=== PATIENT | female | born 1950 | race Caucasian/White ===

== ENCOUNTER → 2020-06-25 12:55 | Outpatient (BNVA) | payer MEDICARE, SELFPAY | PROVIDERS: PCP Physician Assistant; Visit Provider Family Medicine Adult Medicine | DX: M96.1 Postlaminectomy syndrome, not elsewhere classified (principal); Z98.1 Arthrodesis status; F17.200 Nicotine dependence, unspecified, uncomplicated; Z79.899 Other long term (current) drug therapy; Z79.52 Long term (current) use of systemic steroids; Z79.891 Long term (current) use of opiate analgesic | CPT/HCPCS: 99214 ==

== ENCOUNTER 2020-07-18 10:31 | Outpatient (REF) | payer MEDICARE, SELFPAY ==
--- NOTE | 2020-07-18 10:35 | MM_ITS ---
EXAMINATION: MM SCREENING DIGITAL BREAST TOMOSYNTHESIS, BILATERAL CLINICAL INFORMATION: Screening. Asymptomatic. The lifetime risk of breast cancer based on the Tyrer-Cuzick Model is 7.3%. COMPARISON: Mammography: July 13, 2019 and stapes dating back to March 08, 2012 TECHNIQUE: Digital breast tomosynthesis is performed in both the craniocaudal and mediolateral oblique views along with computer-aided detection (CAD). Synthesized 2D images are generated from the tomosynthesis. Right exaggerated craniocaudal view also performed. FINDINGS: The breasts are extremely dense, which lowers the sensitivity of mammography (ACR BI-RADS breast composition Category d). There are no significant masses, abnormal calcifications, or other abnormalities. MM/MM tomosynthesis screening BI IMPRESSION: There are no significant changes from prior study. ASSESSMENT: BI-RADS 1: Negative RECOMMENDATION: Routine annual mammography screening. This patient's information was entered into a reminder system with a target due date for their next mammogram.
== END 2020-07-18 10:32 | disposition home or self-care (01) ==
LOC: HO.MAMMO 10:31
PROVIDERS: PCP Physician Assistant; Visit Provider Physician Assistant
DX: Z12.31 Encounter for screening mammogram for malignant neoplasm of breast (principal)
CPT/HCPCS: 77063; 77067

== ENCOUNTER → 2020-07-30 08:01 | Outpatient (BNVA) | payer MEDICARE, SELFPAY | PROVIDERS: PCP Physician Assistant; Visit Provider Family Medicine Adult Medicine | DX: M96.1 Postlaminectomy syndrome, not elsewhere classified (principal); Z79.891 Long term (current) use of opiate analgesic; Z98.1 Arthrodesis status | CPT/HCPCS: 99212 ==

== ENCOUNTER → 2020-09-10 11:02 | Outpatient (BNVA) | payer MEDICARE, SELFPAY | PROVIDERS: PCP Physician Assistant; Visit Provider Family Medicine Adult Medicine | DX: M96.1 Postlaminectomy syndrome, not elsewhere classified (principal); Z98.1 Arthrodesis status | CPT/HCPCS: 99212 ==

== ENCOUNTER 2020-10-16 | Outpatient (REF) | payer MEDICARE, SELFPAY | END 2020-10-16 00:01 | disposition home or self-care (01) | LOC: HO.VC | PROVIDERS: Visit Provider Internal Medicine | DX: Z23 Encounter for immunization (principal) | CPT/HCPCS: 0011A ==

== ENCOUNTER → 2020-10-31 08:36 | Outpatient (BNVA) | payer MEDICARE, SELFPAY | PROVIDERS: PCP Physician Assistant; Visit Provider Anesthesiology | DX: M96.1 Postlaminectomy syndrome, not elsewhere classified (principal); Z98.1 Arthrodesis status | CPT/HCPCS: 99212 ==

== ENCOUNTER 2020-11-12 | Outpatient (REF) | payer MEDICARE, SELFPAY | END 2020-11-12 00:01 | disposition home or self-care (01) | LOC: HO.VC | PROVIDERS: Visit Provider Internal Medicine | DX: Z23 Encounter for immunization (principal) | CPT/HCPCS: 0012A ==

== ENCOUNTER → 2020-11-20 13:42 | Outpatient (BNVA) | payer MEDICARE, SELFPAY | PROVIDERS: PCP Physician Assistant; Visit Provider Internal Medicine | DX: J44.9 Chronic obstructive pulmonary disease, unspecified (principal); G25.81 Restless legs syndrome; F17.200 Nicotine dependence, unspecified, uncomplicated; Z71.6 Tobacco abuse counseling; Z79.899 Other long term (current) drug therapy | CPT/HCPCS: 99212 ==

== ENCOUNTER → 2020-11-28 08:30 | Outpatient (BNVA) | payer MEDICARE, SELFPAY | PROVIDERS: PCP Physician Assistant; Visit Provider Family Medicine Adult Medicine | DX: M96.1 Postlaminectomy syndrome, not elsewhere classified (principal); Z98.1 Arthrodesis status; Z79.899 Other long term (current) drug therapy | CPT/HCPCS: 99212 ==

== ENCOUNTER 2020-12-03 10:59 | Outpatient (REF) | payer MEDICARE, SELFPAY ==
--- NOTE | 2020-12-03 16:17 | PFT_ITS ---
INDICATION: COPD. SPIROMETRY: The FEV1 to FVC of 73% with an FEV1 of 1.91 L, which is 72% predicted, FVC of 2.62 L, which is 75% predicted. No significant response to bronchodilators noted. Maximum voluntary ventilation 79% predicted. LUNG VOLUMES: Total lung capacity 90% predicted. DIFFUSION CAPACITY: DLCO 36% predicted. Flow volume loop: There was some concavity to the expiratory limb suggesting some of an obstructive physiology. INTERPRETATION: The patient appears to have a moderate obstructive ventilatory defect with some degree of reversibility suggestive of asthma/COPD overlap syndrome. No significant response to bronchodilators noted. Slight decrease in maximum voluntary ventilation secondary to deconditioning. Lung volumes are within normal limits. The patient does have a very severe diffusion impairment, which could be secondary to emphysematous changes and all other parenchymal lung conditions and pulmonary vascular conditions should be considered. Clinical correlation warranted. Aravind Shankar MD MR/MODL / [id number]
== END 2020-12-03 11:00 | disposition home or self-care (01) ==
LOC: HO.RESP 10:59
PROVIDERS: PCP Physician Assistant; Visit Provider Internal Medicine
DX: J44.9 Chronic obstructive pulmonary disease, unspecified (principal); F17.200 Nicotine dependence, unspecified, uncomplicated
CPT/HCPCS: 94060; 94727; 94729

== ENCOUNTER → 2021-01-09 08:27 | Outpatient (BNVA) | payer MEDICARE, SELFPAY | PROVIDERS: PCP Physician Assistant; Visit Provider Family Medicine Adult Medicine | DX: M96.1 Postlaminectomy syndrome, not elsewhere classified (principal); Z98.1 Arthrodesis status | CPT/HCPCS: 99212 ==

== ENCOUNTER 2021-01-23 11:22 | Outpatient (REF) | payer MEDICARE, SELFPAY ==
--- NOTE | ~2021-01-23 | CT_ITS ---
EXAMINATION: CT CHEST SCREENING CLINICAL INFORMATION: Smoking history COMPARISON: Previous chest CT October 2019 TECHNIQUE: Multidetector volumetric CT imaging of the chest is performed without contrast using low dose technique. Additional 2D coronal and sagittal reformatted images and axial 3D maximum intensity projection (MIP) images are generated on the CT workstation. This CT examination was performed using dose optimization techniques as appropriate, variously including the following: *Automated exposure control *Adjustment of mA and/or kV according to patient size (this includes techniques or standardized protocols for targeted exams where dose is matched to indication/reason for exam; i.e. extremities or head) *Use of iterative reconstruction technique DLP: 45 mGy-cm FINDINGS: LUNGS: There is evidence of emphysema. There are small 2 to 3 mm bilateral upper lobe nodules that are stable. No new nodule is seen. There is scarring or subsegmental atelectasis in the anterior medial right upper lobe at the lung bases that is stable. There is no endobronchial or endotracheal lesion. MEDIASTINUM: The heart does not appear enlarged. There is mild coronary artery calcification. The thoracic aorta is normal in caliber. There are no enlarged hilar or mediastinal lymph nodes. The visualized thyroid gland is unremarkable. PLEURA: There is no pleural effusion. No pleural mass or thickening. AXILLA: No lymphadenopathy. UPPER ABDOMEN: Unremarkable OSSEOUS STRUCTURES: There are degenerative changes of the spine and mild scoliosis. CT/CT lung screening IMPRESSION: Severe emphysema. Stable small bilateral upper lobe nodules ASSESSMENT: Lung-RADS category 2: Benign RECOMMENDATION: Annual low-dose chest CT follow-up recommended.
== END 2021-01-23 11:23 | disposition home or self-care (01) ==
LOC: HO.CT 11:22
PROVIDERS: PCP Physician Assistant; Visit Provider Surgery
DX: Z12.2 Encounter for screening for malignant neoplasm of respiratory organs (principal); F17.210 Nicotine dependence, cigarettes, uncomplicated
CPT/HCPCS: 71271

== ENCOUNTER → 2021-02-19 08:26 | Outpatient (BNVA) | payer MEDICARE, SELFPAY | PROVIDERS: PCP Physician Assistant; Visit Provider Nurse Practitioner Family | DX: M96.1 Postlaminectomy syndrome, not elsewhere classified (principal); Z98.1 Arthrodesis status | CPT/HCPCS: 99212 ==

== ENCOUNTER → 2021-03-20 09:26 | Outpatient (BNVA) | payer MEDICARE, SELFPAY | PROVIDERS: PCP Physician Assistant; Visit Provider Family Medicine Adult Medicine | DX: M96.1 Postlaminectomy syndrome, not elsewhere classified (principal); Z98.1 Arthrodesis status | CPT/HCPCS: 99212 ==

== ENCOUNTER → 2021-04-17 10:58 | Outpatient (BNVA) | payer MEDICARE, SELFPAY | PROVIDERS: PCP Physician Assistant; Visit Provider Family Medicine Adult Medicine | DX: M96.1 Postlaminectomy syndrome, not elsewhere classified (principal); Z98.1 Arthrodesis status | CPT/HCPCS: 99212 ==

== ENCOUNTER 2021-04-18 08:31 | Outpatient (REF) | payer MEDICARE, SELFPAY ==
[2021-04-18 10:20] LABS: Hematocrit 43.6 % (37-47); Hemoglobin 14.4 g/dl (12.0-16.0); Mean Corpuscular Hemoglobin 30.9 pg (27.0-33.0); Mean Corpuscular Volume 93.6 fL (80-98); Mean Platelet Volume 9.5 fL (9.4-12.3); Platelet Count 205 X10*3/uL (160-400); Red Blood Count 4.66 X10*6/uL (4.20-5.50); Red Cell Distribution Width 13.9 % (11.0-16.0); White Blood Count 6.3 X10*3/uL (4.8-10.8)
[2021-04-18 10:27] LABS: Estimated Average Glucose 111 mg/dL; Hemoglobin A1c % 5.5 %
[2021-04-18 11:08] LABS: Alanine Aminotransferase 12 U/L (0-31); Albumin Level 4.1 g/dL (3.5-5.0); Alkaline Phosphatase 64 U/L (39-117); Anion Gap 13 (12-20); Aspartate Amino Transferase 20 U/L (5-31); Bilirubin Total 0.7 mg/dL (0.0-1.0); Blood Urea Nitrogen 14 mg/dL (9-16); Calcium 9.3 mg/dL (8.4-10.2); Carbon Dioxide 28 mmol/L (22-29); Chloride 101 mmol/L (96-108); Cholesterol 195 mg/dL; Estimated Glomerular Filt Rate > 60; Glucose Fasting 84 mg/dL (60-99); HDL Cholesterol 83 mg/dL; LDL Cholesterol Calculated 102 mg/dl; Potassium 5.3 mmol/L (3.3-5.1); Sodium 137 mmol/L (135-145); Total Protein 6.9 g/dL (6.5-8.0); Triglycerides 54 mg/dL
[2021-04-18 11:09] LABS: TSH reflex Free T4 2.11 uIU/mL (0.32-4.0)
== END 2021-04-18 08:32 | disposition home or self-care (01) ==
LOC: HO.LAB 08:31
PROVIDERS: Absent Provider Physician Assistant; PCP Physician Assistant; Visit Provider Family Medicine Adult Medicine
DX: Z13.220 Encounter for screening for lipoid disorders (principal); Z13.29 Encounter for screening for other suspected endocrine disorder; I10 Essential (primary) hypertension; J44.9 Chronic obstructive pulmonary disease, unspecified; G89.4 Chronic pain syndrome
CPT/HCPCS: 36415; 80053; 80061; 83036; 84443; 85027

== ENCOUNTER 2021-04-30 15:02 | Outpatient (REF) | payer MEDICARE, SELFPAY ==
[2021-04-30 16:11] LABS: Anion Gap 11 (12-20); Carbon Dioxide 28 mmol/L (22-29); Chloride 98 mmol/L (96-108); Potassium 4.4 mmol/L (3.3-5.1); Sodium 133 mmol/L (135-145)
== END 2021-04-30 15:03 | disposition home or self-care (01) ==
LOC: HO.LAB 15:02
PROVIDERS: PCP Physician Assistant; Visit Provider Physician Assistant
DX: E87.5 Hyperkalemia (principal)
CPT/HCPCS: 36415; 80051

== ENCOUNTER → 2021-05-20 10:57 | Outpatient (BNVA) | payer MEDICARE, SELFPAY | PROVIDERS: PCP Physician Assistant; Visit Provider Nurse Practitioner Family | DX: M96.1 Postlaminectomy syndrome, not elsewhere classified (principal); Z98.1 Arthrodesis status | CPT/HCPCS: 99212 ==

== ENCOUNTER → 2021-06-17 12:57 | Outpatient (BNVA) | payer MEDICARE, SELFPAY | PROVIDERS: PCP Physician Assistant; Visit Provider Nurse Practitioner Family | DX: Z51.81 Encounter for therapeutic drug level monitoring (principal); M96.1 Postlaminectomy syndrome, not elsewhere classified; Z98.1 Arthrodesis status | CPT/HCPCS: 99212 ==

== ENCOUNTER 2021-06-20 13:15 | Outpatient (REF) | payer MEDICARE, SELFPAY ==
[2021-06-20 14:22] LABS: Hematocrit 40.6 % (37-47); Hemoglobin 13.6 g/dl (12.0-16.0); Mean Corpuscular HGB Conc 33.5 g/dl (31.0-35.0); Mean Corpuscular Hemoglobin 31.3 pg (27.0-33.0); Mean Corpuscular Volume 93.3 fL (80-98); Mean Platelet Volume 8.9 fL (9.4-12.3); Platelet Count 220 X10*3/uL (160-400); Red Blood Count 4.35 X10*6/uL (4.20-5.50); Red Cell Distribution Width 14.3 % (11.0-16.0); White Blood Count 6.4 X10*3/uL (4.8-10.8)
[2021-06-20 14:48] LABS: Amylase 45 U/L (28-100); Anion Gap 10 (12-20); Blood Urea Nitrogen 15 mg/dL (9-16); Calcium 9.4 mg/dL (8.4-10.2); Carbon Dioxide 31 mmol/L (22-29); Chloride 101 mmol/L (96-108); Estimated Glomerular Filt Rate > 60; Glucose Random 82 mg/dL (60-115); Lipase 21 U/L (8-78); Potassium 4.6 mmol/L (3.3-5.1); Sodium 137 mmol/L (135-145)
== END 2021-06-20 13:16 | disposition home or self-care (01) ==
LOC: HO.LAB 13:15
PROVIDERS: PCP Physician Assistant; Visit Provider Physician Assistant
DX: R19.4 Change in bowel habit (principal); I10 Essential (primary) hypertension
CPT/HCPCS: 36415; 80048; 82150; 83690; 85027

== ENCOUNTER → 2021-07-15 12:59 | Outpatient (BNVA) | payer MEDICARE, SELFPAY | PROVIDERS: PCP Physician Assistant; Visit Provider Family Medicine Adult Medicine | DX: M96.1 Postlaminectomy syndrome, not elsewhere classified (principal); Z98.1 Arthrodesis status; Z79.899 Other long term (current) drug therapy; Z79.891 Long term (current) use of opiate analgesic | CPT/HCPCS: 99213; Q3014 ==

== ENCOUNTER 2021-07-17 09:00 | Outpatient (REF) | payer MEDICARE, SELFPAY ==
--- NOTE | ~2021-07-17 | US_ITS ---
EXAMINATION: US ABDOMEN COMPLETE CLINICAL INFORMATION: Abdominal distention (gaseous). COMPARISON: Previous chest CT October 2019 TECHNIQUE: Real-time imaging of the abdominal viscera. FINDINGS: PANCREAS: There is a 1.6 x 0.6 x 1.4 cm lymph node adjacent to the pancreatic head. Pancreas is otherwise normal. ABDOMINAL AORTA: There is evidence of atherosclerotic disease. The upper abdominal aorta is upper normal in size measuring 3 cm. The mid and distal abdominal aorta are normal in caliber. INFERIOR VENA CAVA: The IVC is prominent measuring 3.2 cm in diameter. LIVER: The liver is normal in size. The liver contour is normal. Parenchymal echogenicity is normal. No focal hepatic lesion. There is no intrahepatic biliary duct dilatation seen. GALLBLADDER: The gallbladder is physiologically distended without evidence of stones, sludge, polyps, wall thickening or pericholecystic fluid. COMMON BILE DUCT: Normal in caliber measuring 0.2 cm in diameter. RIGHT KIDNEY: There is a 9 x 6 x 5 mm cyst exophytic to the midpole. No hydronephrosis or renal calculi. The kidney measures 10.8 cm in maximum dimension. LEFT KIDNEY: Normal. No hydronephrosis. No renal calculi or focal parenchymal lesions. The kidney measures 11.1 cm in maximum dimension. SPLEEN: Normal. The spleen measures 7.5 cm in maximum dimension. FREE FLUID: None. US/US abdomen complete IMPRESSION: Small peripancreatic lymph node measuring 1.6 x 0.6 x 1.4 cm. Small right renal cyst. Upper normal-size upper abdominal aorta. Prominent IVC.
== END 2021-07-17 09:01 | disposition home or self-care (01) ==
LOC: HO.US 09:00
PROVIDERS: PCP Physician Assistant; Visit Provider Physician Assistant
DX: R14.0 Abdominal distension (gaseous) (principal)
CPT/HCPCS: 76700

== ENCOUNTER 2021-07-25 11:41 | Outpatient (REF) | payer MEDICARE, SELFPAY ==
--- NOTE | ~2021-07-25 | MM_ITS ---
EXAMINATION: MM SCREENING DIGITAL BREAST TOMOSYNTHESIS, BILATERAL CLINICAL INFORMATION: Screening. Asymptomatic. The lifetime risk of breast cancer based on the Tyrer-Cuzick Model is 6%. COMPARISON: Mammography: 07/18/2020, 07/13/2019, 06/22/2018 TECHNIQUE: Digital breast tomosynthesis is performed in both the craniocaudal and mediolateral oblique views along with computer-aided detection (CAD). Synthesized 2D images are generated from the tomosynthesis. FINDINGS: The breasts are extremely dense, which lowers the sensitivity of mammography (ACR BI-RADS breast composition Category d). There are no significant masses, abnormal calcifications, or other abnormalities. Parenchymal pattern is similar to prior studies. No developing density. The axilla and skin contours are unremarkable. MM/MM tomosynthesis screening BI IMPRESSION: No mammographic evidence of malignancy. ASSESSMENT: BI-RADS 1: Negative RECOMMENDATION: Routine annual mammography screening. This patient's information was entered into a reminder system with a target due date for their next mammogram.
== END 2021-07-25 11:42 | disposition home or self-care (01) ==
LOC: HO.MAMMO 11:41
PROVIDERS: Visit Provider Physician Assistant
DX: Z12.31 Encounter for screening mammogram for malignant neoplasm of breast (principal)
CPT/HCPCS: 77063; 77067

== ENCOUNTER → 2021-07-29 11:24 | Outpatient (BNVA) | payer MEDICARE, SELFPAY | PROVIDERS: PCP Physician Assistant; Visit Provider Surgery Vascular Surgery | DX: I83.12 Varicose veins of left lower extremity with inflammation (principal) | CPT/HCPCS: 99202 ==

== ENCOUNTER 2021-08-18 10:30 | Outpatient (REF) | payer MEDICARE, SELFPAY ==
--- NOTE | ~2021-08-18 | US_ITS ---
EXAMINATION: US LOWER EXTREMITY VENOUS (REFLUX EXAM), BILATERAL CLINICAL INDICATION: This is a 71-year-old female with venous insufficiency and varicose veins. The patient is status post left vein stripping in 2008. COMPARISON: None. TECHNIQUE: Color flow triplex imaging and compression Doppler was performed to evaluate both the deep and the superficial systems bilaterally. To evaluate the superficial system, the examination was performed in the upright position. Color-flow Doppler ultrasound and compression ultrasound were utilized. In addition, maneuvers were utilized to demonstrate reflux. FINDINGS: 1. DEEP VENOUS ULTRASOUND OF THE RIGHT LOWER EXTREMITY: Common Femoral Vein: Compressible, normal respiratory variation and augmented flow. Femoral vein: Compressible, normal color flow and augmentation. Popliteal Vein: Compressible, normal augmentation. Deep Reflux: There is no evidence of reflux in the deep system in either the common femoral vein or the popliteal vein. There is no evidence of a Alcaraz's cyst. 2. SUPERFICIAL ULTRASOUND WITH DOPPLER OF RIGHT LOWER EXTREMITY: GREAT SAPHENOUS VEIN: Saphenofemoral Junction: 0.5 cm. The reflux time is 3204 ms. Mid Thigh: 0.4 cm. The reflux time is 2864 ms per Above Knee: 0.4 cm. The reflux time is 3360 ms. Below Knee: 0.4 cm. The reflux time is 3320 ms. Mid Calf: 0.2 cm. The reflux time is 3003 and 48 ms. Ankle: 0.3 cm. There is no reflux. GSV REFLUX: There is reflux throughout the great saphenous vein including the saphenofemoral junction. DUPLICATED GREAT SAPHENOUS VEIN: There is a 0.4 cm duplicated lateral great saphenous vein without reflux. SMALL SAPHENOUS VEIN: Proximal: 0.2 cm. There is no reflux. Distal: 0.3 cm. The reflux time is 784 ms. SSV REFLUX: There is only distal reflux. VEIN OF GIACOMINI: None Imaged. PERFORATORS: There is a 0.2 cm mid calf application dba without reflux. VARICOSITIES: There is a 0.3 cm varicose vein in the proximal thigh without reflux. 3. DEEP VENOUS ULTRASOUND OF THE LEFT LOWER EXTREMITY: Common Femoral Vein: Compressible but with reflux of 2660 ms of reflux.. Femoral Vein: Compressible but without reflux. Popliteal Vein: Compressible, but with reflux of 860 ms of reflux. Deep Reflux: There is no evidence of reflux in the deep system in either the common femoral vein or the popliteal vein. There is a 2.7 x 1.2 x 2.2 cm fluid collection medial to the knee. This may represent a popliteal cyst. 4. SUPERFICIAL ULTRASOUND WITH DOPPLER OF LEFT LOWER EXTREMITY: GREAT SAPHENOUS VEIN: Saphenofemoral Junction: 0.6 cm. There is no reflux Mid Thigh: Absent status post stripping. Above Knee: Absent status post stripping. Below Knee: Absent status post stripping. Mid Calf: 0.4 cm. The reflux time is 3284 ms. Ankle: 0.4 cm. The reflux time is 3324 ms GSV REFLUX: There is no reflux at the junction. There is distal reflux. DUPLICATED GREAT SAPHENOUS VEIN: None SMALL SAPHENOUS VEIN: Proximal: 0.2 cm Distal: 0.4 cm SSV REFLUX: No evidence of reflux. VEIN OF GIACOMINI: None Imaged. PERFORATORS: None Imaged VARICOSITIES: There are 0.4 cm proximal thigh, mid thigh, distal thigh, proximal calf varicose veins with greater than 3 seconds of reflux throughout. US/US venous duplex LE BI IMPRESSION: 1. There is a patent right great saphenous vein with greater than 3 seconds of reflux. 2. There is a patent right small saphenous vein without evidence of reflux at the junction. 3. There are 0.3 cm proximal right thigh varicose veins without reflux. 4. The patient is status post left great saphenous vein stripping. Distal reflux is seen. 5. There is a patent left small saphenous vein without reflux. 6. There are varicose veins in the left leg measuring 0.4 cm with greater than 3 seconds of reflux. 7. There is a 2.7 cm left knee fluid collection. A. There is reflux in the deep venous system as noted.
== END 2021-08-18 10:31 | disposition home or self-care (01) ==
LOC: HO.US 10:30
PROVIDERS: PCP Physician Assistant; Visit Provider Surgery Vascular Surgery
DX: I83.12 Varicose veins of left lower extremity with inflammation (principal)
CPT/HCPCS: 93970

== ENCOUNTER → 2021-08-19 13:28 | Outpatient (BNVA) | payer MEDICARE, SELFPAY | PROVIDERS: PCP Physician Assistant; Visit Provider Family Medicine Adult Medicine | DX: M96.1 Postlaminectomy syndrome, not elsewhere classified (principal); Z98.1 Arthrodesis status ==

== ENCOUNTER → 2021-08-21 10:12 | Outpatient (BNVA) | payer MEDICARE, SELFPAY | PROVIDERS: PCP Physician Assistant; Visit Provider Surgery Vascular Surgery | DX: I83.12 Varicose veins of left lower extremity with inflammation (principal) | CPT/HCPCS: 99212 ==

== ENCOUNTER → 2021-09-16 13:01 | Outpatient (BNVA) | payer MEDICARE, SELFPAY | PROVIDERS: PCP Physician Assistant; Visit Provider Family Medicine Adult Medicine | DX: M96.1 Postlaminectomy syndrome, not elsewhere classified (principal); Z98.1 Arthrodesis status ==

== ENCOUNTER → 2021-10-10 09:49 | Outpatient (BNVA) | payer MEDICARE, SELFPAY | PROVIDERS: PCP Physician Assistant; Visit Provider Nurse Practitioner Family | DX: Z51.81 Encounter for therapeutic drug level monitoring (principal); F11.20 Opioid dependence, uncomplicated; M96.1 Postlaminectomy syndrome, not elsewhere classified; Z98.1 Arthrodesis status | CPT/HCPCS: 99212 ==

== ENCOUNTER 2021-10-10 10:30 | Outpatient (REF) | payer MEDICARE, SELFPAY ==
[2021-10-14 11:26] LABS: Immunoglobulin A 132 mg/dL (70-320)
[2021-10-15 13:26] LABS: Endomysial IgA Antibody Negative (Negative)
[2021-10-15 17:17] LABS: Transglutaminase Ab IgG <1.0 U/mL; Transglutaminase IgA <1.0 U/mL
[2021-10-16 07:57] LABS: Gliadin Deamidated IgA Ab <1.0 U/mL; Gliadin Deamidated IgG Ab <1.0 U/mL
== END 2021-10-10 10:31 | disposition home or self-care (01) ==
LOC: HO.10HDL 10:30
PROVIDERS: Visit Provider Internal Medicine
DX: R10.84 Generalized abdominal pain (principal); R14.0 Abdominal distension (gaseous); M96.1 Postlaminectomy syndrome, not elsewhere classified; Z98.1 Arthrodesis status
CPT/HCPCS: 36415; 82784; 86231; 86258; 86364

== ENCOUNTER 2021-10-14 11:34 | Outpatient (REF) | payer MEDICARE, SELFPAY ==
--- NOTE | ~2021-10-14 | CT_ITS ---
EXAMINATION: CT ABDOMEN AND PELVIS WITH CONTRAST CLINICAL INFORMATION: Change in bowel habit. COMPARISON: None TECHNIQUE: Multidetector volumetric images were obtained from the superior aspect of the liver through the pubic symphysis following administration 85 mL of Omnipaque 350 intravenous contrast. Sagittal and coronal reformatted images were obtained on the technologist's workstation. Oral contrast: No This CT examination was performed using dose optimization techniques as appropriate, variously including the following: *Automated exposure control *Adjustment of mA and/or kV according to patient size (this includes techniques or standardized protocols for targeted exams where dose is matched to indication/reason for exam; i.e. extremities or head) *Use of iterative reconstruction technique DLP: 375 mGy-cm FINDINGS: LUNG BASES: The heart size is enlarged. There is platelike atelectasis in both lung bases. LIVER, GALLBLADDER, AND BILIARY TREE: The liver is normal in size, shape, and attenuation. No focal hepatic lesion or biliary ductal dilatation is present. The gallbladder is unremarkable with no evidence of radiopaque gallstones, gallbladder wall thickening, or obvious pericholecystic inflammatory changes. PANCREAS: Unremarkable. SPLEEN: Unremarkable. ADRENAL GLANDS: Unremarkable. KIDNEYS AND URETERS: The kidneys are normal in size, shape, and attenuation. No hydronephrosis, hydroureter, or calculi seen. No perinephric stranding. BLADDER: The bladder is undistended. GASTROINTESTINAL TRACT: There is a large amount of stool seen throughout the colon consistent with severe constipation. The distal small bowel loops are mildly prominent with gas but not dilated. The stomach is empty. Appendix is not seen. No free air or free fluid seen. ABDOMINAL WALL: No significant hernia is appreciated. LYMPH NODES: Normal. VASCULAR: There is atherosclerotic calcification of abdominal aorta without aneurysmal dilatation. PELVIC VISCERA: The uterus is anteverted and appears unremarkable. There is no free fluid or adnexal mass. No abnormal lymph nodes. OSSEOUS STRUCTURES: There is a levoscoliosis of dorsal lumbar spine with degenerative disc changes and spondylosis at every lumbar disc level. There is mild osteopenia. There is Grade 1 anterolisthesis L4-L5 with posterior hardware for L4-L5 effusion. CT/CT abdomen pelvis w con IMPRESSION: Severe constipation without signs of obstruction. No acute intra-abdominal process seen. Moderate levoscoliosis with degenerative disc changes at virtually every disc level. Grade 1 anterolisthesis L4 over L5 stabilized with posterior hardware. Fleischner guidelines were followed.
[2021-10-14 13:19] LABS: Blood Urea Nitrogen 14 mg/dL (9-16); Estimated Glomerular Filt Rate > 60
[2021-10-14] MEDS: iohexoL 350 MG/ML 100 ML INFUS..BTL IV (14:46)
[2021-10-14] MEDS: Barium Sulfate Oral (Vanilla) 450 ML ORAL.SUSP 900 ML PO (14:47)
== END 2021-10-14 11:35 | disposition home or self-care (01) ==
LOC: HO.CT 11:34
PROVIDERS: PCP Physician Assistant; Visit Provider Internal Medicine
DX: R10.84 Generalized abdominal pain (principal); R14.0 Abdominal distension (gaseous); R19.4 Change in bowel habit
CPT/HCPCS: 36415; 74177; 82565; 84520; Q9967

== ENCOUNTER → 2021-11-07 09:27 | Outpatient (BNVA) | payer MEDICARE, SELFPAY | PROVIDERS: PCP Physician Assistant; Visit Provider Nurse Practitioner Family | DX: M96.1 Postlaminectomy syndrome, not elsewhere classified (principal); Z79.891 Long term (current) use of opiate analgesic; Z98.1 Arthrodesis status | CPT/HCPCS: 99212 ==

== ENCOUNTER → 2021-11-19 10:59 | Outpatient (BNVA) | payer MEDICARE, SELFPAY | PROVIDERS: PCP Physician Assistant; Visit Provider Internal Medicine | DX: J41.0 Simple chronic bronchitis (principal); G25.81 Restless legs syndrome; F17.210 Nicotine dependence, cigarettes, uncomplicated | CPT/HCPCS: 99212 ==

== ENCOUNTER → 2021-12-05 10:59 | Outpatient (BNVA) | payer MEDICARE, SELFPAY | PROVIDERS: PCP Physician Assistant; Visit Provider Nurse Practitioner Family | DX: Z13.89 Encounter for screening for other disorder (principal) ==

== ENCOUNTER → 2022-01-02 10:26 | Outpatient (BNVA) | payer MEDICARE, SELFPAY | PROVIDERS: PCP Physician Assistant; Visit Provider Nurse Practitioner Family | DX: Z51.81 Encounter for therapeutic drug level monitoring (principal); F11.20 Opioid dependence, uncomplicated; M96.1 Postlaminectomy syndrome, not elsewhere classified; Z98.1 Arthrodesis status | CPT/HCPCS: 99212 ==

== ENCOUNTER → 2022-01-30 12:55 | Outpatient (BNVA) | payer MEDICARE, SELFPAY | PROVIDERS: PCP Physician Assistant; Visit Provider Nurse Practitioner Family | DX: Z13.89 Encounter for screening for other disorder (principal) ==

== ENCOUNTER 2022-02-10 13:27 | Outpatient (REF) | payer MEDICARE, SELFPAY ==
--- NOTE | ~2022-02-10 | XR_ITS ---
EXAMINATION: XR CHEST CLINICAL INFORMATION: J40 - Bronchitis, not specified as acute or chronic COMPARISON: Chest radiographs 03/30/2019, 02/11/2018. TECHNIQUE: 2 views of the chest were obtained. FINDINGS: There is hyperinflation, greater in the upper zones, similar to prior exam. Some accentuated reticular markings are present at the subpleural bilateral bases. There is subtle airspace opacity left posterior basal lower lobe suggesting infiltrate. The remainder the lungs are clear. The vascularity is normal. The cardiopericardial silhouette is enlarged, similar to prior study. The hilar and mediastinal contours and bony structures are stable. PSA to call report. XR/XR chest 2V IMPRESSION: -Infiltrate posterior basal left lower lobe. No effusion. -Hyperinflation and cardiopericardial enlargement similar to prior exams.
== END 2022-02-10 13:28 | disposition home or self-care (01) ==
LOC: HO.XRAY 13:27
PROVIDERS: PCP Physician Assistant; Visit Provider Internal Medicine
DX: J44.1 Chronic obstructive pulmonary disease with (acute) exacerbation (principal); J40 Bronchitis, not specified as acute or chronic; F17.200 Nicotine dependence, unspecified, uncomplicated; Z71.6 Tobacco abuse counseling
CPT/HCPCS: 71046; 99212

== ENCOUNTER → 2022-02-27 12:58 | Outpatient (BNVA) | payer MEDICARE, SELFPAY | PROVIDERS: PCP Physician Assistant; Visit Provider Nurse Practitioner Family | DX: Z51.81 Encounter for therapeutic drug level monitoring (principal); F11.20 Opioid dependence, uncomplicated | CPT/HCPCS: 99211 ==

== ENCOUNTER 2022-03-10 16:00 | Outpatient (REF) | payer MEDICARE, SELFPAY ==
--- NOTE | ~2022-03-10 | XR_ITS ---
EXAMINATION: XR CHEST CLINICAL INFORMATION: Follow-up pneumonia COMPARISON: Previous chest x-ray January 2022 TECHNIQUE: 2 views of the chest were obtained. FINDINGS: The cardiac and mediastinal contours are stable. The left lower lobe infiltrate appears improved. The lungs are otherwise clear. The lungs are well inflated. There is no pleural effusion or pneumothorax. There are degenerative changes of the spine. XR/XR chest 2V IMPRESSION: Clearing left lower lobe infiltrate.
== END 2022-03-10 16:01 | disposition home or self-care (01) ==
LOC: HO.XRAY 16:00
PROVIDERS: PCP Physician Assistant; Visit Provider Internal Medicine
DX: J44.1 Chronic obstructive pulmonary disease with (acute) exacerbation (principal); J18.9 Pneumonia, unspecified organism
CPT/HCPCS: 71046; 99212

== ENCOUNTER 2022-03-24 10:24 | Outpatient (REF) | payer MEDICARE, SELFPAY ==
--- NOTE | ~2022-03-24 | CT_ITS ---
EXAMINATION: CT CHEST SCREENING CLINICAL INFORMATION: Current smoker. COMPARISON: Previous chest CT most recent January of 2021. TECHNIQUE: Multidetector volumetric CT imaging of the chest is performed without contrast using low dose technique. Additional 2D coronal and sagittal reformatted images and axial 3D maximum intensity projection (MIP) images are generated on the CT workstation. This CT examination was performed using dose optimization techniques as appropriate, variously including the following: *Automated exposure control *Adjustment of mA and/or kV according to patient size (this includes techniques or standardized protocols for targeted exams where dose is matched to indication/reason for exam; i.e. extremities or head) *Use of iterative reconstruction technique DLP: 42 mGy-cm FINDINGS: LUNGS: There is evidence of emphysema. There is chronic volume loss, bronchiectasis and atelectasis in the right middle lobe that is unchanged. There is chronic subsegmental atelectasis or scarring at the lung bases. The lungs are otherwise clear. There is increased soft tissue seen in the matilda and bilateral proximal mainstem bronchi, for example (axial image 197), series 5. MEDIASTINUM: Coronary artery and aortic valve calcification. The mediastinum is otherwise normal. PLEURA: There is no pleural effusion. No pleural mass or thickening. AXILLA: No lymphadenopathy. UPPER ABDOMEN: Unremarkable. OSSEOUS STRUCTURES: Degenerative changes of the spine. CT/CT lung screening IMPRESSION: Emphysema. Stable volume loss, atelectasis and focal bronchiectasis in the medial segment of the right middle lobe. Stable linear scarring or chronic subsegmental atelectasis at the lung bases. New increased soft tissue seen at the matilda and proximal bilateral mainstem bronchi. It is uncertain whether this is related to patient secretions. Atherosclerotic disease and coronary artery calcification. ASSESSMENT: Lung-RADS category 3: Probably Benign. RECOMMENDATION: Six-month low-dose chest CT follow up.
== END 2022-03-24 10:25 | disposition home or self-care (01) ==
LOC: HO.CT 10:24
PROVIDERS: Visit Provider Physician Assistant Medical
DX: F17.210 Nicotine dependence, cigarettes, uncomplicated (principal)
CPT/HCPCS: 71271

== ENCOUNTER → 2022-03-27 13:27 | Outpatient (BNVA) | payer MEDICARE, SELFPAY | PROVIDERS: PCP Physician Assistant; Visit Provider Nurse Practitioner Family | DX: Z51.81 Encounter for therapeutic drug level monitoring (principal); F11.20 Opioid dependence, uncomplicated; M96.1 Postlaminectomy syndrome, not elsewhere classified; S29.012A Strain of muscle and tendon of back wall of thorax, initial encounter; Z98.1 Arthrodesis status | CPT/HCPCS: 99212 ==

== ENCOUNTER 2022-04-08 07:52 | Outpatient (REF) | payer MEDICARE, SELFPAY ==
[2022-04-08 08:59] LABS: Estimated Average Glucose 105 mg/dL; Hemoglobin A1c % 5.3 %
[2022-04-08 09:35] LABS: Alanine Aminotransferase 18 U/L (0-31); Albumin Level 4.3 g/dL (3.5-5.0); Alkaline Phosphatase 63 U/L (39-117); Anion Gap 9 (12-20); Aspartate Amino Transferase 20 U/L (5-31); Bilirubin Total 0.9 mg/dL (0.0-1.0); Blood Urea Nitrogen 12 mg/dL (9-16); Calcium 8.8 mg/dL (8.4-10.2); Carbon Dioxide 30 mmol/L (22-29); Chloride 101 mmol/L (96-108); Cholesterol 197 mg/dL; Estimated Glomerular Filt Rate > 60; Glucose Fasting 87 mg/dL (60-99); HDL Cholesterol 83 mg/dL; LDL Cholesterol Calculated 103 mg/dl; Potassium 4.4 mmol/L (3.3-5.1); Sodium 136 mmol/L (135-145); Total Protein 6.9 g/dL (6.5-8.0); Triglycerides 57 mg/dL
[2022-04-08 09:51] LABS: TSH reflex Free T4 1.51 uIU/mL (0.32-4.0)
== END 2022-04-08 07:53 | disposition home or self-care (01) ==
LOC: HO.LAB 07:52
PROVIDERS: PCP Physician Assistant; Visit Provider Physician Assistant
DX: Z13.1 Encounter for screening for diabetes mellitus (principal); Z13.29 Encounter for screening for other suspected endocrine disorder; Z13.220 Encounter for screening for lipoid disorders
CPT/HCPCS: 36415; 80053; 80061; 83036; 84443

== ENCOUNTER → 2022-04-27 12:58 | Outpatient (BNVA) | payer MEDICARE, SELFPAY | PROVIDERS: PCP Physician Assistant; Visit Provider Nurse Practitioner Family | DX: Z51.81 Encounter for therapeutic drug level monitoring (principal); F11.20 Opioid dependence, uncomplicated | CPT/HCPCS: 99211 ==

== ENCOUNTER → 2022-05-28 11:03 | Outpatient (BNVA) | payer MEDICARE, SELFPAY | PROVIDERS: PCP Physician Assistant; Visit Provider Nurse Practitioner Family | DX: M46.1 Sacroiliitis, not elsewhere classified (principal); M96.1 Postlaminectomy syndrome, not elsewhere classified; M25.551 Pain in right hip; M25.552 Pain in left hip; Z79.891 Long term (current) use of opiate analgesic; Z98.1 Arthrodesis status | CPT/HCPCS: 99212 ==

== ENCOUNTER 2022-06-01 12:38 | Outpatient (REF) | payer MEDICARE, SELFPAY ==
--- NOTE | ~2022-06-01 | XR_ITS ---
EXAMINATION: XR LUMBAR SPINE XR SACROILIAC JOINT XR HIPS, BILATERAL WITH AP PELVIS CLINICAL INFORMATION: Postlaminectomy syndrome. COMPARISON: None. TECHNIQUE: 7 views lumbar spine, 3 views SI joint AP pelvis and bilateral hips 5 views. FINDINGS: Lumbar Spine: There is maintained lumbar lordosis and mild dextroscoliosis. There are bilateral pedicular screws at L4 and L5 vertebrae with interconnecting rods and an intervening disc prosthesis at the L4-L5 disc level. There is loss of disc height virtually at every disc level with moderate endplate sclerosis at the L5-S1 disc level. On flexion-extension views, there is no subluxation seen, especially no movement seen at the fused L4-L5 disc level. No acute fracture or lytic process seen. Si Joints: The SI joints are symmetrical and normal. No erosive changes or sclerosis seen. AP Pelvis: There is mild reduction in the bilateral symmetric hip joint space. No bony erosive changes. The pelvic bone appears intact. The SI joints are normal. Right Hip: There is mild loss of right hip joint space. No bony erosive changes. There is minimal lateral acetabular spurring. The soft tissues are normal. Left Hip: There is loss of left hip joint space. No bony erosive changes. No acute fracture or lytic process. There are surgical sutures in the left groin from previous intervention. XR/XR sacroiliac joint min 3V IMPRESSION: L4 and L5 disc prostheses with posterior hardware for fusion. There is mild levoscoliosis with degenerative disc changes and ventral spondylosis throughout all lumbar disc levels. No visible acute fracture seen. No subluxation seen at the fused or an unfused lumbar disc levels. Unremarkable SI joints and AP pelvis. Minimal degenerative spurring right acetabulum. Mild degenerative changes bilateral hip joints.
--- NOTE | ~2022-06-01 | XR_ITS ---
EXAMINATION: XR LUMBAR SPINE XR SACROILIAC JOINT XR HIPS, BILATERAL WITH AP PELVIS CLINICAL INFORMATION: Postlaminectomy syndrome. COMPARISON: None. TECHNIQUE: 7 views lumbar spine, 3 views SI joint AP pelvis and bilateral hips 5 views. FINDINGS: Lumbar Spine: There is maintained lumbar lordosis and mild dextroscoliosis. There are bilateral pedicular screws at L4 and L5 vertebrae with interconnecting rods and an intervening disc prosthesis at the L4-L5 disc level. There is loss of disc height virtually at every disc level with moderate endplate sclerosis at the L5-S1 disc level. On flexion-extension views, there is no subluxation seen, especially no movement seen at the fused L4-L5 disc level. No acute fracture or lytic process seen. Si Joints: The SI joints are symmetrical and normal. No erosive changes or sclerosis seen. AP Pelvis: There is mild reduction in the bilateral symmetric hip joint space. No bony erosive changes. The pelvic bone appears intact. The SI joints are normal. Right Hip: There is mild loss of right hip joint space. No bony erosive changes. There is minimal lateral acetabular spurring. The soft tissues are normal. Left Hip: There is loss of left hip joint space. No bony erosive changes. No acute fracture or lytic process. There are surgical sutures in the left groin from previous intervention. XR/XR hip BI w PEL1V IMPRESSION: L4 and L5 disc prostheses with posterior hardware for fusion. There is mild levoscoliosis with degenerative disc changes and ventral spondylosis throughout all lumbar disc levels. No visible acute fracture seen. No subluxation seen at the fused or an unfused lumbar disc levels. Unremarkable SI joints and AP pelvis. Minimal degenerative spurring right acetabulum. Mild degenerative changes bilateral hip joints.
--- NOTE | ~2022-06-01 | XR_ITS ---
EXAMINATION: XR LUMBAR SPINE XR SACROILIAC JOINT XR HIPS, BILATERAL WITH AP PELVIS CLINICAL INFORMATION: Postlaminectomy syndrome. COMPARISON: None. TECHNIQUE: 7 views lumbar spine, 3 views SI joint AP pelvis and bilateral hips 5 views. FINDINGS: Lumbar Spine: There is maintained lumbar lordosis and mild dextroscoliosis. There are bilateral pedicular screws at L4 and L5 vertebrae with interconnecting rods and an intervening disc prosthesis at the L4-L5 disc level. There is loss of disc height virtually at every disc level with moderate endplate sclerosis at the L5-S1 disc level. On flexion-extension views, there is no subluxation seen, especially no movement seen at the fused L4-L5 disc level. No acute fracture or lytic process seen. Si Joints: The SI joints are symmetrical and normal. No erosive changes or sclerosis seen. AP Pelvis: There is mild reduction in the bilateral symmetric hip joint space. No bony erosive changes. The pelvic bone appears intact. The SI joints are normal. Right Hip: There is mild loss of right hip joint space. No bony erosive changes. There is minimal lateral acetabular spurring. The soft tissues are normal. Left Hip: There is loss of left hip joint space. No bony erosive changes. No acute fracture or lytic process. There are surgical sutures in the left groin from previous intervention. XR/XR lumbar spine 6V w bending IMPRESSION: L4 and L5 disc prostheses with posterior hardware for fusion. There is mild levoscoliosis with degenerative disc changes and ventral spondylosis throughout all lumbar disc levels. No visible acute fracture seen. No subluxation seen at the fused or an unfused lumbar disc levels. Unremarkable SI joints and AP pelvis. Minimal degenerative spurring right acetabulum. Mild degenerative changes bilateral hip joints.
== END 2022-06-01 12:39 | disposition home or self-care (01) ==
LOC: HO.XRAY 12:38
PROVIDERS: PCP Physician Assistant; Visit Provider Nurse Practitioner Family
DX: M25.552 Pain in left hip (principal); M25.551 Pain in right hip; M46.1 Sacroiliitis, not elsewhere classified; M96.1 Postlaminectomy syndrome, not elsewhere classified
CPT/HCPCS: 72114; 72202; 73521

== ENCOUNTER 2022-06-30 10:57 | Outpatient (REF) | payer MEDICARE, SELFPAY ==
--- NOTE | ~2022-06-30 | CT_ITS ---
EXAMINATION: CT CHEST SCREENING CLINICAL INFORMATION: Current smoker. 40 pack year history. COMPARISON: Previous chest CT most recent March 2022 TECHNIQUE: Multidetector volumetric CT imaging of the chest is performed without contrast using low dose technique. Additional 2D coronal and sagittal reformatted images and axial 3D maximum intensity projection (MIP) images are generated on the CT workstation. This CT examination was performed using dose optimization techniques as appropriate, variously including the following: *Automated exposure control *Adjustment of mA and/or kV according to patient size (this includes techniques or standardized protocols for targeted exams where dose is matched to indication/reason for exam; i.e. extremities or head) *Use of iterative reconstruction technique DLP: 41 mGy-cm FINDINGS: LUNGS: There is evidence of emphysema. There is chronic volume loss and bronchiectasis and atelectasis of the medial segment of the right middle lobe. This appears unchanged. There are small micronodules in the upper lobes for example measuring 2 mm axial image 52 series 5 in the left upper lobe. Scarring or subsegmental atelectasis at the lung bases. No endobronchial or endotracheal lesion. Previously identified increased soft tissue at the matilda and proximal right mainstem bronchus no longer seen. MEDIASTINUM: The mediastinum is normal. CORONARY ARTERY CALCIFICATION: Moderate PLEURA: There is no pleural effusion. No pleural mass or thickening. AXILLA: No lymphadenopathy. UPPER ABDOMEN: Unremarkable OSSEOUS STRUCTURES: Mild scoliosis and degenerative changes. CT/CT lung screen follow up IMPRESSION: Emphysema. No endobronchial or endotracheal lesion. Small pulmonary nodules or micronodules and stable focal bronchiectasis and atelectasis of the medial segment of the right middle lobe. Moderate to severe coronary artery calcification. ASSESSMENT: Lung-RADS category 2: Benign RECOMMENDATION: Annual low-dose chest CT follow-up recommended.
== END 2022-06-30 10:58 | disposition home or self-care (01) ==
LOC: HO.CT 10:57
PROVIDERS: Visit Provider Physician Assistant Medical
DX: Z12.2 Encounter for screening for malignant neoplasm of respiratory organs (principal); Z87.891 Personal history of nicotine dependence
CPT/HCPCS: 71250; 99212

== ENCOUNTER → 2022-07-10 08:55 | Outpatient (BNVA) | payer MEDICARE, SELFPAY | PROVIDERS: PCP Physician Assistant; Visit Provider Surgery | DX: R91.1 Solitary pulmonary nodule (principal); F17.210 Nicotine dependence, cigarettes, uncomplicated | CPT/HCPCS: 99202 ==

== ENCOUNTER 2022-07-28 12:43 | Outpatient (REF) | payer MEDICARE, SELFPAY ==
--- NOTE | ~2022-07-28 | MM_ITS ---
EXAMINATION: BONE DENSITOMETRY CLINICAL INDICATION: Asymptomatic menopausal state. COMPARISON: Previous BD dated 07/13/2019 and baseline BD dated 11/17/2007. TECHNIQUE: Using a [employer] DXA System (software version: 13.1) manufactured by [employer], dual-energy x-ray absorptiometry was performed of the lumbar spine and left hip. The images are of good technical quality. Summary results are attached. FINDINGS: AP SPINE L1-L2 (excluding L3 and L4): The data of L1-L4 has been changed to exclude the L3 and L4 vertebral bodies, because degenerative changes at both levels and hardware at L4 may cause overestimation of lumbar spine density. Current: BMD 0.919 g/cm2, Z-score -0.2, T-score -2.0, osteopenia, 1.1% increase from previous, 5.5% decrease from baseline (<5% change is not significant). Prior: BMD 0.909 g/cm2. Baseline: BMD 0.972 g/cm2. LEFT FEMUR, NECK: Current: BMD 1.016 g/cm2, Z-score 1.8, T-score -0.2, normal. Prior: BMD 1.021 g/cm2. Baseline: BMD 1.120 g/cm2. LEFT FEMUR, TOTAL: Current: BMD 0.971 g/cm2, Z-score 1.4, T-score -0.3, normal, 1.7% decrease from previous, 9.6% decrease from baseline (<5% change is not significant). Prior: BMD 0.988 g/cm2. Baseline: BMD 1.074 g/cm2. IDENTIFIED RISK FACTORS: Height loss, family history (parental hip fracture), tobacco use (current smoker), history of fracture (adult), menopause. HISTORY OF FRACTURE: Ribs. MEDICATIONS: Calcium supplements or multivitamin, vitamin D. MM/XR DEXA axial skeleton IMPRESSION: 1. DIAGNOSIS: Osteopenia based on the lowest T-score value of -2.0 in the lumbar spine applying World Health Organization criteria. 2. 10-YEAR FRACTURE RISK PREDICTION, FRAX: Major osteoporotic fracture (clinical spine, forearm, hip or shoulder) 15.5%. Hip fracture 3.8%. 3. Treatment Recommendations: NOF guidelines recommend consideration for treatment in postmenopausal women and men age 50 and older presenting with the following: -A hip or vertebral (clinical or morphometric) fracture. -T-score less than or equal to -2.5 at the femoral neck or spine after appropriate evaluation to exclude secondary causes. -Low bone mass at the hip or spine and a 10-year fracture probability by FRAX of greater than or equal to 3% for hip fracture or greater than or equal to 20% for major osteoporotic fracture based on the [place] adapted WHO algorithm. 4. Other Recommendations: All treatment decisions require clinical judgment and consideration of individual patient factors, including patient preferences, comorbidities, previous drug use, risk factors not captured in the FRAX model (e.g. frailty, falls, vitamin D deficiency, increased bone turnover, interval significant decline in bone density) and possible under or overestimation of fracture risk by FRAX. Additional medical evaluation for secondary cause of low bone mineral density may be appropriate. FUTURE SCAN RECOMMENDATION: People with diagnosed cases of osteoporosis or at high risk for fracture should have regular bone mineral density tests. For patients eligible for Medicare, routine testing is allowed once every 2 years. The testing frequency can be increased to one year for patients who have rapidly progressing disease, those who are receiving or discontinuing medical therapy to restore bone mass, or have additional risk factors.
--- NOTE | ~2022-07-28 | MM_ITS ---
EXAMINATION: MM SCREENING DIGITAL BREAST TOMOSYNTHESIS, BILATERAL CLINICAL INFORMATION: Screening. Asymptomatic. The lifetime risk of breast cancer based on the Tyrer-Cuzick Model is 5%. COMPARISON: Mammography: 07/25/2021, 07/18/2020, 07/13/2019 TECHNIQUE: Digital breast tomosynthesis is performed in both the craniocaudal and mediolateral oblique views along with computer-aided detection (CAD). Synthesized 2D images are generated from the tomosynthesis. Additional left CC view is provided. FINDINGS: The breasts are extremely dense, which lowers the sensitivity of mammography (ACR BI-RADS breast composition Category d). There are no significant masses, abnormal calcifications, or other abnormalities. Parenchymal pattern is similar to prior studies. There is no developing density or architectural abnormality. The axilla and skin contours are unremarkable. No significant changes. MM/MM tomosynthesis screening BI IMPRESSION: No mammographic evidence of malignancy. ASSESSMENT: BI-RADS 1: Negative RECOMMENDATION: Routine annual mammography screening. This patient's information was entered into a reminder system with a target due date for their next mammogram.
== END 2022-07-28 12:44 | disposition home or self-care (01) ==
LOC: HO.MAMMO 12:43
PROVIDERS: Visit Provider Physician Assistant
DX: Z12.31 Encounter for screening mammogram for malignant neoplasm of breast (principal); Z78.0 Asymptomatic menopausal state; Z72.0 Tobacco use
CPT/HCPCS: 77063; 77067; 77080

== ENCOUNTER → 2022-07-31 09:28 | Outpatient (BNVA) | payer MEDICARE, SELFPAY | PROVIDERS: PCP Physician Assistant; Visit Provider Nurse Practitioner Family | DX: Z51.81 Encounter for therapeutic drug level monitoring (principal); F11.20 Opioid dependence, uncomplicated | CPT/HCPCS: 99211 ==

== ENCOUNTER → 2022-08-28 09:32 | Outpatient (BNVA) | payer MEDICARE, SELFPAY | PROVIDERS: PCP Physician Assistant; Visit Provider Nurse Practitioner Family | DX: Z51.81 Encounter for therapeutic drug level monitoring (principal); F11.20 Opioid dependence, uncomplicated; M96.1 Postlaminectomy syndrome, not elsewhere classified; M46.1 Sacroiliitis, not elsewhere classified; M25.551 Pain in right hip; M25.552 Pain in left hip; Z98.1 Arthrodesis status | CPT/HCPCS: 99212 ==

== ENCOUNTER → 2022-09-16 10:27 | Outpatient (BNVA) | payer MEDICARE, SELFPAY | PROVIDERS: PCP Physician Assistant; Visit Provider Internal Medicine | DX: J41.0 Simple chronic bronchitis (principal); F17.210 Nicotine dependence, cigarettes, uncomplicated; J40 Bronchitis, not specified as acute or chronic | CPT/HCPCS: 99212 ==

== ENCOUNTER → 2022-09-25 09:59 | Outpatient (BNVA) | payer MEDICARE, SELFPAY | PROVIDERS: PCP Physician Assistant; Visit Provider Nurse Practitioner Family | DX: Z13.89 Encounter for screening for other disorder (principal) ==

== ENCOUNTER → 2022-10-23 10:28 | Outpatient (BNVA) | payer MEDICARE, SELFPAY | PROVIDERS: PCP Physician Assistant; Visit Provider Nurse Practitioner Family | DX: F11.90 Opioid use, unspecified, uncomplicated (principal); M96.1 Postlaminectomy syndrome, not elsewhere classified; M46.1 Sacroiliitis, not elsewhere classified; G25.81 Restless legs syndrome; M25.551 Pain in right hip; M25.552 Pain in left hip; F17.210 Nicotine dependence, cigarettes, uncomplicated | CPT/HCPCS: 99212 ==

== ENCOUNTER → 2022-11-17 10:43 | Outpatient (BNVA) | payer MEDICARE, SELFPAY | PROVIDERS: PCP Physician Assistant; Visit Provider Internal Medicine | DX: J41.0 Simple chronic bronchitis (principal); G25.81 Restless legs syndrome; R91.1 Solitary pulmonary nodule; F17.210 Nicotine dependence, cigarettes, uncomplicated | CPT/HCPCS: 99212 ==

== ENCOUNTER → 2022-11-27 08:22 | Outpatient (BNVA) | payer MEDICARE, SELFPAY | PROVIDERS: PCP Physician Assistant; Visit Provider Nurse Practitioner Family | DX: Z51.81 Encounter for therapeutic drug level monitoring (principal); F11.20 Opioid dependence, uncomplicated; M96.1 Postlaminectomy syndrome, not elsewhere classified; M46.1 Sacroiliitis, not elsewhere classified; M25.551 Pain in right hip; M25.552 Pain in left hip; M85.851 Other specified disorders of bone density and structure, right thigh; Z98.1 Arthrodesis status | CPT/HCPCS: 99212 ==

== ENCOUNTER → 2022-12-25 11:30 | Outpatient (BNVA) | payer MEDICARE, SELFPAY | PROVIDERS: PCP Physician Assistant; Visit Provider Nurse Practitioner Family | DX: M96.1 Postlaminectomy syndrome, not elsewhere classified (principal); M46.1 Sacroiliitis, not elsewhere classified; M25.551 Pain in right hip; M25.552 Pain in left hip; Z98.1 Arthrodesis status; Z79.891 Long term (current) use of opiate analgesic | CPT/HCPCS: 99212 ==

== ENCOUNTER → 2023-01-29 11:29 | Outpatient (BNVA) | payer MEDICARE, SELFPAY | PROVIDERS: PCP Physician Assistant; Visit Provider Nurse Practitioner Family | DX: Z51.81 Encounter for therapeutic drug level monitoring (principal); F11.20 Opioid dependence, uncomplicated; M96.1 Postlaminectomy syndrome, not elsewhere classified; M46.1 Sacroiliitis, not elsewhere classified; M25.551 Pain in right hip; M25.552 Pain in left hip; Z98.1 Arthrodesis status | CPT/HCPCS: 99212 ==

== ENCOUNTER 2023-02-22 16:37 | Outpatient (REF) | payer MEDICARE, SELFPAY ==
--- NOTE | ~2023-02-22 | XR_ITS ---
EXAMINATION: Lumbar spine and sacrum and coccyx x-rays CLINICAL INFORMATION: Post laminectomy syndrome COMPARISON: Previous lumbar spine x-ray May 2022 TECHNIQUE: 3 views of the lumbar spine and 3 views of the sacrum and coccyx FINDINGS: Lumbar spine: There is curvature of the lower lumbar sacral spine to the right. Bone alignment is otherwise normal. No fracture or dislocation. There is posterior fusion hardware with rods and bilateral transpedicular screws at L4-L5. There is interbody disc spacer at L4-L5. There is degenerative disc disease at L1-L2 3 L3-L4 and L5-S1. There is lower lumbar spine facet arthritis. There is atherosclerotic disease. Sacrum and coccyx: AP exam is limited due to overlying bowel gas. No fracture or dislocation or bone lesion. Mild arthritis at both sacroiliac joints. XR/XR lumbar spine 2-3V IMPRESSION: Stable postsurgical change at L4-L5. Scoliosis and multilevel degenerative changes. Sacrum and coccyx: Limited exam. Mild osteoarthritis of both sacroiliac joints are
--- NOTE | ~2023-02-22 | XR_ITS ---
EXAMINATION: Lumbar spine and sacrum and coccyx x-rays CLINICAL INFORMATION: Post laminectomy syndrome COMPARISON: Previous lumbar spine x-ray May 2022 TECHNIQUE: 3 views of the lumbar spine and 3 views of the sacrum and coccyx FINDINGS: Lumbar spine: There is curvature of the lower lumbar sacral spine to the right. Bone alignment is otherwise normal. No fracture or dislocation. There is posterior fusion hardware with rods and bilateral transpedicular screws at L4-L5. There is interbody disc spacer at L4-L5. There is degenerative disc disease at L1-L2 3 L3-L4 and L5-S1. There is lower lumbar spine facet arthritis. There is atherosclerotic disease. Sacrum and coccyx: AP exam is limited due to overlying bowel gas. No fracture or dislocation or bone lesion. Mild arthritis at both sacroiliac joints. XR/XR sacrum coccyx min 2V IMPRESSION: Stable postsurgical change at L4-L5. Scoliosis and multilevel degenerative changes. Sacrum and coccyx: Limited exam. Mild osteoarthritis of both sacroiliac joints are
== END 2023-02-22 16:38 | disposition home or self-care (01) ==
LOC: HO.XRAY 16:37
PROVIDERS: PCP Physician Assistant; Visit Provider Physician Assistant
DX: M46.1 Sacroiliitis, not elsewhere classified (principal); M96.1 Postlaminectomy syndrome, not elsewhere classified
CPT/HCPCS: 72100; 72220

== ENCOUNTER → 2023-02-26 10:56 | Outpatient (BNVA) | payer MEDICARE, SELFPAY | PROVIDERS: PCP Physician Assistant; Visit Provider Nurse Practitioner Family | DX: M96.1 Postlaminectomy syndrome, not elsewhere classified (principal); G25.81 Restless legs syndrome; M46.1 Sacroiliitis, not elsewhere classified; M25.551 Pain in right hip; M25.552 Pain in left hip; F11.90 Opioid use, unspecified, uncomplicated; Z98.1 Arthrodesis status | CPT/HCPCS: 99212 ==

== ENCOUNTER 2023-03-17 08:44 | Outpatient (REF) | payer MEDICARE, SELFPAY ==
--- NOTE | ~2023-03-17 | FL_ITS ---
EXAMINATION: XR FLUOROSCOPY WITH IMAGES CLINICAL INFORMATION: Pain COMPARISON: None available. TECHNIQUE: Fluoroscopy Supervised By: Dr. Hernández. Fluoroscopy Time: 0.2 minutes. Cumulative Dose: 2.55 mGy. DAP: 0.209 Gycm2. Images: 4. FINDINGS: Sequential imaging demonstrates needle placement with a sacralized joint regions FL/FL guidance in treatment room IMPRESSION: Fluoroscopy for pain management procedure.
== END 2023-03-17 08:45 | disposition home or self-care (01) ==
LOC: CF 08:44
PROVIDERS: Visit Provider Internal Medicine
DX: M46.1 Sacroiliitis, not elsewhere classified (principal)
CPT/HCPCS: 27096; J3301

== ENCOUNTER 2023-03-26 09:54 | Outpatient (AMB) | payer MEDICARE, SELFPAY ==
--- NOTE | 2023-03-26 09:59 | MHC.OFFVIS ---
Intake Vital Signs 03/26/23 10:07 Height 5 ft 8 in Weight 128 lb 4 oz BMI 19.5 BP 118/68 Blood Pressure Location Rt brachial Position Sitting Pulse 78 Pulse Source Pulse Oximeter Pulse Oximetry (%) 95 Oxygen Delivery Method Room Air Intake Visit Reasons: PILL COUNT/s/p theraputic SIJ Intake Note: Dot comes in today for a pill count to oxycodone-acetaminophen, patient should have 57 tablets and presents with 63 tablets which she last took today 03/26/23 at 6:30am. Pain today 11/20. Gastroenterology Teacher Required: No Accompanied by: Self / Same As Patient Allergies No Known Allergies Allergy (Verified 03/26/23 10:07) HPI HPI Comments History of Present Illness Details Dot returns today for a pill count. Patient is supposed to have #57 pills in her possession and has #63. Reports adequate analgesia with no noted sided effects with increased dose of oxycodone-acetaminophen 5-325 mg tid instead of bid prn. Patient reports current opioid medication does not alleviate all of her pain, but provides partial relief. She notes with current exacerbation of pain symptoms, her mobility, ADLs and sleep have been significantly affected. Denies any bladder or bowel incontinence or saddle anesthesia. Denies any fever, chills, weight changes, sedation, abdominal pain, constipation, nausea, dizziness or urinary retention. Patient is also status post bilateral therapeutic SIJ injections on 03/17/[address] Hernández. She reports ongoing 50-60% pain relief with significant improvement in her lower back pain in the projection of bilateral SIJ areas, especially right SIJ. Patient reports she does not experience intense pain anymore as before and has less pain with prolonged sitting and easier with getting out of bed in the morning. Patient is aware the can receive therapeutic SIJ injections no earlier than 3 months if needed. PENDING SALE TO [facility] Medical History Acute adjustment disorder with anxiety Bronchitis COPD (chronic obstructive pulmonary disease) COPD exacerbation Exocrine pancreatic insufficiency Lumbar post-laminectomy syndrome Personal history of nicotine dependence Restless leg syndrome Surgical History History of femoral hernia repair (~2002) History of lumbar fusion (~2013) History of lumbar laminectomy (~2012) History of vein stripping (~2003) Status post phlebectomy (~2008) Social History Housing: House Alcohol intake: never Patient Tobacco Use Status: Current everyday Tobacco user Tobacco use type: Cigarette Cigarettes Per Day: 10 e-Cigarette/Vaping Use: Never Used Second Hand Smoke Exposure: No service: No Current occupational status: retired Current occupation: [employer] Cognitive needs: No Hearing needs: No Vision needs: Yes (contacts/glasses) Review of Systems Const All systems reviewed & are unremarkable except as noted in HPI and below Physical Exam Vital Signs: Last Vital Signs Pulse 78 03/26/23 10:07 BP 118/68 03/26/23 10:07 Pulse Ox 95 03/26/23 10:07 Oxygen Delivery Method Room Air 03/26/23 10:07 BMI result Body Mass Index 19.5 On exam today: Appears afebrile. Alert and oriented. Mood and affect appropriate. Follows and participates in conversation appropriately. Respiratory effort is unlabored. No cough. No nasal discharge. Able to transition from sit to stand unassisted. Ambulates with bilaterally normal heel strike and toe off. Able to stand and walk on toes and heels. Back/Spine/Pelvis Thoracic/Lumbar Spine: pain with thoraco-lumbar ROM and lumbar spinal tenderness Sacroiliac joints: bilaterally tender to palpation Psych Appearance: grossly normal and well kempt Mental Status: mental status grossly normal Speech and movement: Normal speech and movement present and Clear speech present Affect: normal affect Attitude: cooperative Thought process: Normal thought process present Thought content: Normal thought content present, suicidality (none), no hallucinations and No Depressive thoughts present Insight: Good insight present (Psych) Judgement: Good judgement present (Psych) Assessment & Plan Assessment & Plan (1) Lumbar post-laminectomy syndrome: Code(s): M96.1 - Postlaminectomy syndrome, not elsewhere classified (2) Sacroiliitis: Code(s): M46.1 - Sacroiliitis, not elsewhere classified (3) Bilateral hip pain: Code(s): M25.551 - Pain in right hip; M25.552 - Pain in left hip (4) History of lumbar fusion: Onset Date: ~2013 Comment: (L4-L5 radical discectomy, L4-L5 & L5-S1 arthrodesisis and fusion - Dr. Keanu Peng, [facility] [place] - 08/06/2014) Code(s): Z98.1 - Arthrodesis status (5) Chronic, continuous use of opioids: Code(s): F11.90 - Opioid use, unspecified, uncomplicated Plan Patient has shown accountability for her medication regimen and the pill count was accurate. The patient reported no noted side effects and adequate analgesia on current medication regime. There is no evidence of misuse, abuse or diversion at this time. [facility] reviewed. Script sent for oxycodone 5-325 mg to oxycodone 7.5-325 mg TID prn with advanced date of 04/14/23. All questions were answered and patient is in agreement of plan. Follow up in 5 weeks for a pill count and sooner if needed. Medications: Refilled oxycodone-acetaminophen 7.5-325 mg Partial Fill upon patient request. 1 tab PO TID PRN 90 tabs 0RF pain 30 days F11.90 - Opioid use, unspecified, uncomplicated, M25.551 - Pain in right hip, M25.552 - Pain in left hip, M46.1 - Sacroiliitis, not elsewhere classified, M96.1 - Postlaminectomy syndrome, not elsewhere classified Coding Level of Care Code Est Pt Level 4 (85647) Diagnoses Lumbar post-laminectomy syndrome M96.1 Sacroiliitis M46.1 Bilateral hip pain M25.551; M25.552 History of lumbar fusion Z98.1 Chronic, continuous use of opioids F11.90
[2023-03-26 10:07] VITALS: BP 118/68; PULSE 78; O2SAT 95; BMI 19.5
== END 2023-03-26 10:17 | disposition home or self-care (01) ==
PROVIDERS: PCP Physician Assistant; Visit Provider Nurse Practitioner Family
DX: M96.1 Postlaminectomy syndrome, not elsewhere classified (principal); M46.1 Sacroiliitis, not elsewhere classified; M25.551 Pain in right hip; Z79.891 Long term (current) use of opiate analgesic; M25.552 Pain in left hip; Z98.1 Arthrodesis status; F11.90 Opioid use, unspecified, uncomplicated
CPT/HCPCS: 99214

== ENCOUNTER → 2023-03-26 09:54 | Outpatient (BNVA) | payer MEDICARE, SELFPAY | PROVIDERS: PCP Physician Assistant; Visit Provider Nurse Practitioner Family | DX: Z51.81 Encounter for therapeutic drug level monitoring (principal); F11.20 Opioid dependence, uncomplicated; M96.1 Postlaminectomy syndrome, not elsewhere classified; M46.1 Sacroiliitis, not elsewhere classified; M25.551 Pain in right hip; M25.552 Pain in left hip; Z98.1 Arthrodesis status | CPT/HCPCS: 99212 ==

== ENCOUNTER 2023-04-16 09:03 | Emergency (ER) | payer MEDICARE, SELFPAY ==
[2023-04-16 09:18] VITALS: BP 103/69; PULSE 74; RESP 18; TEMP 36.8; O2SAT 97
[2023-04-16 09:24] VITALS: BP 103/69; PULSE 74; RESP 18; TEMP 36.8; O2SAT 97
--- NOTE | 2023-04-16 09:29 | ED.BACK ---
HPI - Back Pain/Injury General Chief Complaint: Back Pain/Injury Stated Complaint: back pain Time Seen by Provider: 04/16/23 09:08 Source: patient and family Mode of arrival: ambulatory Limitations: no limitations History of Present Illness HPI Narrative: 73 yo female with history of chronic back pain, spinal fusion, COPD, RLS here with back pain x 4 days Patient reports no trauma or trigger preceding the pain. She states that the pain is non-radiating and rated 10/10. She's followed by pain management and she is on oxycodone/APAP 7.5mg TID. No radiating pain, no bowel or bladder incontinence, numbness/tingling in the lower extremities, saddle anesthesia, fevers, chills, night sweats or weight loss In February went to and give a course of muscle relaxants, patient didn't think it helped but pain did get better after a few days. patient has not tried any additional [id number] medication as it is not been helpful in the past. She has not participated in physical therapy since her lumbar fusion. She does report pain is worsened with movement and has had some difficulty with her ADLs but states she can manage at home. Related Data Home Medications Medication Instructions Recorded Confirmed ibuprofen 800 mg tablet 800 mg PO Q8H PRN pain 06/30/22 02/22/23 Previous Rx's Medication Instructions Recorded naloxone 4 mg/actuation nasal 4 mg intranasal Q2M 1 day #2 ea 08/13/21 spray (Narcan) albuterol sulfate 90 mcg/actuation 2 puff inhalation Q4-6H PRN 02/10/22 aerosol inhaler (ProAir HFA) shortness of breath or wheezing/cough 30 days #8.5 grams colchicine (gout) 0.6 mg tablet 0.6 mg PO DAILY 30 days #30 tabs 11/17/22 trazodone 50 mg tablet 50 mg PO BEDTIME 90 days #90 tabs 11/17/22 Advair Diskus 500 mcg-50 mcg/dose 1 ea PO BID #60 ea 01/18/23 powder for inhalation (fluticasone propion-salmeterol) ropinirole 1 mg tablet 1 mg PO TID #270 tabs 02/01/23 cyclobenzaprine 10 mg tablet 10 mg PO BEDTIME #14 tabs 02/22/23 oxycodone-acetaminophen 7.5 mg-325 1 tab PO TID PRN pain 30 days #90 03/26/23 mg tablet tabs cyclobenzaprine 10 mg tablet 10 mg PO TID PRN muscle spasm #10 04/16/23 tabs naproxen 500 mg tablet 500 mg PO BID PRN pain #10 tabs 04/16/23 Allergies Allergy/AdvReac Type Severity Reaction Status Date / Time No Known Allergies Allergy Verified 04/16/23 09:24 Review of Systems Review of Systems: Yes all other systems are reviewed and are negative Constitutional: Constitutional: Reports no additional constitutional complaints, Denies body ache(s), Denies chills, Denies fever(s), Denies headache(s) and Denies weakness Eyes: Eyes: Reports no additional eye complaints and Denies change in vision ENT: Reports system reviewed and no additional complaints, except as documented, Denies dizziness, Denies headache(s), Denies nasal congestion, Denies nasal discharge and Denies neck pain Cardiovascular: Cardiovascular: Reports no additional cardiovascular complaints, Denies chest pain, Denies leg edema and Denies dyspnea Respiratory: Respiratory: Reports no additional respiratory complaints, Denies cough and Denies dyspnea Gastrointestinal: Gastrointestinal: Reports no additional gastrointestinal complaints, Denies abdominal pain, Denies diarrhea, Denies nausea and Denies vomiting Genitourinary: Genitourinary: Reports no additional female genitourinary complaints and Denies urinary incontinence Musculoskeletal: Musculoskeletal: Reports no additional musculoskeletal complaints, Reports back pain, Denies arthralgias, Denies joint swelling, Denies neck pain, Denies numbness and Denies tingling Integumentary/Breasts: Skin/Breast: Reports system reviewed and no additional complaints, except as docu and Denies rash Neurologic: Reports system reviewed and no additional complaints, except as documented, Denies Abnormal speech present, Denies dizziness, Denies headache(s), Denies numbness, Denies tingling and Denies weakness FORMERLY [facility], [facility] Past Medical History Attestation statement: The following information was validated with the patient. Source: old records reviewed and nursing notes reviewed Medical History Acute adjustment disorder with anxiety Bronchitis COPD (chronic obstructive pulmonary disease) COPD exacerbation Exocrine pancreatic insufficiency Lumbar post-laminectomy syndrome Personal history of nicotine dependence Restless leg syndrome Surgical History History of femoral hernia repair (~2002) History of lumbar fusion (~2013) History of lumbar laminectomy (~2012) History of vein stripping (~2003) Status post phlebectomy (~2008) Social History Social History Housing: House Alcohol intake: never Patient Tobacco Use Status: Current everyday Tobacco user Tobacco use type: Cigarette Cigarettes Per Day: 10 Smoked in Last 30 Days: Yes e-Cigarette/Vaping Use: Never Used Second Hand Smoke Exposure: No Use of substances other than those prescribed or required for medical reasons: No Advance Directives: Yes Advance Directives Information Provided: Yes Advance Directives on File: No service: No Current occupational status: retired Current occupation: [employer] Cognitive needs: No Hearing needs: No Vision needs: Yes (contacts/glasses) Physical Exam Vital Signs: Vital Signs: Last Vital Signs Temp 97.7 F 04/16/23 10:00 Pulse 61 04/16/23 10:00 Resp 18 04/16/23 10:00 BP 98/59 L 04/16/23 10:00 Pulse Ox 98 04/16/23 10:00 O2 Del Method Room Air 04/16/23 10:00 BMI result Body Mass Index 20.0 Const: General: cooperative, healthy appearing, comfortable and no acute distress Orientation/consciousness: patient oriented x3 Limitations: no limitations HEENT: Head: Yes normal to inspection Ears: hearing grossly normal bilaterally General nose exam: Normal external nose present Face and sinus: Yes normal facial exam Mouth: Normal oral and palatal mucosa present Throat: Yes posterior oropharynx normal Eyes: General: appearance normal, both eyes and all related structures Pupils: Equal, round and reactive pupils present Neck: Neck: Yes normal visual inspection Chest: Chest palpation & inspection: normal inspection of the chest Resp: Effort & Inspection: normal respiratory effort Auscultation: clear to auscultation bilaterally Cardio: Rate: regular rate Rhythm: regular rhythm Peripheral pulses: Peripheral pulses 2+ throughout GI: Inspection: Yes normal to inspection Palpation (GI): Soft to palpation and nontender Auscultation: normal bowel sounds Back/Spine/Pelvis: Other: Unable to produce any TTP on exam Pain is worsened with flexion/extension of the lumbar spine Thoracic/Lumbar Spine: thoracic and lumbar spine normal to inspection Skin: General skin exam: no rashes or lesions noted Neuro: General: patient oriented x3, no focal motor deficits and normal sensation to monofilament Cranial nerves: Yes Equal, round and reactive pupils present Cognition (Neuro): normal cognition Speech: No Abnormal speech present Gait exam (Neuro): Normal gait present Motor exam (neuro): 5/5 motor strength present throughout Sensory Exam: Normal double simultaneous stimulation for sensation Deep tendon reflexes (DTR's): Right patellar reflex intensity grade: 2+ and Left patellar reflex intensity grade: 2+ Extrem: General: Yes normal to inspection Medications Administered Discontinued Medications Generic Name Dose Route Start Last Admin Trade Name Freq PRN Reason Stop Dose Admin Cyclobenzaprine HCl 10 mg 04/16/23 10:04/16/23 10:06 Cyclobenzaprine Hcl 10 Mg Tablet PO 04/16/23 10:02 10 mg ONCE ONE Administration Ketorolac Tromethamine 30 mg 04/16/23 10:04/16/23 10:06 Ketorolac Tromethamine 30 Mg/Ml Vial IM 04/16/23 10:02 30 mg ONCE ONE Administration Oxycodone HCl 5 mg 04/16/23 10:04/16/23 10:06 Oxycodone Hcl Immed Release 5 Mg Tablet PO 04/16/23 10:02 5 mg ONCE ONE Administration Medical Decision Making Medical Decision Making MDM Narrative: This is a 73-year-old female with history of chronic back pain, lumbar fusion on chronic opiates who presents to the ER with acute on chronic back pain for the last 4 days despite taking her home oxycodone. No neurological deficits or red flag symptoms. No trauma or midline tenderness is chest need for x-rays. Of note, patient did have x-rays February 22 which showed stable postsurgical changes of her lumbar spine. Patient has not tried nvil-sbd-aebpccd medications or participated in physical therapy and quite some time. She is followed by pain management. Patient will be given Toradol, Flexeril, dose of oxycodone in the emergency room. She is willing to try adjunct of therapies at home for the next couple of days. We did discuss her following up with pain management outpatient. She will consider if she would like to try physical therapy and will discuss this with her primary care doctor. reviewed worrisome signs and symptoms of when to return to the emergency room. Comfortable plan for discharge home. Differential Diagnosis Differential Diagnoses: The differential diagnosis associated with the presentation includes no neurological deficits or red flag symptoms to suggest cord compression, cauda equina, epidural abscess, malignancy no flank pain or urinary symptoms to suggest renal colic or pyelonephritis gradual onset so less likely AAA Independent Historian Clinical information obtained from an independent historian. History obtained from or confirmed by: Spouse External Record Review External record reviewed: Outpatient record and Prior outpatient radiology reviewed urgent care visit from February 22, reviewed x-rays from 02/22-showed Prescription Management I considered prescription management with: Pain Medication Patient takes chronic opiates at home. willing to accept adjunct of therapy with NSAID and muscle relaxants Discharge Plan Discharge Clinical Impression: Chronic back pain Patient Disposition: Home, Self-Care Instructions: Chronic Back Pain (DC), Warm Compress or Soak (ED) Additional Instructions: apply heat or ice Gentle stretching Take the medication as prescribed You may continue your oxycodone at home Follow-up with pain management Return for shortness of breath, chest pain, weakness /numbness / tingling of the upper/lower extremities, bowel or bladder incontinence, fevers/chills or numbness in the groin Prescriptions: New naproxen 500 mg tablet 500 mg PO BID PRN (Reason: pain) Qty: 10 0RF cyclobenzaprine 10 mg tablet 10 mg PO TID PRN (Reason: muscle spasm) Qty: 10 0RF No Action Narcan 4 mg/actuation spray,non-aerosol 4 mg intranasal Q2M 1 Days Qty: 2 1RF Rx Instructions: spray 1 dose into ONE nostril; alternate nostrils w each dose until help arrives trazodone 50 mg tablet 50 mg PO BEDTIME 90 Days Qty: 90 2RF fluticasone propion-salmeterol [Advair Diskus] 500-50 mcg/dose blister with device 1 ea PO BID Qty: 60 0RF ropinirole 1 mg tablet 1 mg PO TID Qty: 270 0RF colchicine (gout) 0.6 mg tablet 0.6 mg PO DAILY 30 Days Qty: 30 3RF cyclobenzaprine 10 mg tablet 10 mg PO BEDTIME Qty: 14 0RF ibuprofen 800 mg tablet 800 mg PO Q8H PRN (Reason: pain) albuterol sulfate [ProAir HFA] 90 mcg/actuation HFA aerosol inhaler 2 puff inhalation Q4-6H PRN (Reason: shortness of breath or wheezing/cough) 30 Days Qty: 8.5 2RF oxycodone-acetaminophen 7.5-325 mg tablet 1 tab PO TID PRN (Reason: pain) 30 Days Qty: 90 0RF Rx Instructions: Partial Fill upon patient request. Referrals: Erin Hess FNP [Nurse Practitioner] - Interventions: ED Discharge Assessment Last Done: 04/16/23 10:58 Discharge Date/Time: 04/16/23 10:58
--- NOTE | 2023-04-16 09:31 | PC.NURSE ---
in room w/spouse. no respiratory distress. reports worsening of chronic back pain. denies diff walking/incontinence/weakness/sensory alterations. aox4. vss. pa at bedside
--- NOTE | 2023-04-16 09:38 | PC.NURSE ---
aox4. no changes to skin. breathing well- airway intact. vss. talking w/o distress. sitting in chair.
[2023-04-16 10:00] VITALS: BP 98/59; PULSE 61; RESP 18; TEMP 36.5; O2SAT 98
[2023-04-16] MEDS: Cyclobenzaprine HCl 10 MG TABLET PO (10:06)
[2023-04-16] MEDS: Ketorolac Tromethamine 30 MG/ML VIAL IM (10:06)
[2023-04-16] MEDS: oxyCODONE HCl Immed Release 5 MG TABLET PO (10:06)
== END 2023-04-16 10:58 | disposition home or self-care (01) ==
PROVIDERS: Emergency Provider Emergency Medicine; PCP Physician Assistant
DX: G89.29 Other chronic pain (principal); M54.50 Low back pain, unspecified; F17.210 Nicotine dependence, cigarettes, uncomplicated; Z79.891 Long term (current) use of opiate analgesic
CPT/HCPCS: 96372; 99284; J1885

== ENCOUNTER 2023-04-19 12:09 | Emergency (ER) | payer MEDICARE, SELFPAY ==
--- NOTE | ~2023-04-19 | CT_ITS ---
EXAMINATION: CT ABDOMEN AND PELVIS WITHOUT CONTRAST CLINICAL INFORMATION: Question pelvic mass and ascites COMPARISON: Previous CT of the abdomen and pelvis October 2021 and abdominal ultrasound July 2021 TECHNIQUE: Multidetector volumetric imaging was performed from the superior aspect of the liver through the pubic symphysis. Sagittal and coronal reformatted images were obtained on the technologist's workstation. This CT examination was performed using dose optimization techniques as appropriate, variously including the following: *Automated exposure control *Adjustment of mA and/or kV according to patient size (this includes techniques or standardized protocols for targeted exams where dose is matched to indication/reason for exam; i.e. extremities or head) *Use of iterative reconstruction technique DLP: 337 mGy-cm FINDINGS: LUNG BASES: Subsegmental atelectasis at the lung bases. LIVER, GALLBLADDER, AND BILIARY TREE: The liver is normal in size, shape, and attenuation. No focal hepatic lesion or biliary ductal dilatation is present. The gallbladder is unremarkable with no evidence of radiopaque gallstones, gallbladder wall thickening, or obvious pericholecystic inflammatory changes. PANCREAS: Unremarkable. SPLEEN: Unremarkable. ADRENAL GLANDS: Unremarkable. KIDNEYS AND URETERS: The kidneys are normal in size, shape, and attenuation. No hydronephrosis, hydroureter, or calculi seen. No perinephric stranding. BLADDER: Unremarkable. GASTROINTESTINAL TRACT: Bowel is difficult to evaluate due to possibility of intraperitoneal fat and lack of oral and IV contrast. There is stool throughout the colon suggestive of constipation. There is mild dilatation of the colon suggestive of obstruction. The appendix is not seen. No ascites or free air. ABDOMINAL WALL: No significant hernia is appreciated. LYMPH NODES: Normal. VASCULAR: Severe atherosclerotic disease. No aneurysm. PELVIC VISCERA: Unremarkable. OSSEOUS STRUCTURES: Postsurgical changes at L4-L5 with posterior fusion hardware and prosthetic disc interspace. Scoliosis and degenerative changes of the spine. Mild compression fracture of the superior endplate of the T12 vertebral body. This is new in the interval from previous exam October 2021 and may be recent. CT/CT abdomen pelvis wo IV con IMPRESSION: Limited exam due to lack of oral and IV contrast and paucity of intra-abdominal fat. Constipation and mild secondary obstruction. Severe atherosclerotic disease. Mild T12 vertebral body compression fracture, question recent. Fleischner guidelines were followed.
--- NOTE | ~2023-04-19 | US_ITS ---
EXAMINATION: US VENOUS ULTRASOUND WITH DOPPLER LOWER EXTREMITY, BILATERAL CLINICAL INFORMATION: Bilateral leg swelling. History of left great saphenous vein stripping . COMPARISON: CT abdomen pelvis earlier today. Bilateral lower extremity reflux and DVT study 08/18/2021 TECHNIQUE: Ultrasound of the deep veins is performed from the hip to the calf with compression sonography and color and pulse Doppler assessment. Spectral analysis with color-flow imaging is performed. FINDINGS: RIGHT: There is normal venous compression and respiratory variation and augmented flow. The visualized common femoral vein, superficial femoral vein, profunda femoral vein, popliteal vein, and the trifurcation region shows no evidence of deep venous thrombosis. There is no significant popliteal fossa cyst. LEFT: There is normal venous compression and respiratory variation and augmented flow. The visualized common femoral vein, superficial femoral vein, profunda femoral vein, popliteal vein, and the trifurcation region shows no evidence of deep venous thrombosis. There is no significant popliteal fossa cyst. If the patient's symptoms persist, followup ultrasound in 5 days 7 days might be of value to exclude proximal propagation from a non-visualized calf vein. US/US venous duplex LE BI IMPRESSION: No DVT demonstrated in either lower extremity.
[2023-04-19 12:36] VITALS: BP 128/67; PULSE 70; RESP 16; TEMP 36.4; O2SAT 100; BMI 21.1
--- NOTE | 2023-04-19 12:36 | ED_ITS ---
HPI - General Adult General Chief complaint: General Medical Stated complaint: Fluid retention/Body pain Time Seen by Provider: 04/19/23 17:56 Source: patient Mode of arrival: ambulatory Limitations: no limitations History of Present Illness HPI narrative: Patient with history of restless legs syndrome, COPD, PVD comes here for increased abdominal distention and bilateral leg swelling for last 4 days. Denies any shortness of breath no leg pain no abdominal pain no weight loss no history of liver disease no chest pain Related Data Home Medications Medication Instructions Recorded Confirmed ibuprofen 800 mg tablet 800 mg PO Q8H PRN pain 06/30/22 02/22/23 Previous Rx's Medication Instructions Recorded naloxone 4 mg/actuation nasal 4 mg intranasal Q2M 1 day #2 ea 08/13/21 spray (Narcan) albuterol sulfate 90 mcg/actuation 2 puff inhalation Q4-6H PRN 02/10/22 aerosol inhaler (ProAir HFA) shortness of breath or wheezing/cough 30 days #8.5 grams colchicine (gout) 0.6 mg tablet 0.6 mg PO DAILY 30 days #30 tabs 11/17/22 trazodone 50 mg tablet 50 mg PO BEDTIME 90 days #90 tabs 11/17/22 Advair Diskus 500 mcg-50 mcg/dose 1 ea PO BID #60 ea 01/18/23 powder for inhalation (fluticasone propion-salmeterol) ropinirole 1 mg tablet 1 mg PO TID #270 tabs 02/01/23 cyclobenzaprine 10 mg tablet 10 mg PO BEDTIME #14 tabs 02/22/23 oxycodone-acetaminophen 7.5 mg-325 1 tab PO TID PRN pain 30 days #90 03/26/23 mg tablet tabs cyclobenzaprine 10 mg tablet 10 mg PO TID PRN muscle spasm #10 04/16/23 tabs naproxen 500 mg tablet 500 mg PO BID PRN pain #10 tabs 04/16/23 back brace #1 ea 04/19/23 Allergies Allergy/AdvReac Type Severity Reaction Status Date / Time No Known Allergies Allergy Verified 04/16/23 09:24 Review of Systems Review of Systems: Yes all other systems are reviewed and are negative PMFSH Past Medical History Medical History Abdominal bloating Acute adjustment disorder with anxiety Bilateral hip pain Breast cancer screening Bronchitis Change in bowel habit COPD (chronic obstructive pulmonary disease) COPD exacerbation Exocrine pancreatic insufficiency Lumbar post-laminectomy syndrome Muscle strain Osteopenia Personal history of nicotine dependence Pseudogout of left knee Restless leg syndrome Screening for diabetes mellitus (DM) Screening for hypercholesterolemia Surgical History History of femoral hernia repair (~2002) History of lumbar fusion (~2013) History of lumbar laminectomy (~2012) History of vein stripping (~2003) Status post phlebectomy (~2008) Social History Social History Housing: House Alcohol intake: current Alcohol intake frequency: holidays/special occasions only Patient Tobacco Use Status: Current everyday Tobacco user Tobacco use type: Cigarette Cigarettes Per Day: 10 Smoked in Last 30 Days: Yes e-Cigarette/Vaping Use: Never Used Second Hand Smoke Exposure: No Use of substances other than those prescribed or required for medical reasons: No Advance Directives: No Advance Directives Information Provided: No service: No Current occupational status: retired Current occupation: [employer] Cognitive needs: No Hearing needs: No Vision needs: Yes (contacts/glasses) Physical Exam ED Vital Signs: Vital Signs - 24 hr 04/19/23 12:36 04/19/23 17:53 04/19/23 19:29 Temperature 97.6 F 97.6 F 97.9 F Pulse Rate 70 62 63 Respiratory Rate 16 16 18 Blood Pressure 128/67 153/84 H Pulse Oximetry 100 100 99 Oxygen Delivery Method Room Air Room Air Room Air 04/19/23 19:30 Temperature Pulse Rate 61 Respiratory Rate 18 Blood Pressure 140/71 H Pulse Oximetry 99 Oxygen Delivery Method Room Air BMI result Body Mass Index 21.1 Appearance: Alert. Oriented X3. No acute distress. Eyes: PERRLA, No Nystagmus ENT: Pharynx normal. Oral Mucosa moist Neck: Normal inspection. Neck supple. CVS: Normal heart rate and rhythm. Pulses normal. Respiratory: No respiratory distress. Equal air entry bilateral, no wheez ing/rales/rhonchi Abdomen: Soft and nontender.?FF+ Bowel sounds are present, no mass palpable, no CVA tenderness Skin: Skin warm and dry. Normal skin color. Normal skin turgor. Extremities:2+ bilat lower extremity edema. No calf tenderness Neuro: Oriented X 3. No motor deficit. No sensory deficit.No cerebellar signs , cranial nerves II-XII intact Course Course Course Narrative: RME performed by Lea Engel PA-C. Patient is a 73 year old assigned female at presenting to the emergency department with acute on chronic back pain and lower leg edema and abdominal distention. Labs ordered. Patient placed back in the waiting room pending room availability and results. Medications Administered Discontinued Medications Generic Name Dose Route Start Last Admin Trade Name Freq PRN Reason Stop Dose Admin Bisacodyl 10 mg 04/19/23 20:05 04/19/23 20:13 Bisacodyl 5 Mg Tablet.Dr PO 04/19/23 20:06 10 mg ONCE ONE Administration Magnesium Hydroxide 30 ml 04/19/23 20:05 04/19/23 20:14 Milk Of Magnesia 30 Ml Oral.Susp PO 04/19/23 20:06 30 ml ONCE ONE Administration Oxycodone HCl 10 mg 04/19/23 20:06 04/19/23 20:13 Oxycodone Hcl Immed Release 5 Mg Tablet PO 04/19/23 20:07 10 mg ONCE ONE Administration Medical Decision Making Medical Decision Making [facility] Narrative: Patient with dependent edema bilateral lower extremities workup is negative except for constipation no pelvic mass seen on the CT scan Doppler was negative for DVTs patient advised to keep the leg elevated we will hold any diuretics for now as patient's sodium was 129 patient to follow-up with her PCP next week Differential Diagnosis Differential Diagnoses: The differential diagnosis associated with the presentation includes Dependent edema/DVT/pelvic mass/cirrhosis/CHF Lab Data [facility] Lab Attestation statement: I reviewed the patient's lab results. 04/19/23 12:57 04/19/23 12:57 Labs: Lab Results 04/19/23 04/19/23 04/19/23 Range/Units 12:57 12:57 12:57 WBC 5.6 (4.8-10.8) X10*3/uL RBC 4.12 L (4.20-5.50) X10*6/uL Hgb 12.9 (12.0-16.0) g/dl Hct 38.3 (37.0-47.0) % MCV 93.0 (80.0-98.0) fL MCH 31.3 (27.0-33.0) pg MCHC 33.7 (31.0-35.0) g/dl RDW 13.8 (11.0-16.0) % Plt Count 176 (160-400) X10*3/uL MPV 8.8 L (9.4-12.3) fL Immature Gran % (Auto) 0.2 (0.0-0.4) % Neut % (Auto) 52.4 (45-73) % Lymph % (Auto) 35.9 (20-40) % [place] % (Auto) 9.9 (2-11) % Eos % (Auto) 1.1 (0-4) % Baso % (Auto) 0.5 (0-2) % Lymph # (Auto) 2.0 (1.2-4.9) X10*3/uL [place] # (Auto) 0.6 (0.1-1.2) X10*3/uL Eos # (Auto) 0.1 (0.0-0.4) X10*3/uL Baso # (Auto) 0.0 (0.0-0.2) X10*3/uL Abs Immat Gran (auto) 0.01 (0.00-0.03) X10*3/uL Absolute Neuts (auto) 3.0 (2.0-8.3) x10*3/uL Absolute Nucleated RBC 0.000 (0.0-0.012) X10*3/uL Nucleated RBC % (auto) 0.0 (0.0-0.2) /100WBC Sodium 129 L (135-145) mmol/L Potassium 4.7 (3.3-5.1) mmol/L Chloride 94 L (96-108) mmol/L Carbon Dioxide 25 (22-29) mmol/L Anion Gap 15 (12-20) BUN 13 (9-16) mg/dL Creatinine 0.75 (0.5-1.4) mg/dL Estim Creat Clear Calc 64.5 Estimated GFR > 60 Random Glucose 77 (60-115) mg/dL Calcium 9.1 (8.4-10.2) mg/dL Magnesium 2.8 H (1.6-2.6) mg/dL Total Bilirubin 0.4 (0.0-1.0) mg/dL AST 21 (5-31) U/L ALT 14 (0-31) U/L Alkaline Phosphatase 67 (39-117) U/L B-Natriuretic Peptide 82 (<100) pg/mL Total Protein 6.7 (6.5-8.0) g/dL Albumin 3.8 (3.5-5.0) g/dL Urine Color Urine Appearance Urine pH (5.0-9.0) Ur Specific [place] (1.005-1.025) Urine Protein (Neg-Trace) mg/dL Urine Glucose (UA) (Negative) mg/dL Urine Ketones (Negative) mg/dL Urine Blood (Negative) Urine Nitrite (Negative) Ur Leukocyte Esterase (Negative) Urine RBC (0-2) /HPF Urine WBC (0-5) /HPF Ur Squamous Epith Cells (0-2) /HPF Urine Bacteria (None Seen) Hyaline Casts (0-2) /LPF COVID-19 (BRITANY) (Negative) COVID-19 Clin Com 04/19/23 04/19/23 Range/Units 12:57 19:32 WBC (4.8-10.8) X10*3/uL RBC (4.20-5.50) X10*6/uL Hgb (12.0-16.0) g/dl Hct (37.0-47.0) % MCV (80.0-98.0) fL MCH (27.0-33.0) pg MCHC (31.0-35.0) g/dl RDW (11.0-16.0) % Plt Count (160-400) X10*3/uL MPV (9.4-12.3) fL Immature Gran % (Auto) (0.0-0.4) % Neut % (Auto) (45-73) % Lymph % (Auto) (20-40) % [place] % (Auto) (2-11) % Eos % (Auto) (0-4) % Baso % (Auto) (0-2) % Lymph # (Auto) (1.2-4.9) X10*3/uL [place] # (Auto) (0.1-1.2) X10*3/uL Eos # (Auto) (0.0-0.4) X10*3/uL Baso # (Auto) (0.0-0.2) X10*3/uL Abs Immat Gran (auto) (0.00-0.03) X10*3/uL Absolute Neuts (auto) (2.0-8.3) x10*3/uL Absolute Nucleated RBC (0.0-0.012) X10*3/uL Nucleated RBC % (auto) (0.0-0.2) /100WBC Sodium (135-145) mmol/L Potassium (3.3-5.1) mmol/L Chloride (96-108) mmol/L Carbon Dioxide (22-29) mmol/L Anion Gap (12-20) BUN (9-16) mg/dL Creatinine (0.5-1.4) mg/dL Estim Creat Clear Calc Estimated GFR Random Glucose (60-115) mg/dL Calcium (8.4-10.2) mg/dL Magnesium (1.6-2.6) mg/dL Total Bilirubin (0.0-1.0) mg/dL AST (5-31) U/L ALT (0-31) U/L Alkaline Phosphatase (39-117) U/L B-Natriuretic Peptide (<100) pg/mL Total Protein (6.5-8.0) g/dL Albumin (3.5-5.0) g/dL Urine Color Yellow Urine Appearance Clear Urine pH 8.5 (5.0-9.0) Ur Specific [place] 1.010 (1.005-1.025) Urine Protein Negative (Neg-Trace) mg/dL Urine Glucose (UA) Negative (Negative) mg/dL Urine Ketones Negative (Negative) mg/dL Urine Blood Negative (Negative) Urine Nitrite Negative (Negative) Ur Leukocyte Esterase Moderate (2+) H (Negative) Urine RBC 0-2 (0-2) /HPF Urine WBC 11-20 H (0-5) /HPF Ur Squamous Epith Cells 0-2 (0-2) /HPF Urine Bacteria None Seen (None Seen) Hyaline Casts 0-2 (0-2) /LPF COVID-19 ([facility]ANY) Negative (Negative) COVID-19 Clin Com See Note Discharge Plan Discharge Clinical Impression: Dependent edema, Constipation Patient Disposition: Home, Self-Care Instructions: Constipation (ED), Leg Edema (ED) Additional Instructions: Take stool softener daily Keep your leg elevated Follow-up with PCP for further evaluation Prescriptions: No Action Narcan 4 mg/actuation spray,non-aerosol 4 mg intranasal Q2M 1 Days Qty: 2 1RF Rx Instructions: spray 1 dose into ONE nostril; alternate nostrils w each dose until help arrives trazodone 50 mg tablet 50 mg PO BEDTIME 90 Days Qty: 90 2RF fluticasone propion-salmeterol [Advair Diskus] 500-50 mcg/dose blister with device 1 ea PO BID Qty: 60 0RF ropinirole 1 mg tablet 1 mg PO TID Qty: 270 0RF (DME) back brace Misc See Rx Instructions .Route Qty: 1 0RF Rx Instructions: As directed naproxen 500 mg tablet 500 mg PO BID PRN (Reason: pain) Qty: 10 0RF cyclobenzaprine 10 mg tablet 10 mg PO TID PRN (Reason: muscle spasm) Qty: 10 0RF colchicine (gout) 0.6 mg tablet 0.6 mg PO DAILY 30 Days Qty: 30 3RF cyclobenzaprine 10 mg tablet 10 mg PO BEDTIME Qty: 14 0RF ibuprofen 800 mg tablet 800 mg PO Q8H PRN (Reason: pain) albuterol sulfate [ProAir HFA] 90 mcg/actuation HFA aerosol inhaler 2 puff inhalation Q4-6H PRN (Reason: shortness of breath or wheezing/cough) 30 Days Qty: 8.5 2RF oxycodone-acetaminophen 7.5-325 mg tablet 1 tab PO TID PRN (Reason: pain) 30 Days Qty: 90 0RF Rx Instructions: Partial Fill upon patient request. Interventions: ED Discharge Assessment Last Done: 04/19/23 20:54 Discharge Date/Time: 04/19/23 20:55
[2023-04-19 13:02] LABS: MANUAL DIFF FLAG NO
[2023-04-19 13:03] LABS: Basophils Percent Auto 0.5 % (0-2); Eosinophils Absolute Auto 0.1 X10*3/uL (0.0-0.4); Eosinophils Percent Auto 1.1 % (0-4); Hematocrit 38.3 % (37.0-47.0); Hemoglobin 12.9 g/dl (12.0-16.0); Imm Gran Abs Auto 0.01 X10*3/uL (0.00-0.03); Imm Gran Pct Auto 0.2 % (0.0-0.4); Lymphocytes Percent Auto 35.9 % (20-40); Mean Corpuscular HGB Conc 33.7 g/dl (31.0-35.0); Mean Corpuscular Hemoglobin 31.3 pg (27.0-33.0); Mean Platelet Volume 8.8 fL (9.4-12.3); Monocytes Absolute Auto 0.6 X10*3/uL (0.1-1.2); Monocytes Percent Auto 9.9 % (2-11); Neutrophils Percent Auto 52.4 % (45-73); Platelet Count 176 X10*3/uL (160-400); Red Blood Count 4.12 X10*6/uL (4.20-5.50); Red Cell Distribution Width 13.8 % (11.0-16.0); White Blood Count 5.6 X10*3/uL (4.8-10.8)
[2023-04-19 13:17] LABS: COVID-19 Test Negative (Negative); IDNOW Serial# 08D9AD1C
[2023-04-19 13:19] LABS: Alanine Aminotransferase 14 U/L (0-31); Albumin Level 3.8 g/dL (3.5-5.0); Alkaline Phosphatase 67 U/L (39-117); Anion Gap 15 (12-20); Aspartate Amino Transferase 21 U/L (5-31); Bilirubin Total 0.4 mg/dL (0.0-1.0); Blood Urea Nitrogen 13 mg/dL (9-16); Calcium 9.1 mg/dL (8.4-10.2); Carbon Dioxide 25 mmol/L (22-29); Chloride 94 mmol/L (96-108); Creatinine Clr Calc Pharmacy 64.5; Estimated Glomerular Filt Rate > 60; Glucose Random 77 mg/dL (60-115); Magnesium 2.8 mg/dL (1.6-2.6); Potassium 4.7 mmol/L (3.3-5.1); Sodium 129 mmol/L (135-145); Total Protein 6.7 g/dL (6.5-8.0)
[2023-04-19 13:26] LABS: B Type Natriuretic Peptide 82 pg/mL (<100)
[2023-04-19 17:53] VITALS: PULSE 62; RESP 16; TEMP 36.4; O2SAT 100
[2023-04-19 19:29] VITALS: BP 153/84; PULSE 63; RESP 18; TEMP 36.6; O2SAT 99
[2023-04-19 19:30] VITALS: BP 140/71; PULSE 61; RESP 18; O2SAT 99
--- NOTE | 2023-04-19 19:33 | MHC.EDTECH ---
This tech assumed care of pt at 1900,vitals were taken and a urine specimen was collected and sent to lab. Call oliver within reach
[2023-04-19 19:41] LABS: Appearance Urine Clear; Color Urine Yellow; Glucose Urine UA Negative (Negative); Leukocyte Esterase Urine Moderate (2+) (Negative); Nitrite Urine Negative (Negative); PH 8.5 (5.0-9.0); UMIC TRIGGER UACC YES; Urine Blood Negative (Negative); Urine Ketones Negative (Negative); Urine Protein Negative (Neg-Trace)
[2023-04-19 19:46] LABS: Bacteria Urine None Seen (None Seen); Hyaline Casts Urine 0-2 /LPF (0-2); RBC Urine 0-2 /HPF (0-2); Squamous Epithelial Cell Urine 0-2 /HPF (0-2); UACC Culture Trigger YES
[2023-04-19] MEDS: oxyCODONE HCl Immed Release 5 MG TABLET 10 MG PO (20:13)
[2023-04-19] MEDS: bisacodyL 5 MG TABLET.DR 10 MG PO (20:13)
[2023-04-19] MEDS: Milk of Magnesia 30 ML ORAL.SUSP PO (20:14)
== END 2023-04-19 20:55 | disposition home or self-care (01) ==
PROVIDERS: Physician Assistant Medical; Emergency Provider Internal Medicine; PCP Physician Assistant
DX: R60.0 Localized edema (principal); K59.00 Constipation, unspecified; Z20.822 Contact with and (suspected) exposure to COVID-19; F17.210 Nicotine dependence, cigarettes, uncomplicated
CPT/HCPCS: 74176; 80053; 81001; 83735; 83880; 85025; 87086; 87635; 93970; 99284

== ENCOUNTER 2023-04-22 11:28 | Outpatient (AMB) | payer MEDICARE, SELFPAY ==
--- NOTE | 2023-04-22 11:30 | A.OFFVIS_ITS ---
Intake Vital Signs 04/22/23 11:36 Height 5 ft 7 in Weight 130 lb 8 oz BMI 20.4 BP 131/64 Blood Pressure Location Rt brachial Position Sitting Pulse 71 Pulse Source Pulse Oximeter Pulse Oximetry (%) 96 Oxygen Delivery Method Room Air Intake Visit Reasons: Increasing Pain/ Follow Up s/p ER Visit Intake Note: Pain today 04/22. Nurse Practitioner Home Assessments Required: No Accompanied by: Self / Same As Patient Allergies No Known Allergies Allergy (Verified 04/22/23 11:36) HPI HPI Comments History of Present Illness Details Patient presents today for follow up for acute exacerbation of low back pain that has been worsening since February. The pain was so debilitating that she went to [facility] on 04/16/23 and 04/19/23. She denies any inciting events, no falls or injury. Patient reports she has not been able to do gardening this summer as much due to pain. Any moment, normal daily activities, flexion or extension significantly increases her mid to lower back pain, worse pain with getting out of bed. Due to significant back pain, she cannot sleep in her bed anymore and has hard time turning as this also increases her pain. There is bilateral leg edema, notable in pedal and ankle areas, which is dependant per patient and improves with leg elevation. Per recent ER visit, patient was noted to have mild T12 vertebral body compression fracture, question if recent as well as constipation with mild secondary obstruction. Patient reports she was given MOM, laxative in ER and has been taking stool softeners and laxatives at home, as well as prunes and prune juice. Reports frequent flatus and loose, non-formed BMs. Patient has pending lumbar spine MRI and back brace with intermittent use during the day was ordered upon patient's notification of worsening pain and ER visit. Denies any fever, bladder or bowel incontinence or saddle anesthesia. PRIOR: Dot returns today for a pill count. Patient is supposed to have #57 pills in her possession and has #63. Reports adequate analgesia with no noted sided effects with increased dose of oxycodone-acetaminophen 5-325 mg tid instead of bid prn. Patient reports current opioid medication does not alleviate all of her pain, but provides partial relief. She notes with current exacerbation of pain symptoms, her mobility, ADLs and sleep have been significantly affected. Denies any bladder or bowel incontinence or saddle anesthesia. Denies any fever, chills, weight changes, sedation, abdominal pain, constipation, nausea, dizziness or urinary retention. Patient is also status post bilateral therapeutic SIJ injections on 03/17/[address] Hernández. She reports ongoing 50-60% pain relief with significant improvement in her lower back pain in the projection of bilateral SIJ areas, especially right SIJ. Patient reports she does not experience intense pain anymore as before and has less pain with prolonged sitting and easier with getting out of bed in the morning. Patient is aware the can receive therapeutic SIJ injections no earlier than 3 months if needed. [facility] Medical History Abdominal bloating Acute adjustment disorder with anxiety Bilateral hip pain Breast cancer screening Bronchitis Change in bowel habit COPD (chronic obstructive pulmonary disease) COPD exacerbation Exocrine pancreatic insufficiency Lumbar post-laminectomy syndrome Muscle strain Osteopenia Personal history of nicotine dependence Pseudogout of left knee Restless leg syndrome Screening for diabetes mellitus (DM) Screening for hypercholesterolemia Surgical History History of femoral hernia repair (~2002) History of lumbar fusion (~2013) History of lumbar laminectomy (~2012) History of vein stripping (~2003) Status post phlebectomy (~2008) Social History Housing: House Alcohol intake: current Alcohol intake frequency: holidays/special occasions only Patient Tobacco Use Status: Current everyday Tobacco user Tobacco use type: Cigarette Cigarettes Per Day: 10 e-Cigarette/Vaping Use: Never Used Second Hand Smoke Exposure: No service: No Current occupational status: retired Current occupation: [employer] Cognitive needs: No Hearing needs: No Vision needs: Yes (contacts/glasses) Review of Systems Const All systems reviewed & are unremarkable except as noted in HPI and below Physical Exam Vital Signs: Last Vital Signs Pulse 71 04/22/23 11:36 BP 131/64 04/22/23 11:36 Pulse Ox 96 04/22/23 11:36 Oxygen Delivery Method Room Air 04/22/23 11:36 BMI result Body Mass Index 20.4 On exam today: Appears afebrile. Alert and oriented. Mood and affect appropriate. Follows and participates in conversation appropriately. Respiratory effort is unlabored. No cough. Able to transition from sit to stand unassisted. Able to stand and walk on toes and heels. GI Inspection: Yes distended, No visible herniation and No visible pulsation Palpation (GI): Firmness to palpation present (GI) (semi-firm), nontender, no guarding and No Rebound tenderness present Auscultation: normal bowel sounds (with hypoactive bowel sounds RLQ) General: Yes no CVA tenderness Back/Spine/Pelvis Other: Lumbar flexion and extension reproduce significant low thoracic to low back pain. Back: no CVA tenderness Cervical Spine: cervical ROM normal and No Cervical spine tenderness Thoracic/Lumbar Spine: thoracic and lumbar spine normal to inspection, Thoracic/lumbar spine scar(s), pain with thoraco-lumbar ROM, paraspinal muscle tenderness, thoraco-lumbar ROM limited, thoracic spinal tenderness (low thoracic) and lumbar spinal tenderness Pelvis: no buttock tenderness Sacroiliac joints: bilaterally tender to palpation Extrem General: Yes capillary refill normal, Yes pedal edema (ankle and pedal edema +2) and Yes other (multiple varicosities and varicose veins bilaterally) Results Reviewed Results Reviewed: CT/CT abdomen pelvis wo IV con 04/19/23 OSSEOUS STRUCTURES: Postsurgical changes at L4-L5 with posterior fusion hardware and prosthetic disc interspace. Scoliosis and degenerative changes of the spine. Mild compression fracture of the superior endplate of the T12 vertebral body. This is new in the interval from previous exam October 2021 and may be recent. IMPRESSION: Limited exam due to lack of oral and IV contrast and paucity of intra-abdominal fat. Constipation and mild secondary obstruction. Severe atherosclerotic disease. Mild T12 vertebral body compression fracture, question recent. US/US venous duplex LE 04/19/23 IMPRESSION: No DVT demonstrated in either lower extremity. XR/XR lumbar spine 2-3V 02/22/23 IMPRESSION: Stable postsurgical change at L4-L5. Scoliosis and multilevel degenerative changes. Sacrum and coccyx: Limited exam. 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 Assessment & Plan Assessment & Plan (1) T12 compression fracture: Code(s): S22.080A - Wedge compression fracture of T11-T12 vertebra, initial encounter for closed fracture (2) Back pain of thoracolumbar region: Code(s): M54.50 - Low back pain, unspecified; M54.6 - Pain in thoracic spine (3) Constipation due to opioid therapy: Code(s): K59.03 - Drug induced constipation; T40.2X5A - Adverse effect of other opioids, initial encounter (4) Spinal stenosis of lumbar region: Code(s): M48.061 - Spinal stenosis, lumbar region without neurogenic claudication (5) Lumbar post-laminectomy syndrome: Code(s): M96.1 - Postlaminectomy syndrome, not elsewhere classified Plan 1. Pending lumbar spine MRI to assess for neural integrity and compression. Will also obtain thoracic spine imaging to follow up on recent finding T12 vertebral body compression fracture per abd/pelvis CT scan while in ER. She has osteopenia per previous bone scan imaging, will update this to evaluate for osteoporosis prior to potential interventional treatments for T12 fracture. 2. Script provided for back brace with intermittent use during the day. 3. Patient encouraged to follow up with GI services regarding abdominal symptoms, constipation and some distention. She is passing loose stools and regular flatus but has not had normal BM for more than a month. Reports in back pain with stool straining--encouraged use of squatty potty or elevate feet with BM. Short script provided for Reglan for opioid-related constipation mildly responsive to increasing fluid, fiber, stool softener and laxatives. Side effects and precautions reviewed. All questions and concerns have been answered and patient agreed with the plan. Follow up for imaging results and sooner if needed. Orders: Orders XR thoracic spine 3V Today M54.50 - Low back pain, unspecified, M54.6 - Pain in thoracic spine, S22.080A - Wedge compression fracture of T11-T12 vertebra, initial encounter for closed fracture Medications: New metoclopramide HCl (Reglan) 5 mg PO DAILY PRN 14 tabs 0RF opioid-related constipation K59.03 - Drug induced constipation, T40.2X5A - Adverse effect of other opioids, initial encounter Refilled back brace As directed 1 ea 0RF lumbar support M54.50 - Low back pain, unspecified, M54.6 - Pain in thoracic spine, S22.080A - Wedge compression fracture of T11-T12 vertebra, initial encounter for closed fracture Coding Level of Care Code Est Pt Level 4 (54717) Diagnoses T12 compression fracture S22.080A Back pain of thoracolumbar region M54.50; M54.6 Constipation due to opioid therapy K59.03; T40.2X5A Spinal stenosis of lumbar region M48.061 Lumbar post-laminectomy syndrome M96.1
[2023-04-22 11:36] VITALS: BP 131/64; PULSE 71; O2SAT 96; BMI 20.4
== END 2023-04-22 12:07 | disposition home or self-care (01) ==
PROVIDERS: PCP Physician Assistant; Visit Provider Nurse Practitioner Family
DX: S22.080A Wedge compression fracture of T11-T12 vertebra, initial encounter for closed fracture (principal); M54.50 Low back pain, unspecified; M54.6 Pain in thoracic spine; K59.03 Drug induced constipation; T40.2X5A Adverse effect of other opioids, initial encounter; M48.061 Spinal stenosis, lumbar region without neurogenic claudication; M96.1 Postlaminectomy syndrome, not elsewhere classified
CPT/HCPCS: 99214

== ENCOUNTER → 2023-04-22 11:28 | Outpatient (BNVA) | payer MEDICARE, SELFPAY | PROVIDERS: PCP Physician Assistant; Visit Provider Nurse Practitioner Family | DX: S22.080A Wedge compression fracture of T11-T12 vertebra, initial encounter for closed fracture (principal); M54.50 Low back pain, unspecified; K59.03 Drug induced constipation; T40.2X5A Adverse effect of other opioids, initial encounter; M48.061 Spinal stenosis, lumbar region without neurogenic claudication; M96.1 Postlaminectomy syndrome, not elsewhere classified | CPT/HCPCS: 99212 ==

== ENCOUNTER 2023-04-27 08:44 | Outpatient (AMB) | payer MEDICARE, SELFPAY ==
--- NOTE | 2023-04-27 08:46 | A.OFFPC_ITS ---
Vital Signs 04/27/23 08:49 Height 5 ft 7 in Weight 128 lb BMI 20.0 BP 110/70 Blood Pressure Location Lt brachial Position Sitting Pulse 68 Pulse Source Pulse Oximeter Temp Source Skin Pulse Oximetry (%) 97 Oxygen Delivery Method Room Air Intake Visit Reasons: back pain, abdominal discomfort Grain Receiver Required: No Allergies No Known Allergies Allergy (Verified 04/27/23 08:57) Medication List - Last Reconciled 04/27/23 by BRIANA Duckworth Advair Diskus 500-50 mcg/dose (fluticasone propion-salmeterol) 1 ea PO BID NS albuterol sulfate 90 mcg/actuation (ProAir HFA) 2 puffs inhalation Q4-6H PRN 30 days back brace As directed colchicine (gout) 0.6 mg PO DAILY 30 days cyclobenzaprine 10 mg PO TID PRN cyclobenzaprine 10 mg PO BEDTIME ibuprofen 800 mg PO Q8H PRN metoclopramide HCl (Reglan) 5 mg PO DAILY PRN naloxone 4 mg/actuation (Narcan) 4 mg intranasal Q2M 1 day naproxen 500 mg PO BID PRN oxycodone-acetaminophen 7.5-325 mg 1 tab PO TID PRN 30 days ropinirole 1 mg PO TID trazodone 50 mg PO BEDTIME 90 days Tobacco use date assessed: 04/27/23 Fall risk assessment: No Falls in past year Last assessed Fall Risk: 04/27/23 Dental Screening Dental Screen Date: 04/27/23 HPI back pain, abdominal discomfort HPI Details Patient is a 73-year-old female who presents today to follow-up after [facility] visit 04/16/2023 due to back pain and 04/19/2020 pain due to abdominal distension and bilateral leg swelling for 4 days. Patient of MARK Rider. Per ED notes 04/19/2023 Patient with history of restless legs syndrome, COPD, PVD comes here for increased abdominal distention and bilateral leg swelling for last 4 days. Denies any shortness of breath no leg pain no abdominal pain no weight loss no history of liver disease no chest pain.Patient is a 73 year old assigned female at presenting to the emergency department with acute on chronic back pain and lower leg edema and abdominal distention. Labs ordered. Patient with dependent edema bilateral lower extremities workup is negative except for constipation no pelvic mass seen on the CT scan Doppler was negative for DVTs patient advised to keep the leg elevated we will hold any diuretics for now as patient's sodium was 129 patient to follow-up with her PCP next week. Today, patient reports chronic low back pain, on CT scan in the emergency department noted to have mild T12 vertebral body compression fracture-and she is followed by pain management for this. Patient is on Percocet p.r.n. which is prescribed by pain management. Patient reports no normal bowel movement for very long time now, reports loose stool 2 days ago, also reports small stool pieces yesterday, but no normal consistency bowel movement. She reports that she noticed more constipation when she had to take Percocet 2 tablets the same time - patient reports that pain management is aware about this. Patient reports taking milk of magnesia, magnesium citrate, and Doculax for bowel movement. She also reports abdominal distension and feeling gassy, reports taking Gas-X with possible minimal improvement in abdominal distention. Denies nausea or vomiting, no abdominal pain. Denies lower extremity swelling today. Patient reports that she has a good diet although she does not eat much. Denies being recently on antibiotic. No fever or chills. Denies urinary symptoms. 04/19/23 CT/CT abdomen pelvis wo IV con IMPRESSION: Limited exam due to lack of oral and IV contrast and paucity of intra-abdominal fat. Constipation and mild secondary obstruction. Severe atherosclerotic disease. Mild T12 vertebral body compression fracture, question recent. [facility] Medical History Abdominal bloating Acute adjustment disorder with anxiety Bilateral hip pain Breast cancer screening Bronchitis Change in bowel habit COPD (chronic obstructive pulmonary disease) COPD exacerbation Exocrine pancreatic insufficiency Lumbar post-laminectomy syndrome Muscle strain Osteopenia Personal history of nicotine dependence Pseudogout of left knee Restless leg syndrome Screening for diabetes mellitus (DM) Screening for hypercholesterolemia Surgical History History of femoral hernia repair (~2002) History of lumbar fusion (~2013) History of lumbar laminectomy (~2012) History of vein stripping (~2003) Status post phlebectomy (~2008) Social History Housing: House Alcohol intake: current Alcohol intake frequency: holidays/special occasions only Patient Tobacco Use Status: Current everyday Tobacco user Tobacco use type: Cigarette Cigarettes Per Day: 10 e-Cigarette/Vaping Use: Never Used Second Hand Smoke Exposure: No service: No Current occupational status: retired Current occupation: [employer] Cognitive needs: No Hearing needs: No Vision needs: Yes (contacts/glasses) Questionnaire Thrive Questionnaire Date Thrive assessed: 11/17/22 AUDIT C Alcohol Use Questionnaire (AUDIT-C) 1. How often do you have a drink containing alcohol?: Never 3. How often do you have six or more drinks on one occasion?: Never Total Score: 0 Score Reviewed/Action Taken: No DC-7 AMB Questionnaire DC-7 Date DC - 7 assessed: 11/17/22 Source: Developed by Drs. Chong Posada, Hayley Bell, Mono Gillespie and colleagues, with an educational wesley from [employer]. Review of Systems Const Denies body aches, Denies chills, Denies fever(s) and Denies headache(s) Eyes Denies change in vision ENT Denies dizziness, Denies otalgia, Denies headache(s), Denies nasal discharge, Denies sinus pain and Denies sore throat Card Denies chest pain, Denies leg edema, Denies lightheadedness and Denies dyspnea Resp Denies cough, Denies dyspnea and Denies wheezing GI Denies abdominal pain, Reports bloating, Denies hematochezia, Reports constipation, Denies diarrhea, Reports loose stools, Denies nausea and Denies vomiting Denies dysuria Musc Reports back pain and Denies myalgias Skin/Breast Denies rash Neuro Denies dizziness and Denies headache(s) Aller/Immun Denies wheezing Physical exam (Primary Care) Vital Signs: Last Vital Signs Pulse 68 04/27/23 08:49 BP 110/70 04/27/23 08:49 Pulse Ox 97 04/27/23 08:49 Oxygen Delivery Method Room Air 04/27/23 08:49 BMI result Body Mass Index 20.0 Tobacco/Smoking Status: Tobacco use Status Tobacco use date assessed 04/27/23 04/27/23 08:52 Patient Tobacco Use Status Current everyday Tobacco 04/27/23 08:46 Tobacco use type Cigarette 04/27/23 08:46 e-Cigarette/Vaping Use Never Used 04/27/23 08:46 Thrive Assessment: Date of Thrive Assessment Date Thrive assessed 11/17/22 04/27/23 08:46 Const General: cooperative and no acute distress Orientation/consciousness: patient oriented x3 HENMT Head: Yes normocephalic and Yes atraumatic Face and sinus: Yes sinuses nontender Mouth: oropharynx normal and moist mucous membranes Throat: Yes posterior oropharynx normal Eyes General: appearance normal, both eyes and all related structures Neck Neck: Yes normal visual inspection, Yes full ROM and Yes no lymphadenopathy Resp Effort & Inspection: normal respiratory effort and able to speak in complete sentences Auscultation: clear to auscultation bilaterally, no crackles, no rales, no rhonchi and no wheezes Cardio Rate: regular rate Rhythm: regular rhythm Heart sounds: S1 normal heart sound present and S2 normal heart sound present GI Palpation (GI): Soft to palpation, not firm, nontender, no guarding, not rigid and no hepatosplenomegaly Auscultation: normal bowel sounds Skin General skin exam: no rashes or lesions noted Neuro General: patient oriented x3 Gait exam (Neuro): Normal gait present Extrem General: Yes full ROM and No edema Results AMB Urinalysis, Automated UA Leukoctes 15 Siddharth/uL Last Edit by VICKY Mason on 04/27/23 08:59 UA Nitrite Negative Last Edit by VICKY Mason on 04/27/23 08:59 UA Urobilinogen 0.2 mg/dL Last Edit by VICKY Mason on 04/27/23 08:59 UA Protein 0 mg/dL Last Edit by VICKY Mason on 04/27/23 08:59 UA pH 7.0 Last Edit by VICKY Mason on 04/27/23 08:59 UA Blood 0 Dipak/uL Last Edit by VICKY Mason on 04/27/23 08:59 UA Specific [place] 1.010 Last Edit by VICKY Mason on 04/27/23 08:59 UA Ketone Positive Last Edit by VICKY Mason on 04/27/23 08:59 UA Bilirubin 0 mg/dL Last Edit by VICKY Mason on 04/27/23 08:59 UA Glucose 0 mg/dL Last Edit by VICKY Mason on 04/27/23 08:59 Results Reviewed Results Reviewed: Laboratory Last Values Urine pH (Auto) 7.0 04/27/23 08:58 Specific [place] (Auto) 1.010 04/27/23 08:58 Urine Protein (Auto) 0 mg/dL 04/27/23 08:58 Glucose (UA)(Auto) 0 mg/dL 04/27/23 08:58 Urine Ketones (Auto) Positive 04/27/23 08:58 Urine Blood (Auto) 0 Dipak/uL 04/27/23 08:58 Urine Nitrite (Auto) Negative 04/27/23 08:58 Urine Bilirubin (Auto) 0 mg/dL 04/27/23 08:58 Urine Urobilinogen (Auto) 0.2 mg/dL 04/27/23 08:58 Leukocyte Esterase (Auto) 15 Siddharth/uL 04/27/23 08:58 Assessment and Plan Assessment & Plan (1) Constipation due to opioid therapy: Code(s): K59.03 - Drug induced constipation; T40.2X5A - Adverse effect of other opioids, initial encounter Plan: Will obtain KUB to rule out constipation Increase fluid consumption and dietary fiber (2) T12 compression fracture: Code(s): S22.080A - Wedge compression fracture of T11-T12 vertebra, initial encounter for closed fracture Plan: Will give refill on cyclobenzaprine p.r.n.-educated about drowsiness Continue to follow-up with [facility] pain management Plan Keep appointment with PCP as scheduled or follow-up sooner as needed Urinalysis is negative for UTI Orders: Orders XR KUB Today K59.03 - Drug induced constipation, T40.2X5A - Adverse effect of other opioids, initial encounter Urine Culture Today M54.50 - Low back pain, unspecified, M54.6 - Pain in thoracic spine AMB Urinalysis Automated Today Z13.9 - Encounter for screening, unspecified Medications: Refilled cyclobenzaprine 10 mg PO TID PRN 10 tabs 0RF muscle spasm Coding Level of Care Code Est Pt Level 3 (92115) Diagnoses Constipation due to opioid therapy K59.03; T40.2X5A T12 compression fracture S22.080A
[2023-04-27 08:49] VITALS: BP 110/70; PULSE 68; O2SAT 97
== END 2023-04-27 09:39 | disposition home or self-care (01) ==
PROVIDERS: PCP Physician Assistant; Visit Provider Nurse Practitioner Family
DX: K59.03 Drug induced constipation (principal); T40.2X5A Adverse effect of other opioids, initial encounter; S22.080A Wedge compression fracture of T11-T12 vertebra, initial encounter for closed fracture
CPT/HCPCS: 81003; 99213

== ENCOUNTER 2023-04-27 09:23 | Outpatient (REF) | payer MEDICARE, SELFPAY | END 2023-04-27 09:24 | disposition home or self-care (01) | LOC: HO.LAB 09:23 | PROVIDERS: Visit Provider Nurse Practitioner Family | DX: M54.50 Low back pain, unspecified (principal); M54.6 Pain in thoracic spine; F17.200 Nicotine dependence, unspecified, uncomplicated; M89.8X8 Other specified disorders of bone, other site; M48.061 Spinal stenosis, lumbar region without neurogenic claudication | CPT/HCPCS: 84443; 87086 ==

== ENCOUNTER 2023-04-27 10:03 | Outpatient (REF) | payer MEDICARE, SELFPAY ==
--- NOTE | ~2023-04-27 | XR_ITS ---
EXAMINATION: XR ABDOMEN KUB CLINICAL INDICATION: Drug induced constipation COMPARISON: CT abdomen and pelvis 04/19/2023. Lumbar spine 02/22/2023 TECHNIQUE: AP view of the abdomen. FINDINGS: S-shaped thoracolumbar scoliosis with advanced multilevel degenerative changes. Stabilization hardware redemonstrated in the lower lumbar spine. Nonobstructive bowel gas pattern. Moderate amount of stool in the colon. Degenerative changes in bilateral hips. XR/XR KUB IMPRESSION: Nonobstructive bowel gas pattern. Moderate amount of stool in the colon.
--- NOTE | ~2023-04-27 | XR_ITS ---
EXAMINATION: XR THORACIC SPINE CLINICAL INFORMATION: Wedge compression fracture of T11-T12 vertebra, initial encounter COMPARISON: CT abdomen and pelvis 04/19/2023, thoracic spine x-ray 11/21/2018 . Lumbar spine 02/22/2023. CT chest 06/30/2022. TECHNIQUE: Lateral, swimmer's and 2 AP views of the thoracic spine FINDINGS: Atherosclerotic calcifications in the aortic knob. Mild S-shaped thoracolumbar scoliosis. Mild compression fracture of the T12 vertebral body was characterized on CT abdomen of 04/19/2023, but not identified more remote prior exams. Evaluation limited due to overlying soft tissues. The bones are diffusely demineralized. Multilevel degenerative changes in the thoracic spine. XR/XR thoracic spine 3V IMPRESSION: Mild compression fracture of the T12 vertebral body was characterized on CT abdomen of 04/19/2023, but not identified more remote prior exams. Evaluation limited due to overlying soft tissues. Additional imaging with CT scan or MRI should be considered for better visualization as these modalities are much more sensitive for detection of fracture or other underlying pathology. Moderate multilevel degenerative changes in the thoracic spine. The bones are diffusely demineralized.
--- NOTE | ~2023-04-27 | US_ITS ---
EXAMINATION: US RETROPERITONEAL LIMITED (AORTA) CLINICAL INFORMATION: Cigarette smoker, atherosclerotic vascular disease. COMPARISON: None available. TECHNIQUE: Lee-scale, color Doppler and spectral Doppler evaluation of the abdominal aorta. FINDINGS: The aorta is normal. The measurements of the aorta in maximum AP and transverse dimensions respectively are as follows: Proximal: 3.5 x 3.6 cm. Mid: 1.8 x 1.8 cm. Distal: 1.65, 1.5 cm. PSV: 97 cm/s. The measurements of the common iliac arteries in maximum AP and TRV dimensions are as follows: Right Common Iliac Artery: 1.0 x 1.3 cm. Left Common Iliac Artery: 1.2 x 1.1 cm. US/US abdominal aortic aneurysm IMPRESSION: Mild aneurysmal dilatation proximal abdominal aorta.
== END 2023-04-27 10:04 | disposition home or self-care (01) ==
LOC: HO.US 10:03
PROVIDERS: Absent Provider Nurse Practitioner Family; PCP Physician Assistant; Visit Provider Nurse Practitioner Family
DX: M54.50 Low back pain, unspecified (principal); M54.6 Pain in thoracic spine; S22.080A Wedge compression fracture of T11-T12 vertebra, initial encounter for closed fracture; K59.03 Drug induced constipation; T40.2X5A Adverse effect of other opioids, initial encounter; I70.90 Unspecified atherosclerosis
CPT/HCPCS: 72072; 74018; 76706

== ENCOUNTER 2023-04-29 10:15 | Outpatient (AMB) | payer MEDICARE, SELFPAY ==
[2023-04-29 10:18] VITALS: BP 108/64; PULSE 60; O2SAT 98; BMI 20.2
--- NOTE | 2023-04-29 10:18 | MHC.PC.OV ---
Vital Signs 04/29/23 10:18 Height 5 ft 7 in Weight 129 lb 4 oz BMI 20.2 BP 108/64 Blood Pressure Location Lt brachial Position Sitting Pulse 60 Pulse Source Pulse Oximeter Pulse Oximetry (%) 98 Oxygen Delivery Method Room Air Intake Visit Reasons: PE Allergies No Known Allergies Allergy (Verified 04/29/23 10:47) Medication List - Last Reconciled 04/29/23 by Brannon Rider PA-C Advair Diskus 500-50 mcg/dose (fluticasone propion-salmeterol) 1 ea PO BID NS albuterol sulfate 90 mcg/actuation (ProAir HFA) 2 puffs inhalation Q4-6H PRN 30 days back brace As directed ibuprofen 800 mg PO Q8H PRN metoclopramide HCl (Reglan) 5 mg PO DAILY PRN naloxone 4 mg/actuation (Narcan) 4 mg intranasal Q2M 1 day oxycodone-acetaminophen 7.5-325 mg 1 tab PO TID PRN 30 days polyethylene glycol 3350 (Miralax) 17 grams PO DAILY PRN ropinirole 1 mg PO TID trazodone 50 mg PO BEDTIME 90 days Tobacco use date assessed: 04/27/23 Dental Screening Dental Screen Date: 04/29/23 Did you have a dental visit in the last 12 months?: Yes Did you have a dental problem in the last 6 months where you did not have access to dental care?: No Was dental information given to patient?: Patient has dentist HPI PE HPI Details Patient is a 73-y ear-old female her e today for routin e annual physical .? Patient has a p ast medical histor y significant for tobacco dependency , sacroiliitis chr onic low back pain , COPD, insomnia. .. COPD: Followed pulmonology, cont inues to smoke and does understand s he needs to quit. She has fold on a nnual basis with C T scans of chest .. Chronic lower l umbar spine pain:? Followed by pain management and taylor s take hydrocodone 7 mg daily p.r.n. for pain. Has mayra wesley recent increased pain in her mid b ack. X-rays and C T showing new mild T12 compression f racture. She repor ts she has been in moderate to sever e pain due to this compression fract ure and has been t aking more narcoti c pain medication. Unfortunately mayra mijares developed associ ated constipation with abdominal blo ating and change i n bowels habits. She is concerned a bout a bowel obstr uction though has been passing stool and flatulence. H as been using Regl an, milk of magnes ia and MiraLax V accines: Up-to-da te with COVID vacc ine, pneumonia vac cine and tetanus v accine. Consideri ng shingles vaccin e Colon cancer sc reening: declines colonoscopy. Has done Cologaurd Shea mogram: Done in N ovember 2021 BI-RA DS 1 Laboratory Tests 04/18/21 04/30/21 06/20/21 08:45 15:14 13:27 RBC 4.66 Hgb 14.4 Sodium 133 L Creatinine Hemoglobin A1c % Cholesterol Amylase 45 Lipase 21 TSH 10/14/21 04/08/22 04/08/22 11:54 08:03 08:03 RBC Hgb Sodium Creatinine 0.81 0.83 Hemoglobin A1c % 5.3 Cholesterol 197 Amylase Lipase TSH 1.51 PFSH Medical History Abdominal bloating Acute adjustment disorder with anxiety Bilateral hip pain Breast cancer screening Bronchitis Change in bowel habit COPD (chronic obstructive pulmonary disease) COPD exacerbation Exocrine pancreatic insufficiency Lumbar post-laminectomy syndrome Muscle strain Osteopenia Personal history of nicotine dependence Pseudogout of left knee Restless leg syndrome Screening for diabetes mellitus (DM) Screening for hypercholesterolemia Surgical History History of femoral hernia repair (~2002) History of lumbar fusion (~2013) History of lumbar laminectomy (~2012) History of vein stripping (~2003) Status post phlebectomy (~2008) Social History Housing: House Alcohol intake: current Alcohol intake frequency: holidays/special occasions only Patient Tobacco Use Status: Current everyday Tobacco user Tobacco use type: Cigarette Cigarettes Per Day: 10 e-Cigarette/Vaping Use: Never Used Second Hand Smoke Exposure: No service: No Current occupational status: retired Current occupation: [employer] Cognitive needs: No Hearing needs: No Vision needs: Yes (contacts/glasses) Questionnaire PHQ-9 Over the last 2 weeks, how often have you been bothered by any of the following problems? 1. Little interest or pleasure in doing things: not at all 2. Feeling down, depressed, or hopeless: not at all 3. Trouble falling or staying asleep, or sleeping too much: not at all 4. Feeling tired or having little energy: not at all 5. Poor appetite or overeating: not at all 6. Feeling bad about yourself - or that you are a failure or have let yourself or your family down: not at all 7. Trouble concentrating on things, such as reading the newspaper or watching television: not at all 8. Moving or speaking so slowly that other people could have noticed. Or the opposite - being so fidgety or restless that you have been moving around a lot more than usual: not at all 9. Thoughts that you would be better off or of hurting yourself in some way: not at all Total score: 0 Depression Screening Interpretation: Negative [id number] - PHQ-9 Billing: Yes Source: Developed by Drs. Chong Posada, Hayley Bell, Mono Gillespie and colleagues, with an educational wesley from [employer] Thrive Questionnaire Date Thrive assessed: 11/17/22 I am a: Patient What is your living situation today?: I have a steady place to live Within the past 12 months, did the food you bought not last and you didn't have the money to get more?: Never true Within the past 12 months, did you worry whether your food would run out before you got money to buy more?: Never true Currently or been in a relationship where the following occur: no concerns reported AUDIT C Alcohol Use Questionnaire (AUDIT-C) 1. How often do you have a drink containing alcohol?: Never 3. How often do you have six or more drinks on one occasion?: Never Total Score: 0 Score Reviewed/Action Taken: No DC-7 AMB Questionnaire CD-7 Date DC - 7 assessed: 11/17/22 Feeling nervous, anxious, or on edge: 0 = Not at all Not being able to stop or control worryin = Not at all Worrying too much about different things: 0 = Not at all Trouble relaxin = Not at all Being so restless that it is hard to sit still: 0 = Not at all Becoming easily annoyed or irritable: 0 = Not at all Feeling afraid as if something awful might happen: 0 = Not at all Total DC-7 score (0-4 normal; 5-9 mild; 10-14 moderate; 15-21 severe): 0 Source: Developed by Drs. Chong Posada, Hayley Bell, Mono Gillespie and colleagues, with an educational wesley from [employer] DC-7 Assessment Billing DC-7 Assessment Tool: DC-7 Assessment 63842 Review of Systems Const Denies body aches, Denies chills, Denies excessive sweating, Denies fatigue, Denies fever(s) and Denies headache(s) Eyes Denies blurry vision ENT Denies dysphagia, Denies vertigo, Denies dizziness, Denies headache(s), Denies hearing loss and Denies tinnitus Card Denies chest pain, Denies chest pain with activity, Denies syncope, Denies irregular heart rhythm and Denies dyspnea Resp Denies chest congestion, Denies cough, Denies hemoptysis, Denies dyspnea and Denies wheezing GI Reports abdominal pain, Denies melena, Denies hematochezia, Reports change in stool character, Denies coffee ground emesis, Reports constipation, Denies dysphagia, Denies diarrhea, Denies nausea and Denies vomiting Denies urinary frequency, Denies dysuria, Denies urinary hesitancy and Denies urinary urgency Musc Reports back pain, Denies arthralgias, Denies limited range of motion, Denies muscle cramps and Denies muscle weakness Skin/Breast Denies rash and Denies skin ulcer Neuro Denies Abnormal speech present, Denies confusion, Denies vertigo, Denies dizziness, Denies syncope, Denies headache(s), Denies memory loss and Denies seizure-like activity Psych Denies anxiety, Denies confusion, Denies depression, Denies memory loss, Denies panic attacks and Denies paranoia Endo Denies excessive sweating, Denies fatigue, Denies flushing, Denies polydipsia and Denies polyuria Aller/Immun Denies wheezing Physical exam (Primary Care) Vital Signs: Last Vital Signs Pulse 60 04/29/23 10:18 BP 108/64 04/29/23 10:18 Pulse Ox 98 04/29/23 10:18 Oxygen Delivery Method Room Air 04/29/23 10:18 BMI result Body Mass Index 20.2 Tobacco/Smoking Status: Tobacco use Status Tobacco use date assessed 04/27/23 04/29/23 10:25 Patient Tobacco Use Status Current everyday Tobacco 04/29/23 10:25 Tobacco use type Cigarette 04/29/23 10:25 e-Cigarette/Vaping Use Never Used 04/29/23 10:25 PHQ-9: PHQ-9 Score PHQ-9: Total score 0 04/29/23 10:25 Depression Screening Interpretation: Negative Thrive Assessment: Date of Thrive Assessment Date Thrive assessed 11/17/22 04/29/23 10:25 Currently or been in a relationship where the following occur: no concerns reported Const General: cooperative, comfortable, no acute distress, alert and awake; No confusion Orientation/consciousness: oriented to person, oriented to place, patient oriented x3 and No confusion HENMT Head: Yes normocephalic Ears: external ears normal and TM's normal bilaterally Face and sinus: No sinus tenderness Mouth: Normal oral and palatal mucosa present and tongue normal Teeth and gingiva: dentition normal and gingiva normal Throat: Yes posterior oropharynx normal, Yes tonsils normal and Yes uvula midline Eyes Conjunctivae: conjunctivae normal Sclerae: sclerae normal Pupils: Equal, round and reactive pupils present EOM: EOMs intact bilaterally Direct Ophthalmoscopy: No no photophobia Neck Neck: Yes no lymphadenopathy, No tender and Yes no JVD Thyroid: Thyroid normal Carotids: no bruits Chest Chest palpation & inspection: no tenderness Resp Effort & Inspection: normal respiratory effort, no audible wheezes, not labored and no stridor Auscultation: no crackles, no rales, no rhonchi and no wheezes Cardio Jugular venous distension: no JVD Rate: regular rate, not bradycardic and not tachycardic Rhythm: regular rhythm Bruits: no carotid bruits Peripheral pulses: Peripheral pulses 2+ throughout GI Inspection: Yes normal to inspection, No abdominal wall ecchymosis and No visible herniation Palpation (GI): Soft to palpation, nontender, no guarding, not rigid and No hepatosplenomegaly present Auscultation: normoactive bowel sounds General: Yes no CVA tenderness Back/Spine/Pelvis Other: LIMITED RANGE OF MOTION OF THE THORACIC AND LUMBAR SPINE DUE TO PAIN AND STIFFNESS. Back: no CVA tenderness and No back tenderness Cervical Spine: cervical ROM normal Thoracic/Lumbar Spine: thoracic and lumbar spine normal to inspection, straight leg raise negative bilaterally, No thoraco-lumbar ROM limited and No lumbar spinal tenderness Skin Lesions: no lesions Rashes: no rashes Wounds: no wounds Neuro General: oriented to person, oriented to place, patient oriented x3, CN's II-XI intact bilaterally and No confusion Cranial nerves: Yes Equal, round and reactive pupils present and Yes Normal accommodation reflex present Cognition (Neuro): normal cognition Speech: No Abnormal speech present Gait exam (Neuro): Normal gait present Motor exam (neuro): 5/5 motor strength present throughout Extrem Right upper extremity: full ROM; no cyanosis Left upper extremity: full ROM; no cyanosis Right lower extremity: no edema Left lower extremity: no edema Psych Appearance: grossly normal Mental Status: mental status grossly normal Affect: normal affect Attitude: cooperative Thought process: Normal thought process present Assessment and Plan Assessment & Plan (1) Annual physical exam: Code(s): Z00.00 - Encounter for general adult medical examination without abnormal findings (2) T12 compression fracture: Code(s): S22.080A - Wedge compression fracture of T11-T12 vertebra, initial encounter for closed fracture Qualifiers: Encounter type: subsequent encounter Fracture healing: with delayed healing Qualified Code(s): S22.080G - Wedge compression fracture of T11-T12 vertebra, subsequent encounter for fracture with delayed healing Plan: Patient followed by pain management. She is due for MRI thoracic spine and bone density screening to evaluate for osteoporosis. She does have T12 compression fracture though no reports of any trauma. She continues to be moderate to severe pain in taking more opiates unfortunately causing or constipation. We did discuss possibly doing short-term prednisone to help with inflammation and reduce pain and patient willing (3) COPD (chronic obstructive pulmonary disease): Comment: Life long H/o smokinig,/COPD. At present she is at her baseline, no active cough or wheezing. TX : Advair 500-50 1 inhalation b.i.d., but as long as her symptoms are minimal she could cut it down to once a day are even use it on a p.r.n. basis. Albuterol HFA 2 puffs Q 4-6 hours only p.r.n.. Code(s): J44.9 - Chronic obstructive pulmonary disease, unspecified Qualifiers: COPD type: chronic bronchitis Chronic bronchitis type: simple Qualified Code(s): J41.0 - Simple chronic bronchitis Plan: Continues to follow pulmonology, get CT scans annually. Unfortunately still smokes a half pack of cigarettes per day. She denies any acute shortness of breath or cough. (4) Tobacco dependence: Code(s): F17.200 - Nicotine dependence, unspecified, uncomplicated Plan: Patient does understand she needs to quit smoking though has been under lot of stress due to her medical issues. He does admit to smoking half a pack of cigarettes per day. Not interested in nicotine replacement her medication at this time. (5) Constipation due to opioid therapy: Code(s): K59.03 - Drug induced constipation; T40.2X5A - Adverse effect of other opioids, initial encounter Plan: Patient has been experiencing more constipation likely due to her increase opiate pain medication use. Has been using many different [id number] laxatives and bowel stimulants with minimal relief. Will supply patient with lactulose to use on a p.r.n. basis foor laxative affect. Medications: New lactulose 20 grams (30 mL) PO BID PRN 900 mL 0RF constipation 15 days K59.03 - Drug induced constipation, T40.2X5A - Adverse effect of other opioids, initial encounter prednisone 40 mg (2 x 20 mg) PO DAILY 8 tabs 0RF 4 days S22.080A - Wedge compression fracture of T11-T12 vertebra, initial encounter for closed fracture Coding Level of Care Code Est Pt Prev Care >65y(11388) Diagnoses Annual physical exam Z00.00 T12 compression fracture S22.080G Encounter type: subsequent encounter Fracture healing: with delayed healing COPD (chronic obstructive pulmonary disease) J41.0 COPD type: chronic bronchitis Chronic bronchitis type: simple Tobacco dependence F17.200 Constipation due to opioid therapy K59.03; T40.2X5A Additional Codes DC-7 Assessment Billing - DC-7 Assessment Tool: DC-7 Assessment [id number] ([id number])
== END 2023-04-29 11:10 | disposition home or self-care (01) ==
PROVIDERS: PCP Physician Assistant; Visit Provider Physician Assistant
DX: Z00.00 Encounter for general adult medical examination without abnormal findings (principal); J41.0 Simple chronic bronchitis; F17.210 Nicotine dependence, cigarettes, uncomplicated; S22.080G Wedge compression fracture of T11-T12 vertebra, subsequent encounter for fracture with delayed healing; K59.03 Drug induced constipation; T40.2X5A Adverse effect of other opioids, initial encounter
CPT/HCPCS: 99397

== ENCOUNTER 2023-05-03 09:56 | Outpatient (AMB) | payer MEDICARE, SELFPAY ==
[2023-04-27 10:20] LABS: Hematocrit 40.5 % (37.0-47.0); Hemoglobin 13.7 g/dl (12.0-16.0); Mean Corpuscular HGB Conc 33.8 g/dl (31.0-35.0); Mean Corpuscular Hemoglobin 31.6 pg (27.0-33.0); Mean Corpuscular Volume 93.5 fL (80.0-98.0); Mean Platelet Volume 9.1 fL (9.4-12.3); Platelet Count 251 X10*3/uL (160-400); Red Blood Count 4.33 X10*6/uL (4.20-5.50); Red Cell Distribution Width 13.9 % (11.0-16.0); White Blood Count 6.9 X10*3/uL (4.8-10.8)
[2023-04-27 11:16] LABS: Alanine Aminotransferase 17 U/L (0-31); Albumin Level 4.1 g/dL (3.5-5.0); Alkaline Phosphatase 70 U/L (39-117); Anion Gap 11 (12-20); Aspartate Amino Transferase 19 U/L (5-31); Bilirubin Total 0.6 mg/dL (0.0-1.0); Blood Urea Nitrogen 15 mg/dL (9-16); Calcium 9.5 mg/dL (8.4-10.2); Carbon Dioxide 28 mmol/L (22-29); Chloride 98 mmol/L (96-108); Cholesterol 179 mg/dL; Estimated Glomerular Filt Rate > 60; Glucose Fasting 88 mg/dL (60-99); HDL Cholesterol 83 mg/dL; LDL Cholesterol Calculated 86 mg/dl; Potassium 4.1 mmol/L (3.3-5.1); Sodium 133 mmol/L (135-145); Total Protein 6.9 g/dL (6.5-8.0); Triglycerides 53 mg/dL
[2023-04-27 11:34] LABS: TSH reflex Free T4 0.88 uIU/mL (0.32-4.0)
--- NOTE | 2023-05-03 09:58 | A.OFFVIS_ITS ---
Intake Vital Signs 05/03/23 10:05 Height 5 ft 7 in Weight 129 lb 2 oz BMI 20.2 BP 136/70 Blood Pressure Location Rt brachial Position Sitting Pulse 67 Pulse Source Pulse Oximeter Pulse Oximetry (%) 95 Oxygen Delivery Method Room Air Intake Visit Reasons: Pill count Intake Note: Dot comes in today for a pill count to oxycodone-acetaminophen. Patient should have 36 tablets and presents with 38 tablets which she last took today 05/03/23 at 7am. Pain today 01/20. [employer] Work[employer] Required: No Accompanied by: Self / Same As Patient Allergies No Known Allergies Allergy (Verified 05/03/23 10:05) HPI HPI Comments History of Present Illness Details Patient presents today for a pill count. Patient is supposed to have #36 pills in her possession and has #38. Reports mild to moderate analgesia with no noted sided effects with current dose of oxycodone-acetaminophen 7.5-325 mg tid instead of bid prn. Patient reports current opioid medication does not alleviate all of her pain, but provides partial relief. She notes with current exacerbation of pain symptoms, her mobility, ADLs and sleep have been significantly affected. Denies any bladder or bowel incontinence or saddle anesthesia. Denies any fever, chills, weight changes, sedation, abdominal pain, nausea, dizziness or urinary retention. Patient continues to endorse mid to lower back pain with movements, changing positions or getting out of bed. She has pending MRI and nuclear scan to follow up recent T12 compression fracture. She has been using back brace intermittently at home but notices increased abdominal discomfort with use due to bloatness. Recent KUB showed moderate amount of stool. Patient reports constipation related with opioid use. Has been taking lactulose but finds Miralax working better for her. Reports soft and normal BM yesterday. She also reports having a good day on Wednesday which might be related to recent short script of prednisone use p rescribed by her PCP. We discussed opioid rotation to transdermal Fentanyl patch to lessen degree of constipation. Patient is aware she may still require occasional use of laxatives and stool softeners. PRIOR: Patient presents today for follow up for acute exacerbation of low back pain that has been worsening since February. The pain was so debilitating that she went to [facility] on 04/16/23 and 04/19/23. She denies any inciting events, no falls or injury. Patient reports she has not been able to do gardening this summer as much due to pain. Any moment, normal daily activities, flexion or extension significantly increases her mid to lower back pain, worse pain with getting out of bed. Due to significant back pain, she cannot sleep in her bed anymore and has hard time turning as this also increases her pain. There is bilateral leg edema, notable in pedal and ankle areas, which is dependant per patient and improves with leg elevation. Per recent ER visit, patient was noted to have mild T12 vertebral body compression fracture, question if recent as well as constipation with mild secondary obstruction. Patient reports she was given MOM, laxative in ER and has been taking stool softeners and laxatives at home, as well as prunes and prune juice. Reports frequent flatus and loose, non-formed BMs. Patient has pending lumbar spine MRI and back brace with intermittent use during the day was ordered upon patient's notification of worsening pain and ER visit. Denies any fever, bladder or bowel incontinence or saddle anesthesia. FORMERLY [facility], [facility] Medical History Abdominal bloating Acute adjustment disorder with anxiety Bilateral hip pain Breast cancer screening Bronchitis Change in bowel habit COPD (chronic obstructive pulmonary disease) COPD exacerbation Exocrine pancreatic insufficiency Lumbar post-laminectomy syndrome Muscle strain Osteopenia Personal history of nicotine dependence Pseudogout of left knee Restless leg syndrome Screening for diabetes mellitus (DM) Screening for hypercholesterolemia Surgical History History of femoral hernia repair (~2002) History of lumbar fusion (~2013) History of lumbar laminectomy (~2012) History of vein stripping (~2003) Status post phlebectomy (~2008) Social History Housing: House Alcohol intake: current Alcohol intake frequency: holidays/special occasions only Patient Tobacco Use Status: Current everyday Tobacco user Tobacco use type: Cigarette Cigarettes Per Day: 10 e-Cigarette/Vaping Use: Never Used Second Hand Smoke Exposure: No service: No Current occupational status: retired Current occupation: [employer] Cognitive needs: No Hearing needs: No Vision needs: Yes (contacts/glasses) Review of Systems Const All systems reviewed & are unremarkable except as noted in HPI and below Physical Exam Vital Signs: Last Vital Signs Pulse 67 05/03/23 10:05 BP 136/70 05/03/23 10:05 Pulse Ox 95 05/03/23 10:05 Oxygen Delivery Method Room Air 05/03/23 10:05 BMI result Body Mass Index 20.2 On exam today: Appears afebrile. Alert and oriented. Mood and affect appropriate. Follows and participates in conversation appropriately. Respiratory effort is unlabored. No cough. Able to transition from sit to stand unassisted. Able to stand and walk on toes and heels. GI Inspection: Yes distended Palpation (GI): nontender and no guarding Back/Spine/Pelvis Other: Limited lumbar ROM due to pain. Cervical Spine: cervical ROM normal Thoracic/Lumbar Spine: thoracic and lumbar spine normal to inspection, Thoracic/lumbar spine scar(s), pain with thoraco-lumbar ROM, paraspinal muscle tenderness, thoraco-lumbar ROM limited, thoracic spinal tenderness (low thoracic) and lumbar spinal tenderness Pelvis: no buttock tenderness Sacroiliac joints: bilaterally tender to palpation Extrem General: Yes capillary refill normal, Yes pedal edema (ankle and pedal edema +2 left , +1 right) and Yes other (multiple varicosities and varicose veins bilaterally) Results Reviewed Results Reviewed: 04/27/23 Comprehensive [facility]. Panel Fast Routine Lipid Panel Routine TSH reflex Free T4 Routine 04/27/23 09:48 Complete Blood Count no Diff Routine Laboratory Last Values WBC 6.9 X10*3/uL (4.8-10.8) 04/27/23 09:48 RBC 4.33 X10*6/uL (4.20-5.50) 04/27/23 09:48 Hgb 13.7 g/dl (12.0-16.0) 04/27/23 09:48 Hct 40.5 % (37.0-47.0) 04/27/23 09:48 MCV 93.5 fL (80.0-98.0) 04/27/23 09:48 MCH 31.6 pg (27.0-33.0) 04/27/23 09:48 MCHC 33.8 g/dl (31.0-35.0) 04/27/23 09:48 RDW 13.9 % (11.0-16.0) 04/27/23 09:48 Plt Count 251 X10*3/uL (160-400) D 04/27/23 09:48 MPV 9.1 fL (9.4-12.3) L 04/27/23 09:48 Absolute Nucleated RBC 0.000 X10*3/uL (0.0-0.012) 04/27/23 09:48 Nucleated RBC % (auto) 0.0 /100WBC (0.0-0.2) 04/27/23 09:48 Sodium 133 mmol/L (135-145) L 04/27/23 Unknown Potassium 4.1 mmol/L (3.3-5.1) 04/27/23 Unknown Chloride 98 mmol/L (96-108) 04/27/23 Unknown Carbon Dioxide 28 mmol/L (22-29) 04/27/23 Unknown Anion Gap 11 (12-20) L 04/27/23 Unknown BUN 15 mg/dL (9-16) 04/27/23 Unknown Creatinine 0.80 mg/dL (0.5-1.4) 04/27/23 Unknown Estim Creat Clear Calc TNP 04/27/23 Unknown Estimated GFR > 60 04/27/23 Unknown Fasting Glucose 88 mg/dL (60-99) 04/27/23 Unknown Calcium 9.5 mg/dL (8.4-10.2) 04/27/23 Unknown Total Bilirubin 0.6 mg/dL (0.0-1.0) 04/27/23 Unknown AST 19 U/L (5-31) 04/27/23 Unknown ALT 17 U/L (0-31) 04/27/23 Unknown Alkaline Phosphatase 70 U/L (39-117) 04/27/23 Unknown Total Protein 6.9 g/dL (6.5-8.0) 04/27/23 Unknown Albumin 4.1 g/dL (3.5-5.0) 04/27/23 Unknown Triglycerides 53 mg/dL 04/27/23 Unknown Cholesterol 179 mg/dL 04/27/23 Unknown LDL Cholesterol, Calc 86 mg/dl 04/27/23 Unknown HDL Cholesterol 83 mg/dL 04/27/23 Unknown TSH 0.88 uIU/mL (0.32-4.0) 04/27/[address]/CT abdomen pelvis wo IV con 04/19/23 OSSEOUS STRUCTURES: Postsurgical changes at L4-L5 with posterior fusion hardware and prosthetic disc interspace. Scoliosis and degenerative changes of the spine. Mild compression fracture of the superior endplate of the T12 vertebral body. This is new in the interval from previous exam October 2021 and may be recent. IMPRESSION: Limited exam due to lack of oral and IV contrast and paucity of intra-abdominal fat. Constipation and mild secondary obstruction. Severe atherosclerotic disease. Mild T12 vertebral body compression fracture, question recent. US/US venous duplex LE BI 04/19/23 IMPRESSION: No DVT demonstrated in either lower extremity. XR/XR lumbar spine 2-3V 02/22/23 IMPRESSION: Stable postsurgical change at L4-L5. Scoliosis and multilevel degenerative changes. Sacrum and coccyx: Limited exam. 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 Lumbar spine 02/22/2023. CT chest 06/30/2022. FINDINGS: Atherosclerotic calcifications in the aortic knob. Mild S-shaped thoracolumbar scoliosis. Mild compression fracture of the T12 vertebral body was characterized on CT abdomen of 04/19/2023, but not identified more remote prior exams. Evaluation limited due to overlying soft tissues. The bones are diffusely demineralized. Multilevel degenerative changes in the thoracic spine. IMPRESSION: Mild compression fracture of the T12 vertebral body was characterized on CT abdomen of 04/19/2023, but not identified more remote prior exams. Evaluation limited due to overlying soft tissues. Additional imaging with CT scan or MRI should be considered for better visualization as these modalities are much more sensitive for detection of fracture or other underlying pathology. Moderate multilevel degenerative changes in the thoracic spine. The bones are diffusely demineralized. Assessment & Plan Assessment & Plan (1) Spinal stenosis of lumbar region: Code(s): M48.061 - Spinal stenosis, lumbar region without neurogenic claudication (2) Back pain of thoracolumbar region: Code(s): M54.50 - Low back pain, unspecified; M54.6 - Pain in thoracic spine (3) T12 compression fracture: Code(s): S22.080A - Wedge compression fracture of T11-T12 vertebra, initial encounter for closed fracture Qualifiers: Encounter type: subsequent encounter Fracture healing: with delayed healing Qualified Code(s): S22.080G - Wedge compression fracture of T11-T12 vertebra, subsequent encounter for fracture with delayed healing (4) Lumbar post-laminectomy syndrome: Code(s): M96.1 - Postlaminectomy syndrome, not elsewhere classified (5) Constipation due to opioid therapy: Code(s): K59.03 - Drug induced constipation; T40.2X5A - Adverse effect of other opioids, initial encounter Plan 1. Pending lumbar spine MRI to assess for neural integrity and compression. Patient has osteopenia per previous bone scan imaging, will update this to evaluate for osteoporosis prior to potential interventional treatments for T12 fracture. Thoracic spine xray results were discussed with patient today. 2. Patient has shown accountability for her medication regimen and the pill count was accurate. The patient reported no noted side effects and adequate analgesia on current medication regime. There is no evidence of misuse, abuse or diversion at this time. MassPAT reviewed. Discussed opioid rotation with patient at greater length to lessen constipation side effects. Will start Fentanyl patch at 12 mcg/hr Q72H. Discussed side effects and precautions. Will hold script for oxycodone 5-325 mg to oxycodone 7.5-325 mg TID prn at this time. Refill for Miralax sent per patient's request. Encouraged adequate daily hydration. All questions were answered and patient is in agreement of plan. Follow up in 4 weeks for a pill count and sooner if needed. Medications: New fentanyl 12 mcg/hr Partial Fill upon patient request. 1 patch transdermal Q72H 30 days 10 ea 0RF pain M48.061 - Spinal stenosis, lumbar region without neurogenic claudication, M54.50 - Low back pain, unspecified, M54.6 - Pain in thoracic spine, M96.1 - Postlaminectomy syndrome, not elsewhere classified, S22.080A - Wedge compression fracture of T11-T12 vertebra, initial encounter for closed fracture Refilled polyethylene glycol 3350 (Miralax) 17 grams PO DAILY PRN 119 grams 0RF con stipation K59.03 - Drug induced constipation, T40.2X5A - Adverse effect of other opioids, initial encounter Coding Level of Care Code Est Pt Level 4 (78636) Diagnoses Spinal stenosis of lumbar region M48.061 Back pain of thoracolumbar region M54.50; M54.6 T12 compression fracture S22.080G Encounter type: subsequent encounter Fracture healing: with delayed healing Lumbar post-laminectomy syndrome M96.1 Constipation due to opioid therapy K59.03; T40.2X5A
[2023-05-03 10:05] VITALS: BP 136/70; PULSE 67; O2SAT 95; BMI 20.2
== END 2023-05-03 10:28 | disposition home or self-care (01) ==
PROVIDERS: PCP Physician Assistant; Visit Provider Nurse Practitioner Family
DX: M48.061 Spinal stenosis, lumbar region without neurogenic claudication (principal); M54.50 Low back pain, unspecified; M54.6 Pain in thoracic spine; S22.080G Wedge compression fracture of T11-T12 vertebra, subsequent encounter for fracture with delayed healing; M96.1 Postlaminectomy syndrome, not elsewhere classified; K59.03 Drug induced constipation; T40.2X5A Adverse effect of other opioids, initial encounter
CPT/HCPCS: 99214

== ENCOUNTER → 2023-05-03 10:00 | Outpatient (BNVA) | payer MEDICARE, SELFPAY | PROVIDERS: PCP Physician Assistant; Visit Provider Nurse Practitioner Family | DX: M96.1 Postlaminectomy syndrome, not elsewhere classified (principal); M48.061 Spinal stenosis, lumbar region without neurogenic claudication; M54.50 Low back pain, unspecified; M54.6 Pain in thoracic spine; S22.080G Wedge compression fracture of T11-T12 vertebra, subsequent encounter for fracture with delayed healing; K59.03 Drug induced constipation; T40.2X5A Adverse effect of other opioids, initial encounter; J41.0 Simple chronic bronchitis; I73.9 Peripheral vascular disease, unspecified; Z79.891 Long term (current) use of opiate analgesic | CPT/HCPCS: 84443; 99212 ==

== ENCOUNTER → 2023-05-06 10:52 | Outpatient (REF) | payer MEDICARE, SELFPAY ==
--- NOTE | ~2023-05-06 | NM_ITS ---
EXAMINATION: NM BONE SCAN OF THE WHOLE BODY CLINICAL INFORMATION: A 73-year-old female presented with unspecified low back pain. History of lumbar spine fusion in 2014 and lumbar laminectomy 2016. COMPARISON: KUB done on 04/27/2023 and radiographs of the thoracic spine also done on 04/27/2023. TECHNIQUE: Multiple gamma scintillation camera images of the whole body were performed 2.5 hours following the intravenous administration of 21 mCi Tc-99m MDP. The radiotracer was injected through left antecubital superficial vein without complications. FINDINGS: In the head, no suspicious focal lesion. In the thoracic cage and upper extremities, no suspicious focal lesion. In the spine, linear moderately intense abnormal increased radiotracer activity is present at the level of T12 vertebral body, consistent with compression fracture, of indeterminate age and etiology. Mild degenerative spondylosis related changes are also including postsurgical changes of spinal fusion at L4-L5 In the pelvis, no suspicious focal lesion. In the lower extremities, mildly increased radiotracer activity around the right knee likely represent posttraumatic and/or arthritic changes. No other definite bony abnormalities are noted. The urinary bladder and faint visualization of both kidneys are noted. NM/NM bone scan whole body IMPRESSION: Abnormal study showing evidence of compression fracture involving T12 vertebral body, of indeterminate etiology and age.
== END ==
LOC: HO.NUCMED 10:52
PROVIDERS: PCP Physician Assistant; Visit Provider Nurse Practitioner Family
DX: M54.50 Low back pain, unspecified (principal); M54.6 Pain in thoracic spine; M48.061 Spinal stenosis, lumbar region without neurogenic claudication; S22.080A Wedge compression fracture of T11-T12 vertebra, initial encounter for closed fracture; X58.XXXA Exposure to other specified factors, initial encounter; M96.1 Postlaminectomy syndrome, not elsewhere classified; Y93.9 Activity, unspecified; Y92.9 Unspecified place or not applicable; Y99.9 Unspecified external cause status
CPT/HCPCS: 78306; A9503

== ENCOUNTER 2023-05-11 15:49 | Outpatient (REF) | payer MEDICARE, SELFPAY ==
--- NOTE | ~2023-05-11 | MR_ITS ---
EXAMINATION: MR LUMBAR SPINE WITHOUT AND WITH CONTRAST CLINICAL INFORMATION: Post laminectomy syndrome. History of compression fracture. Pain. COMPARISON: MRI dated 10/13/2013. Nuclear bone scan report from 05/06/2023. CT dated 04/19/2023. TECHNIQUE: Multiplanar, multisequence imaging was obtained. Intravenous contrast: Gadavist 6 mL. FINDINGS: VERTEBRAL BODIES AND PARASPINAL STRUCTURES: There is a moderate leftward curvature of the lumbar spine centered at the L2 level. Significant right lateral endplate edematous changes are visible at the L1-L2 level at the apex of the spinal curvature. There is a mild superior endplate compression fracture with a 40% loss of vertebral body height at the T12 level, slightly increased compared to the prior CT study. Marrow edema is present throughout the vertebral body extending into the pedicles. Mild amount of paraspinal soft tissue edema also evident at this level. Minimal osseous retropulsion noted. No additional compression fractures are seen. Advanced degenerative endplate changes and loss of disc height noted at the L2-L3 level with a slight retrosubluxation and bulky endplate spurring. There is a mild anterolisthesis and moderate disc space narrowing at the L3-L4 level with mild posterior endplate edema. The patient is status post posterior lumbar instrumented fusion at the L4-L5 level where there is a mild anterolisthesis. Severe degenerative endplate changes with mixed chronic and edematous endplate changes noted at the L5-S1 level. There are [id number] degenerative changes in the left sacroiliac joint. CONUS MEDULLARIS AND CAUDA EQUINA: The distal cord, conus tip, and cauda equina nerve roots appear normal. No pathologic intradural enhancement is visible on postcontrast imaging. SPINAL LEVELS: L1-L2: Minimal anterolisthesis and broad-based posterior disc bulge with [id number] facet arthropathy results in mild central canal stenosis. Bulging disc impresses upon the right L2 nerve root in the subarticular zone. [id number] foraminal narrowing. Significant endplate edematous changes on the right side. L2-L3: Retrosubluxation and moderate loss of disc height with a diffuse disc bulge and hypertrophic facet arthropathy. No central canal stenosis. Moderate right foraminal narrowing. L3-L4: Mild anterolisthesis and diffuse disc bulge with moderate to severe facet arthropathy results in mild central canal stenosis. Mild left foraminal narrowing evident. L4-L5: Anterolisthesis and post laminectomy changes with hardware instrumentation. No central canal stenosis. Mild left foraminal narrowing. L5-S1: Severe loss of disc height with a retrosubluxation noted. Mixed chronic and edematous endplate changes. Broad-based disc bulge and superimposed central disc protrusion impress upon the ventral thecal sac with mild mass effect upon the S1 nerve roots. Hypertrophic facet arthropathy without central canal stenosis. Moderate to severe foraminal narrowing with compression of the exiting left L5 nerve root due to ossific spurring. MR/MR lumbar spine wo/w con IMPRESSION: 1. Subacute mild superior endplate compression fracture deformity at the T12 level with significant marrow edema throughout the vertebral body and mild paraspinal soft tissue edema. Minimal osseous retropulsion. 2. Moderate leftward lumbar spinal curvature with moderate multilevel spondylosis and postsurgical changes at the L4-L5 level, status post posterior lumbar instrumented fusion. 3. Mild central canal stenosis at the L1-L2 level with bulging disc impressing upon the right L2 nerve root. 4. Moderate right foraminal narrowing at the L2-L3 level. Mild central canal stenosis at the L3-L4 level with a mild anterolisthesis and moderate to severe facet arthropathy. 5. Severe degenerative disc disease at the L5-S1 level with mixed chronic and edematous endplate changes. Broad-based central disc protrusion with mild mass effect upon the S1 nerve roots. Moderate to severe foraminal narrowing, more so on the left side with compression of the left L5 nerve root.
[2023-05-11] MEDS: gadobutroL 7.5 ML VIAL IVPUSH (16:55)
== END 2023-05-11 15:50 | disposition home or self-care (01) ==
LOC: HO.MRI 15:49
PROVIDERS: PCP Physician Assistant; Visit Provider Nurse Practitioner Family
DX: M48.061 Spinal stenosis, lumbar region without neurogenic claudication (principal); M96.1 Postlaminectomy syndrome, not elsewhere classified; S22.080A Wedge compression fracture of T11-T12 vertebra, initial encounter for closed fracture
CPT/HCPCS: 72158; A9585

== ENCOUNTER 2023-05-21 08:28 | Day surgery (SDC) | payer MEDICARE, SELFPAY ==
--- NOTE | 2023-05-20 11:01 | HO.ANESPROP2 ---
Documented by User: Carly Franco NP 05/20/23 11:02 HPI - Anesthesia Eval Consult details Narrative: 73yo F for T12 Kyphoplasty COPD, current smoker PMFSH Active Problems Active Problems: All Active Problems (Updated 04/29/23 @ 10:58 by Brannon Rider PA-C) Tobacco dependence (Acute) Constipation due to opioid therapy (Acute) Back pain of thoracolumbar region (Acute) Spinal stenosis of lumbar region (Acute) T12 compression fracture (Acute) Post-menopausal (Acute) Pulmonary nodule (Acute) Lumbar post-laminectomy syndrome (Acute) Nicotine dependence, cigarettes, uncomplicated (Acute) Sacroiliitis (Acute) Osteopenia (Acute) Personal history of nicotine dependence (Acute) Bronchitis (Acute) Grade 1 injury of medial collateral ligament of left knee (Acute) Chronic, continuous use of opioids (Acute) Varicose veins of left lower extremity with inflammation (Acute) PVD (peripheral vascular disease) (Acute) Exocrine pancreatic insufficiency (Acute) Hyperkalemia (Acute) Claudication of lower extremity (Acute) COPD (chronic obstructive pulmonary disease) (Acute) Insomnia (Acute) Acute adjustment disorder with anxiety (Acute) Restless leg syndrome (Acute) Past Medical History Medical History Osteopenia Screening for hypercholesterolemia Screening for diabetes mellitus (DM) Breast cancer screening Bilateral hip pain Personal history of nicotine dependence Muscle strain Bronchitis COPD exacerbation Pseudogout of left knee Change in bowel habit Abdominal bloating Exocrine pancreatic insufficiency COPD (chronic obstructive pulmonary disease) Lumbar post-laminectomy syndrome Acute adjustment disorder with anxiety Restless leg syndrome Surgical History Surgical History History of lumbar laminectomy (~2012) History of vein stripping (~2003) History of femoral hernia repair (~2002) History of lumbar fusion (~2013) Status post phlebectomy (~2008) Social History Social History Housing: House Alcohol intake: current Alcohol intake frequency: holidays/special occasions only Patient Tobacco Use Status: Current everyday Tobacco user Tobacco use type: Cigarette Cigarettes Per Day: 10 e-Cigarette/Vaping Use: Never Used Date Education Initiated: 05/21/23 Second Hand Smoke Exposure: No Use of substances other than those prescribed or required for medical reasons: No Are you DNR?: No Advance Directives: No Advance Directives Information Provided: Yes service: No Current occupational status: retired Current occupation: [employer] Cognitive needs: No Hearing needs: No Vision needs: Yes (contacts/glasses) Meds Allergies Allergy/AdvReac Type Severity Reaction Status Date / Time No Known Allergies Allergy Verified 05/03/23 10:05 Home Medications Medication Instructions Recorded Confirmed Last Taken Type ibuprofen 800 mg tablet 800 mg PO Q8H PRN pain 06/30/22 05/21/23 Unknown History Exam Exam Date and Time: May 20, 2023 1101 Pertinent Lab Results Pertinent Lab Results: Laboratory Tests 04/27/23 04/27/23 04/27/23 09:48 Unknown Unknown WBC 6.9 Hgb 13.7 Hct 40.5 Plt Count 251 D Sodium 133 L Potassium 4.1 Chloride 98 Carbon Dioxide 28 BUN 15 Creatinine 0.80 Assessment and Plan Assessment Anesthesia Assessment: Chart Reviewed Documented by User: Karin Mcgrath MD 05/21/23 10:45 [facility] Active Problems Active Problems: All Active Problems (Updated 05/21/23 @ 09:59 by Karin Mcgrath MD) Tobacco dependence (Acute) Constipation due to opioid therapy (Acute) Back pain of thoracolumbar region (Acute) Spinal stenosis of lumbar region (Acute) T12 compression fracture (Acute) Post-menopausal (Acute) Pulmonary nodule (Acute) Lumbar post-laminectomy syndrome (Acute) Nicotine dependence, cigarettes, uncomplicated (Acute) Sacroiliitis (Acute) Osteopenia (Acute) Personal history of nicotine dependence (Acute) Bronchitis (Acute) Grade 1 injury of medial collateral ligament of left knee (Acute) Chronic, continuous use of opioids (Acute) Varicose veins of left lower extremity with inflammation (Acute) PVD (peripheral vascular disease) (Acute) Exocrine pancreatic insufficiency (Acute) Hyperkalemia (Acute) Claudication of lower extremity (Acute) COPD (chronic obstructive pulmonary disease) (Acute)- not using inhaler everyday Insomnia (Acute) Acute adjustment disorder with anxiety (Acute) Restless leg syndrome (Acute) Past Medical History Medical History Osteopenia Screening for hypercholesterolemia Screening for diabetes mellitus (DM) Breast cancer screening Bilateral hip pain Personal history of nicotine dependence Muscle strain Bronchitis COPD exacerbation Pseudogout of left knee Change in bowel habit Abdominal bloating Exocrine pancreatic insufficiency COPD (chronic obstructive pulmonary disease) Lumbar post-laminectomy syndrome Acute adjustment disorder with anxiety Restless leg syndrome Family History Family history of problems with anesthesia: No Surgical History Surgical History History of lumbar laminectomy (~2012) History of vein stripping (~2003) History of femoral hernia repair (~2002) History of lumbar fusion (~2013) Status post phlebectomy (~2008) History of Problems with Anesthesia: No Social History Social History Housing: House Alcohol intake: current Alcohol intake frequency: holidays/special occasions only Patient Tobacco Use Status: Current everyday Tobacco user Tobacco use type: Cigarette Cigarettes Per Day: 10 e-Cigarette/Vaping Use: Never Used Date Education Initiated: 05/21/23 Second Hand Smoke Exposure: No Use of substances other than those prescribed or required for medical reasons: No Are you DNR?: No Advance Directives: No Advance Directives Information Provided: Yes service: No Current occupational status: retired Current occupation: [employer] Cognitive needs: No Hearing needs: No Vision needs: Yes (contacts/glasses) Meds Allergies Allergy/AdvReac Type Severity Reaction Status Date / Time No Known Allergies Allergy Verified 05/03/23 10:05 Home Medications Medication Instructions Recorded Confirmed Last Taken Type ibuprofen 800 mg tablet 800 mg PO Q8H PRN pain 06/30/22 05/21/23 Unknown History Exam Height,Weight and Vital Signs: Height 5 ft 7 in Weight 57.153 kg Vital Signs Temp Pulse Resp BP Pulse Ox O2 Del Method 05/21/23 09:43 97.8 F 55 18 124/64 98 Room Air Airway Mallampati Class: III (Small mouth opening) TM Dist: >3cm Neck ROM: Full Loose/Missing/Broken Teeth: No (Denies broken, loose, missing teeth) Heart: RRR Lungs: CTAB Assessment and Plan Assessment Anesthesia Assessment: Anesthesia Plan Discussed Final Anesthetic Review Family History of Problems with Anesthesia: No History of Problems with Anesthesia: No NPO: Yes ASA Class: III Final Preanesthetic Review: No Changes in Pt Med Stat, Meds/Allgs Chart Reviewed, Consent Obtained/Reviewed and Anes Risks/Benef Reviewed Patient Risk: Intermediate Procedure Risk: Low Assessment/Block/Sedation in SS: Assess/Block/Sedation-SS Anesthetic Plan Anesthetic Plan: MAC: Disposition: Standard PACU
[2023-05-21] VITALS (9 sets, daily range): BP systolic 101–128; BP diastolic 54–73; PULSE 50–61; RESP 14–18; TEMP 36.6; O2SAT 97–100; BMI 19.7
--- NOTE | ~2023-05-21 | FL_ITS ---
EXAMINATION: XR FLUOROSCOPY WITH IMAGES CLINICAL INFORMATION: T12 kyphoplasty COMPARISON: MRI 05/11/2023 TECHNIQUE: Fluoroscopy Supervised By: Dr. John Gee. Fluoroscopy Time: 2.6 minutes. Cumulative Dose: 46.3 mGy. DAP: 12.6 Gycm2. Images: 2. FINDINGS: Compression deformity at the T12 vertebral body noted with bone cement in place. FL/FL guidance in OR IMPRESSION: Fluoroscopic guidance for T12 kyphoplasty.
--- NOTE | 2023-05-21 09:31 | MHC.SHP ---
Pre-Procedural Eval Section A Date of Service: 05/21/23 Section B Chief Complaint: Wedge compression fracture of T11-T12 vertebra, in Details of Present Illness: Compression fracture of T12 vertebra Relevant Family History (Specify if Yes): No Relevant Social History: None Present Medications: see Short Stay Collaborative assessment Medical History: Significant History (osteopenia) History of Previous Operations: No relevant previous surgery Allergies: Allergies Allergy/AdvReac Type Severity Reaction Status Date / Time No Known Allergies Allergy Verified 05/03/23 10:05 Review of Systems Sugical H&P ROS: Negative: Constitution, Cardiovascular, Respiratory, Neurological, Psychiatric, Hem-Onc, Allergic/Immunologic, Gastrointestinal, Genitourinary, Musculoskeletal, Integumentary and Eyes/Ears/Nose/Throat and Yes, Specify: Endocrine (osteopenia) Exam Surgical H&P Exam: Normal: HEENT, Normal: Heart, Normal: Lungs, Normal: Extremities, Normal: Abdomen, Normal: Skin and Normal: Neurological Plan Diagnosis/Plan: Unchanged I have reviewed the history and physical and performed a pertinent physical examination on my patient. No changes have occurred unless specified. Time Spent With Patient Time: Total time managing care of this patient today __5__ minutes.
[2023-05-21] MEDS: Lactated Ringers 1,000 ML 100 ML IVCONT (09:56)
--- NOTE | 2023-05-21 12:05 | PM.OP ---
Brief Operative Note Date of Service: 05/21/23 Pre-op diagnosis: compression fracture T12, osteoporosis, osteopenia. Post-op diagnosis: same Procedure: Kyphoplasty T12 vertebra. Implants: Methyl methacrylate cement Injected into vertebral body. Surgeon: John Gee MD Anesthesia: MAC Was an Sign Writer Hand used for this Procedure?: No Estimated blood loss (mL): 16 Pathology: none sent Condition: stable Disposition: PACU
--- NOTE | 2023-05-21 12:08 | W.PM.OPN ---
Operative Note Operative Note Date of Service: 05/21/23 Narrative: kyphoplasty T12 Dot Is very pleasant 73 years old female who came to the operating room today to treat compression fracture of the T12 vertebra. She is suffering from osteopenia and osteoporosis. The patient was brought to the operating room and positioned prone on operating table. Citizen Of [place] Society of Anesthes[employer] monitors were applied Patient was deeply sedated. Time-out was performed delineating name and date of of the patient, nature of the procedure, site and side of the procedure, risk of fire need of antibiotics, patient received 2 g of cefazolin preoperatively approximately 20 minutes before onset of the procedure. The entire back was prepped and draped. The image intensifier (C-arm) was brought into position and the T12 pedicles were identified and marked with a skin marker. Retropedicular approach to the vertebral body was implemented. An 22-gauge Spinal needle was advanced through the pedicle to the junction of the pedicle and vertebral body on the right side on the oblique view.. Positioning was confirmed on the AP and lateral images.injection of the local anesthetic mixture of lidocaine 2% and a ropivacaine 0.5% was performed 1-2 cc at the area. The needle was removed and the Jamshidi osteointroducer was placed to the same position, under anterior posterior and lateral views it was advanced through the pedicle to the vertebral body. Once I was at the junction of the pedicle and the vertebral body, a lateral image was taken to ensure that the cannula was positioned approximately 1cm past the vertebral body wall. Through the cannula, a drill was advanced into the vertebral body under fluoroscopic guidance toward the anterior cortex, creating a channel. The rongeur device was inserted into the vertebral body and cavity was formed in medial and cephalad direction. after that the same procedure was performed on the left side, care was taken to direct both of the posterior introducers to the center of the vertebral body. After completing the entry into the vertebral body bilaterally, a 15 mm inflatable balloons were inserted through the cannula and advanced under fluoroscopic guidance into the vertebral body near the anterior cortex. The radiopaque marker bands on the baloons were identified using AP and lateral images. Once baloons were in position, they were inflated to no more than 300 psi. the inflation of the balloons was performed intermittently on the left and on the right creating central cavity within the vertebral body. Expansion of the baloons was done sequentially in increments of 0.25 to 0.5 cc of contrast, with careful attention being paid to the inflation pressures and balloon position. The inflation was monitored with AP and lateral imaging. The final balloon volume was 3.5 cc on the right side and 3 cc on the left. There was no breach of the lateral wall or anterior cortex of the vertebral body. Retropulsion also was not noted . No endplate movement was observed. Under fluoroscopic imaging, and the use of the bone void fillers, internal fixation was achieved through a low-pressure injection of KYPHON HV-R bone cement (methyl methacrylate). The cavity was filled with a total volume of 3.5 cc on the right side and 2 cc on the left side. Once the bone cement had hardened, the cannulas were then removed. two silk sutures were Applied to close the entrance to the skin. Sterile dressing with bacitracin was applied to the level of the skin. Patient tolerated procedure well she was awaken ,transferred stable to PACU.
[2023-05-21] MEDS: fentaNYL citrate/PF 100 MCG/2 ML VIAL 25 MCG IVPUSH ×4 (12:10→12:32)
[2023-05-21] MEDS: oxyCODONE HCl Immed Release 5 MG TABLET PO (12:11)
== END 2023-05-21 13:40 | disposition home or self-care (01) ==
PROVIDERS: PCP Physician Assistant; Visit Provider Anesthesiology
PROC: (CPT 22513; principal; 2023-05-21 10:00)
DX: S22.080A Wedge compression fracture of T11-T12 vertebra, initial encounter for closed fracture (principal); M81.0 Age-related osteoporosis without current pathological fracture; M85.80 Other specified disorders of bone density and structure, unspecified site; M48.061 Spinal stenosis, lumbar region without neurogenic claudication; M54.50 Low back pain, unspecified; M54.6 Pain in thoracic spine; M96.1 Postlaminectomy syndrome, not elsewhere classified; M46.1 Sacroiliitis, not elsewhere classified; G25.81 Restless legs syndrome; K59.03 Drug induced constipation; T40.2X5A Adverse effect of other opioids, initial encounter; J44.9 Chronic obstructive pulmonary disease, unspecified; K86.81 Exocrine pancreatic insufficiency; F17.210 Nicotine dependence, cigarettes, uncomplicated; Z98.890 Other specified postprocedural states; X58.XXXA Exposure to other specified factors, initial encounter; Y93.9 Activity, unspecified; Y92.9 Unspecified place or not applicable; Y99.8 Other external cause status
CPT/HCPCS: 22513; C1713; J0690; J2250; J2795; J3010; Q9967

== ENCOUNTER → 2023-05-21 08:28 | Outpatient (BNV) | payer MEDICARE, SELFPAY | PROVIDERS: PCP Physician Assistant; Visit Provider Anesthesiology | DX: M80.08XA Age-related osteoporosis with current pathological fracture, vertebra(e), initial encounter for fracture (principal) | CPT/HCPCS: 22513 ==

== ENCOUNTER 2023-05-27 08:29 | Outpatient (AMB) | payer MEDICARE, SELFPAY ==
[2023-05-27 08:33] VITALS: BP 104/66; BMI 19.4
--- NOTE | 2023-05-27 08:33 | A.OFFPC_ITS ---
Vital Signs 3 05/27/23 08:33 Height 5 ft 7 in Weight 124 lb BMI 19.4 BP 104/66 Blood Pressure Location Lt brachial Position Sitting Intake Visit Reasons: kyphoplasty Post-Op Follow Up Intake Note: Patient here for post op kyphoplasty Commercial Underwriter Required: No Accompanied by: Spouse Allergies No Known Allergies Allergy (Verified 05/27/23 10:11) Medication List - Last Reconciled 05/27/23 by Brannon Rider PA-C Advair Diskus 500-50 mcg/dose (fluticasone propion-salmeterol) 1 ea PO BID NS albuterol sulfate 90 mcg/actuation (ProAir HFA) 2 puffs inhalation Q4-6H PRN 30 days back brace As directed naloxone 4 mg/actuation (Narcan) 4 mg intranasal Q2M 1 day oxycodone-acetaminophen 7.5-325 mg 1 tab PO TID PRN 30 days polyethylene glycol 3350 (Miralax) 17 grams PO DAILY PRN ropinirole 1 mg PO TID trazodone 50 mg PO BEDTIME 90 days Tobacco use date assessed: 04/27/23 Fall risk assessment: No Falls in past year Last assessed Fall Risk: 05/27/23 Dental Screening Dental Screen Date: 05/27/23 Did you have a dental visit in the last 12 months?: Yes Did you have a dental problem in the last 6 months where you did not have access to dental care?: No Was dental information given to patient?: Patient has dentist HPI kyphoplasty Post-Op Follow Up 2 HPI0 Details Patient is 73-year-old female here today for a postop visit. Recently suffering a thoracic vertebrae fracture secondary to osteoporosis. Recently underwent a kyphoplasty /which procedure of to T11-T12 vertebrae on 05/21/2023. Unfortunately reports her pain is not much better. Still having to take oxycodone every 6-8 hours. Has follow-up with her management clinic status post surgery.. She is to concerned about her lumbar spine as she reports most of her pain is in her lumbar spine. Has had 2 prior surgeries in her lumbar spine before. Like a 2nd opinion with neurosurgeon (Dr. martin) Bone density did show osteopenia with a T-score of 2.0, FRAX score spinal fracture or have 18. We did discuss possibly starting Fosamax weekly to help increase her bone mineral density. [facility] Medical History (Updated 05/27/23 @ 08:43 by Brannon Rider PA-C) Osteopenia Screening for hypercholesterolemia Screening for diabetes mellitus (DM) Breast cancer screening Bilateral hip pain Personal history of nicotine dependence Muscle strain Bronchitis COPD exacerbation Pseudogout of left knee Change in bowel habit Abdominal bloating Exocrine pancreatic insufficiency COPD (chronic obstructive pulmonary disease) Lumbar post-laminectomy syndrome Acute adjustment disorder with anxiety Restless leg syndrome Surgical History History of kyphoplasty History of lumbar laminectomy (~2012) History of vein stripping (~2003) History of femoral hernia repair (~2002) History of lumbar fusion (~2013) Status post phlebectomy (~2008) Social History Housing: House Alcohol intake: current Alcohol intake frequency: holidays/special occasions only Patient Tobacco Use Status: Current everyday Tobacco user Tobacco use type: Cigarette Cigarettes Per Day: 10 e-Cigarette/Vaping Use: Never Used Second Hand Smoke Exposure: No service: No Current occupational status: retired Current occupation: [employer] Cognitive needs: No Hearing needs: No Vision needs: Yes (contacts/glasses) Questionnaire Thrive Questionnaire Date Thrive assessed: 11/17/22 DC-7 AMB Questionnaire DC-7 Date DC - 7 assessed: 11/17/22 Source: Developed by Drs. Chong Posada, Hayley Bell, Mono Gillespie and colleagues, with an educational wesley from [employer]. Review of Systems Const Denies headache(s) Eyes Denies loss of vision ENT Denies vertigo, Denies dizziness, Denies headache(s) and Denies sore throat Card Denies chest pain, Denies leg edema and Denies lightheadedness Resp Denies cough, Denies hemoptysis and Denies wheezing GI Denies abdominal pain, Denies melena, Denies constipation, Denies diarrhea and Denies vomiting Denies urinary frequency, Denies dysuria and Denies urinary urgency Musc Denies arthralgias, Denies joint swelling, Denies numbness and Denies tingling Neuro Denies Abnormal speech present, Denies behavioral changes, Denies vertigo, Denies dizziness, Denies headache(s), Denies loss of vision, Denies memory loss, Denies numbness and Denies tingling Psych Denies anxiety, Denies behavioral changes, Denies depression, Denies memory loss and Denies panic attacks Donte/Lymph Denies easy bleeding and Denies easy bruising Aller/Immun Denies wheezing Physical exam (Primary Care) Vital Signs: Last Vital Signs BP 104/66 05/27/23 08:33 BMI result Body Mass Index 19.4 Tobacco/Smoking Status: Tobacco use Status Tobacco use date assessed 04/27/23 05/27/23 08:34 Patient Tobacco Use Status Current everyday Tobacco 05/27/23 08:34 Tobacco use type Cigarette 05/27/23 08:34 e-Cigarette/Vaping Use Never Used 05/27/23 08:34 Thrive Assessment: Date of Thrive Assessment Date Thrive assessed 11/17/22 05/27/23 08:34 Const General: healthy appearing, no acute distress, alert and awake Nutritional Appearance: well nourished Orientation/consciousness: oriented to person, oriented to place and oriented to time HENMT Ears: TM's normal bilaterally General nose exam: Normal nasal mucous membranes and turbinates present Eyes Conjunctivae: conjunctivae normal Sclerae: sclerae normal Pupils: Equal, round and reactive pupils present Neck Neck: Yes no lymphadenopathy and Yes no JVD Thyroid: Thyroid normal Carotids: no bruits Resp Effort & Inspection: normal respiratory effort and not tachypneic Auscultation: no crackles, no rales, no rhonchi and no wheezes Cardio Rate: regular rate Rhythm: regular rhythm Heart sounds: no murmurs and normal S1 and S2 GI Palpation (GI): Soft to palpation, nontender, no hepatomegaly and no splenomegaly Auscultation: normal bowel sounds Back/Spine/Pelvis Back/spine/pelvis image: 2 1. TWO NOTED SURGICAL INCISION OVER LOWER MIDBACK, VISIBLE SUTURES, NO SURROUNDING ERYTHEMA OR DRAINAGE NOTED Skin General skin exam: no rashes or lesions noted and dry skin Neuro General: oriented to person, oriented to place and oriented to time Cranial nerves: Yes Equal, round and reactive pupils present Speech: No Abnormal speech present Gait exam (Neuro): Normal gait present Motor exam (neuro): no tremor noted Extrem Right upper extremity: full ROM Left upper extremity: full ROM Right lower extremity: full ROM; no edema Left lower extremity: full ROM; no edema Psych Mental Status: mental status grossly normal Speech and movement: Normal speech and movement present Affect: normal affect Attitude: cooperative Thought process: Normal thought process present Assessment and Plan Assessment & Plan (1) Spinal stenosis of lumbar region: Code(s): M48.061 - Spinal stenosis, lumbar region without neurogenic claudication Qualifiers: Neurogenic claudication status: with neurogenic claudication Qualified Code(s): M48.062 - Spinal stenosis, lumbar region with neurogenic claudication Plan: Patient has long history chronic back pain, has had 2 surgeries on her lower back in the past. She reports most of her pain is generated from her lower back and most recent MRI lumbar spine showing multilevel spondylosis and stenosis. She would like a 2nd opinion from neurosurgery at [facility] Dr. Martin for further evaluation and possible treatment (2) Tobacco dependence: Code(s): F17.200 - Nicotine dependence, unspecified, uncomplicated Plan: Again advised on cutting down and quitting smoking. Offered her nicotine patches or medication though patient declines at this time. (3) Osteopenia: Comment: (Osteoporosis T score -2.9 lumbar in 2015 - Osteopenia T score -2.1 lumbar in 2019, Osteopenia T score -2.0 lumbar in 2021) Code(s): M85.80 - Other specified disorders of bone density and structure, unspecified site Qualifiers: Osteopenia location: femoral neck Laterality: right Qualified Code(s): M85.851 - Other specified disorders of bone density and structure, right thigh Plan: Patient with osteopenia. Did have recent thoracic fracture. We did discuss possibly starting oral medication to help increase bone mineral density. Will hold off for now until made full recovery from kyphoplasty of the thoracic spine fracture. Orders: Referrals 2 Neurosurgery Referral M48.062 - Spinal stenosis, lumbar region with neurogenic claudication Coding Level of Care Code Est Pt Level 4 (38506) Diagnoses Spinal stenosis of lumbar region with neurogenic claudication M48.062 Neurogenic claudication status: with neurogenic claudication Tobacco dependence F17.200 Osteopenia of neck of right femur M85.851 Osteopenia location: femoral neck Laterality: right
== END 2023-05-27 09:03 | disposition home or self-care (01) ==
PROVIDERS: PCP Physician Assistant; Visit Provider Physician Assistant
DX: M48.062 Spinal stenosis, lumbar region with neurogenic claudication (principal); F17.200 Nicotine dependence, unspecified, uncomplicated; M85.851 Other specified disorders of bone density and structure, right thigh
CPT/HCPCS: 99214

== ENCOUNTER 2023-05-27 09:58 | Outpatient (AMB) | payer MEDICARE, SELFPAY ==
--- NOTE | 2023-05-27 10:01 | MHC.OFFVIS ---
Intake Vital Signs 05/27/23 10:10 Height 5 ft 7 in Weight 124 lb 4 oz BMI 19.5 BP 114/57 L Blood Pressure Location Rt brachial Position Sitting Respiration 14 Pulse 66 Pulse Source Pulse Oximeter Pulse Oximetry (%) 95 Oxygen Delivery Method Room Air Intake Visit Reasons: s/p T12 Kyphoplasty 05/21/23 Intake Note: patient comes in for post-op appointment. Allergies No Known Allergies Allergy (Verified 06/29/23 09:09) HPI HPI Comments History of Present Illness Details Patient presents today for thw follow up after the T12 kyphoplasty she went for the treatment of compression fracture of the T12 vertebra. She reports significant pain decrease in the lower thoracic and upper lumbar spine more than 60%, she feels able to maintain better upright posture andshe denies pain with coughing or sneezing. Her pain from the lower lumbar spine related to postlaminectomy syndrome at L4- L5 fusion with instrumentation and hardware remains the same. She continues to take oral opioids to alleviate her pain. Her pain is mostly axial accross the lumbar spine with radiation of the pain into the bilateral groins. Haresh test is negative for pain increase in the back but she reports exacerbation of the pain in the groins bilaterally when the test is performed. Dressing change: the dressing was removed today two small incisions in the vicinity of paraspinal T 12 regions healed very well , no redness no swelling no local tenderness on palpation. the mattress sutures severed and removed, bacitracin ointment was applied. PRIOR: Patient presents today for follow up for acute exacerbation of low back pain that has been worsening since February. The pain was so debilitating that she went to [facility] on 04/16/23 and 04/19/23. She denies any inciting events, no falls or injury. Patient reports she has not been able to do gardening this summer as much due to pain. Any moment, normal daily activities, flexion or extension significantly increases her mid to lower back pain, worse pain with getting out of bed. Due to significant back pain, she cannot sleep in her bed anymore and has hard time turning as this also increases her pain. There is bilateral leg edema, notable in pedal and ankle areas, which is dependant per patient and improves with leg elevation. Per recent ER visit, patient was noted to have mild T12 vertebral body compression fracture, question if recent as well as constipation with mild secondary obstruction. Patient reports she was given MOM, laxative in ER and has been taking stool softeners and laxatives at home, as well as prunes and prune juice. Reports frequent flatus and loose, non-formed BMs. Patient has pending lumbar spine MRI and back brace with intermittent use during the day was ordered upon patient's notification of worsening pain and ER visit. Denies any fever, bladder or bowel incontinence or saddle anesthesia. [facility] Medical History (Updated 06/28/23 @ 11:53 by BRIANA Hermosillo) Back pain of thoracolumbar region T12 compression fracture Osteopenia Screening for hypercholesterolemia Screening for diabetes mellitus (DM) Breast cancer screening Bilateral hip pain Personal history of nicotine dependence Muscle strain Bronchitis COPD exacerbation Pseudogout of left knee Change in bowel habit Abdominal bloating Exocrine pancreatic insufficiency COPD (chronic obstructive pulmonary disease) Lumbar post-laminectomy syndrome Acute adjustment disorder with anxiety Restless leg syndrome Surgical History (Updated 05/31/23 @ 13:09 by BRIANA Hermosillo) History of kyphoplasty History of lumbar laminectomy (~2012) History of vein stripping (~2003) History of femoral hernia repair (~2002) History of lumbar fusion (~2013) Status post phlebectomy (~2008) Social History Housing: House Alcohol intake: current Alcohol intake frequency: holidays/special occasions only Patient Tobacco Use Status: Current everyday Tobacco user Tobacco use type: Cigarette Cigarettes Per Day: 10 e-Cigarette/Vaping Use: Never Used Second Hand Smoke Exposure: No service: No Current occupational status: retired Current occupation: [employer] Cognitive needs: No Hearing needs: No Vision needs: Yes (contacts/glasses) Review of Systems Const All systems reviewed & are unremarkable except as noted in HPI and below Physical Exam Vital Signs: Last Vital Signs Pulse 66 05/27/23 10:10 Resp 14 05/27/23 10:10 BP 114/57 L 05/27/23 10:10 Pulse Ox 95 05/27/23 10:10 Oxygen Delivery Method Room Air 05/27/23 10:10 BMI result Body Mass Index 19.5 Const General: cooperative, healthy appearing, no acute distress and well developed Nutritional Appearance: average body habitus Orientation/consciousness: patient oriented x3 Limitations: no limitations Neck Neck: Yes normal visual inspection and Yes full ROM Chest Chest palpation & inspection: normal inspection of the chest Resp Effort & Inspection: normal respiratory effort, able to speak in complete sentences, normal respiratory pattern, no audible wheezes, no cough, respiratory effort not decreased, no grunting, not labored and no nasal flaring Cardio Jugular venous distension: no JVD GI Inspection: Yes normal to inspection Back/Spine/Pelvis Other: Limited lumbar ROM due to pain. haresh test - negative for pain increase in the back but positive for discomfort in the groins. Cervical Spine: cervical ROM normal Thoracic/Lumbar Spine: Thoracic/lumbar spine scar(s), paraspinal muscle tenderness, thoraco-lumbar ROM limited and lumbar spinal tenderness Pelvis: no buttock tenderness Sacroiliac joints: bilaterally tender to palpation Neuro General: patient oriented x3 Extrem General: Yes capillary refill normal, Yes pedal edema (ankle and pedal edema +2 left , +1 right) and Yes other (multiple varicosities and varicose veins bilaterally) Assessment & Plan Assessment & Plan (1) Spinal stenosis of lumbar region: Code(s): M48.061 - Spinal stenosis, lumbar region without neurogenic claudication Qualifiers: Neurogenic claudication status: with neurogenic claudication Qualified Code(s): M48.062 - Spinal stenosis, lumbar region with neurogenic claudication (2) Back pain of thoracolumbar region: Code(s): M54.50 - Low back pain, unspecified; M54.6 - Pain in thoracic spine (3) T12 compression fracture: Code(s): S22.080A - Wedge compression fracture of T11-T12 vertebra, initial encounter for closed fracture Qualifiers: Encounter type: subsequent encounter Fracture healing: with delayed healing Qualified Code(s): S22.080G - Wedge compression fracture of T11-T12 vertebra, subsequent encounter for fracture with delayed healing (4) Lumbar post-laminectomy syndrome: Code(s): M96.1 - Postlaminectomy syndrome, not elsewhere classified (5) Constipation due to opioid therapy: Code(s): K59.03 - Drug induced constipation; T40.2X5A - Adverse effect of other opioids, initial encounter (6) Osteoarthritis, hip, bilateral: Code(s): M16.0 - Bilateral primary osteoarthritis of hip Plan The kyphoplasty worked well for the patient: most importantly she denies pain with sneezing and coughing. Continue to c/o pain after postlaminectomy syndrome. appears also to have a discomfort in the groins with performing of Thanh test however no pain increase in the back. Hip x-ray could be performed to r/o or d-x hip arthritis Postlaminectomy syndrome discussed , She is chronically on opioids, Nevro SCS was offered to the patient as well as non opioid pain pump [employer]. Brochure is given to the patient to read about both SCS and ITDD. Orders: Orders XR hips SHE min 3V 05/31/23 M16.0 - Bilateral primary osteoarthritis of hip Coding Level of Care Code Est Pt Level 3 (91860) Diagnoses Spinal stenosis of lumbar region with neurogenic claudication M48.062 Neurogenic claudication status: with neurogenic claudication Back pain of thoracolumbar region M54.50; M54.6 Compression fracture of T12 vertebra with delayed healing, subsequent encounter S22.080G Encounter type: subsequent encounter Fracture healing: with delayed healing Lumbar post-laminectomy syndrome M96.1 Constipation due to opioid therapy K59.03; T40.2X5A Osteoarthritis, hip, bilateral M16.0
[2023-05-27 10:10] VITALS: BP 114/57; PULSE 66; RESP 14; O2SAT 95; BMI 19.5
== END 2023-05-27 10:32 | disposition home or self-care (01) ==
PROVIDERS: PCP Physician Assistant; Visit Provider Anesthesiology
DX: M48.062 Spinal stenosis, lumbar region with neurogenic claudication (principal); M54.50 Low back pain, unspecified; M54.6 Pain in thoracic spine; S22.080G Wedge compression fracture of T11-T12 vertebra, subsequent encounter for fracture with delayed healing; M96.1 Postlaminectomy syndrome, not elsewhere classified; K59.03 Drug induced constipation; T40.2X5A Adverse effect of other opioids, initial encounter; M16.0 Bilateral primary osteoarthritis of hip
CPT/HCPCS: 99024

== ENCOUNTER → 2023-05-27 09:58 | Outpatient (BNVA) | payer MEDICARE, SELFPAY | PROVIDERS: PCP Physician Assistant; Visit Provider Anesthesiology | DX: Z09 Encounter for follow-up examination after completed treatment for conditions other than malignant neoplasm (principal); M48.062 Spinal stenosis, lumbar region with neurogenic claudication; M54.50 Low back pain, unspecified; M54.6 Pain in thoracic spine; M96.1 Postlaminectomy syndrome, not elsewhere classified; S22.080A Wedge compression fracture of T11-T12 vertebra, initial encounter for closed fracture; X58.XXXA Exposure to other specified factors, initial encounter; Y93.89 Activity, other specified; Y92.9 Unspecified place or not applicable; Y99.8 Other external cause status | CPT/HCPCS: 99212 ==

== ENCOUNTER 2023-05-31 10:26 | Outpatient (AMB) | payer MEDICARE, SELFPAY ==
--- NOTE | 2023-05-31 10:28 | MHC.OFFVIS ---
Intake Vital Signs 05/31/23 10:39 Height 5 ft 7 in Weight 124 lb 8 oz BMI 19.5 BP 110/61 Blood Pressure Location Rt brachial Position Sitting Pulse 68 Pulse Source Pulse Oximeter Pulse Oximetry (%) 97 Oxygen Delivery Method Room Air Intake Visit Reasons: Pill count Intake Note: Dot comes in today for a pill count to oxycodone-acetaminophen and a patch count to fentanyl, patient should have 57 tablets and presents with 60 tablets which she last took today 05/31/23 at 6:30am. Fentanyl should have 0 and presents with 0. Pain today 410. Ham Facer Required: No Accompanied by: Self / Same As Patient Allergies No Known Allergies Allergy (Verified 05/31/23 10:38) HPI HPI Comments History of Present Illness Details Patient presents today for a pill count. Patient is supposed to have #57 pills in her possession and has #60. Reports mild to moderate analgesia with no noted sided effects with current dose of oxycodone-acetaminophen 7.5-325 mg TID prn. Patient reports current opioid medication does not alleviate all of her pain, but provides partial relief and allows her to be more functional and less symptomatic. Patient underwent T12 kyphoplasty for the treatment of compression fracture of the T12 vertebra with good relief. She continues to reports lower back pain, bilateral groin and hip pain and bilateral pain in the projection of bilateral iliac crests. Pain increases with walking, changing positions or sleeping on her sides at night. She is not interested in neuromodulation with SCS trial for post laminectomy syndrome. Patient reports she has upcoming neurosurgical evaluation by Dr. Martin on 06/17/23. There is a pending bilateral hip xray and patient was reminded to complete this. Denies any bladder or bowel incontinence or saddle anesthesia. Denies any fever, chills, weight changes, sedation, abdominal pain, nausea, dizziness or urinary retention. [facility] Medical History (Updated 05/31/23 @ 13:09 by BRIANA Hermosillo) Back pain of thoracolumbar region T12 compression fracture Osteopenia Screening for hypercholesterolemia Screening for diabetes mellitus (DM) Breast cancer screening Bilateral hip pain Personal history of nicotine dependence Muscle strain Bronchitis COPD exacerbation Pseudogout of left knee Change in bowel habit Abdominal bloating Exocrine pancreatic insufficiency COPD (chronic obstructive pulmonary disease) Lumbar post-laminectomy syndrome Acute adjustment disorder with anxiety Restless leg syndrome Surgical History (Updated 05/31/23 @ 13:09 by BRIANA Hermosillo) History of kyphoplasty History of lumbar laminectomy (~2012) History of vein stripping (~2003) History of femoral hernia repair (~2002) History of lumbar fusion (~2013) Status post phlebectomy (~2008) Social History Housing: House Alcohol intake: current Alcohol intake frequency: holidays/special occasions only Patient Tobacco Use Status: Current everyday Tobacco user Tobacco use type: Cigarette Cigarettes Per Day: 10 e-Cigarette/Vaping Use: Never Used Second Hand Smoke Exposure: No service: No Current occupational status: retired Current occupation: [employer] Cognitive needs: No Hearing needs: No Vision needs: Yes (contacts/glasses) Review of Systems Const All systems reviewed & are unremarkable except as noted in HPI and below Physical Exam Vital Signs: Last Vital Signs Pulse 68 05/31/23 10:39 BP 110/61 05/31/23 10:39 Pulse Ox 97 05/31/23 10:39 Oxygen Delivery Method Room Air 05/31/23 10:39 BMI result Body Mass Index 19.5 Const General: cooperative, healthy appearing, no acute distress and well developed Nutritional Appearance: average body habitus Orientation/consciousness: patient oriented x3 Limitations: no limitations Neck Neck: Yes normal visual inspection and Yes full ROM Chest Chest palpation & inspection: normal inspection of the chest Resp Effort & Inspection: normal respiratory effort, able to speak in complete sentences, normal respiratory pattern, no audible wheezes, no cough, respiratory effort not decreased, no grunting, not labored and no nasal flaring Cardio Jugular venous distension: no JVD GI Inspection: Yes normal to inspection Back/Spine/Pelvis Other: Limited lower lumbar ROM due to pain. Margo sign positive bilaterally. Reports chronic pain in lateral iliac crest areas bilaterally. Syed test reproduces pain in lateral hip and groins but not in the back. Mild groin pain with I/E hip rotations. Bilateral lower thoracic incisions s/p T12 kyphoplasty healing well, no erythema, swelling, no tenderness or pathological discharge was noted.? Bacitracin ointment, bandaid dressings were applied.? Cervical Spine: cervical ROM normal and No Cervical spine tenderness Thoracic/Lumbar Spine: thoracic and lumbar spine normal to inspection, Thoracic/lumbar spine scar(s), paraspinal muscle tenderness, thoraco-lumbar ROM limited and lumbar spinal tenderness Pelvis: no buttock tenderness Sacroiliac joints: bilaterally tender to palpation Neuro General: patient oriented x3 Extrem General: Yes capillary refill normal, Yes pedal edema (ankle and pedal edema +2 left , +1 right) and Yes other (multiple varicosities and varicose veins bilaterally) Psych Appearance: grossly normal and well kempt Mental Status: mental status grossly normal Speech and movement: Normal speech and movement present and Clear speech present Affect: normal affect Attitude: cooperative Thought process: Normal thought process present Thought content: Normal thought content present, suicidality (none), no hallucinations and No Depressive thoughts present Insight: Good insight present (Psych) Judgement: Good judgement present (Psych) Results Reviewed Results Reviewed: MR LUMBAR SPINE WITHOUT AND WITH CONTRAST 05/11/23 CLINICAL INFORMATION: Post laminectomy syndrome. History of compression fracture. Pain. COMPARISON: MRI dated 10/13/2013. Nuclear bone scan report from 05/06/2023. CT dated 04/19/2023. TECHNIQUE: Multiplanar, multisequence imaging was obtained. Intravenous contrast: Gadavist 6 mL. FINDINGS: VERTEBRAL BODIES AND PARASPINAL STRUCTURES: There is a moderate leftward curvature of the lumbar spine centered at the L2 level. Significant right lateral endplate edematous changes are visible at the L1-L2 level at the apex of the spinal curvature. There is a mild superior endplate compression fracture with a 40% loss of vertebral body height at the T12 level, slightly increased compared to the prior CT study. Marrow edema is present throughout the vertebral body extending into the pedicles. Mild amount of paraspinal soft tissue edema also evident at this level. Minimal osseous retropulsion noted. No additional compression fractures are seen. Advanced degenerative endplate changes and loss of disc height noted at the L2-L3 level with a slight retrosubluxation and bulky endplate spurring. There is a mild anterolisthesis and moderate disc space narrowing at the L3-L4 level with mild posterior endplate edema. The patient is status post posterior lumbar instrumented fusion at the L4-L5 level where there is a mild anterolisthesis. Severe degenerative endplate changes with mixed chronic and edematous endplate changes noted at the L5-S1 level. There are [id number] degenerative changes in the left sacroiliac joint. CONUS MEDULLARIS AND CAUDA EQUINA: The distal cord, conus tip, and cauda equina nerve roots appear normal. No pathologic intradural enhancement is visible on postcontrast imaging. SPINAL LEVELS: L1-L2: Minimal anterolisthesis and broad-based posterior disc bulge with [id number] facet arthropathy results in mild central canal stenosis. Bulging disc impresses upon the right L2 nerve root in the subarticular zone. [id number] foraminal narrowing. Significant endplate edematous changes on the right side. L2-L3: Retrosubluxation and moderate loss of disc height with a diffuse disc bulge and hypertrophic facet arthropathy. No central canal stenosis. Moderate right foraminal narrowing. L3-L4: Mild anterolisthesis and diffuse disc bulge with moderate to severe facet arthropathy results in mild central canal stenosis. Mild left foraminal narrowing evident. L4-L5: Anterolisthesis and post laminectomy changes with hardware instrumentation. No central canal stenosis. Mild left foraminal narrowing. L5-S1: Severe loss of disc height with a retrosubluxation noted. Mixed chronic and edematous endplate changes. Broad-based disc bulge and superimposed central disc protrusion impress upon the ventral thecal sac with mild mass effect upon the S1 nerve roots. Hypertrophic facet arthropathy without central canal stenosis. Moderate to severe foraminal narrowing with compression of the exiting left L5 nerve root due to ossific spurring. IMPRESSION: 1. Subacute mild superior endplate compression fracture deformity at the T12 level with significant marrow edema throughout the vertebral body and mild paraspinal soft tissue edema. Minimal osseous retropulsion. 2. Moderate leftward lumbar spinal curvature with moderate multilevel spondylosis and postsurgical changes at the L4-L5 level, status post posterior lumbar instrumented fusion. 3. Mild central canal stenosis at the L1-L2 level with bulging disc impressing upon the right L2 nerve root. 4. Moderate right foraminal narrowing at the L2-L3 level. Mild central canal stenosis at the L3-L4 level with a mild anterolisthesis and moderate to severe facet arthropathy. 5. Severe degenerative disc disease at the L5-S1 level with mixed chronic and edematous endplate changes. Broad-based central disc protrusion with mild mass effect upon the S1 nerve roots. Moderate to severe foraminal narrowing, more so on the left side with compression of the left L5 nerve root. ADDENDUM As stated in the report, the degree of osseous retropulsion across the superior endplate of T12 is minimal, measuring 2 mm, without cord compression or central canal stenosis. If this is thought to be a pain generator for the patient, recommend follow-up neurosurgical or interventional radiology consultation to guide further management for potential vertebral body augmentation. KAJAL ANDERSON MD Assessment & Plan Assessment & Plan (1) Spinal stenosis of lumbar region: Code(s): M48.061 - Spinal stenosis, lumbar region without neurogenic claudication Qualifiers: Neurogenic claudication status: with neurogenic claudication Qualified Code(s): M48.062 - Spinal stenosis, lumbar region with neurogenic claudication (2) Lumbar post-laminectomy syndrome: Code(s): M96.1 - Postlaminectomy syndrome, not elsewhere classified (3) Status post kyphoplasty: Code(s): Z98.890 - Other specified postprocedural states (4) Osteoarthritis, hip, bilateral: Code(s): M16.0 - Bilateral primary osteoarthritis of hip (5) Sacroiliitis: Code(s): M46.1 - Sacroiliitis, not elsewhere classified (6) Iliac crest bone pain: Code(s): M89.8X8 - Other specified disorders of bone, other site Plan 1. Pending bilateral hip xray. Patient was reminded to complete. 2. Schedule in office bilateral superior cluneal nerve blocks with local and US guidance with Dr. Hernández. 2. Patient has shown accountability for her medication regimen and the pill count was accurate. The patient reported no noted side effects and adequate analgesia on current medication regime. There is no evidence of misuse, abuse or diversion at this time. Mass[employer] reviewed. Discontinue Fentanyl as this has not provided significant pain relief or improvement with constipation. Refill send for oxycodone 7.5-325 mgTID prn with advanced date of 06/18/23. Encouraged adequate daily hydration and dietary fiber intake. All questions were answered and patient is in agreement of plan. Follow up in 4 weeks for a pill count and sooner if needed. Medications: Refilled oxycodone-acetaminophen 7.5-325 mg Partial Fill upon patient request. 1 tab PO TID 30 days PRN 90 tabs 0RF pain F11.90 - Opioid use, unspecified, uncomplicated, M25.551 - Pain in right hip, M25.552 - Pain in left hip, M46.1 - Sacroiliitis, not elsewhere classified, M96.1 - Postlaminectomy syndrome, not elsewhere classified Coding Level of Care Code Est Pt Level 4 (04324) Diagnoses Spinal stenosis of lumbar region with neurogenic claudication M48.062 Neurogenic claudication status: with neurogenic claudication Lumbar post-laminectomy syndrome M96.1 Status post kyphoplasty Z98.890 Osteoarthritis, hip, bilateral M16.0 Sacroiliitis M46.1 Iliac crest bone pain M89.8X8
[2023-05-31 10:39] VITALS: BP 110/61; PULSE 68; O2SAT 97; BMI 19.5
== END 2023-05-31 10:55 | disposition home or self-care (01) ==
PROVIDERS: PCP Physician Assistant; Visit Provider Nurse Practitioner Family
DX: M96.1 Postlaminectomy syndrome, not elsewhere classified (principal); M16.0 Bilateral primary osteoarthritis of hip; M46.1 Sacroiliitis, not elsewhere classified; Z79.891 Long term (current) use of opiate analgesic; M48.062 Spinal stenosis, lumbar region with neurogenic claudication; M89.8X8 Other specified disorders of bone, other site; Z98.890 Other specified postprocedural states
CPT/HCPCS: 99214

== ENCOUNTER 2023-05-31 10:26 | Outpatient (REF) | payer MEDICARE, SELFPAY ==
--- NOTE | ~2023-05-31 | XR_ITS ---
EXAMINATION: XR BILATERAL HIPS WITH AP PELVIS CLINICAL INFORMATION: Primary osteoarthritis of hip COMPARISON: None available. TECHNIQUE: AP view of the pelvis and single views of each hip were obtained. FINDINGS: Redemonstration of postsurgical changes at L4-L5 status post instrumented fusion. Surgical clips adjacent to the left hip. Extensive vascular calcifications. Bones are diffusely demineralized. Degenerative changes in the bilateral hips with moderate joint space narrowing and hypertrophic change. XR/XR hips SHE min 3V IMPRESSION: Moderate degenerative changes in the bilateral hips. Additional imaging with CT scan or MRI should be considered for better visualization as these modalities are much more sensitive for detection of fracture or other underlying pathology.
== END 2023-05-31 10:27 | disposition home or self-care (01) ==
LOC: HO.XRAY 10:26
PROVIDERS: PCP Physician Assistant; Visit Provider Anesthesiology
DX: M16.0 Bilateral primary osteoarthritis of hip (principal); M48.062 Spinal stenosis, lumbar region with neurogenic claudication; M96.1 Postlaminectomy syndrome, not elsewhere classified; M46.1 Sacroiliitis, not elsewhere classified
CPT/HCPCS: 73522; 99212

== ENCOUNTER 2023-06-28 12:59 | Outpatient (REF) | payer MEDICARE, SELFPAY ==
--- NOTE | ~2023-06-28 | XR_ITS ---
EXAMINATION: XR THORACIC SPINE, LUMBAR SPINE CLINICAL INFORMATION: Postlaminectomy syndrome. Low back pain. COMPARISON: 05/31/2023 x-ray hips. 05/11/2023 MR lumbar spine. 02/22/2023 x-ray lumbar spine. 04/27/2023 x-ray thoracic spine. TECHNIQUE: AP, swimmer's and 2 lateral views of the thoracic spine. AP, spot L5-S1 and 2 lateral views of the lumbar spine. FINDINGS: THORACIC SPINE: Bones are diffusely demineralized. Multilevel degenerative changes in the thoracic spine. Atherosclerotic calcifications in the aortic knob. Mild S-shaped thoracolumbar scoliosis. Dense material within the previously demonstrated compression fracture of the T12 vertebral body, characteristic of vertebroplasty. Dextroscoliosis of the thoracic spine. Degenerative changes on limited images of the lower cervical spine. LUMBAR SPINE: Levoscoliosis of the lumbar spine. Redemonstration of posterior fusion hardware with rods and bilateral transpedicular screws and interbody disc spacer at L4-L5. Advanced multilevel degenerative spondylosis at L1-L2, L2-L3, L3-L4 and L5-S1. Facet arthritis in the lower lumbar spine. Atherosclerotic aortoiliac calcifications. Degenerative changes in the bilateral sacroiliac joints. XR/XR thoracic spine 3V IMPRESSION: Dense material within the previously demonstrated compression fracture of the T12 vertebral body, characteristic of vertebroplasty. Moderate multilevel degenerative changes in the thoracic spine. Redemonstration of postsurgical change at L4-L5. Thoracolumbar scoliosis with multilevel degenerative changes.
--- NOTE | ~2023-06-28 | XR_ITS ---
EXAMINATION: XR THORACIC SPINE, LUMBAR SPINE CLINICAL INFORMATION: Postlaminectomy syndrome. Low back pain. COMPARISON: 05/31/2023 x-ray hips. 05/11/2023 MR lumbar spine. 02/22/2023 x-ray lumbar spine. 04/27/2023 x-ray thoracic spine. TECHNIQUE: AP, swimmer's and 2 lateral views of the thoracic spine. AP, spot L5-S1 and 2 lateral views of the lumbar spine. FINDINGS: THORACIC SPINE: Bones are diffusely demineralized. Multilevel degenerative changes in the thoracic spine. Atherosclerotic calcifications in the aortic knob. Mild S-shaped thoracolumbar scoliosis. Dense material within the previously demonstrated compression fracture of the T12 vertebral body, characteristic of vertebroplasty. Dextroscoliosis of the thoracic spine. Degenerative changes on limited images of the lower cervical spine. LUMBAR SPINE: Levoscoliosis of the lumbar spine. Redemonstration of posterior fusion hardware with rods and bilateral transpedicular screws and interbody disc spacer at L4-L5. Advanced multilevel degenerative spondylosis at L1-L2, L2-L3, L3-L4 and L5-S1. Facet arthritis in the lower lumbar spine. Atherosclerotic aortoiliac calcifications. Degenerative changes in the bilateral sacroiliac joints. XR/XR lumbar spine 2-3V IMPRESSION: Dense material within the previously demonstrated compression fracture of the T12 vertebral body, characteristic of vertebroplasty. Moderate multilevel degenerative changes in the thoracic spine. Redemonstration of postsurgical change at L4-L5. Thoracolumbar scoliosis with multilevel degenerative changes.
== END 2023-06-28 13:00 | disposition home or self-care (01) ==
LOC: HO.XRAY 12:59
PROVIDERS: PCP Physician Assistant; Visit Provider Nurse Practitioner Family
DX: M54.50 Low back pain, unspecified (principal); M54.6 Pain in thoracic spine; M96.1 Postlaminectomy syndrome, not elsewhere classified
CPT/HCPCS: 72072; 72100

== ENCOUNTER 2023-06-29 09:00 | Outpatient (AMB) | payer MEDICARE, SELFPAY ==
--- NOTE | 2023-06-29 09:01 | A.OFFVIS_ITS ---
Intake Vital Signs 06/29/23 09:08 Height 5 ft 7 in Weight 129 lb BMI 20.2 BP 115/55 L Blood Pressure Location Rt brachial Position Sitting Pulse 67 Pulse Source Pulse Oximeter Pulse Oximetry (%) 97 Oxygen Delivery Method Room Air Intake Visit Reasons: pill count Intake Note: Dot comes in today for a pill count to oxycodone-acetaminophen, patient should have 57 tablets and presents with 58 tablets which she last took today 06/29/23 at 6am. Pain today 03/22 Community Service Manager Required: No Accompanied by: Self / Same As Patient Allergies No Known Allergies Allergy (Verified 06/29/23 09:09) HPI HPI Comments History of Present Illness Details Patient presents today for a pill count. Patient is supposed to have #57 pills in her possession and has #58. Reports mild analgesia with no noted sided effects with current dose of oxycodone-acetaminophen 7.5-325 mg TID prn. Patient underwent T12 kyphoplasty for the treatment of compression fracture of the T12 vertebra with good relief. She recently had another onset of acute on chronic lower back pain due to cleaning windows, which involved reaching, pushing up and feels she has strained her back. We send her for thoracic and lumbar images yesterday and reports are pending. She continues to report bilateral pain in the projection of bilateral iliac crests and is scheduled for bilateral superior cluneal nerve blocks next week. Pain increases with walking, changing positions or turning during sleeping on her sides at night. Patient took an extra opioid pill which we discussed yesterday with partial relief. Discussed to incorporate Tylenol Arthritis and Ibuprofen for breakthrough pain, as well as heat therapy and avoiding heavy lifting or strenuous activities. We revisited neuromodulation with SCS trial for post laminectomy syndrome. She is reconsidering this now but would like to wait until diagnostic nerve blocks are complete and assess response to therapy. Patient reports she underwent neurosurgical evaluation by Dr. Martin on 06/17/23 and was diagnosed with failed back syndrome. She was deemed non-surgical by Dr. Martin. Denies any bladder or bowel incontinence or saddle anesthesia. Denies any fever, chills, weight changes, sedation, abdominal pain, nausea, dizziness, urinary retention, bladder or bowel dysfunction or saddle anesthesia. [facility] Medical History Back pain of thoracolumbar region T12 compression fracture Osteopenia Screening for hypercholesterolemia Screening for diabetes mellitus (DM) Breast cancer screening Bilateral hip pain Personal history of nicotine dependence Muscle strain Bronchitis COPD exacerbation Pseudogout of left knee Change in bowel habit Abdominal bloating Exocrine pancreatic insufficiency COPD (chronic obstructive pulmonary disease) Lumbar post-laminectomy syndrome Acute adjustment disorder with anxiety Restless leg syndrome Surgical History History of kyphoplasty History of lumbar laminectomy (~2012) History of vein stripping (~2003) History of femoral hernia repair (~2002) History of lumbar fusion (~2013) Status post phlebectomy (~2008) Social History Housing: House Alcohol intake: current Alcohol intake frequency: holidays/special occasions only Patient Tobacco Use Status: Current everyday Tobacco user Tobacco use type: Cigarette Cigarettes Per Day: 10 e-Cigarette/Vaping Use: Never Used Second Hand Smoke Exposure: No service: No Current occupational status: retired Current occupation: [employer] Cognitive needs: No Hearing needs: No Vision needs: Yes (contacts/glasses) Review of Systems Const All systems reviewed & are unremarkable except as noted in HPI and below Physical Exam On exam today: Appears afebrile. Alert and oriented. Mood and affect appropriate. Follows and participates in conversation appropriately. Respiratory effort is unlabored. No cough. Able to transition from sit to stand unassisted. Able to stand and walk on toes and heels. GI Inspection: Yes distended Palpation (GI): nontender and no guarding Back/Spine/Pelvis Other: Limited lumbar ROM due to pain. Lumbar flexion and extension reproduces moderate pain. Facet loading positive bilaterally. TTP in the projection of bilateral iliac crests. Cervical Spine: No Cervical spine tenderness Thoracic/Lumbar Spine: thoracic and lumbar spine normal to inspection, Thoracic/lumbar spine scar(s), Lasegue's sign negative, pain with thoraco-lumbar ROM, paraspinal muscle tenderness, thoraco-lumbar ROM limited, No thoracic spinal tenderness and lumbar spinal tenderness Pelvis: no buttock tenderness Sacroiliac joints: bilaterally tender to palpation Psych Appearance: grossly normal Mental Status: mental status grossly normal Speech and movement: Normal speech and movement present Affect: normal affect Attitude: cooperative Thought process: Normal thought process present Thought content: Normal thought content present, suicidality (none), no hallucinations and Depressive thoughts present Insight: Good insight present (Psych) Judgement: Good judgement present (Psych) Results Reviewed Results Reviewed: MR LUMBAR SPINE WITHOUT AND WITH CONTRAST 05/11/23 CLINICAL INFORMATION: Post laminectomy syndrome. History of compression fracture. Pain. COMPARISON: MRI dated 10/13/2013. Nuclear bone scan report from 05/06/2023. CT dated 04/19/2023. TECHNIQUE: Multiplanar, multisequence imaging was obtained. Intravenous contrast: Gadavist 6 mL. FINDINGS: VERTEBRAL BODIES AND PARASPINAL STRUCTURES: There is a moderate leftward curvature of the lumbar spine centered at the L2 level. Significant right lateral endplate edematous changes are visible at the L1-L2 level at the apex of the spinal curvature. There is a mild superior endplate compression fracture with a 40% loss of vertebral body height at the T12 level, slightly increased compared to the prior CT study. Marrow edema is present throughout the vertebral body extending into the pedicles. Mild amount of paraspinal soft tissue edema also evident at this level. Minimal osseous retropulsion noted. No additional compression fractures are seen. Advanced degenerative endplate changes and loss of disc height noted at the L2-L3 level with a slight retrosubluxation and bulky endplate spurring. There is a mild anterolisthesis and moderate disc space narrowing at the L3-L4 level with mild posterior endplate edema. The patient is status post posterior lumbar instrumented fusion at the L4-L5 level where there is a mild anterolisthesis. Severe degenerative endplate changes with mixed chronic and edematous endplate changes noted at the L5-S1 level. There are [id number] degenerative changes in the left sacroiliac joint. CONUS MEDULLARIS AND CAUDA EQUINA: The distal cord, conus tip, and cauda equina nerve roots appear normal. No pathologic intradural enhancement is visible on postcontrast imaging. SPINAL LEVELS: L1-L2: Minimal anterolisthesis and broad-based posterior disc bulge with [id number] facet arthropathy results in mild central canal stenosis. Bulging disc impresses upon the right L2 nerve root in the subarticular zone. [id number] foraminal narrowing. Significant endplate edematous changes on the right side. L2-L3: Retrosubluxation and moderate loss of disc height with a diffuse disc bulge and hypertrophic facet arthropathy. No central canal stenosis. Moderate right foraminal narrowing. L3-L4: Mild anterolisthesis and diffuse disc bulge with moderate to severe facet arthropathy results in mild central canal stenosis. Mild left foraminal narrowing evident. L4-L5: Anterolisthesis and post laminectomy changes with hardware instrumentation. No central canal stenosis. Mild left foraminal narrowing. L5-S1: Severe loss of disc height with a retrosubluxation noted. Mixed chronic and edematous endplate changes. Broad-based disc bulge and superimposed central disc protrusion impress upon the ventral thecal sac with mild mass effect upon the S1 nerve roots. Hypertrophic facet arthropathy without central canal stenosis. Moderate to severe foraminal narrowing with compression of the exiting left L5 nerve root due to ossific spurring. IMPRESSION: 1. Subacute mild superior endplate compression fracture deformity at the T12 level with significant marrow edema throughout the vertebral body and mild paraspinal soft tissue edema. Minimal osseous retropulsion. 2. Moderate leftward lumbar spinal curvature with moderate multilevel spondylosis and postsurgical changes at the L4-L5 level, status post posterior lumbar instrumented fusion. 3. Mild central canal stenosis at the L1-L2 level with bulging disc impressing upon the right L2 nerve root. 4. Moderate right foraminal narrowing at the L2-L3 level. Mild central canal stenosis at the L3-L4 level with a mild anterolisthesis and moderate to severe facet arthropathy. 5. Severe degenerative disc disease at the L5-S1 level with mixed chronic and edematous endplate changes. Broad-based central disc protrusion with mild mass effect upon the S1 nerve roots. Moderate to severe foraminal narrowing, more so on the left side with compression of the left L5 nerve root. ADDENDUM As stated in the report, the degree of osseous retropulsion across the superior endplate of T12 is minimal, measuring 2 mm, without cord compression or central canal stenosis. If this is thought to be a pain generator for the patient, recommend follow-up neurosurgical or interventional radiology consultation to guide further management for potential vertebral body augmentation. KAJAL ANDERSON MD Assessment & Plan Assessment & Plan (1) Spinal stenosis of lumbar region: Code(s): M48.061 - Spinal stenosis, lumbar region without neurogenic claudication Qualifiers: Neurogenic claudication status: with neurogenic claudication Qualified Code(s): M48.062 - Spinal stenosis, lumbar region with neurogenic claudication (2) Lumbar post-laminectomy syndrome: Code(s): M96.1 - Postlaminectomy syndrome, not elsewhere classified (3) Status post kyphoplasty: Code(s): Z98.890 - Other specified postprocedural states (4) Osteoarthritis, hip, bilateral: Code(s): M16.0 - Bilateral primary osteoarthritis of hip (5) Sacroiliitis: Code(s): M46.1 - Sacroiliitis, not elsewhere classified (6) Iliac crest bone pain: Code(s): M89.8X8 - Other specified disorders of bone, other site Plan 1. Proceed with bilateral superior cluneal nerve blocks with local and US guidance with Dr. Hernández as scheduled. 2. Patient has shown accountability for her medication regimen and the pill count was accurate. The patient reported no noted side effects and mild to moderate analgesia on current medication regime. There is no evidence of misuse, abuse or diversion at this time. [facility] reviewed. Refill send for oxycodone 7.5-325 mg TID prn with advanced date of 07/17/23. Encouraged adequate daily hydration and dietary fiber intake. For breakthrough pain, patient incorporate Tylenol Arthritis, Ibuprofen, and heat therapy. All questions were answered and patient is in agreement of plan. Follow up in 4 weeks for a pill count and sooner if needed. Medications: Refilled oxycodone-acetaminophen 7.5-325 mg Partial Fill upon patient request. 1 tab PO TID PRN 90 tabs 0RF pain 30 days F11.90 - Opioid use, unspecified, uncomplicated, M25.551 - Pain in right hip, M25.552 - Pain in left hip, M46.1 - Sacroiliitis, not elsewhere classified, M96.1 - Postlaminectomy syndrome, not elsewhere classified Coding Level of Care Code Est Pt Level 4 (72275) Diagnoses Spinal stenosis of lumbar region with neurogenic claudication M48.062 Neurogenic claudication status: with neurogenic claudication Lumbar post-laminectomy syndrome M96.1 Status post kyphoplasty Z98.890 Osteoarthritis, hip, bilateral M16.0 Sacroiliitis M46.1 Iliac crest bone pain M89.8X8
[2023-06-29 09:08] VITALS: BP 115/55; PULSE 67; O2SAT 97; BMI 20.2
== END 2023-06-29 09:33 | disposition home or self-care (01) ==
PROVIDERS: PCP Physician Assistant; Visit Provider Nurse Practitioner Family
DX: G89.4 Chronic pain syndrome (principal); M48.062 Spinal stenosis, lumbar region with neurogenic claudication; M96.1 Postlaminectomy syndrome, not elsewhere classified; Z79.891 Long term (current) use of opiate analgesic; M16.0 Bilateral primary osteoarthritis of hip; M46.1 Sacroiliitis, not elsewhere classified; M89.8X8 Other specified disorders of bone, other site
CPT/HCPCS: 99214

== ENCOUNTER → 2023-06-29 09:00 | Outpatient (BNVA) | payer MEDICARE, SELFPAY | PROVIDERS: PCP Physician Assistant; Visit Provider Nurse Practitioner Family | DX: M16.0 Bilateral primary osteoarthritis of hip (principal); M46.1 Sacroiliitis, not elsewhere classified; M96.1 Postlaminectomy syndrome, not elsewhere classified; M48.062 Spinal stenosis, lumbar region with neurogenic claudication; Z79.891 Long term (current) use of opiate analgesic | CPT/HCPCS: 99212 ==

== ENCOUNTER 2023-07-05 15:45 | Outpatient (AMB) | payer MEDICARE, SELFPAY ==
--- NOTE | 2023-07-05 16:13 | MHC.OFFVIS ---
Intake Vital Signs 07/05/23 16:18 Height 5 ft 7 in BP 134/68 Blood Pressure Location Lt brachial Position Sitting Respiration 14 Pulse 88 Pulse Source Pulse Oximeter Intake Visit Reasons: светлана Dx superior cluneal NB Allergies No Known Allergies Allergy (Verified 07/05/23 16:19) HPI светлана Dx superior cluneal NB HPI Details 73-year-old female who presents today to the office for a bilateral diagnostic superior cluneal NB. Denies any recent cough, cold, infection, fever or other significant changes in medical history since last office visit. [facility] Medical History Back pain of thoracolumbar region T12 compression fracture Osteopenia Screening for hypercholesterolemia Screening for diabetes mellitus (DM) Breast cancer screening Bilateral hip pain Personal history of nicotine dependence Muscle strain Bronchitis COPD exacerbation Pseudogout of left knee Change in bowel habit Abdominal bloating Exocrine pancreatic insufficiency COPD (chronic obstructive pulmonary disease) Lumbar post-laminectomy syndrome Acute adjustment disorder with anxiety Restless leg syndrome Surgical History History of kyphoplasty History of lumbar laminectomy (~2012) History of vein stripping (~2003) History of femoral hernia repair (~2002) History of lumbar fusion (~2013) Status post phlebectomy (~2008) Social History Housing: House Alcohol intake: current Alcohol intake frequency: holidays/special occasions only Patient Tobacco Use Status: Current everyday Tobacco user Tobacco use type: Cigarette Cigarettes Per Day: 10 e-Cigarette/Vaping Use: Never Used Second Hand Smoke Exposure: No service: No Current occupational status: retired Current occupation: [employer] Cognitive needs: No Hearing needs: No Vision needs: Yes (contacts/glasses) Review of Systems Const All systems reviewed & are unremarkable except as noted in HPI and below Physical Exam Vital Signs: Last Vital Signs Pulse 88 07/05/23 16:18 Resp 14 07/05/23 16:18 BP 134/68 07/05/23 16:18 General: Appears afebrile. Alert and oriented. Mood and affect appropriate. Follows and participates in conversation appropriately. Respiratory effort is unlabored. Able to transition from sit to stand unassisted. Ambulates with bilaterally normal heel strike and toe off. Denies pain or tenderness upon palpation of the iliac spine on either side. No pain in the distribution of the cluneal nerves. Severe midline pain upon axial motion of the lumbar spine. Results Reviewed Results Reviewed: US Exam There was no evidence of superior cluneal nerve entrapment either below or above the iliac crest. Interspinous process heights were diminished in association with tenderness. No evidence of any collection around the posterior elements. Diagnostic injection of the interspinous at L2-3 and L3-4 did not provide any relief for her pain. Assessment & Plan Assessment & Plan (1) Lumbar post-laminectomy syndrome: Code(s): M96.1 - Postlaminectomy syndrome, not elsewhere classified Plan Multiple pain generators in setting of degeneration of discs, facets, vertebral endplates, lumbar ligaments. I doubt targeting anyone particular area would be helpful in relieving her symptoms. I discussed revisiting a a trial of spinal cord stimulation for her post-laminectomy pain. Her severe pain with movement appears to be secondary to endplate degeneration with edema that is notable on her MRI. Intervetions directed towards posterior elements are unlikely to be of significant help. Patient will think about it and let us know when ready to proceed. Scribed for Dr. Hernández by Thien Mckeon, medical scientific officer, on 07/05/2023. I, Dr. Hernández, have personally reviewed and agree with the information entered by the scribe. Coding Level of Care Code Est Pt Level 4 (94605) Diagnoses Lumbar post-laminectomy syndrome M96.1
[2023-07-05 16:18] VITALS: BP 134/68; PULSE 88; RESP 14
== END 2023-07-06 08:21 | disposition home or self-care (01) ==
PROVIDERS: PCP Physician Assistant; Visit Provider Internal Medicine
DX: M96.1 Postlaminectomy syndrome, not elsewhere classified (principal)
CPT/HCPCS: 99214

== ENCOUNTER → 2023-07-05 15:45 | Outpatient (BNVA) | payer MEDICARE, SELFPAY | PROVIDERS: PCP Physician Assistant; Visit Provider Internal Medicine | DX: M96.1 Postlaminectomy syndrome, not elsewhere classified (principal) | CPT/HCPCS: 99212 ==

== ENCOUNTER 2023-07-08 09:28 | Outpatient (AMB) | payer MEDICARE, SELFPAY ==
--- NOTE | 2023-07-08 09:30 | MHC.OFFVIS ---
Intake Vital Signs 07/08/23 09:33 Height 5 ft 7 in Weight 128 lb BMI 20.0 BP 117/58 L Blood Pressure Location Rt brachial Position Sitting Pulse 74 Pulse Source Pulse Oximeter Pulse Oximetry (%) 96 Oxygen Delivery Method Room Air Intake Visit Reasons: s/p светлана Dx superior cluneal NB Intake Note: Pain today 03/22 Records Management Analyst Required: No Accompanied by: Spouse Allergies No Known Allergies Allergy (Verified 07/08/23 09:34) HPI HPI Comments History of Present Illness Details Patient presents today to assess response to Bilateral Diagnostic superior cluneal nerve blocks on 07/05/[address] Hernández. Per procedure notes review, there was no evidence of superior cluneal nerve entrapment either below or above the iliac crest per US exam. She undergone diagnostic injection of the interspinous at L2-3 and L3-4 with no pain relief. Patient returns today to discuss Spinal cord stimulation for her post-laminectomy pain as well as multiple pain generators in setting of degeneration of discs, facets, vertebral endplates and lumbar ligaments which makes it difficult to target each individually. Pain increases with any movement, bending, twisting, walking, standing, daily ADLs, social activities and significantly diminishes her quality of life and enjoyment of life with her family, children and grandchildren. Per patient's request, we will proceed with Behavioral evaluation and expedite SCS trial for a longer term pain management. Patient denies any fever, bladder or bowel dysfunction or saddle anesthesia. [facility] Medical History Back pain of thoracolumbar region T12 compression fracture Osteopenia Screening for hypercholesterolemia Screening for diabetes mellitus (DM) Breast cancer screening Bilateral hip pain Personal history of nicotine dependence Muscle strain Bronchitis COPD exacerbation Pseudogout of left knee Change in bowel habit Abdominal bloating Exocrine pancreatic insufficiency COPD (chronic obstructive pulmonary disease) Lumbar post-laminectomy syndrome Acute adjustment disorder with anxiety Restless leg syndrome Surgical History History of kyphoplasty History of lumbar laminectomy (~2012) History of vein stripping (~2003) History of femoral hernia repair (~2002) History of lumbar fusion (~2013) Status post phlebectomy (~2008) Social History Housing: House Alcohol intake: current Alcohol intake frequency: holidays/special occasions only Patient Tobacco Use Status: Current everyday Tobacco user Tobacco use type: Cigarette Cigarettes Per Day: 10 e-Cigarette/Vaping Use: Never Used Second Hand Smoke Exposure: No service: No Current occupational status: retired Current occupation: [employer] Cognitive needs: No Hearing needs: No Vision needs: Yes (contacts/glasses) Review of Systems Const All systems reviewed & are unremarkable except as noted in HPI and below Physical Exam Vital Signs: Last Vital Signs Pulse 74 07/08/23 09:33 BP 117/58 L 07/08/23 09:33 Pulse Ox 96 07/08/23 09:33 Oxygen Delivery Method Room Air 07/08/23 09:33 BMI result Body Mass Index 20.0 General: Appears afebrile. Alert and oriented. Mood and affect appropriate. Follows and participates in conversation appropriately. Respiratory effort is unlabored. Able to transition from sit to stand unassisted. Ambulates with bilaterally normal heel strike and toe off. Lumbar extension and flexion reproduces significant pain. Significant midline pain upon axial motion of the lumbar spine. Back/Spine/Pelvis Cervical Spine: cervical muscular tenderness and No Cervical spine tenderness Thoracic/Lumbar Spine: thoracic and lumbar spine normal to inspection, Thoracic/lumbar spine scar(s), Lasegue's sign negative, pain with thoraco-lumbar ROM, paraspinal muscle tenderness, thoraco-lumbar ROM limited, No thoracic spinal tenderness and lumbar spinal tenderness at L4 and at L5 Pelvis: no buttock tenderness Sacroiliac joints: bilaterally tender to palpation Assessment & Plan Assessment & Plan (1) Lumbar post-laminectomy syndrome: Code(s): M96.1 - Postlaminectomy syndrome, not elsewhere classified (2) Sacroiliitis: Code(s): M46.1 - Sacroiliitis, not elsewhere classified (3) Chronic pain syndrome: Code(s): G89.4 - Chronic pain syndrome (4) Lumbar degenerative disc disease: Code(s): M51.36 - Other intervertebral disc degeneration, lumbar region Plan Placed referral for psychology clearance in anticipation of Nevro SCS trial. Will proceed with Nevro HFX SCS trial with sedation and fluoroscopy pending psychology clearance. The trialed and failed therapy has been reviewed with the patient. The risks, consequences, alternatives, and benefits of various treatment options were discussed with the patient in great detail, including conservative management, injections and procedures. All questions were answered to patient satisfaction. Follow up after behavioral evaluation and sooner if needed. Coding Level of Care Code Est Pt Level 3 (97572) Diagnoses Lumbar post-laminectomy syndrome M96.1 Sacroiliitis M46.1 Chronic pain syndrome G89.4 Lumbar degenerative disc disease M51.36
[2023-07-08 09:33] VITALS: BP 117/58; PULSE 74; O2SAT 96
== END 2023-07-08 10:06 | disposition home or self-care (01) ==
PROVIDERS: PCP Physician Assistant; Visit Provider Nurse Practitioner Family
DX: M96.1 Postlaminectomy syndrome, not elsewhere classified (principal); M46.1 Sacroiliitis, not elsewhere classified; G89.4 Chronic pain syndrome; M51.36 Other intervertebral disc degeneration, lumbar region
CPT/HCPCS: 99213

== ENCOUNTER → 2023-07-08 09:28 | Outpatient (BNVA) | payer MEDICARE, SELFPAY | PROVIDERS: PCP Physician Assistant; Visit Provider Nurse Practitioner Family | DX: M96.1 Postlaminectomy syndrome, not elsewhere classified (principal); M46.1 Sacroiliitis, not elsewhere classified; M51.36 Other intervertebral disc degeneration, lumbar region; G89.4 Chronic pain syndrome | CPT/HCPCS: 99212 ==

== ENCOUNTER 2023-07-27 10:26 | Outpatient (AMB) | payer MEDICARE, SELFPAY ==
--- NOTE | 2023-07-27 10:36 | MHC.OFFVIS ---
Intake Intake Visit Reasons: Medication Count Intake Note: Dot comes in today for a pill count to oxycodone-acetaminophen, patient should have 60 tablets and presents with 65 tablets which she last took today 07/27/23 at 6am. 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 Patient is supposed to have #60 pills in her possession and has #65. Reports adequate analgesia with no noted sided effects with current dose of oxycodone-acetaminophen 7.5-325 mg TID prn. Denies any bladder or bowel incontinence or saddle anesthesia. Denies any fever, chills, weight changes, sedation, abdominal pain, constipation, nausea, dizziness or urinary retention. Patient passed behavioral evaluation and would like to proceed with lumbar Nevro SCS trial for advanced lumbar degenerative changes and post laminectomy syndrome. She underwent neurosurgical evaluation by Dr. Martin on 06/17/23 and was deemed non-surgical. Denies any bladder or bowel incontinence or saddle anesthesia. The trialed and failed therapy has been reviewed with the patient. The risks, consequences, alternatives, and benefits of various treatment options were discussed with the patient in great detail, including conservative management, injections and procedures. Denies any fever, chills, weight changes, sedation, abdominal pain, nausea, dizziness, urinary retention, bladder or bowel dysfunction or saddle anesthesia. [facility] Medical History Back pain of thoracolumbar region T12 compression fracture Osteopenia Screening for hypercholesterolemia Screening for diabetes mellitus (DM) Breast cancer screening Bilateral hip pain Personal history of nicotine dependence Muscle strain Bronchitis COPD exacerbation Pseudogout of left knee Change in bowel habit Abdominal bloating Exocrine pancreatic insufficiency COPD (chronic obstructive pulmonary disease) Lumbar post-laminectomy syndrome Acute adjustment disorder with anxiety Restless leg syndrome Surgical History History of kyphoplasty History of lumbar laminectomy (~2012) History of vein stripping (~2003) History of femoral hernia repair (~2002) History of lumbar fusion (~2013) Status post phlebectomy (~2008) Social History (Reviewed 11/14/23 @ 10:40 by SULTANA [place] Housing: House Alcohol intake: current Alcohol intake frequency: holidays/special occasions only Patient Tobacco Use Status: Current everyday Tobacco user Tobacco use type: Cigarette Cigarettes Per Day: 10 e-Cigarette/Vaping Use: Never Used Second Hand Smoke Exposure: No service: No Current occupational status: retired Current occupation: [employer] Cognitive needs: No Hearing needs: No Vision needs: Yes (contacts/glasses) Review of Systems Const All systems reviewed & are unremarkable except as noted in HPI and below Physical Exam On exam today: Appears afebrile. Alert and oriented. Mood and affect appropriate. Follows and participates in conversation appropriately. Respiratory effort is unlabored. No cough. Able to transition from sit to stand unassisted. Able to stand and walk on toes and heels. Back/Spine/Pelvis Cervical Spine: cervical ROM normal and No Cervical spine tenderness Thoracic/Lumbar Spine: thoracic and lumbar spine normal to inspection, Thoracic/lumbar spine scar(s), pain with thoraco-lumbar ROM, No thoraco-lumbar ROM limited, No thoracic spinal tenderness and lumbar spinal tenderness (L4-S1) Pelvis: buttock tenderness Sacroiliac joints: bilaterally tender to palpation Psych Appearance: grossly normal Mental Status: mental status grossly normal Speech and movement: Normal speech and movement present Affect: normal affect Attitude: cooperative Thought process: Normal thought process present Thought content: Normal thought content present, suicidality (none), no hallucinations and Depressive thoughts present Insight: Good insight present (Psych) Judgement: Good judgement present (Psych) Results Reviewed Results Reviewed: MR LUMBAR SPINE WITHOUT AND WITH CONTRAST 05/11/23 CLINICAL INFORMATION: Post laminectomy syndrome. History of compression fracture. Pain. COMPARISON: MRI dated 10/13/2013. Nuclear bone scan report from 05/06/2023. CT dated 04/19/2023. TECHNIQUE: Multiplanar, multisequence imaging was obtained. Intravenous contrast: Gadavist 6 mL. FINDINGS: VERTEBRAL BODIES AND PARASPINAL STRUCTURES: There is a moderate leftward curvature of the lumbar spine centered at the L2 level. Significant right lateral endplate edematous changes are visible at the L1-L2 level at the apex of the spinal curvature. There is a mild superior endplate compression fracture with a 40% loss of vertebral body height at the T12 level, slightly increased compared to the prior CT study. Marrow edema is present throughout the vertebral body extending into the pedicles. Mild amount of paraspinal soft tissue edema also evident at this level. Minimal osseous retropulsion noted. No additional compression fractures are seen. Advanced degenerative endplate changes and loss of disc height noted at the L2-L3 level with a slight retrosubluxation and bulky endplate spurring. There is a mild anterolisthesis and moderate disc space narrowing at the L3-L4 level with mild posterior endplate edema. The patient is status post posterior lumbar instrumented fusion at the L4-L5 level where there is a mild anterolisthesis. Severe degenerative endplate changes with mixed chronic and edematous endplate changes noted at the L5-S1 level. There are [id number] degenerative changes in the left sacroiliac joint. CONUS MEDULLARIS AND CAUDA EQUINA: The distal cord, conus tip, and cauda equina nerve roots appear normal. No pathologic intradural enhancement is visible on postcontrast imaging. SPINAL LEVELS: L1-L2: Minimal anterolisthesis and broad-based posterior disc bulge with gdry-qj-nmoodido facet arthropathy results in mild central canal stenosis. Bulging disc impresses upon the right L2 nerve root in the subarticular zone. Mfqp-ev-qqncoism foraminal narrowing. Significant endplate edematous changes on the right side. L2-L3: Retrosubluxation and moderate loss of disc height with a diffuse disc bulge and hypertrophic facet arthropathy. No central canal stenosis. Moderate right foraminal narrowing. L3-L4: Mild anterolisthesis and diffuse disc bulge with moderate to severe facet arthropathy results in mild central canal stenosis. Mild left foraminal narrowing evident. L4-L5: Anterolisthesis and post laminectomy changes with hardware instrumentation. No central canal stenosis. Mild left foraminal narrowing. L5-S1: Severe loss of disc height with a retrosubluxation noted. Mixed chronic and edematous endplate changes. Broad-based disc bulge and superimposed central disc protrusion impress upon the ventral thecal sac with mild mass effect upon the S1 nerve roots. Hypertrophic facet arthropathy without central canal stenosis. Moderate to severe foraminal narrowing with compression of the exiting left L5 nerve root due to ossific spurring. IMPRESSION: 1. Subacute mild superior endplate compression fracture deformity at the T12 level with significant marrow edema throughout the vertebral body and mild paraspinal soft tissue edema. Minimal osseous retropulsion. 2. Moderate leftward lumbar spinal curvature with moderate multilevel spondylosis and postsurgical changes at the L4-L5 level, status post posterior lumbar instrumented fusion. 3. Mild central canal stenosis at the L1-L2 level with bulging disc impressing upon the right L2 nerve root. 4. Moderate right foraminal narrowing at the L2-L3 level. Mild central canal stenosis at the L3-L4 level with a mild anterolisthesis and moderate to severe facet arthropathy. 5. Severe degenerative disc disease at the L5-S1 level with mixed chronic and edematous endplate changes. Broad-based central disc protrusion with mild mass effect upon the S1 nerve roots. Moderate to severe foraminal narrowing, more so on the left side with compression of the left L5 nerve root. ADDENDUM As stated in the report, the degree of osseous retropulsion across the superior endplate of T12 is minimal, measuring 2 mm, without cord compression or central canal stenosis. If this is thought to be a pain generator for the patient, recommend follow-up neurosurgical or interventional radiology consultation to guide further management for potential vertebral body augmentation. KAJAL ANDERSON MD Assessment & Plan Assessment & Plan (1) Spinal stenosis of lumbar region: Code(s): M48.061 - Spinal stenosis, lumbar region without neurogenic claudication Qualifiers: Neurogenic claudication status: with neurogenic claudication Qualified Code(s): M48.062 - Spinal stenosis, lumbar region with neurogenic claudication (2) Lumbar post-laminectomy syndrome: Code(s): M96.1 - Postlaminectomy syndrome, not elsewhere classified (3) Status post kyphoplasty: Code(s): Z98.890 - Other specified postprocedural states (4) Osteoarthritis, hip, bilateral: Code(s): M16.0 - Bilateral primary osteoarthritis of hip (5) Sacroiliitis: Code(s): M46.1 - Sacroiliitis, not elsewhere classified (6) Iliac crest bone pain: Code(s): M89.8X8 - Other specified disorders of bone, other site Plan Patient has shown accountability for her medication regimen and the pill count was accurate. The patient reported no noted side effects and mild to moderate analgesia on current medication regime. There is no evidence of misuse, abuse or diversion at this time. [facility] Refill send for oxycodone 7.5-325 mg TID prn with advanced date of 08/15/23. Schedule Lumbar Nevro SCS trial with sedation and fluoroscopy for post-laminectomy syndrome. Expectations, risks and benefits were reviewed. Patient is aware she will be contacted to schedule this procedure. All questions were answered and patient is in agreement of plan. Follow up in 4-5 weeks for a pill count and sooner if needed. Medications: Refilled oxycodone-acetaminophen 7.5-325 mg Partial Fill upon patient request. 1 tab PO TID PRN 90 tabs 0RF pain 30 days F11.90 - Opioid use, unspecified, uncomplicated, M25.551 - Pain in right hip, M25.552 - Pain in left hip, M46.1 - Sacroiliitis, not elsewhere classified, M96.1 - Postlaminectomy syndrome, not elsewhere classified Coding Level of Care Code Est Pt Level 4 (50328) Diagnoses Spinal stenosis of lumbar region with neurogenic claudication M48.062 Neurogenic claudication status: with neurogenic claudication Lumbar post-laminectomy syndrome M96.1 Status post kyphoplasty Z98.890 Osteoarthritis, hip, bilateral M16.0 Sacroiliitis M46.1 Iliac crest bone pain M89.8X8
== END 2023-07-27 10:53 | disposition home or self-care (01) ==
PROVIDERS: PCP Physician Assistant; Visit Provider Nurse Practitioner Family
DX: M48.062 Spinal stenosis, lumbar region with neurogenic claudication (principal); M96.1 Postlaminectomy syndrome, not elsewhere classified; M16.0 Bilateral primary osteoarthritis of hip; M46.1 Sacroiliitis, not elsewhere classified; M89.8X8 Other specified disorders of bone, other site
CPT/HCPCS: 99214

== ENCOUNTER → 2023-07-27 10:26 | Outpatient (BNVA) | payer MEDICARE, SELFPAY | PROVIDERS: PCP Physician Assistant; Visit Provider Nurse Practitioner Family | DX: Z51.81 Encounter for therapeutic drug level monitoring (principal); F11.20 Opioid dependence, uncomplicated; M48.062 Spinal stenosis, lumbar region with neurogenic claudication; M96.1 Postlaminectomy syndrome, not elsewhere classified; M16.0 Bilateral primary osteoarthritis of hip; M46.1 Sacroiliitis, not elsewhere classified; M89.8X8 Other specified disorders of bone, other site; Z98.890 Other specified postprocedural states | CPT/HCPCS: 99212 ==

== ENCOUNTER 2023-07-30 08:42 | Outpatient (REF) | payer MEDICARE, SELFPAY ==
--- NOTE | ~2023-07-30 | CT_ITS ---
EXAMINATION: CT CHEST SCREENING CLINICAL INFORMATION: Current smoker with 40 pack-year smoking history. COMPARISON: Multiple previous studies, most recent, 06/30/2022 TECHNIQUE: Multidetector volumetric CT imaging of the chest is performed without contrast using low dose technique. Additional 2D coronal and sagittal reformatted images and axial 3D maximum intensity projection (MIP) images are generated on the CT workstation. This CT examination was performed using dose optimization techniques as appropriate, variously including the following: *Automated exposure control *Adjustment of mA and/or kV according to patient size (this includes techniques or standardized protocols for targeted exams where dose is matched to indication/reason for exam; i.e. extremities or head) *Use of iterative reconstruction technique DLP: 40 mGy-cm FINDINGS: INSURANCE COMPLIANCE ANALYST: Hyperinflation. Demineralization, scoliosis, lower dorsal vertebroplasty cement and lumbar spine surgical hardware. LUNGS: Trachea and bronchi are patent. Mild bronchial wall thickening. Hyperinflation with centrilobular emphysema. Lingular and bilateral lower lobe atelectasis. No change right middle lobe bronchiectasis, atelectasis and volume loss. MEDIASTINUM: Unremarkable thyroid. No pathologic lymphadenopathy. Nonenlarged heart. No pericardial effusion. Nonaneurysmal aorta with atherosclerotic calcifications. Ectatic pulmonary arteries. CORONARY ARTERY CALCIFICATION: Severe. PLEURA: There is no pleural effusion. No pleural mass or thickening. AXILLA: No lymphadenopathy. UPPER ABDOMEN: Unremarkable OSSEOUS STRUCTURES: Interval appearance of L1 moderate compression deformity with vertebroplasty cement. CT/CT lung screening IMPRESSION: No suspicious lung nodules. Redemonstration emphysema is stable chronic right middle lobe findings. Interval L1 compression deformity with vertebroplasty cement. ASSESSMENT: Lung-RADS category 1: Negative RECOMMENDATION: Routine annual low-dose CT screening in 12 months.
== END 2023-07-30 08:43 | disposition home or self-care (01) ==
LOC: HO.CT 08:42
PROVIDERS: PCP Physician Assistant; Visit Provider Physician Assistant Medical
DX: Z12.2 Encounter for screening for malignant neoplasm of respiratory organs (principal); F17.210 Nicotine dependence, cigarettes, uncomplicated
CPT/HCPCS: 71271

== ENCOUNTER 2023-07-31 10:13 | Outpatient (REF) | payer MEDICARE, SELFPAY ==
--- NOTE | ~2023-07-31 | MM_ITS ---
EXAMINATION: MM SCREENING DIGITAL BREAST TOMOSYNTHESIS, BILATERAL CLINICAL INFORMATION: Screening. Asymptomatic. COMPARISON: Mammography: This study is compared with prior exams dating back to 2018. TECHNIQUE: Digital breast tomosynthesis is performed in both the craniocaudal and mediolateral oblique views along with computer-aided detection (CAD). Synthesized 2D images are generated from the tomosynthesis. FINDINGS: The breasts are extremely dense, which lowers the sensitivity of mammography (ACR BI-RADS breast composition Category d). There are no significant masses, abnormal calcifications, or other abnormalities. MM/MM tomosynthesis screening BI IMPRESSION: No mammographic evidence of malignancy. ASSESSMENT: BI-RADS BI-RADS 1 - Negative RECOMMENDATION: Routine annual mammography screening. 1 year F/U This examination should not preclude the clinical evaluation of a suspicious palpable abnormality. This patient's information was entered into a reminder system with a target due date for their next mammogram.
== END 2023-07-31 10:14 | disposition home or self-care (01) ==
LOC: HO.MAMMO 10:13
PROVIDERS: PCP Physician Assistant; Visit Provider Physician Assistant
DX: Z12.31 Encounter for screening mammogram for malignant neoplasm of breast (principal)
CPT/HCPCS: 77063; 77067

== ENCOUNTER → 2023-07-31 10:15 | Outpatient (BNV) | payer MEDICARE, SELFPAY | PROVIDERS: PCP Physician Assistant; Visit Provider Radiology Diagnostic Radiology | DX: Z12.31 Encounter for screening mammogram for malignant neoplasm of breast (principal) | CPT/HCPCS: 77063; 77067 ==

== ENCOUNTER 2023-08-24 10:45 | Outpatient (AMB) | payer MEDICARE, SELFPAY ==
--- NOTE | 2023-08-24 10:48 | A.OFFVIS_ITS ---
Intake Vital Signs 08/24/23 10:55 Height 5 ft 8 in Weight 128 lb BMI 19.5 BP 102/54 L Blood Pressure Location Rt brachial Position Sitting Pulse 74 Pulse Source Pulse Oximeter Pulse Oximetry (%) 98 Oxygen Delivery Method Room Air Intake Visit Reasons: Medication Count/lvm Intake Note: Dot comes in today for a pill count to oxycodone-acetaminophen, patient should have 66 tablets and presents with 71 tablets which she last took today 08/24/23 at 6am. 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 Patient is supposed to have #66 pills in her possession and has #71. Reports adequate analgesia with no noted sided effects with current dose of oxycodone-acetaminophen 7.5-325 mg TID prn. Denies any bladder or bowel incontinence or saddle anesthesia. Denies any fever, chills, weight changes, sedation, abdominal pain, constipation, nausea, dizziness or urinary retention. Patient has a pending prior authorization approval for lumbar Nevro SCS trial for advanced lumbar degenerative changes and post laminectomy syndrome. She underwent neurosurgical evaluation by Dr. Martin on 06/17/23 and was deemed non-surgical. Denies any bladder or bowel incontinence or saddle anesthesia. [facility] Medical History Back pain of thoracolumbar region T12 compression fracture Osteopenia Screening for hypercholesterolemia Screening for diabetes mellitus (DM) Breast cancer screening Bilateral hip pain Personal history of nicotine dependence Muscle strain Bronchitis COPD exacerbation Pseudogout of left knee Change in bowel habit Abdominal bloating Exocrine pancreatic insufficiency COPD (chronic obstructive pulmonary disease) Lumbar post-laminectomy syndrome Acute adjustment disorder with anxiety Restless leg syndrome Surgical History History of kyphoplasty History of lumbar laminectomy (~2012) History of vein stripping (~2003) History of femoral hernia repair (~2002) History of lumbar fusion (~2013) Status post phlebectomy (~2008) Social History Housing: House Alcohol intake: current Alcohol intake frequency: holidays/special occasions only Patient Tobacco Use Status: Current everyday Tobacco user Tobacco use type: Cigarette Cigarettes Per Day: 10 e-Cigarette/Vaping Use: Never Used Second Hand Smoke Exposure: No service: No Current occupational status: retired Current occupation: [employer] Cognitive needs: No Hearing needs: No Vision needs: Yes (contacts/glasses) Review of Systems Const All systems reviewed & are unremarkable except as noted in HPI and below Reports as per HPI, Denies body aches, Denies chills, Denies fever(s), Denies frequent falls, Denies malaise, Denies weakness and Denies weight loss ENT Reports neck pain Musc Reports as per HPI, Reports back pain, Denies myalgias, Denies deformity, Reports arthralgias, Denies joint swelling, Reports neck pain, Denies numbness, Denies stiffness and Denies tingling Neuro Denies frequent falls, Denies numbness, Denies tingling and Denies weakness Physical Exam Vital Signs: Last Vital Signs Pulse 74 08/24/23 10:55 BP 102/54 L 08/24/23 10:55 Pulse Ox 98 08/24/23 10:55 Oxygen Delivery Method Room Air 08/24/23 10:55 BMI result Body Mass Index 19.5 On exam today: Appears afebrile. Alert and oriented. Mood and affect appropriate. Follows and participates in conversation appropriately. Respiratory effort is unlabored. No cough. Able to transition from sit to stand unassisted. Able to stand and walk on toes and heels. Psych Appearance: grossly normal and well kempt Mental Status: mental status grossly normal Speech and movement: Normal speech and movement present and Clear speech present Affect: normal affect Attitude: cooperative Thought process: Normal thought process present Thought content: Normal thought content present, suicidality (none), no hallucinations and No Depressive thoughts present Insight: Good insight present (Psych) Judgement: Good judgement present (Psych) Assessment & Plan Assessment & Plan (1) Spinal stenosis of lumbar region: Code(s): M48.061 - Spinal stenosis, lumbar region without neurogenic claudication Qualifiers: Neurogenic claudication status: with neurogenic claudication Qualified Code(s): M48.062 - Spinal stenosis, lumbar region with neurogenic claudication (2) Lumbar post-laminectomy syndrome: Code(s): M96.1 - Postlaminectomy syndrome, not elsewhere classified (3) Osteoarthritis, hip, bilateral: Code(s): M16.0 - Bilateral primary osteoarthritis of hip (4) Sacroiliitis: Code(s): M46.1 - Sacroiliitis, not elsewhere classified Plan Patient has shown accountability for her medication regimen and the pill count was accurate. The patient reported no noted side effects and mild to moderate analgesia on current medication regime. There is no evidence of misuse, abuse or diversion at this time. [employer] reviewed. Script send for oxycodone 7.5-325 mg TID prn with advanced date of 09/15/2023. Pending PA for Lumbar Nevro SCS trial for post-laminectomy syndrome. Patient is aware she will be contacted to schedule this procedure. All questions were answered and patient is in agreement of plan. Follow up in 1 month for a pill count and sooner if needed. Medications: Refilled oxycodone-acetaminophen 7.5-325 mg Partial Fill upon patient request. 1 tab PO TID 30 days PRN 90 tabs 0RF pain F11.90 - Opioid use, unspecified, uncomplicated, M25.551 - Pain in right hip, M25.552 - Pain in left hip, M46.1 - Sacroiliitis, not elsewhere classified, M96.1 - Postlaminectomy syndrome, not elsewhere classified Coding Level of Care Code Est Pt Level 4 (46938) Diagnoses Spinal stenosis of lumbar region with neurogenic claudication M48.062 Neurogenic claudication status: with neurogenic claudication Lumbar post-laminectomy syndrome M96.1 Osteoarthritis, hip, bilateral M16.0 Sacroiliitis M46.1
[2023-08-24 10:55] VITALS: BP 102/54; PULSE 74; O2SAT 98; BMI 19.5
== END 2023-08-24 11:11 | disposition home or self-care (01) ==
PROVIDERS: PCP Physician Assistant; Visit Provider Nurse Practitioner Family
DX: M46.1 Sacroiliitis, not elsewhere classified (principal); M48.062 Spinal stenosis, lumbar region with neurogenic claudication; M96.1 Postlaminectomy syndrome, not elsewhere classified; M16.0 Bilateral primary osteoarthritis of hip
CPT/HCPCS: 99214

== ENCOUNTER → 2023-08-24 10:45 | Outpatient (BNVA) | payer MEDICARE, SELFPAY | PROVIDERS: PCP Physician Assistant; Visit Provider Nurse Practitioner Family | DX: Z51.81 Encounter for therapeutic drug level monitoring (principal); F11.20 Opioid dependence, uncomplicated; M48.062 Spinal stenosis, lumbar region with neurogenic claudication; M96.1 Postlaminectomy syndrome, not elsewhere classified; M16.0 Bilateral primary osteoarthritis of hip; M46.1 Sacroiliitis, not elsewhere classified | CPT/HCPCS: 99212 ==

== ENCOUNTER 2023-08-30 14:14 | Outpatient (AMB) | payer MEDICARE, SELFPAY ==
--- NOTE | 2023-08-30 14:23 | MHC.OFFVIS ---
Intake Vital Signs 08/30/23 14:24 Height 5 ft 7 in Weight 125 lb BMI 19.6 BP 98/50 L Blood Pressure Location Lt brachial Position Sitting Pulse 81 Pulse Source Pulse Oximeter Temp 100.5 F H Temp Source Temporal Artery Scan Pulse Oximetry (%) 93 Oxygen Delivery Method Room Air Intake Visit Reasons: cough Intake Note: pt is here for sick visit that started on with a cough and has progressed all weekend, short of breath with lying down, and coughing, body aches, congestion, some wheezing, just doesn't feel good. Commercial Account Officer Required: No Allergies No Known Allergies Allergy (Verified 08/30/23 14:48) Medication List - Last Reconciled 08/30/23 by Julissa Evans MD Advair Diskus 500-50 mcg/dose (fluticasone propion-salmeterol) 1 ea PO BID NS albuterol sulfate 90 mcg/actuation (ProAir HFA) 2 puffs inhalation Q4-6H PRN 30 days back brace As directed naloxegol (Movantik) 12.5 mg PO DAILY naloxone 4 mg/actuation (Narcan) 4 mg intranasal Q2M 1 day oxycodone-acetaminophen 7.5-325 mg 1 tab PO TID PRN 30 days polyethylene glycol 3350 (Miralax) 17 grams PO DAILY PRN ropinirole 1 mg PO TID trazodone 50 mg PO BEDTIME 90 days Do you need a note to return to daycare/school/sports/work: No HPI cough HPI 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 BECAUSE OF SEVERE COUGH SHE IS HAVING INCREASED LOW BACK PAIN, WHICH IS HER CHRONIC PROBLEM. THE COUGH IS MOSTLY DRY AND IS DIFFICULT FOR HER TO EXPECTORATES. SHORTNESS OF BREATH HIS PART OF GENERAL BODY WEAKNESS, SHE DOES MILD INTERMITTENT. WHEEZING PFSH Medical History Back pain of thoracolumbar region T12 compression fracture Osteopenia Screening for hypercholesterolemia Screening for diabetes mellitus (DM) Breast cancer screening Bilateral hip pain Personal history of nicotine dependence Muscle strain Bronchitis COPD exacerbation Pseudogout of left knee Change in bowel habit Abdominal bloating Exocrine pancreatic insufficiency COPD (chronic obstructive pulmonary disease) Lumbar post-laminectomy syndrome Acute adjustment disorder with anxiety Restless leg syndrome Surgical History History of kyphoplasty History of lumbar laminectomy (~2012) History of vein stripping (~2003) History of femoral hernia repair (~2002) History of lumbar fusion (~2013) Status post phlebectomy (~2008) Social History Housing: House Alcohol intake: current Alcohol intake frequency: holidays/special occasions only Patient Tobacco Use Status: Current everyday Tobacco user Tobacco use type: Cigarette Cigarettes Per Day: 10 e-Cigarette/Vaping Use: Never Used Second Hand Smoke Exposure: No service: No Current occupational status: retired Current occupation: [employer] Cognitive needs: No Hearing needs: No Vision needs: Yes (contacts/glasses) Review of Systems Const All systems reviewed & are unremarkable except as noted in HPI and below Eyes Reports no additional complaints ENT Reports no additional complaints Card Denies chest pain, Denies irregular heart rhythm, Denies leg edema and Denies dyspnea Resp Reports as per HPI, Reports cough (Mild off and on), Denies dyspnea and Denies wheezing GI Denies no additional complaints Reports no additional complaints Musc Reports back pain (Chronic) Skin/Breast Reports system reviewed and no additional complaints, except as documented Psych Reports no additional complaints Endo Reports no additional complaints Aller/Immun Reports no additional complaints and Denies wheezing Physical Exam Vital Signs: Last Vital Signs Temp 100.5 F H 08/30/23 14:24 Pulse 81 08/30/23 14:24 BP 98/50 L 08/30/23 14:24 Pulse Ox 93 08/30/23 14:24 Oxygen Delivery Method Room Air 08/30/23 14:24 BMI result Body Mass Index 19.6 Const General: comfortable, no acute distress, alert and awake Orientation/consciousness: patient oriented x3 HEENT Head: Yes normal to inspection General nose exam: No nasal polyps present and No nasal discharge present Face and sinus: Yes sinuses nontender Mouth: oropharynx normal Throat: Yes posterior oropharynx normal Eyes General: appearance normal, both eyes and all related structures Neck Neck: Yes normal visual inspection, Yes no lymphadenopathy, Yes trachea midline and Yes no JVD Thyroid: Thyroid normal Chest Chest palpation & inspection: normal inspection of the chest, normal palpation of entire chest wall and no tenderness Resp Other: Percussion note hyper-resonant, breath sounds are equal on both sides. SHE DOES HAVE SCATTERED EXPIRATORY WHEEZES OVER THE LOWER PARTS OF THE CHEST. Cardio Palpation: normal PMI Rate: regular rate Rhythm: regular rhythm Heart sounds: no gallops and no murmurs GI Palpation (GI): Soft to palpation, nontender, No hepatosplenomegaly present and no masses Auscultation: normal bowel sounds Back/Spine/Pelvis Thoracic/Lumbar Spine: thoracic and lumbar spine normal to inspection, thoraco-lumbar ROM limited and thoraco-lumbar spasm Skin General skin exam: no rashes or lesions noted Neuro General: patient oriented x3 and no focal motor deficits Cranial nerves: Yes CN's II-XII intact bilaterally Extrem General: Yes normal to inspection, Yes no clubbing, cyanosis or edema and Yes no calf tenderness Psych Appearance: grossly normal and well kempt Speech and movement: Normal speech and movement present Assessment & Plan Assessment & Plan (1) Bronchitis: Comment: Has had acute nonspecific bronchitis, causing acute exacerbation of COPD. Code(s): J40 - Bronchitis, not specified as acute or chronic Plan: A course of Z-William is ordered. (2) COPD (chronic obstructive pulmonary disease): Comment: Life long H/o smoking /COPD. AT PRESENT SHE DOES HAVE ACUTE BRONCHITIS COMPLICATING COPD. Code(s): J44.9 - Chronic obstructive pulmonary disease, unspecified Qualifiers: COPD type: chronic bronchitis Chronic bronchitis type: simple Qualified Code(s): J41.0 - Simple chronic bronchitis Plan: [place] : Advair 500-50 1 inhalation b.i.d., but as long as her symptoms are minimal she could cut it down to once a day are even use it on a p.r.n. basis. Albuterol HFA 2 puffs Q 4-6 hours only p.r.n.. Advised to do steam inhalations every few hours while awake. Run vaporizer in the bedroom at night Prednisone 20 mg b.i.d. for 5 days. Medications: New prednisone 20 mg PO BID 14 tabs 0RF copd excarbation 7 days azithromycin For 250 mg dose pack: take 500 mg today (day 1), then 250 mg for 4 days (days 2-5) PO 6 tabs 0RF Coding Level of Care Code Est Pt Level 3 (68397) Diagnoses Bronchitis J40 Simple chronic bronchitis J41.0 COPD type: chronic bronchitis Chronic bronchitis type: simple
[2023-08-30 14:24] VITALS: BP 98/50; PULSE 81; TEMP 38.1; O2SAT 93; BMI 19.6
== END 2023-08-30 14:48 | disposition home or self-care (01) ==
PROVIDERS: PCP Physician Assistant; Visit Provider Internal Medicine
DX: J40 Bronchitis, not specified as acute or chronic (principal); J41.0 Simple chronic bronchitis
CPT/HCPCS: 99213

== ENCOUNTER → 2023-08-30 14:14 | Outpatient (BNVA) | payer MEDICARE, SELFPAY | PROVIDERS: PCP Physician Assistant; Visit Provider Internal Medicine | DX: J40 Bronchitis, not specified as acute or chronic (principal); J41.0 Simple chronic bronchitis | CPT/HCPCS: 99212 ==

== ENCOUNTER 2023-09-15 11:11 | Outpatient (AMB) | payer MEDICARE, SELFPAY ==
--- NOTE | 2023-09-15 11:13 | MHC.PC.OV ---
Vital Signs 09/15/23 11:14 Height 5 ft 7 in Weight 123 lb BMI 19.3 BP 100/50 L Blood Pressure Location Lt brachial Position Sitting Respiration 17 Intake Visit Reasons: Cataracts Both Left & Right Eye 09/23, 10/07 Erp Developer Required: No Accompanied by: Self / Same As Patient Allergies No Known Allergies Allergy (Verified 09/15/23 11:22) Medication List - Last Reconciled 09/15/23 by Brannon Rider PA-C Advair Diskus 500-50 mcg/dose (fluticasone propion-salmeterol) 1 ea PO BID NS albuterol sulfate 90 mcg/actuation (ProAir HFA) 2 puffs inhalation Q4-6H PRN 30 days back brace As directed naloxegol (Movantik) 12.5 mg PO DAILY naloxone 4 mg/actuation (Narcan) 4 mg intranasal Q2M 1 day oxycodone-acetaminophen 7.5-325 mg 1 tab PO TID PRN 30 days polyethylene glycol 3350 (Miralax) 17 grams PO DAILY PRN ropinirole 1 mg PO TID trazodone 50 mg PO BEDTIME 90 days Tobacco use date assessed: 04/27/23 HPI Cataracts Both Left & Right Eye 09/23, 10/07 HPI Details Patient is a 73-year-old female here today for a preop visit.? She is due to have cataract removal in both eyes on September [address] ball ( eye and lasik). Patient has a past medical history significant for tobacco dependency, sacroiliitis chronic low back pain, COPD, insomnia. Patient has no past medical history significant for CVA, [place] or Congestive heart failure. She is not on any anticoagulation or anti-platelet therapy. . ..COPD/tobacco dependency: Followed pulmonology, continues to smoke and does understand she needs to quit. She has fold on annual basis with CT scans of chest .. 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 Continues to manage her pain with low-dose opiate pain medication. She is anticipating an implanted nerve stimulator. [facility] Medical History Back pain of thoracolumbar region T12 compression fracture Osteopenia Screening for hypercholesterolemia Screening for diabetes mellitus (DM) Breast cancer screening Bilateral hip pain Personal history of nicotine dependence Muscle strain Bronchitis COPD exacerbation Pseudogout of left knee Change in bowel habit Abdominal bloating Exocrine pancreatic insufficiency COPD (chronic obstructive pulmonary disease) Lumbar post-laminectomy syndrome Acute adjustment disorder with anxiety Restless leg syndrome Surgical History History of kyphoplasty History of lumbar laminectomy (~2012) History of vein stripping (~2003) History of femoral hernia repair (~2002) History of lumbar fusion (~2013) Status post phlebectomy (~2008) Social History Housing: House Alcohol intake: current Alcohol intake frequency: holidays/special occasions only Patient Tobacco Use Status: Current everyday Tobacco user Tobacco use type: Cigarette Cigarettes Per Day: 10 e-Cigarette/Vaping Use: Never Used Second Hand Smoke Exposure: No service: No Current occupational status: retired Current occupation: [employer] Cognitive needs: No Hearing needs: No Vision needs: Yes (contacts/glasses) Questionnaire PHQ-9 Over the last 2 weeks, how often have you been bothered by any of the following problems? 1. Little interest or pleasure in doing things: not at all 2. Feeling down, depressed, or hopeless: not at all 3. Trouble falling or staying asleep, or sleeping too much: not at all 4. Feeling tired or having little energy: not at all 5. Poor appetite or overeating: not at all 6. Feeling bad about yourself - or that you are a failure or have let yourself or your family down: not at all 7. Trouble concentrating on things, such as reading the newspaper or watching television: not at all 8. Moving or speaking so slowly that other people could have noticed. Or the opposite - being so fidgety or restless that you have been moving around a lot more than usual: not at all 9. Thoughts that you would be better off or of hurting yourself in some way: not at all Total score: 0 Depression Screening Interpretation: Negative Depression Screening Done: Yes 76011 - PHQ-9 Billing: Yes Source: Developed by Drs. Chong Posada, Hayley Bell, Mono Gillespie and colleagues, with an educational wesley from [employer]. Thrive Questionnaire Date Thrive assessed: 09/15/23 I am a: Patient What is your living situation today?: I have a steady place to live Within the past 12 months, did the food you bought not last and you didn't have the money to get more?: Never true Within the past 12 months, did you worry whether your food would run out before you got money to buy more?: Never true Do you have trouble paying for medicines?: No Do you have trouble getting transportation to medical appointments?: No Do you have trouble paying your heating and electricity bill?: No Do you have trouble taking care of your child, family member or friend?: No Do you have trouble with day-to-day activities such as bathing, preparing meals, shopping, managing finances, etc.?: No Are you currently unemployed and looking for a job?: No Are you interested in more education?: No Please select the resources that you would like help with: None Currently or been in a relationship where the following occur: no concerns reported AUDIT C Alcohol Use Questionnaire (AUDIT-C) 1. How often do you have a drink containing alcohol?: Never Total Score: 0 DC-7 AMB Questionnaire DC-7 Date DC - 7 assessed: 09/15/23 Feeling nervous, anxious, or on edge: 0 = Not at all Not being able to stop or control worryin = Not at all Worrying too much about different things: 0 = Not at all Trouble relaxin = Not at all Being so restless that it is hard to sit still: 0 = Not at all Becoming easily annoyed or irritable: 0 = Not at all Feeling afraid as if something awful might happen: 0 = Not at all Total DC-7 score (0-4 normal; 5-9 mild; 10-14 moderate; 15-21 severe): 0 Source: Developed by Drs. Chong Posada, Mono Richardson and colleagues, with an educational wesley from [employer]. DC-7 Assessment Billing DC-7 Assessment Tool: DC-7 Assessment 10114 Review of Systems Const Denies headache(s) Eyes Denies loss of vision ENT Denies vertigo, Denies dizziness, Denies headache(s) and Denies sore throat Card Denies chest pain, Denies leg edema and Denies lightheadedness Resp Denies cough, Denies hemoptysis and Denies wheezing GI Denies abdominal pain, Denies melena, Denies constipation, Denies diarrhea and Denies vomiting Denies urinary frequency, Denies dysuria and Denies urinary urgency Musc Denies arthralgias, Denies joint swelling, Denies numbness and Denies tingling Neuro Denies Abnormal speech present, Denies behavioral changes, Denies vertigo, Denies dizziness, Denies headache(s), Denies loss of vision, Denies memory loss, Denies numbness and Denies tingling Psych Denies anxiety, Denies behavioral changes, Denies depression, Denies memory loss and Denies panic attacks Donte/Lymph Denies easy bleeding and Denies easy bruising Aller/Immun Denies wheezing Physical exam (Primary Care) Vital Signs: Last Vital Signs Resp 17 09/15/23 11:14 BP 100/50 L 09/15/23 11:14 BMI result Body Mass Index 19.3 Tobacco/Smoking Status: Tobacco use Status Tobacco use date assessed 04/27/23 09/15/23 11:19 Patient Tobacco Use Status Current everyday Tobacco 09/15/23 11:19 Tobacco use type Cigarette 09/15/23 11:19 e-Cigarette/Vaping Use Never Used 09/15/23 11:19 Are you ready to quit: No Tobacco cessation counseling provided: Yes Items discussed: Nicotine replacement Relapse Prevention: discussed the importance of a supportive environment, weight gain after smoking is common and discussed dietary, exercise and/or lifestyle changes Number of minutes spent counselin CPT code: 79306 - 4-10 Minutes PHQ-9: PHQ-9 Score PHQ-9: Total score 0 09/15/23 11:19 Depression Screening Interpretation: Negative Thrive Assessment: Date of Thrive Assessment Date Thrive assessed 09/15/23 09/15/23 11:19 Currently or been in a relationship where the following occur: no concerns reported Const General: healthy appearing, no acute distress, alert and awake Nutritional Appearance: well nourished Orientation/consciousness: oriented to person, oriented to place and oriented to time HENMT Ears: TM's normal bilaterally General nose exam: Normal nasal mucous membranes and turbinates present Eyes Conjunctivae: conjunctivae normal Sclerae: sclerae normal Pupils: Equal, round and reactive pupils present Neck Neck: Yes no lymphadenopathy and Yes no JVD Thyroid: Thyroid normal Carotids: no bruits Resp Effort & Inspection: normal respiratory effort and not tachypneic Auscultation: no crackles, no rales, no rhonchi and no wheezes Cardio Rate: regular rate Rhythm: regular rhythm Heart sounds: no murmurs and normal S1 and S2 GI Palpation (GI): Soft to palpation, nontender, no hepatomegaly and no splenomegaly Auscultation: normal bowel sounds Skin General skin exam: no rashes or lesions noted and dry skin Neuro General: oriented to person, oriented to place and oriented to time Cranial nerves: Yes Equal, round and reactive pupils present Speech: No Abnormal speech present Gait exam (Neuro): Normal gait present Motor exam (neuro): no tremor noted Extrem Right upper extremity: full ROM Left upper extremity: full ROM Right lower extremity: full ROM; no edema Left lower extremity: full ROM; no edema Psych Mental Status: mental status grossly normal Speech and movement: Normal speech and movement present Affect: normal affect Attitude: cooperative Thought process: Normal thought process present Assessment and Plan Assessment & Plan (1) Pre-op evaluation: Code(s): Z01.818 - Encounter for other preprocedural examination Plan: Patient is low CV risk for needed procedure. Most recent labs, vitals today stable. Most recent EKG done and May 2023 showing normal sinus rhythm. Patient is medically clear for needed cataracts removed (2) Bilateral cataracts: Code(s): H26.9 - Unspecified cataract Qualifiers: Cataract type: age-related Age-related cataract type: unspecified Qualified Code(s): H25.9 - Unspecified age-related cataract Plan: As above (3) COPD (chronic obstructive pulmonary disease): Comment: Life long H/o smoking /COPD. Code(s): J44.9 - Chronic obstructive pulmonary disease, unspecified Qualifiers: COPD type: chronic bronchitis Chronic bronchitis type: simple Qualified Code(s): J41.0 - Simple chronic bronchitis Plan: Patient is follow-up pulmonology. Unfortunately continues to smoke. Her COPD is fairly well maintained with maintenance inhaler and p.r.n. use of albuterol inhaler. (4) Tobacco dependence: Code(s): F17.200 - Nicotine dependence, unspecified, uncomplicated Plan: Patient does understand she needs to completely quit smoking. She has a hard time doing so. Does have nicotine patches available to her. She will reconsider Chantix in the future Coding Level of Care Code Est Pt Level 4 (85690) Diagnoses Pre-op evaluation Z01.818 Age-related cataract of both eyes, unspecified age-related cataract type H25.9 Cataract type: age-related Age-related cataract type: unspecified Simple chronic bronchitis J41.0 COPD type: chronic bronchitis Chronic bronchitis type: simple Tobacco dependence F17.200 Additional Codes DC-7 Assessment Billing - DC-7 Assessment Tool: DC-7 Assessment 45830 ([id number]) Vital Signs *Quality* - CPT code: 68364 - 4-10 Minutes ([id number])
[2023-09-15 11:14] VITALS: BP 100/50; RESP 17; BMI 19.3
== END 2023-09-15 11:35 | disposition home or self-care (01) ==
PROVIDERS: PCP Physician Assistant; Visit Provider Physician Assistant
DX: Z01.818 Encounter for other preprocedural examination (principal); H25.9 Unspecified age-related cataract; J41.0 Simple chronic bronchitis; F17.210 Nicotine dependence, cigarettes, uncomplicated
CPT/HCPCS: 99214

== ENCOUNTER 2023-09-28 10:55 | Outpatient (AMB) | payer MEDICARE, SELFPAY ==
[2023-09-28 11:11] VITALS: BP 110/59; PULSE 65; O2SAT 98; BMI 19.6
--- NOTE | 2023-09-28 11:11 | MHC.OFFVIS ---
Intake Vital Signs 09/28/23 11:11 Height 5 ft 7 in Weight 125 lb BMI 19.6 BP 110/59 L Blood Pressure Location Rt brachial Position Sitting Pulse 65 Pulse Source Pulse Oximeter Pulse Oximetry (%) 98 Oxygen Delivery Method Room Air Intake Visit Reasons: Medication Count/confirmed Intake Note: Dot comes in today for a pill count to oxycodone-acetaminophen, patient should have 51 tablets and present with 66tabs which she last took today 09/28/23 at 6am. Pain today 0/10. Dot signed updated opioid contract in office today, signed copy was provided to patient. Frozen Food Selector Required: No Accompanied by: Self / Same As Patient Allergies No Known Allergies Allergy (Verified 09/28/23 11:13) HPI HPI Comments History of Present Illness Details Patient presents today for a pill count. Patient is supposed to have #51 pills in her possession and has #66. Patient reports adequate analgesia with no noted sided effects with current dose of oxycodone-acetaminophen 7.5-325 mg TID prn. Denies any bladder or bowel incontinence or saddle anesthesia. Denies any fever, chills, weight changes, sedation, abdominal pain, constipation, nausea, dizziness or urinary retention. Patient is scheduled to undergo lumbar Nevro SCS trial on 10/13/23 for advanced lumbar degenerative changes and post laminectomy syndrome. [facility] Medical History Back pain of thoracolumbar region T12 compression fracture Osteopenia Screening for hypercholesterolemia Screening for diabetes mellitus (DM) Breast cancer screening Bilateral hip pain Personal history of nicotine dependence Muscle strain Bronchitis COPD exacerbation Pseudogout of left knee Change in bowel habit Abdominal bloating Exocrine pancreatic insufficiency COPD (chronic obstructive pulmonary disease) Lumbar post-laminectomy syndrome Acute adjustment disorder with anxiety Restless leg syndrome Surgical History History of kyphoplasty History of lumbar laminectomy (~2012) History of vein stripping (~2003) History of femoral hernia repair (~2002) History of lumbar fusion (~2013) Status post phlebectomy (~2008) Social History Housing: House Alcohol intake: current Alcohol intake frequency: holidays/special occasions only Patient Tobacco Use Status: Current everyday Tobacco user Tobacco use type: Cigarette Cigarettes Per Day: 10 e-Cigarette/Vaping Use: Never Used Second Hand Smoke Exposure: No service: No Current occupational status: retired Current occupation: [employer] Cognitive needs: No Hearing needs: No Vision needs: Yes (contacts/glasses) Review of Systems Const All systems reviewed & are unremarkable except as noted in HPI and below Physical Exam Vital Signs: Last Vital Signs Pulse 65 09/28/23 11:11 BP 110/59 L 09/28/23 11:11 Pulse Ox 98 09/28/23 11:11 Oxygen Delivery Method Room Air 09/28/23 11:11 BMI result Body Mass Index 19.6 On exam today: Appears afebrile. Alert and oriented. Mood and affect appropriate. Follows and participates in conversation appropriately. Respiratory effort is unlabored. No cough. Able to transition from sit to stand unassisted. Able to stand and walk on toes and heels. Psych Appearance: grossly normal and well kempt Mental Status: mental status grossly normal Speech and movement: Normal speech and movement present and Clear speech present Affect: normal affect Attitude: cooperative Thought process: Normal thought process present Thought content: Normal thought content present, suicidality (none), no hallucinations and No Depressive thoughts present Insight: Good insight present (Psych) Judgement: Good judgement present (Psych) Assessment & Plan Assessment & Plan (1) Spinal stenosis of lumbar region: Code(s): M48.061 - Spinal stenosis, lumbar region without neurogenic claudication Qualifiers: Neurogenic claudication status: with neurogenic claudication Qualified Code(s): M48.062 - Spinal stenosis, lumbar region with neurogenic claudication (2) Lumbar post-laminectomy syndrome: Code(s): M96.1 - Postlaminectomy syndrome, not elsewhere classified (3) Osteoarthritis, hip, bilateral: Code(s): M16.0 - Bilateral primary osteoarthritis of hip (4) Sacroiliitis: Code(s): M46.1 - Sacroiliitis, not elsewhere classified (5) Chronic, continuous use of opioids: Code(s): F11.90 - Opioid use, unspecified, uncomplicated Plan Patient has shown accountability for her medication regimen and the pill count was accurate. The patient reported no noted side effects and mild to moderate analgesia on current medication regime. There is no evidence of misuse, abuse or diversion at this time[facility] send for oxycodone 7.5-325 mg TID prn with advanced date of 10/15/23. Lumbar Nevro SCS trial for post-laminectomy syndrome is scheduled on 10/13/[address] Hernández. All questions were answered and patient is in agreement of plan. Follow up in 1 month for a pill count/s/p SCS trial and sooner if needed. Medications: Refilled oxycodone-acetaminophen 7.5-325 mg Partial Fill upon patient request. 1 tab PO TID PRN 90 tabs 0RF pain 30 days F11.90 - Opioid use, unspecified, uncomplicated, M25.551 - Pain in right hip, M25.552 - Pain in left hip, M46.1 - Sacroiliitis, not elsewhere classified, M96.1 - Postlaminectomy syndrome, not elsewhere classified Coding Level of Care Code Est Pt Level 4 (20950) Diagnoses Spinal stenosis of lumbar region with neurogenic claudication M48.062 Neurogenic claudication status: with neurogenic claudication Lumbar post-laminectomy syndrome M96.1 Osteoarthritis, hip, bilateral M16.0 Sacroiliitis M46.1 Chronic, continuous use of opioids F11.90
== END 2023-09-28 11:17 | disposition home or self-care (01) ==
PROVIDERS: PCP Physician Assistant; Visit Provider Nurse Practitioner Family
DX: M48.062 Spinal stenosis, lumbar region with neurogenic claudication (principal); M96.1 Postlaminectomy syndrome, not elsewhere classified; M16.0 Bilateral primary osteoarthritis of hip; Z79.891 Long term (current) use of opiate analgesic; M46.1 Sacroiliitis, not elsewhere classified
CPT/HCPCS: 99214

== ENCOUNTER → 2023-09-28 10:55 | Outpatient (BNVA) | payer MEDICARE, SELFPAY | PROVIDERS: PCP Physician Assistant; Visit Provider Nurse Practitioner Family | DX: M48.061 Spinal stenosis, lumbar region without neurogenic claudication (principal); M48.062 Spinal stenosis, lumbar region with neurogenic claudication; M96.1 Postlaminectomy syndrome, not elsewhere classified; M16.0 Bilateral primary osteoarthritis of hip; M46.1 Sacroiliitis, not elsewhere classified; Z79.891 Long term (current) use of opiate analgesic | CPT/HCPCS: 99212 ==

== ENCOUNTER → 2023-10-13 09:59 | Day surgery (SDC) | payer MEDICARE, SELFPAY ==
[2023-10-11 09:49] VITALS: BMI 19.3
--- NOTE | 2023-10-12 10:32 | P.CONAN_ITS ---
HPI - Anesthesia Eval Consult details Narrative: 73yo F for Lumbar Spinal Cord Stimulation Trial s/p kypho 05/2023 with TIVA PMFSH Active Problems Active Problems: All Active Problems (Updated 09/15/23 @ 11:21 by Brannon Rider PA-C) Bilateral cataracts (Acute) Pre-op evaluation (Acute) Lumbar degenerative disc disease (Acute) Chronic pain syndrome (Acute) Back pain of thoracolumbar region (Acute) Iliac crest bone pain (Acute) Status post kyphoplasty (Acute) Osteoarthritis, hip, bilateral (Acute) Tobacco dependence (Acute) Constipation due to opioid therapy (Acute) Spinal stenosis of lumbar region (Acute) Post-menopausal (Acute) Pulmonary nodule (Acute) Lumbar post-laminectomy syndrome (Acute) Nicotine dependence, cigarettes, uncomplicated (Acute) Sacroiliitis (Acute) Osteopenia (Acute) Personal history of nicotine dependence (Acute) Bronchitis (Acute) Grade 1 injury of medial collateral ligament of left knee (Acute) Chronic, continuous use of opioids (Acute) Varicose veins of left lower extremity with inflammation (Acute) PVD (peripheral vascular disease) (Acute) Exocrine pancreatic insufficiency (Acute) Claudication of lower extremity (Acute) COPD (chronic obstructive pulmonary disease) (Acute) Insomnia (Acute) Acute adjustment disorder with anxiety (Acute) Restless leg syndrome (Acute) Past Medical History Medical History Back pain of thoracolumbar region T12 compression fracture Osteopenia Screening for hypercholesterolemia Screening for diabetes mellitus (DM) Breast cancer screening Bilateral hip pain Personal history of nicotine dependence Muscle strain Bronchitis COPD exacerbation Pseudogout of left knee Change in bowel habit Abdominal bloating Exocrine pancreatic insufficiency COPD (chronic obstructive pulmonary disease) Lumbar post-laminectomy syndrome Acute adjustment disorder with anxiety Restless leg syndrome Family History Family history of problems with anesthesia: No Surgical History Surgical History History of kyphoplasty History of lumbar laminectomy (~2012) History of vein stripping (~2003) History of femoral hernia repair (~2002) History of lumbar fusion (~2013) Status post phlebectomy (~2008) History of Problems with Anesthesia: No Social History Social History Housing: House Alcohol intake: current Alcohol intake frequency: does not drink Patient Tobacco Use Status: Current everyday Tobacco user Tobacco use type: Cigarette Cigarette Packs Per Day: 0.5 Cigarettes Per Day: 10.0 e-Cigarette/Vaping Use: Never Used Second Hand Smoke Exposure: No Use of substances other than those prescribed or required for medical reasons: No Are you DNR?: No Advance Directives: No Advance Directives Information Provided: Yes Advance Directives on File: No service: No Current occupational status: retired Current occupation: [employer] Cognitive needs: No Hearing needs: No Vision needs: Yes (contacts/glasses) Meds Allergies Allergy/AdvReac Type Severity Reaction Status Date / Time No Known Allergies Allergy Verified 09/28/23 11:13 Home Medications Medication Instructions Recorded Confirmed Last Taken Type naloxegol 12.5 mg tablet (Movantik) 12.5 mg PO DAILY 06/29/23 09/15/23 Unknown History Exam Height,Weight and Vital Signs: Height 5 ft 7 in Weight 55.792 kg Pertinent Lab Results Pertinent Lab Results: Laboratory Tests 04/27/23 04/27/23 09:48 Unknown WBC 6.9 Hgb 13.7 Hct 40.5 Plt Count 251 D Sodium 133 L Potassium 4.1 Chloride 98 Carbon Dioxide 28 BUN 15 Creatinine 0.80 Assessment and Plan Assessment Anesthesia Assessment: Chart Reviewed Final Anesthetic Review Family History of Problems with Anesthesia: No History of Problems with Anesthesia: No
--- NOTE | ~2023-10-13 | XR_ITS ---
EXAMINATION: XR THORACIC SPINE, intraoperative fluoroscopy C-arm views CLINICAL INFORMATION: Postop bleed check COMPARISON: 06/28/2023 TECHNIQUE: Single frontal view dorsal spine postoperative. Intraoperative fluoroscopy and C-arm views, number of images 2, radiation dose Air Kerma : 31.9 MG Y FINDINGS: Electronics' wires embedded in the dorsal spine of the tip of which is at the level C5-C6. There is vertebroplasty cement in place lower dorsal vertebra unchanged. Included paravertebral soft tissue and lungs are clear. XR/XR thoracic spine 1V IMPRESSION: Intraoperative fluoroscopy and C-arm views. Electronic wires placed into the spinal canal, the tip is at the level of C5-C6.
--- NOTE | ~2023-10-13 | FL_ITS ---
INDICATION: Intraoperative fluoroscopy. FLUOROSCOPY: Fluoroscopy Time: 4.2 minutes Dose/air kerma: 31.9 mGy Images saved: 2 FINDINGS: Multiple intraoperative fluoroscopic images are submitted during reported spinal cord stimulator trial. Correlation with operative report. Evaluation is limited secondary to fluoroscopic technique. IMPRESSION: Intra-operative fluoroscopic imaging provided by radiology during reported spinal cord stimulator trial. Please refer to operative note for further information.
[2023-10-13 10:18] VITALS: BMI 20.4
[2023-10-13 10:43] VITALS: BP 118/68; PULSE 54; RESP 16; TEMP 36.3; O2SAT 94
[2023-10-13] MEDS: Lactated Ringers 1,000 ML 100 ML IVCONT (10:44)
--- NOTE | 2023-10-13 11:25 | MHC.SHP ---
Pre-Procedural Eval Section A - 24 Hr Update-Section A only Date of Service: 10/13/23 The patient is an INPATIENT: No Changes since office visit: Yes Patient answered all questions The patient has been examined within 24 hours of the surgical procedure. The History & Physical has been completed within 30 days and I have reviewed it.: No Section B - Complete if H&P > 30 days Chief Complaint: Postlaminectomy syndrome, not elsewhere classified Relevant Family History (Specify if Yes): No Relevant Social History: None Present Medications: see Short Stay Collaborative assessment Medical History: No relevant PMH History of Previous Operations: Relevant previous surgery/procedure and date(s) (lumbar fusion) Allergies: Allergies Allergy/AdvReac Type Severity Reaction Status Date / Time No Known Allergies Allergy Verified 09/28/23 11:13 Review of Systems Sugical H&P ROS: Negative: Constitution, Cardiovascular and Respiratory Exam Surgical H&P Exam: Normal: HEENT, Normal: Heart and Normal: Lungs Plan Diagnosis/Plan: Unchanged I have reviewed the history and physical and performed a pertinent physical examination on my patient. No changes have occurred unless specified. Time Spent With Patient Time: Total time managing care of this patient today ____ minutes.
--- NOTE | 2023-10-13 11:27 | PM.OP ---
Brief Operative Note Date of Service: 10/13/23 Pre-op diagnosis: Post-laminectomy syndrome Post-op diagnosis: same Procedure: Lumbar spinal cord stimulation trial Implants: Nevro SCS leads Surgeon: Magen Hernández MD Anesthesia: MAC Was an Friction Saw Operator used for this Procedure?: No Estimated blood loss (mL): 4 Pathology: none sent Condition: stable Disposition: PACU
--- NOTE | 2023-10-13 11:28 | W.PM.OPN ---
Operative Note Operative Note Date of Service: 10/13/23 Narrative: Percutaneous Spinal Cord Stimulator Trial, Lumbar After obtaining written consent, pre-procedure blood pressure and heart rate were recorded and are in the nursing record for review. A peripheral IV was started. Antibiotics, cefazolin 2 gram, were given intraoperatively. The patient was placed in a prone position. The patient was sedated by the anesthesiologist. The thoracolumbar area was widely prepped with ChloraPrep, allowed to dry and draped in sterile fashion. Fluoroscopy was used to identify the target interlaminar spaces and appropriate needle insertion sites. The skin and subcutaneous tissue was anesthetized with 0.5% lidocaine. Two separate 14 gauge Tuohy epidural needles were then advanced from this point in a paramedian approach to the epidural space opening at L1/L2 interspace, where loss of resistance was found using air. No paresthesias were elicited with needle placement. No CSF or heme was present upon needle placement. A guide wire was then used to confirm placement into the epidural space at each level under live fluoroscopy. The 1x8 stimulator lead wire was then threaded to the top of T7 in the left parasagittal position and top of of T8 in the right parasagittal position under live fluoroscopy. The leads advanced midline and dorsally.?The Tuohy needles were then completely removed under live fluoroscopy. The stimulator wires were then secured with Steri-Strips, Exofin, gauze and tegaderm for skin dressing. The patient tolerated the procedure well. Upon the completion of the procedures the patient was transferred to the stretcher and flipped supine. At this point impedance check on the leads revealed a potential lead migration during the repositioning. Upon recovery in the PACU, the patient was sent for repeat x-ray of the thoracic spine that showed the left lead to have migrated about 3 levels inferiorly. Decision was made to program the T9-10 disc interspace with the available electrode at the time and see if she gets a positive response. A follow-up appointment was made midway into the trial to readjust the right lead to establish further electrode overlap at the T8-9 and T9-10 disc interspace. Following the procedure the patient's vital signs were stable. The patient was discharged home in good condition after being given discharge instructions. Time Out: Immediately prior to the procedure, the following was verbally confirmed that there is a signed consent form and that the correct patient, planned procedure, site and side are consistent with documentation and that necessary equipment and/or blood products are available prior to the start of the case. Complications: none EBL: <4 cc
[2023-10-13 12:57] VITALS: BP 129/72; PULSE 53; RESP 16; TEMP 36.4; O2SAT 98
[2023-10-13 13:12] VITALS: BP 116/67; PULSE 49; RESP 16; O2SAT 98
[2023-10-13 14:04] LABS: MRSA Nasal PCR NEGATIVE (Negative); SA Nasal PCR NEGATIVE (Negative)
== END | disposition home or self-care (01) ==
PROVIDERS: Registered Nurse Emergency; PCP Physician Assistant; Visit Provider Internal Medicine
PROC: (CPT 63650; principal; 2023-10-13 11:30)
DX: M96.1 Postlaminectomy syndrome, not elsewhere classified (principal); M48.061 Spinal stenosis, lumbar region without neurogenic claudication; M46.1 Sacroiliitis, not elsewhere classified; M16.0 Bilateral primary osteoarthritis of hip; J44.9 Chronic obstructive pulmonary disease, unspecified; Z98.1 Arthrodesis status; Z98.890 Other specified postprocedural states; F17.210 Nicotine dependence, cigarettes, uncomplicated; F11.90 Opioid use, unspecified, uncomplicated
CPT/HCPCS: 63650 ×2; 72020; 87640; 87641; C1897; J0690; J2250; J2704

== ENCOUNTER → 2023-10-13 09:59 | Outpatient (BNV) | payer MEDICARE, SELFPAY | PROVIDERS: PCP Physician Assistant; Visit Provider Internal Medicine | DX: M96.1 Postlaminectomy syndrome, not elsewhere classified (principal) | CPT/HCPCS: 63650 ==

== ENCOUNTER 2023-10-15 10:09 | Outpatient (AMB) | payer MEDICARE, SELFPAY ==
[2023-10-15 10:15] VITALS: BP 132/62; PULSE 82; RESP 12; O2SAT 96; BMI 20.4
--- NOTE | 2023-10-15 10:15 | MHC.OFFVIS ---
Intake Vital Signs 10/15/23 10:15 Height 5 ft 7 in Weight 130 lb BMI 20.4 BP 132/62 Blood Pressure Location Lt brachial Position Sitting Respiration 12 Pulse 82 Pulse Source Pulse Oximeter Pulse Oximetry (%) 96 Oxygen Delivery Method Room Air Intake Visit Reasons: S/p NEVRO SCS Trial 10/13/23 Allergies No Known Allergies Allergy (Verified 10/15/23 10:16) Medication List - Last Reconciled 10/15/23 by Lea Cisse LPN Advair Diskus 500-50 mcg/dose (fluticasone propion-salmeterol) 1 ea PO BID NS albuterol sulfate 90 mcg/actuation (ProAir HFA) 2 puffs inhalation Q4-6H PRN 30 days back brace As directed naloxegol (Movantik) 12.5 mg PO DAILY naloxone 4 mg/actuation (Narcan) 4 mg intranasal Q2M 1 day oxycodone-acetaminophen 7.5-325 mg 1 tab PO TID PRN 30 days polyethylene glycol 3350 (Miralax) 17 grams PO DAILY PRN ropinirole 1 mg PO TID trazodone 50 mg PO BEDTIME 90 days HPI S/p NEVRO SCS Trial 10/13/23 HPI Details 73-year-old female who presents today to the office for a status post Nervo SCS trial lead readjustment. Her left lead had gotten pulled down to T9-T11 span. She is using the device at night. She has not noticed any difference after the change in the program. She states that her left side is more tender than her right side. She felt pressure and pain when changing dressings at home. She also has difficulty lying down on her left side. Her device impedance is stable. She is sleeping well at night. She denies any history of sleep difficulty in the past. She denies any urinary symptoms. She recently had cataract surgery and has scheduled follow up appointment with them today. Past procedures: 10/13/23: Percutaneous Spinal Cord Stimulator Trial, Lumbar: % relief. 03/17/23: Sacroiliac Joint Injection, Bilateral: % relief. [facility] Medical History Back pain of thoracolumbar region T12 compression fracture Osteopenia Screening for hypercholesterolemia Screening for diabetes mellitus (DM) Breast cancer screening Bilateral hip pain Personal history of nicotine dependence Muscle strain Bronchitis COPD exacerbation Pseudogout of left knee Change in bowel habit Abdominal bloating Exocrine pancreatic insufficiency COPD (chronic obstructive pulmonary disease) Lumbar post-laminectomy syndrome Acute adjustment disorder with anxiety Restless leg syndrome Surgical History History of kyphoplasty History of lumbar laminectomy (~2012) History of vein stripping (~2003) History of femoral hernia repair (~2002) History of lumbar fusion (~2013) Status post phlebectomy (~2008) Social History Housing: House Alcohol intake: current Alcohol intake frequency: does not drink Patient Tobacco Use Status: Current everyday Tobacco user Tobacco use type: Cigarette Cigarette Packs Per Day: 0.5 Cigarettes Per Day: 10.0 e-Cigarette/Vaping Use: Never Used Second Hand Smoke Exposure: No service: No Current occupational status: retired Current occupation: [employer] Cognitive needs: No Hearing needs: No Vision needs: Yes (contacts/glasses) Review of Systems Const All systems reviewed & are unremarkable except as noted in HPI and below Physical Exam Vital Signs: Last Vital Signs Pulse 82 10/15/23 10:15 Resp 12 10/15/23 10:15 BP 132/62 10/15/23 10:15 Pulse Ox 96 10/15/23 10:15 Oxygen Delivery Method Room Air 10/15/23 10:15 BMI result Body Mass Index 20.4 General: Appears afebrile. Alert and oriented. Mood and affect appropriate. Follows and participates in conversation appropriately. Respiratory effort is unlabored. Able to transition from sit to stand unassisted. Ambulates with bilaterally normal heel strike and toe off. Dressings removed in sterile fashion and existing Steri-Strips were removed and cut off. The right lead was gradually pulled back 1-2 cm. The left lead was threaded in 1-2 cm. The leads were then secured with Steri-Strips and redressed. Results Reviewed Results Reviewed: Post lead adjustment x-ray film showed parallel thoracic spine leads spanning T8-T10. Device reprogrammed. Assessment & Plan Assessment & Plan (1) Lumbar post-laminectomy syndrome: Code(s): M96.1 - Postlaminectomy syndrome, not elsewhere classified Plan Leads readjusted and device reprogrammed today for the remainder of the trial. Patient will follow-up as previously scheduled for lead removal. If she is unable to gain significant benefit from this trial, we may consider a different trial system given lead migration and difficulties programming with the HFX system so far. Patient expressed understanding. Scribed for Dr. Hernández by Thien Mckeon, director of graduate medical education, on 10/15/2023. I, Dr. Hernández, have personally reviewed and agree with the information entered by the scribe. Orders: Orders XR thoracic spine 1V Today M96.1 - Postlaminectomy syndrome, not elsewhere classified Coding Level of Care Code Est Pt Level 4 (31448) Diagnoses Lumbar post-laminectomy syndrome M96.1
== END 2023-10-15 11:03 | disposition home or self-care (01) ==
PROVIDERS: PCP Physician Assistant; Visit Provider Internal Medicine
DX: M96.1 Postlaminectomy syndrome, not elsewhere classified (principal)
CPT/HCPCS: 99024

== ENCOUNTER 2023-10-15 10:09 | Outpatient (REF) | payer MEDICARE, SELFPAY ==
--- NOTE | ~2023-10-15 | XR_ITS ---
EXAMINATION: XR THORACOLUMBAR SPINE CLINICAL INFORMATION: Presence of other specified functional implants. COMPARISON: Prior radiographs, most recently 10/13/2023. TECHNIQUE: AP and lateral views of the thoracic spine are submitted. FINDINGS: There is bony demineralization. There is a mild lower thoracic dextroscoliosis, and a moderate upper lumbar levoscoliosis is seen. There is degenerative disc disease at T5-T6, T7-T8, T8-T9, T9-T10, L2-L3 and L3-L4. No acute fracture or spondylolisthesis is seen. There has been a prior L1 vertebroplasty. Lumbar orthopedic hardware is partially included in the [id number]. A spinal stimulator device is seen, with tip positioned at the T7-T8 level. XR/XR thoracic spine 2V IMPRESSION: 1. A spinal stimulator device is seen, with tip positioned at the T7-T8 level. 2. There are multi-level degenerative and scoliotic changes of the thoracic spine, detailed above. 3. There has been a prior L1 vertebroplasty.
== END 2023-10-15 10:10 | disposition home or self-care (01) ==
LOC: HO.HOSX 10:09
PROVIDERS: PCP Physician Assistant; Visit Provider Internal Medicine
DX: M96.1 Postlaminectomy syndrome, not elsewhere classified (principal); Z96.89 Presence of other specified functional implants
CPT/HCPCS: 72070; 99212

== ENCOUNTER 2023-10-18 08:24 | Outpatient (AMB) | payer MEDICARE, SELFPAY ==
--- NOTE | 2023-10-18 08:31 | A.OFFVIS_ITS ---
Intake Vital Signs 10/18/23 08:37 Height 5 ft 7 in Weight 130 lb BMI 20.4 BP 101/60 Blood Pressure Location Lt brachial Position Sitting Pulse 71 Pulse Source Pulse Oximeter Pulse Oximetry (%) 98 Oxygen Delivery Method Room Air Intake Visit Reasons: S/p Nevro SCS Trial 10/13/23/pill count/con Intake Note: Dot comes in today for a pill count to oxycodone-acetaminophen, patient should have 0 and presents with 7 tablets which she last took today 10/18/23 at 6am. Pain today 01/20 [employer] Required: No Accompanied by: Spouse Allergies No Known Allergies Allergy (Verified 10/18/23 08:38) HPI HPI Comments History of Present Illness Details Patient presents today for a pill count. Patient is supposed to have #0 pills in her possession and has #7. Patient reports adequate analgesia with no noted sided effects with current dose of oxycodone-acetaminophen 7.5-325 mg TID prn. Denies any bladder or bowel incontinence or saddle anesthesia. Denies any fever, chills, weight changes, sedation, abdominal pain, constipation, nausea, dizziness or urinary retention. Patient is also status post one week Lumbar Nevro SCS trial. She reports 0% pain relief for a week of trial with trial lead and device program readjustment. Patient reports she attempted to go to the mall for walking and walked good distance but was in significant baseline pain and had to continue taking Percocet throughout trial period. The tape was removed. The stimulating battery pad was disconnected from the epidural leads. These sites of the insertion were cleansed with ChloraPrep and the suture was severed. The epidural leads were removed and the tips were intact. Patient reported increased pain with left lead coming out which was also slightly bent upon removal and right lead was straight upon removal. No erythema, swelling or pathological discharge was noted. Mild tenderness at lead insertion sites, left worse than right. Bacitracin ointment, dry sterile and Tegaderm dressing were applied. Past procedures: 10/13/23: Percutaneous Spinal Cord Stimu lator Trial, Lumbar: 0% relief. 03/17/23: Sacroiliac Joint Injection, Bi lateral: 50-60% relief. PRIOR 10/15/23 Dr. Hernández: 73-year-old female who presents today to the office for a status post Nervo SCS trial lead readjustment. Her left lead had gotten pulled down to T9-T11 span. She is using the device at night. She has not noticed any difference after the change in the program. She states that her left side is more tender than her right side. She felt pressure and pain when changing dressings at home. She also has difficulty lying down on her left side. Her device impedance is stable. She is sleeping well at night. She denies any history of sleep difficulty in the past. She denies any urinary symptoms. She recently had cataract surgery and has scheduled follow up appointment with them today. Past procedures: 10/13/23: Percutaneous Spinal Cord Stimu lator Trial, Lumbar: % relief. 03/17/23: Sacroiliac Joint Injection, Bi lateral: % relief. [facility] Medical History Back pain of thoracolumbar region T12 compression fracture Osteopenia Screening for hypercholesterolemia Screening for diabetes mellitus (DM) Breast cancer screening Bilateral hip pain Personal history of nicotine dependence Muscle strain Bronchitis COPD exacerbation Pseudogout of left knee Change in bowel habit Abdominal bloating Exocrine pancreatic insufficiency COPD (chronic obstructive pulmonary disease) Lumbar post-laminectomy syndrome Acute adjustment disorder with anxiety Restless leg syndrome Surgical History History of kyphoplasty History of lumbar laminectomy (~2012) History of vein stripping (~2003) History of femoral hernia repair (~2002) History of lumbar fusion (~2013) Status post phlebectomy (~2008) Social History Housing: House Alcohol intake: current Alcohol intake frequency: does not drink Patient Tobacco Use Status: Current everyday Tobacco user Tobacco use type: Cigarette Cigarette Packs Per Day: 0.5 Cigarettes Per Day: 10.0 e-Cigarette/Vaping Use: Never Used Second Hand Smoke Exposure: No service: No Current occupational status: retired Current occupation: [employer] Cognitive needs: No Hearing needs: No Vision needs: Yes (contacts/glasses) Review of Systems Const All systems reviewed & are unremarkable except as noted in HPI and below Physical Exam Vital Signs: Last Vital Signs Pulse 71 10/18/23 08:37 BP 101/60 10/18/23 08:37 Pulse Ox 98 10/18/23 08:37 Oxygen Delivery Method Room Air 10/18/23 08:37 BMI result Body Mass Index 20.4 General: Appears afebrile. Alert and oriented. Mood and affect appropriate. Follows and participates in conversation appropriately. Respiratory effort is unlabored. Able to transition from sit to stand unassisted. Ambulates with bilaterally normal heel strike and toe off. Leads removed with tips intact. Psych Appearance: grossly normal and well kempt Mental Status: mental status grossly normal Speech and movement: Normal speech and movement present and Clear speech present Affect: normal affect Attitude: cooperative Thought process: Normal thought process present Thought content: Normal thought content present, suicidality (none), no hallucinations and No Depressive thoughts present Insight: Good insight present (Psych) Judgement: Good judgement present (Psych) Assessment & Plan Assessment & Plan (1) Spinal stenosis of lumbar region: Code(s): M48.061 - Spinal stenosis, lumbar region without neurogenic claudication Qualifiers: Neurogenic claudication status: with neurogenic claudication Qualified Code(s): M48.062 - Spinal stenosis, lumbar region with neurogenic claudication (2) Lumbar post-laminectomy syndrome: Code(s): M96.1 - Postlaminectomy syndrome, not elsewhere classified (3) Osteoarthritis, hip, bilateral: Code(s): M16.0 - Bilateral primary osteoarthritis of hip (4) Sacroiliitis: Code(s): M46.1 - Sacroiliitis, not elsewhere classified (5) Chronic, continuous use of opioids: Code(s): F11.90 - Opioid use, unspecified, uncomplicated Plan Patient has shown accountability for her medication regimen and the pill count was accurate. The patient reported no noted side effects and mild to moderate analgesia on current medication regime. There is no evidence of misuse, abuse or diversion at this time. [facility] reviewed. Patient has pending script send for oxycodone 7.5-325 mg TID prn which was available since 10/15/23. Patient is status post Nevro SCS trial with no pain relief due to lead migration and no relief since lead and device readjustment mid-trial. Patient will continue to monitor her pain level after SCS trial leads are removed and will notify our office on her decision for SCS re-trial. All questions were answered and patient is in agreement of plan. Follow up in 4 weeks for a pill count and sooner if needed. Coding Level of Care Code Est Pt Level 4 (69106) Diagnoses Spinal stenosis of lumbar region with neurogenic claudication M48.062 Neurogenic claudication status: with neurogenic claudication Lumbar post-laminectomy syndrome M96.1 Osteoarthritis, hip, bilateral M16.0 Sacroiliitis M46.1 Chronic, continuous use of opioids F11.90
[2023-10-18 08:37] VITALS: BP 101/60; PULSE 71; O2SAT 98; BMI 20.4
== END 2023-10-18 09:07 | disposition home or self-care (01) ==
PROVIDERS: PCP Physician Assistant; Visit Provider Nurse Practitioner Family
DX: M48.062 Spinal stenosis, lumbar region with neurogenic claudication (principal); M96.1 Postlaminectomy syndrome, not elsewhere classified; M16.0 Bilateral primary osteoarthritis of hip; Z79.891 Long term (current) use of opiate analgesic; M46.1 Sacroiliitis, not elsewhere classified
CPT/HCPCS: 99024

== ENCOUNTER → 2023-10-18 08:24 | Outpatient (BNVA) | payer MEDICARE, SELFPAY | PROVIDERS: PCP Physician Assistant; Visit Provider Nurse Practitioner Family | DX: M48.062 Spinal stenosis, lumbar region with neurogenic claudication (principal); M96.1 Postlaminectomy syndrome, not elsewhere classified; M16.0 Bilateral primary osteoarthritis of hip; M46.1 Sacroiliitis, not elsewhere classified; Z79.891 Long term (current) use of opiate analgesic | CPT/HCPCS: 99212 ==

== ENCOUNTER 2023-11-15 09:11 | Outpatient (AMB) | payer MEDICARE, SELFPAY ==
--- NOTE | 2023-11-15 09:14 | MHC.OFFVIS ---
Intake Vital Signs 11/15/23 09:23 Height 5 ft 7 in Weight 124 lb 8 oz BMI 19.5 BP 104/61 Blood Pressure Location Rt brachial Position Sitting Pulse 67 Pulse Source Pulse Oximeter Pulse Oximetry (%) 97 Oxygen Delivery Method Room Air Intake Visit Reasons: PILL COUNT Intake Note: Dot comes in today for a pill count to oxycodone-acetaminophen. Patient should have 9 tablets and presents with 16 tablets which she last took today 11/15/23 at 6am. 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 Patient is supposed to have #9 pills in her possession and has #16. Patient reports adequate analgesia with no noted sided effects with current dose of oxycodone-acetaminophen 7.5-325 mg TID prn. Denies any bladder or bowel incontinence or saddle anesthesia. Denies any fever, chills, weight changes, sedation, abdominal pain, constipation, nausea, dizziness or urinary retention. Reports 0/10 after taking pain medication at 0600 this morning. Patient reports medication allows her to be less symptomatic and more functional. Past procedures: 10/13/23: Percutaneous Spinal Cord Stimulator Trial, Lumbar: 0% relief. 03/17/23: Sacroiliac Joint Injection, Bilateral: 50-60% relief. PRIOR 10/15/23 Dr. Hernández: 73-year-old female who presents today to the office for a status post Nervo SCS trial lead readjustment. Her left lead had gotten pulled down to T9-T11 span. She is using the device at night. She has not noticed any difference after the change in the program. She states that her left side is more tender than her right side. She felt pressure and pain when changing dressings at home. She also has difficulty lying down on her left side. Her device impedance is stable. She is sleeping well at night. She denies any history of sleep difficulty in the past. She denies any urinary symptoms. She recently had cataract surgery and has scheduled follow up appointment with them today. Past procedures: 10/13/23: Percutaneous Spinal Cord Stimulator Trial, Lumbar: % relief. 03/17/23: Sacroiliac Joint Injection, Bilateral: % relief. [facility] Medical History Back pain of thoracolumbar region T12 compression fracture Osteopenia Screening for hypercholesterolemia Screening for diabetes mellitus (DM) Breast cancer screening Bilateral hip pain Personal history of nicotine dependence Muscle strain Bronchitis COPD exacerbation Pseudogout of left knee Change in bowel habit Abdominal bloating Exocrine pancreatic insufficiency COPD (chronic obstructive pulmonary disease) Lumbar post-laminectomy syndrome Acute adjustment disorder with anxiety Restless leg syndrome Surgical History History of kyphoplasty History of lumbar laminectomy (~2012) History of vein stripping (~2003) History of femoral hernia repair (~2002) History of lumbar fusion (~2013) Status post phlebectomy (~2008) Social History Housing: House Alcohol intake: current Alcohol intake frequency: does not drink Patient Tobacco Use Status: Current everyday Tobacco user Tobacco use type: Cigarette Cigarette Packs Per Day: 0.5 Cigarettes Per Day: 10.0 e-Cigarette/Vaping Use: Never Used Second Hand Smoke Exposure: No service: No Current occupational status: retired Current occupation: [employer] Cognitive needs: No Hearing needs: No Vision needs: Yes (contacts/glasses) Review of Systems Const All systems reviewed & are unremarkable except as noted in HPI and below Physical Exam General: Appears afebrile. Alert and oriented. Mood and affect appropriate. Follows and participates in conversation appropriately. Respiratory effort is unlabored. Able to transition from sit to stand unassisted. Ambulates with bilaterally normal heel strike and toe off. Back/Spine/Pelvis Cervical Spine: cervical ROM normal and No Cervical spine tenderness Thoracic/Lumbar Spine: thoracic and lumbar spine normal to inspection, Thoracic/lumbar spine scar(s), Lasegue's sign negative, pain with thoraco-lumbar ROM, thoraco-lumbar ROM limited, No thoracic spinal tenderness and lumbar spinal tenderness Pelvis: buttock tenderness on the right Sacroiliac joints: on the right tender to palpation and on the left nontender Psych Appearance: grossly normal and well kempt Mental Status: mental status grossly normal Speech and movement: Normal speech and movement present and Clear speech present Affect: normal affect Attitude: cooperative Thought process: Normal thought process present Thought content: Normal thought content present, suicidality (none), no hallucinations and No Depressive thoughts present Insight: Good insight present (Psych) Judgement: Good judgement present (Psych) Results Reviewed Results Reviewed: MR LUMBAR SPINE WITHOUT AND WITH CONTRAST 05/11/23 CLINICAL INFORMATION: Post laminectomy syndrome. History of compression fracture. Pain. COMPARISON: MRI dated 10/13/2013. Nuclear bone scan report from 05/06/2023. CT dated 04/19/2023. TECHNIQUE: Multiplanar, multisequence imaging was obtained. Intravenous contrast: Gadavist 6 mL. FINDINGS: VERTEBRAL BODIES AND PARASPINAL STRUCTURES: There is a moderate leftward curvature of the lumbar spine centered at the L2 level. Significant right lateral endplate edematous changes are visible at the L1-L2 level at the apex of the spinal curvature. There is a mild superior endplate compression fracture with a 40% loss of vertebral body height at the T12 level, slightly increased compared to the prior CT study. Marrow edema is present throughout the vertebral body extending into the pedicles. Mild amount of paraspinal soft tissue edema also evident at this level. Minimal osseous retropulsion noted. No additional compression fractures are seen. Advanced degenerative endplate changes and loss of disc height noted at the L2-L3 level with a slight retrosubluxation and bulky endplate spurring. There is a mild anterolisthesis and moderate disc space narrowing at the L3-L4 level with mild posterior endplate edema. The patient is status post posterior lumbar instrumented fusion at the L4-L5 level where there is a mild anterolisthesis. Severe degenerative endplate changes with mixed chronic and edematous endplate changes noted at the L5-S1 level. There are [id number] degenerative changes in the left sacroiliac joint. CONUS MEDULLARIS AND CAUDA EQUINA: The distal cord, conus tip, and cauda equina nerve roots appear normal. No pathologic intradural enhancement is visible on postcontrast imaging. SPINAL LEVELS: L1-L2: Minimal anterolisthesis and broad-based posterior disc bulge with [id number] facet arthropathy results in mild central canal stenosis. Bulging disc impresses upon the right L2 nerve root in the subarticular zone. [id number] foraminal narrowing. Significant endplate edematous changes on the right side. L2-L3: Retrosubluxation and moderate loss of disc height with a diffuse disc bulge and hypertrophic facet arthropathy. No central canal stenosis. Moderate right foraminal narrowing. L3-L4: Mild anterolisthesis and diffuse disc bulge with moderate to severe facet arthropathy results in mild central canal stenosis. Mild left foraminal narrowing evident. L4-L5: Anterolisthesis and post laminectomy changes with hardware instrumentation. No central canal stenosis. Mild left foraminal narrowing. L5-S1: Severe loss of disc height with a retrosubluxation noted. Mixed chronic and edematous endplate changes. Broad-based disc bulge and superimposed central disc protrusion impress upon the ventral thecal sac with mild mass effect upon the S1 nerve roots. Hypertrophic facet arthropathy without central canal stenosis. Moderate to severe foraminal narrowing with compression of the exiting left L5 nerve root due to ossific spurring. IMPRESSION: 1. Subacute mild superior endplate compression fracture deformity at the T12 level with significant marrow edema throughout the vertebral body and mild paraspinal soft tissue edema. Minimal osseous retropulsion. 2. Moderate leftward lumbar spinal curvature with moderate multilevel spondylosis and postsurgical changes at the L4-L5 level, status post posterior lumbar instrumented fusion. 3. Mild central canal stenosis at the L1-L2 level with bulging disc impressing upon the right L2 nerve root. 4. Moderate right foraminal narrowing at the L2-L3 level. Mild central canal stenosis at the L3-L4 level with a mild anterolisthesis and moderate to severe facet arthropathy. 5. Severe degenerative disc disease at the L5-S1 level with mixed chronic and edematous endplate changes. Broad-based central disc protrusion with mild mass effect upon the S1 nerve roots. Moderate to severe foraminal narrowing, more so on the left side with compression of the left L5 nerve root. ADDENDUM As stated in the report, the degree of osseous retropulsion across the superior endplate of T12 is minimal, measuring 2 mm, without cord compression or central canal stenosis. If this is thought to be a pain generator for the patient, recommend follow-up neurosurgical or interventional radiology consultation to guide further management for potential vertebral body augmentation. KAJAL ANDERSON MD Assessment & Plan Assessment & Plan (1) Lumbar post-laminectomy syndrome: Code(s): M96.1 - Postlaminectomy syndrome, not elsewhere classified (2) Osteoarthritis, hip, bilateral: Code(s): M16.0 - Bilateral primary osteoarthritis of hip (3) Sacroiliitis: Code(s): M46.1 - Sacroiliitis, not elsewhere classified (4) Chronic, continuous use of opioids: Code(s): F11.90 - Opioid use, unspecified, uncomplicated (5) Chronic pain syndrome: Code(s): G89.4 - Chronic pain syndrome (6) Lumbar degenerative disc disease: Code(s): M51.36 - Other intervertebral disc degeneration, lumbar region Plan Patient has shown accountability for her medication regimen and the pill count was accurate. The patient reported no noted side effects and mild to moderate analgesia on current medication regime. There is no evidence of misuse, abuse or diversion at this time. [facility] reviewed. Patient has pending script send for oxycodone 7.5-325 mg TID prn which was available since 11/19/23. All questions were answered and patient is in agreement of plan. Follow up in 4 weeks for a pill count and sooner if needed. Medications: Refilled oxycodone-acetaminophen 7.5-325 mg Partial Fill upon patient request. 1 tab PO TID PRN 90 tabs 0RF pain 30 days F11.90 - Opioid use, unspecified, uncomplicated, M25.551 - Pain in right hip, M25.552 - Pain in left hip, M46.1 - Sacroiliitis, not elsewhere classified, M96.1 - Postlaminectomy syndrome, not elsewhere classified Coding Level of Care Code Est Pt Level 4 (00907) Diagnoses Lumbar post-laminectomy syndrome M96.1 Osteoarthritis, hip, bilateral M16.0 Sacroiliitis M46.1 Chronic, continuous use of opioids F11.90 Chronic pain syndrome G89.4 Lumbar degenerative disc disease M51.36
[2023-11-15 09:23] VITALS: BP 104/61; PULSE 67; O2SAT 97; BMI 19.5
== END 2023-11-15 09:34 | disposition home or self-care (01) ==
PROVIDERS: PCP Physician Assistant; Visit Provider Nurse Practitioner Family
DX: G89.4 Chronic pain syndrome (principal); M96.1 Postlaminectomy syndrome, not elsewhere classified; M16.0 Bilateral primary osteoarthritis of hip; Z79.891 Long term (current) use of opiate analgesic; M46.1 Sacroiliitis, not elsewhere classified; M51.36 Other intervertebral disc degeneration, lumbar region
CPT/HCPCS: 99214

== ENCOUNTER → 2023-11-15 09:11 | Outpatient (BNVA) | payer MEDICARE, SELFPAY | PROVIDERS: PCP Physician Assistant; Visit Provider Nurse Practitioner Family | DX: Z51.81 Encounter for therapeutic drug level monitoring (principal); F11.20 Opioid dependence, uncomplicated; M96.1 Postlaminectomy syndrome, not elsewhere classified; M16.0 Bilateral primary osteoarthritis of hip; M46.1 Sacroiliitis, not elsewhere classified; M51.36 Other intervertebral disc degeneration, lumbar region; G89.4 Chronic pain syndrome | CPT/HCPCS: 99212 ==

== ENCOUNTER 2023-12-20 10:56 | Outpatient (AMB) | payer MEDICARE, SELFPAY ==
--- NOTE | 2023-12-20 10:57 | MHC.OFFVIS ---
Intake Vital Signs 12/20/23 11:02 Height 5 ft 7 in Weight 124 lb BMI 19.4 BP 133/82 Blood Pressure Location Rt brachial Position Sitting Pulse 83 Pulse Source Pulse Oximeter Pulse Oximetry (%) 97 Oxygen Delivery Method Room Air Intake Visit Reasons: PILL COUNT Intake Note: Dot comes in today for a pill count to oxycodone-acetaminophen, patient should have 0 tablets and presents with 2 tablets which she last took today 12/20/23 at 6am. Pain today 01/20 Accounts Receivable Representative Required: No Accompanied by: Self / Same As Patient Allergies No Known Allergies Allergy (Verified 12/20/23 11:02) HPI HPI Comments History of Present Illness Details Patient presents today for a pill count. Patient is supposed to have #0 pills in her possession and has #2. Patient reports adequate analgesia with no noted sided effects with current dose of oxycodone-acetaminophen 7.5-325 mg TID prn. Denies any fever, chills, weight changes, sedation, abdominal pain, constipation, nausea, dizziness or urinary retention. Patient reports medication allows her to be less symptomatic and more functional. Patient denies any significant changes in her medical history, medications or recent hospitalizations except recurrent chronic sinusitis with headaches that has not responsive to conservative measures. Reports sinus headache for over one week. Past procedures: 10/13/23: Percutaneous Spinal Cord Stimulator Trial, Lumbar: 0% relief. 03/17/23: Sacroiliac Joint Injection, Bilateral: 50-60% relief. PRIOR 10/15/23 Dr. Hernández: 73-year-old female who presents today to the office for a status post Nervo SCS trial lead readjustment. Her left lead had gotten pulled down to T9-T11 span. She is using the device at night. She has not noticed any difference after the change in the program. She states that her left side is more tender than her right side. She felt pressure and pain when changing dressings at home. She also has difficulty lying down on her left side. Her device impedance is stable. She is sleeping well at night. She denies any history of sleep difficulty in the past. She denies any urinary symptoms. She recently had cataract surgery and has scheduled follow up appointment with them today. Past procedures: 10/13/23: Percutaneous Spinal Cord Stimulator Trial, Lumbar: % relief. 03/17/23: Sacroiliac Joint Injection, Bilateral: % relief. [facility] Medical History Back pain of thoracolumbar region T12 compression fracture Osteopenia Screening for hypercholesterolemia Screening for diabetes mellitus (DM) Breast cancer screening Bilateral hip pain Personal history of nicotine dependence Muscle strain Bronchitis COPD exacerbation Pseudogout of left knee Change in bowel habit Abdominal bloating Exocrine pancreatic insufficiency COPD (chronic obstructive pulmonary disease) Lumbar post-laminectomy syndrome Acute adjustment disorder with anxiety Restless leg syndrome Surgical History History of kyphoplasty History of lumbar laminectomy (~2012) History of vein stripping (~2003) History of femoral hernia repair (~2002) History of lumbar fusion (~2013) Status post phlebectomy (~2008) Social History Housing: House Alcohol intake: current Alcohol intake frequency: does not drink Patient Tobacco Use Status: Current everyday Tobacco user Tobacco use type: Cigarette Cigarette Packs Per Day: 0.5 Cigarettes Per Day: 10.0 e-Cigarette/Vaping Use: Never Used Second Hand Smoke Exposure: No service: No Current occupational status: retired Current occupation: [employer] Cognitive needs: No Hearing needs: No Vision needs: Yes (contacts/glasses) Review of Systems Const All systems reviewed & are unremarkable except as noted in HPI and below Reports as per HPI, Denies body aches, Denies chills, Denies fever(s), Reports headache(s), Denies malaise, Denies weakness and Denies weight loss Eyes Denies blurry vision, Denies change in vision and Denies other visual disturbances ENT Reports as per HPI, Reports Normal hearing present, Denies dental pain, Denies dysphagia, Denies vertigo, Denies dizziness, Denies otalgia, Denies facial pain, Reports headache(s), Denies hearing loss, Reports nasal congestion, Reports sinus pressure and Denies sore throat Card Denies dyspnea Resp Denies cough, Denies hemoptysis and Denies dyspnea GI Denies dysphagia Neuro Reports Normal hearing present, Denies vertigo, Denies dizziness, Reports headache(s) and Denies weakness Physical Exam Vital Signs: Last Vital Signs Pulse 83 12/20/23 11:02 BP 133/82 12/20/23 11:02 Pulse Ox 97 12/20/23 11:02 Oxygen Delivery Method Room Air 12/20/23 11:02 BMI result Body Mass Index 19.4 General: Appears afebrile. Alert and oriented. Mood and affect appropriate. Follows and participates in conversation appropriately. Respiratory effort is unlabored. Able to transition from sit to stand unassisted. Ambulates with bilaterally normal heel strike and toe off. HEENT Head: Yes normal to inspection, Yes normocephalic and Yes atraumatic Ears: hearing grossly normal bilaterally, external ears normal and no periauricular adenopathy General nose exam: No nasal discharge present Face and sinus: Yes normal facial exam, Yes face symmetric and No sinus tenderness Throat: Yes postnasal drainage Back/Spine/Pelvis Cervical Spine: cervical ROM normal and No Cervical spine tenderness Thoracic/Lumbar Spine: thoracic and lumbar spine normal to inspection, Thoracic/lumbar spine scar(s), Lasegue's sign negative, pain with thoraco-lumbar ROM, thoraco-lumbar ROM limited, No thoracic spinal tenderness and lumbar spinal tenderness Pelvis: buttock tenderness on the right Sacroiliac joints: on the right tender to palpation and on the left nontender Neuro Cranial nerves: Yes Normal hearing present Psych Appearance: grossly normal and well kempt Mental Status: mental status grossly normal Speech and movement: Normal speech and movement present and Clear speech present Affect: normal affect Attitude: cooperative Thought process: Normal thought process present Thought content: Normal thought content present, suicidality (none), no hallucinations and No Depressive thoughts present Insight: Good insight present (Psych) Judgement: Good judgement present (Psych) Results Reviewed Results Reviewed: MR LUMBAR SPINE WITHOUT AND WITH CONTRAST 05/11/23 CLINICAL INFORMATION: Post laminectomy syndrome. History of compression fracture. Pain. COMPARISON: MRI dated 10/13/2013. Nuclear bone scan report from 05/06/2023. CT dated 04/19/2023. TECHNIQUE: Multiplanar, multisequence imaging was obtained. Intravenous contrast: Gadavist 6 mL. FINDINGS: VERTEBRAL BODIES AND PARASPINAL STRUCTURES: There is a moderate leftward curvature of the lumbar spine centered at the L2 level. Significant right lateral endplate edematous changes are visible at the L1-L2 level at the apex of the spinal curvature. There is a mild superior endplate compression fracture with a 40% loss of vertebral body height at the T12 level, slightly increased compared to the prior CT study. Marrow edema is present throughout the vertebral body extending into the pedicles. Mild amount of paraspinal soft tissue edema also evident at this level. Minimal osseous retropulsion noted. No additional compression fractures are seen. Advanced degenerative endplate changes and loss of disc height noted at the L2-L3 level with a slight retrosubluxation and bulky endplate spurring. There is a mild anterolisthesis and moderate disc space narrowing at the L3-L4 level with mild posterior endplate edema. The patient is status post posterior lumbar instrumented fusion at the L4-L5 level where there is a mild anterolisthesis. Severe degenerative endplate changes with mixed chronic and edematous endplate changes noted at the L5-S1 level. There are [id number] degenerative changes in the left sacroiliac joint. CONUS MEDULLARIS AND CAUDA EQUINA: The distal cord, conus tip, and cauda equina nerve roots appear normal. No pathologic intradural enhancement is visible on postcontrast imaging. SPINAL LEVELS: L1-L2: Minimal anterolisthesis and broad-based posterior disc bulge with [id number] facet arthropathy results in mild central canal stenosis. Bulging disc impresses upon the right L2 nerve root in the subarticular zone. [id number] foraminal narrowing. Significant endplate edematous changes on the right side. L2-L3: Retrosubluxation and moderate loss of disc height with a diffuse disc bulge and hypertrophic facet arthropathy. No central canal stenosis. Moderate right foraminal narrowing. L3-L4: Mild anterolisthesis and diffuse disc bulge with moderate to severe facet arthropathy results in mild central canal stenosis. Mild left foraminal narrowing evident. L4-L5: Anterolisthesis and post laminectomy changes with hardware instrumentation. No central canal stenosis. Mild left foraminal narrowing. L5-S1: Severe loss of disc height with a retrosubluxation noted. Mixed chronic and edematous endplate changes. Broad-based disc bulge and superimposed central disc protrusion impress upon the ventral thecal sac with mild mass effect upon the S1 nerve roots. Hypertrophic facet arthropathy without central canal stenosis. Moderate to severe foraminal narrowing with compression of the exiting left L5 nerve root due to ossific spurring. IMPRESSION: 1. Subacute mild superior endplate compression fracture deformity at the T12 level with significant marrow edema throughout the vertebral body and mild paraspinal soft tissue edema. Minimal osseous retropulsion. 2. Moderate leftward lumbar spinal curvature with moderate multilevel spondylosis and postsurgical changes at the L4-L5 level, status post posterior lumbar instrumented fusion. 3. Mild central canal stenosis at the L1-L2 level with bulging disc impressing upon the right L2 nerve root. 4. Moderate right foraminal narrowing at the L2-L3 level. Mild central canal stenosis at the L3-L4 level with a mild anterolisthesis and moderate to severe facet arthropathy. 5. Severe degenerative disc disease at the L5-S1 level with mixed chronic and edematous endplate changes. Broad-based central disc protrusion with mild mass effect upon the S1 nerve roots. Moderate to severe foraminal narrowing, more so on the left side with compression of the left L5 nerve root. ADDENDUM As stated in the report, the degree of osseous retropulsion across the superior endplate of T12 is minimal, measuring 2 mm, without cord compression or central canal stenosis. If this is thought to be a pain generator for the patient, recommend follow-up neurosurgical or interventional radiology consultation to guide further management for potential vertebral body augmentation. KAJAL ANDERSON MD Assessment & Plan Assessment & Plan (1) Chronic sinusitis: Code(s): J32.9 - Chronic sinusitis, unspecified (2) Lumbar post-laminectomy syndrome: Code(s): M96.1 - Postlaminectomy syndrome, not elsewhere classified (3) Osteoarthritis, hip, bilateral: Code(s): M16.0 - Bilateral primary osteoarthritis of hip (4) Sacroiliitis: Code(s): M46.1 - Sacroiliitis, not elsewhere classified (5) Chronic, continuous use of opioids: Code(s): F11.90 - Opioid use, unspecified, uncomplicated (6) Chronic pain syndrome: Code(s): G89.4 - Chronic pain syndrome (7) Lumbar degenerative disc disease: Code(s): M51.36 - Other intervertebral disc degeneration, lumbar region Plan Patient has shown accountability for her medication regimen and the pill count was accurate. The patient reported no noted side effects and adequate analgesia on current medication regime. There is no evidence of misuse, abuse or diversion at this time. [facility]PAT reviewed. Script sent for oxycodone 7.5-325 mg TID prn today. Scripts also sent for Z-William and oral steroid for chronic sinusitis with headaches unresponsive to OTC treatments. Patient is aware to follow up with her PCP or Urgent Clinic if worsening symptoms. All questions were answered and patient is in agreement of plan. Follow up in 4 weeks for a pill count and sooner if needed. Medications: New azithromycin (Zithromax Z-William) For 250 mg dose pack: take 500 mg today (day 1), then 250 mg for 4 days (days 2-5) PO 6 tabs 0RF J32.9 - Chronic sinusitis, unspecified prednisone 40 mg (2 x 20 mg) PO DAILY 4 days 8 tabs 0RF J32.9 - Chronic sinusitis, unspecified Changed From oxycodone-acetaminophen 7.5-325 mg Partial Fill upon patient request. 1 tab PO TID 13 days PRN 39 tabs 0RF pain F11.90 - Opioid use, unspecified, uncomplicated, M25.551 - Pain in right hip, M25.552 - Pain in left hip, M46.1 - Sacroiliitis, not elsewhere classified, M96.1 - Postlaminectomy syndrome, not elsewhere classified To oxycodone-acetaminophen 7.5-325 mg Partial Fill upon patient request. 1 tab PO TID 30 days PRN 90 tabs 0RF pain F11.90 - Opioid use, unspecified, uncomplicated, M25.551 - Pain in right hip, M25.552 - Pain in left hip, M46.1 - Sacroiliitis, not elsewhere classified, M96.1 - Postlaminectomy syndrome, not elsewhere classified Coding Level of Care Code Est Pt Level 4 (16249) Diagnoses Chronic sinusitis J32.9 Lumbar post-laminectomy syndrome M96.1 Osteoarthritis, hip, bilateral M16.0 Sacroiliitis M46.1 Chronic, continuous use of opioids F11.90 Chronic pain syndrome G89.4 Lumbar degenerative disc disease M51.36
[2023-12-20 11:02] VITALS: BP 133/82; PULSE 83; O2SAT 97; BMI 19.4
== END 2023-12-20 11:15 | disposition home or self-care (01) ==
PROVIDERS: PCP Physician Assistant; Visit Provider Nurse Practitioner Family
DX: G89.4 Chronic pain syndrome (principal); M96.1 Postlaminectomy syndrome, not elsewhere classified; M16.0 Bilateral primary osteoarthritis of hip; Z79.891 Long term (current) use of opiate analgesic; M46.1 Sacroiliitis, not elsewhere classified; M51.36 Other intervertebral disc degeneration, lumbar region; J32.9 Chronic sinusitis, unspecified
CPT/HCPCS: 99214

== ENCOUNTER → 2023-12-20 10:56 | Outpatient (BNVA) | payer MEDICARE, SELFPAY | PROVIDERS: PCP Physician Assistant; Visit Provider Nurse Practitioner Family | DX: M51.36 Other intervertebral disc degeneration, lumbar region (principal); M46.1 Sacroiliitis, not elsewhere classified; M16.0 Bilateral primary osteoarthritis of hip; G89.4 Chronic pain syndrome; M96.1 Postlaminectomy syndrome, not elsewhere classified; Z87.81 Personal history of (healed) traumatic fracture; Z79.891 Long term (current) use of opiate analgesic | CPT/HCPCS: 99212 ==

== ENCOUNTER 2024-01-17 11:16 | Outpatient (AMB) | payer MEDICARE, SELFPAY ==
--- NOTE | 2024-01-17 11:18 | A.OFFVIS_ITS ---
Vital Signs 01/17/24 11:24 Height 5 ft 7 in Weight 125 lb 6 oz BMI 19.6 BP 104/69 Blood Pressure Location Rt brachial Position Sitting Pulse 70 Pulse Source Pulse Oximeter Pulse Oximetry (%) 97 Oxygen Delivery Method Room Air Intake Visit Reasons: PILL COUNT Intake Note: Dot comes in today for a pill count to oxycodone-acetaminophen, patient should have 6 tablets and presents with 8 tablets which she last took today 01/17/24 at 6am. Pain today 01/20 [employer] Required: No Allergies No Known Allergies Allergy (Verified 01/17/24 11:24) HPI Comments Details: Patient presents today for a pill count. Patient is supposed to have #6 pills in her possession and has #8 pills. Patient reports mild to moderate analgesia with no noted sided effects with current dose of oxycodone-acetaminophen 7.5-325 mg TID prn except occasional constipation for which she does bowel regime, including increasing fluids, fiber intake, Miralax prn. Denies any fever, chills, weight changes, sedation, abdominal pain, constipation, nausea, dizziness or urinary retention. Patient reports increased low back pain with prolonged walking or ADLs. Patient reports medication allows her to be less symptomatic and more functional. Past procedures: 10/13/23: Percutaneous Spinal Cord Stimulator Trial, Lumbar: 0% relief. 03/17/23: Sacroiliac Joint Injection, Bilateral: 50-60% relief. [facility] Medical History Back pain of thoracolumbar region T12 compression fracture Osteopenia Screening for hypercholesterolemia Screening for diabetes mellitus (DM) Breast cancer screening Bilateral hip pain Personal history of nicotine dependence Muscle strain Bronchitis COPD exacerbation Pseudogout of left knee Change in bowel habit Abdominal bloating Exocrine pancreatic insufficiency COPD (chronic obstructive pulmonary disease) Lumbar post-laminectomy syndrome Acute adjustment disorder with anxiety Restless leg syndrome Surgical History History of kyphoplasty History of lumbar laminectomy (~2012) History of vein stripping (~2003) History of femoral hernia repair (~2002) History of lumbar fusion (~2013) Status post phlebectomy (~2008) Social History Housing: House Alcohol intake: current Alcohol intake frequency: does not drink Patient Tobacco Use Status: Current everyday Tobacco user Tobacco use type: Cigarette Cigarette Packs Per Day: 0.5 Cigarettes Per Day: 10.0 e-Cigarette/Vaping Use: Never Used Second Hand Smoke Exposure: No service: No Current occupational status: retired Current occupation: [employer] Cognitive needs: No Hearing needs: No Vision needs: Yes (contacts/glasses) Review of Systems Const All systems reviewed & are unremarkable except as noted in HPI and below ENT Reports Normal hearing present Neuro Reports Normal hearing present Physical Exam Vital Signs: Last Vital Signs Pulse 70 01/17/24 11:24 BP 104/69 01/17/24 11:24 Pulse Ox 97 01/17/24 11:24 Oxygen Delivery Method Room Air 01/17/24 11:24 BMI result Body Mass Index 19.6 General: Appears afebrile. No acute distress. Alert and oriented. Mood and affect appropriate. Follows and participates in conversation appropriately. Respiratory effort is unlabored. Able to transition from sit to stand unassisted. Ambulates with bilaterally normal heel strike and toe off. Const General: healthy appearing, no acute distress, alert, awake and well groomed Nutritional Appearance: thin Orientation/consciousness: patient oriented x3 Limitations: no limitations HEENT Head: Yes normal to inspection, Yes normocephalic and Yes atraumatic Ears: hearing grossly normal bilaterally, external ears normal and no periauricular adenopathy General nose exam: No nasal discharge present Face and sinus: Yes normal facial exam, Yes face symmetric and No sinus tenderness Throat: Yes postnasal drainage Back/Spine/Pelvis Cervical Spine: cervical ROM normal and No Cervical spine tenderness Thoracic/Lumbar Spine: thoracic and lumbar spine normal to inspection, Thoracic/lumbar spine scar(s), Lasegue's sign negative, straight leg raise negative bilaterally, pain with thoraco-lumbar ROM, thoraco-lumbar ROM limited, No thoracic spinal tenderness and lumbar spinal tenderness (L3-S1) Pelvis: buttock tenderness (Lateral) bilaterally Sacroiliac joints: on the right tender to palpation and on the left nontender Neuro General: patient oriented x3 Cranial nerves: Yes Normal hearing present Psych Appearance: grossly normal and well kempt Mental Status: mental status grossly normal Speech and movement: Normal speech and movement present and Clear speech present Affect: normal affect Attitude: cooperative Thought process: Normal thought process present Thought content: Normal thought content present, suicidality (none), no hallucinations and No Depressive thoughts present Insight: Good insight present (Psych) Judgement: Good judgement present (Psych) Results Reviewed Results Reviewed: No imaging results are available for review. Assessment & Plan Assessment & Plan (1) Lumbar post-laminectomy syndrome: Code(s): M96.1 - Postlaminectomy syndrome, not elsewhere classified Category: Medical (2) Osteoarthritis, hip, bilateral: Code(s): M16.0 - Bilateral primary osteoarthritis of hip Category: Medical (3) Sacroiliitis: Code(s): M46.1 - Sacroiliitis, not elsewhere classified Category: Medical (4) Chronic, continuous use of opioids: Code(s): F11.90 - Opioid use, unspecified, uncomplicated Category: Medical (5) Chronic pain syndrome: Code(s): G89.4 - Chronic pain syndrome Category: Medical (6) Lumbar degenerative disc disease: Code(s): M51.36 - Other intervertebral disc degeneration, lumbar region Category: Medical Plan Patient has shown accountability for her medication regimen and the pill count was accurate. The patient reported no noted side effects and adequate analgesia on current medication regime. There is no evidence of misuse, abuse or diversion at this time. [employer] reviewed. Script sent for oxycodone 7.5-325 mg TID prn with advanced date of 02/01/24. Encourage alternating heat and cold therapies to reduce inflammation and promote relaxation with heat and reduce pain and muscle spasms with cold applications. Continue Tylenol and Naproxen for acute on chronic low back pain exacerbations as needed. All questions were answered and patient is in agreement of plan. Follow up in 4 weeks for a pill count and sooner if needed. Medications: Changed From oxycodone-acetaminophen 7.5-325 mg Partial Fill upon patient request. 1 tab PO TID 17 days PRN 49 tabs 0RF pain F11.90 - Opioid use, unspecified, uncomplicated, M25.551 - Pain in right hip, M25.552 - Pain in left hip, M46.1 - Sacroiliitis, not elsewhere classified, M96.1 - Postlaminectomy syndrome, not elsewhere classified To oxycodone-acetaminophen 7.5-325 mg Partial Fill upon patient request. 1 tab PO TID 30 days PRN 90 tabs 0RF pain F11.90 - Opioid use, unspecified, uncomplicated, M25.551 - Pain in right hip, M25.552 - Pain in left hip, M46.1 - Sacroiliitis, not elsewhere classified, M96.1 - Postlaminectomy syndrome, not elsewhere classified Discontinued azithromycin (Zithromax Z-William) Discontinued Reason: Patient Completed Course For 250 mg dose pack: take 500 mg today (day 1), then 250 mg for 4 days (days 2-5) PO 6 tabs 0RF J32.9 - Chronic sinusitis, unspecified Coding Level of Care Code Est Pt Level 4 (17865) Diagnoses Lumbar post-laminectomy syndrome M96.1 Osteoarthritis, hip, bilateral M16.0 Sacroiliitis M46.1 Chronic, continuous use of opioids F11.90 Chronic pain syndrome G89.4 Lumbar degenerative disc disease M51.36
[2024-01-17 11:24] VITALS: BP 104/69; PULSE 70; O2SAT 97; BMI 19.6
== END 2024-01-17 11:30 | disposition home or self-care (01) ==
PROVIDERS: PCP Physician Assistant; Visit Provider Nurse Practitioner Family
DX: M96.1 Postlaminectomy syndrome, not elsewhere classified (principal); M16.0 Bilateral primary osteoarthritis of hip; M46.1 Sacroiliitis, not elsewhere classified; Z79.891 Long term (current) use of opiate analgesic; G89.4 Chronic pain syndrome; M51.36 Other intervertebral disc degeneration, lumbar region
CPT/HCPCS: 99214

== ENCOUNTER → 2024-01-17 11:16 | Outpatient (BNVA) | payer MEDICARE, SELFPAY | PROVIDERS: PCP Physician Assistant; Visit Provider Nurse Practitioner Family | DX: Z51.81 Encounter for therapeutic drug level monitoring (principal); F11.20 Opioid dependence, uncomplicated; M96.1 Postlaminectomy syndrome, not elsewhere classified; M16.0 Bilateral primary osteoarthritis of hip; M46.1 Sacroiliitis, not elsewhere classified; M51.36 Other intervertebral disc degeneration, lumbar region; G89.4 Chronic pain syndrome | CPT/HCPCS: 99212 ==

== ENCOUNTER 2024-02-04 13:22 | Outpatient (AMB) | payer MEDICARE, SELFPAY ==
--- NOTE | 2024-02-04 13:25 | A.OFFVIS_ITS ---
Vital Signs 02/04/24 13:26 Height 5 ft 7 in Weight 124 lb 8 oz BMI 19.5 BP 108/60 Blood Pressure Location Rt brachial Position Sitting Pulse 73 Pulse Source Pulse Oximeter Pulse Oximetry (%) 97 Oxygen Delivery Method Room Air Intake Visit Reasons: congestion, cough Allergies No Known Allergies Allergy (Verified 02/04/24 13:28) HPI HPI congestion, cough: Details: Dot is a pleasant 73 year old female, current smoker, with underlying COPD. At baseline, she is well controlled on Advair and albuterol MDI. Today she presents for an acute visit. She reports the past two days of worsening chest congestion with difficulty expectorating, increased dyspnea and wheezing. She has been using albuterol BID with minimal effect. She denies any fevers. She reports recently being around grandchildren who were sick. Of note, patient was treated in December with azithromycin for sinusitis. [facility] Medical History Back pain of thoracolumbar region T12 compression fracture Osteopenia Screening for hypercholesterolemia Screening for diabetes mellitus (DM) Breast cancer screening Bilateral hip pain Personal history of nicotine dependence Muscle strain Bronchitis COPD exacerbation Pseudogout of left knee Change in bowel habit Abdominal bloating Exocrine pancreatic insufficiency COPD (chronic obstructive pulmonary disease) Lumbar post-laminectomy syndrome Acute adjustment disorder with anxiety Restless leg syndrome Surgical History History of kyphoplasty History of lumbar laminectomy (~2012) History of vein stripping (~2003) History of femoral hernia repair (~2002) History of lumbar fusion (~2013) Status post phlebectomy (~2008) Social History Housing: House Alcohol intake: current Alcohol intake frequency: does not drink Patient Tobacco Use Status: Current everyday Tobacco user Tobacco use type: Cigarette Cigarette Packs Per Day: 0.5 Cigarettes Per Day: 10.0 e-Cigarette/Vaping Use: Never Used Second Hand Smoke Exposure: No service: No Current occupational status: retired Current occupation: [employer] Cognitive needs: No Hearing needs: No Vision needs: Yes (contacts/glasses) Review of Systems Const Denies excessive sweating, Denies fever(s), Denies headache(s) and Denies night sweats Eyes Denies dry eyes, Denies irritation and Denies itchy eyes ENT Reports Normal hearing present, Denies headache(s), Denies nasal congestion, Denies nasal discharge, Denies post nasal drip and Denies sore throat Card Denies chest pain, Denies chest pain at rest, Denies chest pain with activity, Denies claudication, Denies leg edema, Denies orthopnea and Denies paroxysmal nocturnal dyspnea Resp Denies excessive phlegm production, Denies pain on inspiration, Denies pain with cough and Denies stridor Musc Denies myalgias Neuro Reports Normal hearing present and Denies headache(s) Endo Denies excessive sweating Donte/Lymph Denies lymphadenopathy Aller/Immun Denies itchy eyes and Denies seasonal rhinorrhea Physical Exam Vital Signs: Last Vital Signs Pulse 73 02/04/24 13:26 BP 108/60 02/04/24 13:26 Pulse Ox 97 02/04/24 13:26 Oxygen Delivery Method Room Air 02/04/24 13:26 BMI result Body Mass Index 19.5 Const General: cooperative, no acute distress, well developed and alert Orientation/consciousness: patient oriented x3 Limitations: no limitations HEENT Head: Yes normal to inspection, Yes normocephalic and Yes atraumatic Ears: hearing grossly normal bilaterally and external ears normal Eyes General: appearance normal, both eyes and all related structures Eyelids: Yes eyelids normal Sclerae: sclerae normal EOM: EOMs intact bilaterally Neck Neck: Yes normal visual inspection and Yes no lymphadenopathy Lymphatic: no lymphadenopathy noted Chest Chest palpation & inspection: normal inspection of the chest Resp Effort & Inspection: normal respiratory effort, able to speak in complete sentences, no audible wheezes, Actively coughing, no stridor, not tachypneic, no tripod positioning and no use of accessory muscles Auscultation: no crackles, rhonchi and wheezes Cardio Jugular venous distension: no JVD Rate: regular rate Rhythm: regular rhythm Skin Other: warm, dry General skin exam: no rashes or lesions noted Neuro General: patient oriented x3 Cranial nerves: Yes Normal hearing present Cognition (Neuro): normal cognition Gait exam (Neuro): Normal gait present Extrem General: Yes normal to inspection, Yes capillary refill normal, Yes no clubbing, cyanosis or edema and Yes no pedal edema Psych Appearance: grossly normal and well kempt Speech and movement: Normal speech and movement present and Clear speech present Affect: normal affect Attitude: cooperative Thought process: Normal thought process present Thought content: Normal thought content present Insight: Good insight present (Psych) Judgement: Good judgement present (Psych) Assessment & Plan Assessment & Plan (1) Bronchitis: Code(s): J40 - Bronchitis, not specified as acute or chronic Category: Medical (2) COPD (chronic obstructive pulmonary disease): Code(s): J44.9 - Chronic obstructive pulmonary disease, unspecified Category: Medical Qualifiers: COPD type: chronic bronchitis Chronic bronchitis type: simple Qualified Code(s): J41.0 - Simple chronic bronchitis Plan Will treat bronchitic symptoms with cefpodoxime, as patient recently had zpak for sinusitis, and prednisone. Patient aware if symptoms do not improve to obtain CXR and call office, as I will not in office next week. If symptoms worsen she will go to urgent care/emergency room. All questions were answered and patient is in agreement of plan. Will follow up with Dr. Evans for regularly scheduled appointment. Orders: Orders XR chest 2V Today R05.9 - Cough, unspecified Medications: New cefpodoxime must administer with a meal/food 200 mg PO BID 14 tabs 0RF prednisone 40 mg (2 x 20 mg) PO DAILY 10 tabs 0RF Coding Level of Care Code Est Pt Level 3 (35185) Diagnoses Bronchitis J40 Simple chronic bronchitis J41.0 COPD type: chronic bronchitis Chronic bronchitis type: simple
[2024-02-04 13:26] VITALS: BP 108/60; PULSE 73; O2SAT 97; BMI 19.5
== END 2024-02-04 13:52 | disposition home or self-care (01) ==
PROVIDERS: PCP Physician Assistant; Visit Provider Nurse Practitioner Family
DX: J40 Bronchitis, not specified as acute or chronic (principal); J41.0 Simple chronic bronchitis
CPT/HCPCS: 99213

== ENCOUNTER → 2024-02-04 13:22 | Outpatient (BNVA) | payer MEDICARE, SELFPAY | PROVIDERS: PCP Physician Assistant; Visit Provider Nurse Practitioner Family | DX: J41.0 Simple chronic bronchitis (principal) | CPT/HCPCS: 99212 ==

== ENCOUNTER 2024-02-08 13:03 | Outpatient (REF) | payer MEDICARE, SELFPAY ==
--- NOTE | ~2024-02-08 | XR_ITS ---
EXAMINATION: XR CHEST CLINICAL INFORMATION: Cough, unspecified. COMPARISON: CT chest 07/30/2023. Chest x-ray 03/10/2022. TECHNIQUE: 2 views of the chest were obtained. FINDINGS: The cardiac silhouette is mildly enlarged. No vascular congestion or pulmonary edema. Chronic appearing lung markings are stable consistent with chronic airways disease and emphysema. Increasing airspace opacity in the medial aspect of the middle lobe. On recent CT this had the appearance of atelectasis with bronchiectasis. No effusion or pneumothorax. T12 kyphoplasty cement. XR/XR chest 2V IMPRESSION: Progressive airspace opacification medial aspect of the middle lobe. Noncontrast chest CT is recommended for further evaluation.
== END 2024-02-08 13:04 | disposition home or self-care (01) ==
LOC: HO.XRAY 13:03
PROVIDERS: PCP Physician Assistant; Visit Provider Nurse Practitioner Family
DX: R05.9 Cough, unspecified (principal)
CPT/HCPCS: 71046

== ENCOUNTER 2024-02-14 09:58 | Outpatient (AMB) | payer MEDICARE, SELFPAY ==
[2024-02-14 10:11] VITALS: BP 120/62; PULSE 73; O2SAT 97; BMI 18.8
--- NOTE | 2024-02-14 10:11 | A.OFFVIS_ITS ---
Vital Signs 02/14/24 10:11 Height 5 ft 7 in Weight 120 lb 2.431 oz BMI 18.8 BP 120/62 Blood Pressure Location Lt brachial Position Sitting Pulse 73 Pulse Source Pulse Oximeter Pulse Oximetry (%) 97 Oxygen Delivery Method Room Air Intake Visit Reasons: f/u chest x-ray Intake Note: pt is here for follow up of sick visit, had chest x-ray, still coughing, lots of phelgm, some yellow production when she can get it, and also she cannot stop blowing her nose, clear to yellow drainage. 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 Required: No Allergies No Known Allergies Allergy (Verified 02/14/24 11:45) Medication List - Last Reconciled 02/14/24 by Julissa Evans MD Advair Diskus 500-50 mcg/dose (fluticasone propion-salmeterol) 1 ea PO BID NS albuterol sulfate 90 mcg/actuation (ProAir HFA) 2 puffs inhalation Q4-6H PRN 30 days back brace As directed cefpodoxime 200 mg PO BID fluticasone propion-salmeterol 250-50 mcg/dose (Advair Diskus) 1 inh inhalation BID 30 days naloxegol (Movantik) 12.5 mg PO DAILY naloxone 4 mg/actuation (Narcan) 4 mg intranasal Q2M 1 day oxycodone-acetaminophen 7.5-325 mg 1 tab PO TID PRN 20 days polyethylene glycol 3350 (Miralax) 17 grams PO DAILY PRN ropinirole 1 mg PO TID trazodone 50 mg PO BEDTIME 90 days Do you need a note to return to daycare/school/sports/work: No HPI HPI f/u chest x-ray: Details: 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 with a course of Cefpodoxime 200 mg b.i.d. for 1 week. She had a chest x-ray, which did not show any pneumonia, it showed pulmonary, emphysema as usual And also right infrahilar density somewhat increased in size as compared to her previous chest x-ray and CT scan. Patient is quite concerned about this. She has had no fever or chills. Her main issue is that she continues to have frequent cough with expectoration of yellowish phlegm, and that has not improved even after using the antibiotic for 1 week. Also her main problem is continued smoking at about half pack a day, with lot of anxiety and guilt feeling because she can not stop smoking. Incidentally her also smokes , about half pack a day who is also in annual lung screening program. In the past couple of months she has been treated with a course of prednisone and antibiotics such as azithromycin, and more recentlyCefpodoxime, as noted above. [facility] Medical History Back pain of thoracolumbar region T12 compression fracture Osteopenia Screening for hypercholesterolemia Screening for diabetes mellitus (DM) Breast cancer screening Bilateral hip pain Personal history of nicotine dependence Muscle strain Bronchitis COPD exacerbation Pseudogout of left knee Change in bowel habit Abdominal bloating Exocrine pancreatic insufficiency COPD (chronic obstructive pulmonary disease) Lumbar post-laminectomy syndrome Acute adjustment disorder with anxiety Restless leg syndrome Surgical History History of kyphoplasty History of lumbar laminectomy (~2012) History of vein stripping (~2003) History of femoral hernia repair (~2002) History of lumbar fusion (~2013) Status post phlebectomy (~2008) Social History Housing: House Alcohol intake: current Alcohol intake frequency: does not drink Patient Tobacco Use Status: Current everyday Tobacco user Tobacco use type: Cigarette Cigarette Packs Per Day: 0.5 Cigarettes Per Day: 10.0 e-Cigarette/Vaping Use: Never Used Second Hand Smoke Exposure: No service: No Current occupational status: retired Current occupation: [employer] Cognitive needs: No Hearing needs: No Vision needs: Yes (contacts/glasses) Review of Systems Const All systems reviewed & are unremarkable except as noted in HPI and below Eyes Reports no additional complaints ENT Reports no additional complaints Card Denies chest pain, Denies irregular heart rhythm, Denies leg edema and Denies dyspnea Resp Reports as per HPI, Reports cough (Mild off and on), Denies dyspnea and Denies wheezing GI Denies no additional complaints Reports no additional complaints Musc Reports back pain (Chronic) Skin/Breast Reports system reviewed and no additional complaints, except as documented Psych Reports no additional complaints Endo Reports no additional complaints Aller/Immun Reports no additional complaints and Denies wheezing Physical Exam Vital Signs: Last Vital Signs Pulse 73 02/14/24 10:11 BP 120/62 02/14/24 10:11 Pulse Ox 97 02/14/24 10:11 Oxygen Delivery Method Room Air 02/14/24 10:11 BMI result Body Mass Index 18.8 Const General: comfortable, no acute distress, alert and awake Orientation/consciousness: patient oriented x3 HEENT Head: Yes normal to inspection General nose exam: No nasal polyps present and No nasal discharge present Face and sinus: Yes sinuses nontender Mouth: oropharynx normal Throat: Yes posterior oropharynx normal Eyes General: appearance normal, both eyes and all related structures Neck Neck: Yes normal visual inspection, Yes no lymphadenopathy, Yes trachea midline and Yes no JVD Thyroid: Thyroid normal Chest Chest palpation & inspection: normal inspection of the chest, normal palpation of entire chest wall and no tenderness Resp Other: Percussion note hyper-resonant, breath sounds are equal on both sides. Does not have any crepitations or wheezes on auscultation. Cardio Palpation: normal PMI Rate: regular rate Rhythm: regular rhythm Heart sounds: no gallops and no murmurs GI Palpation (GI): Soft to palpation, nontender, No hepatosplenomegaly present and no masses Auscultation: normal bowel sounds Back/Spine/Pelvis Thoracic/Lumbar Spine: thoracic and lumbar spine normal to inspection, thoraco- lumbar ROM limited and thoraco-lumbar spasm Skin General skin exam: no rashes or lesions noted Neuro General: patient oriented x3 and no focal motor deficits Cranial nerves: Yes CN's II-XII intact bilaterally Extrem General: Yes normal to inspection, Yes no clubbing, cyanosis or edema and Yes no calf tenderness Psych Appearance: grossly normal and well kempt Speech and movement: Normal speech and movement present Results Reviewed Results Reviewed: The chest x-ray report is reviewed and discussed with the patient . CHEST X-RAY 02/07 IMPRESSION: Progressive airspace opacification medial aspect of the middle lobe. Noncontrast chest CT is recommended for further evaluation. Assessment & Plan Assessment & Plan (1) Personal history of nicotine dependence: Comment: (current smoker - onset 25, max 1ppd - currently 1/2 PK /day . Code(s): Z87.891 - Personal history of nicotine dependence Category: Medical Plan: PATIENT KNOWS VERY WELL THAT SHE NEEDS TO QUIT SMOKING. SHE HAS STRUGGLED OVER THE PAST MANY YEARS AND COULD NOT STOP COMPLETELY. DISCUSSED WITH HER AT LENGTH AND STRESSED THAT SHE MUST DO SOMETHING TO QUIT SMOKING. WE DECIDED ON THE FOLLOWING APPROACH . BECAUSE HER ALSO SMOKES WE NEED TO TALK TO HIM AND HE NEEDS TO IN THE QUIT PROGRAM ALONG WITH DOT. AT THIS POINT SHE WILL USE NICOTINE PATCH 14 MG DAILY, AND WOULD ASK. THE ALSO TO USE THE SAME IF IT DOES NOT WORK THEN WE HAVE DISCUSSED ABOUT TRYING WELLBUTRIN OR CHANTIX. (2) COPD (chronic obstructive pulmonary disease): Comment: PATIENT DOES HAVE CHRONIC OBSTRUCTIVE PULMONARY DISEASE WHICH IS SECONDARY TO HER ONGOING SMOKING. THE SYMPTOMS GET EXACERBATED BECAUSE OF HER CONTINUED SMOKING AND INTERMITTENT LOW-GRADE RESPIRATORY INFECTIONS. Code(s): J44.9 - Chronic obstructive pulmonary disease, unspecified Category: Medical Qualifiers: COPD type: chronic bronchitis Chronic bronchitis type: simple Qualified Code(s): J41.0 - Simple chronic bronchitis Plan: CONTINUE ADVAIR AND THE DOSE IS DECREASED TO 250-51 INHALATION B.I.D. DO USE MUCINEX 1200 MG B.I.D.. USE ALBUTEROL HFA Q.4 HOURS P.R.N.. (3) Pulmonary nodule: Comment: Last CT scan in June 2022, Benign category 2. Patient active in lung screening program. As noted above her current chest x-ray shows some increase in the size of density in the right hilar area. Code(s): R91.1 - Solitary pulmonary nodule Category: Medical Plan: CT SCAN OF THE CHEST WITHOUT CONTRAST IS ORDERED , SUGGESTED BY RADIOLOGY . SHE WOULD ALSO CONTINUE TO HAVE LOW-DOSE CT SCAN OF HER LUNGS ON A YEARLY BASIS. I WOULD ALSO GET PULMONARY FUNCTION TEST, THE LAST 1 WAS IN 2020. (4) Bronchitis: Comment: CONTINUES TO HAVE RECURRENT BOUTS OF COUGH AND INCREASED SPUTUM PRODUCTION. I DO NOT THINK THIS IS DUE TO ACTIVE RESPIRATORY INFECTIONS, AND MOST LIKELY JUST DUE TO SMOKING AND CHANGE IN THE CLIMATE. BEFORE I PRESCRIBED HER ANY ANTIBIOTIC I THINK WE SHOULD DO A GOOD SPUTUM GRAM STAIN AND CULTURE. Code(s): J40 - Bronchitis, not specified as acute or chronic Category: Medical Plan: ORDERED SPUTUM FOR GRAM STAIN AND CULTURE SENSITIVITY Orders: Orders Sputum Cult + Gram stain Today F17.210 - Nicotine dependence, cigarettes, uncomplicated, J40 - Bronchitis, not specified as acute or chronic, J41.0 - Simple chronic bronchitis, R05.9 - Cough, unspecified PFT pulmonary function test Today F17.210 - Nicotine dependence, cigarettes, uncomplicated, J41.0 - Simple chronic bronchitis, R05.9 - Cough, unspecified CT chest wo IV con Today J40 - Bronchitis, not specified as acute or chronic, R05.9 - Cough, unspecified, R91.1 - Solitary pulmonary nodule, Z87.891 - Personal history of nicotine dependence Medications: New fluticasone propion-salmeterol 250-50 mcg/dose (Advair Diskus) 1 inh inhalation BID 30 days 60 ea 4RF copd Coding Level of Care Code Est Pt Level 4 (13936) Diagnoses Personal history of nicotine dependence Z87.891 Simple chronic bronchitis J41.0 COPD type: chronic bronchitis Chronic bronchitis type: simple Pulmonary nodule R91.1 Bronchitis J40
== END 2024-02-14 10:37 | disposition home or self-care (01) ==
PROVIDERS: PCP Physician Assistant; Visit Provider Internal Medicine
DX: Z87.891 Personal history of nicotine dependence (principal); J41.0 Simple chronic bronchitis; R91.1 Solitary pulmonary nodule; J40 Bronchitis, not specified as acute or chronic
CPT/HCPCS: 99214

== ENCOUNTER → 2024-02-14 09:58 | Outpatient (BNVA) | payer MEDICARE, SELFPAY | PROVIDERS: PCP Physician Assistant; Visit Provider Internal Medicine | DX: J41.0 Simple chronic bronchitis (principal); J40 Bronchitis, not specified as acute or chronic; R91.1 Solitary pulmonary nodule; F17.210 Nicotine dependence, cigarettes, uncomplicated; Z71.6 Tobacco abuse counseling | CPT/HCPCS: 99212 ==

== ENCOUNTER 2024-02-15 12:26 | Outpatient (REF) | payer MEDICARE, SELFPAY | END 2024-02-15 12:27 | disposition home or self-care (01) | LOC: HO.LNP 12:26 | PROVIDERS: Visit Provider Internal Medicine | DX: J41.0 Simple chronic bronchitis (principal); F17.210 Nicotine dependence, cigarettes, uncomplicated; R05.9 Cough, unspecified | CPT/HCPCS: 87070; 87205 ==

== ENCOUNTER 2024-03-03 11:00 | Outpatient (AMB) | payer MEDICARE, SELFPAY ==
--- NOTE | 2024-03-03 11:01 | A.OFFVIS_ITS ---
Vital Signs 03/03/24 11:08 Height 5 ft 7 in Weight 120 lb BMI 18.8 BP 124/65 Blood Pressure Location Rt brachial Position Sitting Pulse 75 Pulse Source Pulse Oximeter Pulse Oximetry (%) 98 Oxygen Delivery Method Room Air Intake Visit Reasons: PILL COUNT Intake Note: Dot comes in today for a pill count to oxycodone-acetaminophen, patient should have 51 tablets and presents with 54 tablets which she last took today 03/03/24 at 6am. Pain today 03/22 Client Support Administrator Required: No Accompanied by: Self / Same As Patient Allergies No Known Allergies Allergy (Verified 03/03/24 11:08) HPI Comments Details: Patient presents today for a pill count. Patient is supposed to have #51 pills in her possession and has #54 pills. Patient reports mild to moderate analgesia with no noted sided effects with current dose of oxycodone-acetaminophen 7.5-325 mg TID prn except occasional constipation for which she does bowel regime, including increasing fluids, fiber intake, Miralax prn. Denies any fever, chills, weight changes, sedation, abdominal pain, constipation, nausea, dizziness or urinary retention. Patient reports increased low back pain with prolonged walking or ADLs. Patient reports medication allows her to be less symptomatic and more functional. Patient reports new onset of mid thoracic back pain radiating into right shoulder blade. She noticed pain increase after lifting water bottle to water her flower garden or during bending or weeding her garden. She was recently seen at Pulmonology x2 end of January-early February for acute bronchitis which improved with treatment. We will obtain thoracic xray to rule out compression fractures. Denies any recent cough, cold, chest pain, shortness of breath, infection, fever, any significant changes in her medical history, medications or recent hospitalizations. Past procedures: 10/13/23: Percutaneous Spinal Cord Stimulator Trial, Lumbar: 0% relief. 05/21/23: T12 Kyphoplasty-50% pain relief 03/17/23: Sacroiliac Joint Injection, Bilateral: 50-60% relief. [facility] Medical History Back pain of thoracolumbar region T12 compression fracture Osteopenia Screening for hypercholesterolemia Screening for diabetes mellitus (DM) Breast cancer screening Bilateral hip pain Personal history of nicotine dependence Muscle strain Bronchitis COPD exacerbation Pseudogout of left knee Change in bowel habit Abdominal bloating Exocrine pancreatic insufficiency COPD (chronic obstructive pulmonary disease) Lumbar post-laminectomy syndrome Acute adjustment disorder with anxiety Restless leg syndrome Surgical History History of kyphoplasty History of lumbar laminectomy (~2012) History of vein stripping (~2003) History of femoral hernia repair (~2002) History of lumbar fusion (~2013) Status post phlebectomy (~2008) Social History Housing: House Alcohol intake: current Alcohol intake frequency: does not drink Patient Tobacco Use Status: Current everyday Tobacco user Tobacco use type: Cigarette Cigarette Packs Per Day: 0.5 Cigarettes Per Day: 10.0 e-Cigarette/Vaping Use: Never Used Second Hand Smoke Exposure: No service: No Current occupational status: retired Current occupation: [employer] Cognitive needs: No Hearing needs: No Vision needs: Yes (contacts/glasses) Review of Systems Const All systems reviewed & are unremarkable except as noted in HPI and below ENT Reports Normal hearing present Neuro Reports Normal hearing present Physical Exam Vital Signs: Last Vital Signs Pulse 75 03/03/24 11:08 BP 124/65 03/03/24 11:08 Pulse Ox 98 03/03/24 11:08 Oxygen Delivery Method Room Air 03/03/24 11:08 BMI result Body Mass Index 18.8 General: Appears afebrile. Mild-moderate distress due to pain. Alert and oriented. Mood and affect appropriate. Follows and participates in conversation appropriately. Respiratory effort is unlabored. No cough. No MARSHALL. Able to transition from sit to stand unassisted. Ambulates with bilaterally normal heel strike and toe off. Const General: healthy appearing, no acute distress, alert, awake and well groomed Nutritional Appearance: thin Orientation/consciousness: patient oriented x3 Limitations: no limitations HEENT Head: Yes normal to inspection, Yes normocephalic and Yes atraumatic Ears: hearing grossly normal bilaterally, external ears normal and no periauricular adenopathy General nose exam: No nasal discharge present Face and sinus: Yes normal facial exam, Yes face symmetric and No sinus tenderness Throat: Yes postnasal drainage Resp Effort & Inspection: normal respiratory effort, able to speak in complete sentences, no cough, no respiratory distress and symmetric chest movement Back/Spine/Pelvis Cervical Spine: cervical ROM normal and No Cervical spine tenderness Thoracic/Lumbar Spine: thoracic and lumbar spine normal to inspection, Thoracic/lumbar spine scar(s), Lasegue's sign negative, straight leg raise negative bilaterally, pain with thoraco-lumbar ROM, paraspinal muscle tenderness on the right in the mid thoracic, thoraco-lumbar ROM limited, thoracic spinal tenderness (mid thoracic to the right shoulder blade) and lumbar spinal tenderness (L3-S1) Pelvis: buttock tenderness (Lateral) bilaterally Sacroiliac joints: on the right tender to palpation and on the left nontender Neuro General: patient oriented x3 Cranial nerves: Yes Normal hearing present Psych Appearance: grossly normal and well kempt Mental Status: mental status grossly normal Speech and movement: Normal speech and movement present and Clear speech present Affect: normal affect Attitude: cooperative Thought process: Normal thought process present Thought content: Normal thought content present, suicidality (none), no hallucinations and No Depressive thoughts present Insight: Good insight present (Psych) Judgement: Good judgement present (Psych) Results Reviewed Results Reviewed: No imaging results are available for review. Assessment & Plan Assessment & Plan (1) Back pain of thoracolumbar region: Code(s): M54.50 - Low back pain, unspecified; M54.6 - Pain in thoracic spine Category: Medical (2) Shoulder blade pain: Code(s): M89.8X1 - Other specified disorders of bone, shoulder Category: Medical (3) Lumbar post-laminectomy syndrome: Code(s): M96.1 - Postlaminectomy syndrome, not elsewhere classified Category: Medical (4) Osteoarthritis, hip, bilateral: Code(s): M16.0 - Bilateral primary osteoarthritis of hip Category: Medical (5) Sacroiliitis: Code(s): M46.1 - Sacroiliitis, not elsewhere classified Category: Medical (6) Chronic, continuous use of opioids: Code(s): F11.90 - Opioid use, unspecified, uncomplicated Category: Medical (7) Chronic pain syndrome: Code(s): G89.4 - Chronic pain syndrome Category: Medical (8) Lumbar degenerative disc disease: Code(s): M51.36 - Other intervertebral disc degeneration, lumbar region Category: Medical Plan Patient has shown accountability for her medication regimen and the pill count was accurate. The patient reported no noted side effects and adequate analgesia on current medication regime. There is no evidence of misuse, abuse or diversion at this time. [employer] reviewed. Script sent for oxycodone 7.5-325 mg TID prn with advanced date of 03/18/24. Will obtain thoracic xray to assess degree of degenerative changes, any subluxation, listhesis, compression fractures or pars defects. Patient has history of T12 compression fracture s/p T12 kyphoplasty in 05/2023 and recent exacerbation of bronchitis. All questions were answered and patient is in agreement of plan. Follow up in 4 weeks for a pill count and sooner if needed. Orders: Orders XR thoracic spine 3V Today M54.50 - Low back pain, unspecified, M54.6 - Pain in thoracic spine, M89.8X1 - Other specified disorders of bone, shoulder Medications: Refilled oxycodone-acetaminophen 7.5-325 mg Partial Fill upon patient request. 1 tab PO TID 30 days PRN 90 tabs 0RF pain F11.90 - Opioid use, unspecified, uncomplicated, M25.551 - Pain in right hip, M25.552 - Pain in left hip, M46.1 - Sacroiliitis, not elsewhere classified, M96.1 - Postlaminectomy syndrome, not elsewhere classified Coding Level of Care Code Est Pt Level 4 (55197) Diagnoses Back pain of thoracolumbar region M54.50; M54.6 Shoulder blade pain M89.8X1 Lumbar post-laminectomy syndrome M96.1 Osteoarthritis, hip, bilateral M16.0 Sacroiliitis M46.1 Chronic, continuous use of opioids F11.90 Chronic pain syndrome G89.4 Lumbar degenerative disc disease M51.36
[2024-03-03 11:08] VITALS: BP 124/65; PULSE 75; O2SAT 98; BMI 18.8
== END 2024-03-03 11:21 | disposition home or self-care (01) ==
PROVIDERS: PCP Physician Assistant; Visit Provider Nurse Practitioner Family
DX: G89.4 Chronic pain syndrome (principal); M46.1 Sacroiliitis, not elsewhere classified; M51.36 Other intervertebral disc degeneration, lumbar region; Z79.891 Long term (current) use of opiate analgesic
CPT/HCPCS: 99214

== ENCOUNTER 2024-03-03 11:00 | Outpatient (REF) | payer MEDICARE, SELFPAY ==
--- NOTE | ~2024-03-03 | XR_ITS ---
EXAMINATION: XR THORACIC SPINE CLINICAL INFORMATION: Lower back pain. COMPARISON: None available. TECHNIQUE: Frontal, lateral and swimmer's views of the thoracic spine were obtained. FINDINGS: There is bony demineralization. There is a mild lower thoracic dextroscoliosis. There is mild anterior disc space narrowing at T8-T9 and T9-T10. There is mild leftward disc space narrowing at T10-T11. There is rightward disc space narrowing at L2-L3 and L3-L4. No acute fracture or spondylolisthesis is seen. There has been a prior L1 vertebroplasty. There is multi-level mild thoracic endplate arthropathy. The posterior elements are intact. The paravertebral soft tissues are unremarkable XR/XR thoracic spine 3V IMPRESSION: 1. There is mild degenerative disc disease at T8-T9 through T10-T11, and moderate disc space narrowing is seen at L2-L3 and L3-L4. 2. There is a mild lower thoracic dextroscoliosis. 3. There has been a prior L1 vertebroplasty.
== END 2024-03-03 11:01 | disposition home or self-care (01) ==
LOC: HO.XRAY 11:00
PROVIDERS: PCP Physician Assistant; Visit Provider Nurse Practitioner Family
DX: M54.50 Low back pain, unspecified (principal); M54.6 Pain in thoracic spine; M89.8X1 Other specified disorders of bone, shoulder
CPT/HCPCS: 72072; 99212

== ENCOUNTER 2024-03-15 10:46 | Outpatient (AMB) | payer MEDICARE, SELFPAY ==
[2024-03-15 10:54] VITALS: BP 102/60; PULSE 68; O2SAT 97; BMI 18.9
--- NOTE | 2024-03-15 10:54 | MHC.OFFVIS ---
Vital Signs 03/15/24 10:54 Height 5 ft 7 in Weight 121 lb BMI 18.9 BP 102/60 Blood Pressure Location Lt brachial Position Sitting Pulse 68 Pulse Source Pulse Oximeter Pulse Oximetry (%) 97 Oxygen Delivery Method Room Air Intake Visit Reasons: Cough Intake Note: pt is here for follow up and states she is feeling better. 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 Allergies No Known Allergies Allergy (Verified 03/15/24 11:22) Medication List - Last Reconciled 03/15/24 by Julissa Evans MD Advair Diskus 500-50 mcg/dose (fluticasone propion-salmeterol) 1 ea PO BID NS albuterol sulfate 90 mcg/actuation (ProAir HFA) 2 puffs inhalation Q4-6H PRN 30 days back brace As directed cefpodoxime 200 mg PO BID fluticasone propion-salmeterol 250-50 mcg/dose (Advair Diskus) 1 inh inhalation BID 30 days naloxegol (Movantik) 12.5 mg PO DAILY naloxone 4 mg/actuation (Narcan) 4 mg intranasal Q2M 1 day oxycodone-acetaminophen 7.5-325 mg 1 tab PO TID PRN 30 days polyethylene glycol 3350 (Miralax) 17 grams PO DAILY PRN ropinirole 1 mg PO TID trazodone 50 mg PO BEDTIME 90 days HPI HPI Cough: Details: THIS 74 YEARS OLD FEMALE IS HERE FOR A SHORT TERM FOLLOW-UP, AFTER TREATMENT OF A BOUT OF ACUTE BRONCHITIS, WITH CEFPODOXIME 200 MG B.I.D. FOR 10 DAYS. CHEST X-RAY SHOWED A HAZINESS IN THE RIGHT MIDDLE LOBE AND SHE IS STILL WAITING TO HAVE CT SCAN OF THE CHEST. SHE IS STILL SMOKING ABOUT 1 PACK OF CIGARETTES A DAY HAS NOT BEEN ABLE TO CUT DOWN. AFTER THE TREATMENT HER COUGH IS MUCH, DECREASED BACK TO BASELINE . SHE DENIES ANY WHEEZING OR SHORTNESS OF BREATH. ON EXERTION SHE HAS APPOINTMENT TO HAVE CT. SCAN OF THE CHEST NEXT WEEK SHE IS VERY SERIOUS ABOUT CUTTING DOWN ON SMOKING AND WANTS TO TRY NICOTINE PATCH. [facility] Medical History Back pain of thoracolumbar region T12 compression fracture Osteopenia Screening for hypercholesterolemia Screening for diabetes mellitus (DM) Breast cancer screening Bilateral hip pain Personal history of nicotine dependence Muscle strain Bronchitis COPD exacerbation Pseudogout of left knee Change in bowel habit Abdominal bloating Exocrine pancreatic insufficiency COPD (chronic obstructive pulmonary disease) Lumbar post-laminectomy syndrome Acute adjustment disorder with anxiety Restless leg syndrome Surgical History History of kyphoplasty History of lumbar laminectomy (~2012) History of vein stripping (~2003) History of femoral hernia repair (~2002) History of lumbar fusion (~2013) Status post phlebectomy (~2008) Social History Housing: House Alcohol intake: current Alcohol intake frequency: does not drink Patient Tobacco Use Status: Current everyday Tobacco user Tobacco use type: Cigarette Cigarette Packs Per Day: 0.5 Cigarettes Per Day: 10.0 e-Cigarette/Vaping Use: Never Used Second Hand Smoke Exposure: No service: No Current occupational status: retired Current occupation: [employer] Cognitive needs: No Hearing needs: No Vision needs: Yes (contacts/glasses) Review of Systems Const All systems reviewed & are unremarkable except as noted in HPI and below Eyes Reports no additional complaints ENT Reports no additional complaints Card Denies chest pain, Denies irregular heart rhythm, Denies leg edema and Denies dyspnea Resp Reports as per HPI, Reports cough (Mild off and on), Denies dyspnea and Denies wheezing GI Denies no additional complaints Reports no additional complaints Musc Reports back pain (Chronic) Skin/Breast Reports system reviewed and no additional complaints, except as documented Psych Reports no additional complaints Endo Reports no additional complaints Aller/Immun Reports no additional complaints and Denies wheezing Physical Exam Vital Signs: Last Vital Signs Pulse 68 03/15/24 10:54 BP 102/60 03/15/24 10:54 Pulse Ox 97 03/15/24 10:54 Oxygen Delivery Method Room Air 03/15/24 10:54 BMI result Body Mass Index 18.9 Const General: comfortable, no acute distress, alert and awake Orientation/consciousness: patient oriented x3 HEENT Head: Yes normal to inspection General nose exam: No nasal polyps present and No nasal discharge present Face and sinus: Yes sinuses nontender Mouth: oropharynx normal Throat: Yes posterior oropharynx normal Eyes General: appearance normal, both eyes and all related structures Neck Neck: Yes normal visual inspection, Yes no lymphadenopathy, Yes trachea midline and Yes no JVD Thyroid: Thyroid normal Chest Chest palpation & inspection: normal inspection of the chest, normal palpation of entire chest wall and no tenderness Resp Other: Percussion note hyper-resonant, breath sounds are equal on both sides. Does not have any crepitations or wheezes on auscultation. Cardio Palpation: normal PMI Rate: regular rate Rhythm: regular rhythm Heart sounds: no gallops and no murmurs GI Palpation (GI): Soft to palpation, nontender, No hepatosplenomegaly present and no masses Auscultation: normal bowel sounds Back/Spine/Pelvis Thoracic/Lumbar Spine: thoracic and lumbar spine normal to inspection, thoraco-lumbar ROM limited and thoraco-lumbar spasm Skin General skin exam: no rashes or lesions noted Neuro General: patient oriented x3 and no focal motor deficits Cranial nerves: Yes CN's II-XII intact bilaterally Extrem General: Yes normal to inspection, Yes no clubbing, cyanosis or edema and Yes no calf tenderness Psych Appearance: grossly normal and well kempt Speech and movement: Normal speech and movement present Results Reviewed Results Reviewed: CHEST X-RAY ON HER LAST VISIT HAD SHOWN INCREASED HIS ILLNESS IN THE MEDIAL PART OF RIGHT MIDDLE LOBE. IT COULD HAVE BEEN DUE TO MILD PNEUMONITIS. SHE IS SCHEDULED TO HAVE CT SCAN OF THE CHEST NEXT WEEK Assessment & Plan Assessment & Plan (1) COPD (chronic obstructive pulmonary disease): Comment: PATIENT DOES HAVE CHRONIC OBSTRUCTIVE PULMONARY DISEASE WHICH IS SECONDARY TO HER ONGOING SMOKING. THE SYMPTOMS GET EXACERBATED BECAUSE OF HER CONTINUED SMOKING AND INTERMITTENT LOW-GRADE RESPIRATORY INFECTIONS. Code(s): J44.9 - Chronic obstructive pulmonary disease, unspecified Category: Medical Qualifiers: COPD type: chronic bronchitis Chronic bronchitis type: simple Qualified Code(s): J41.0 - Simple chronic bronchitis Plan: ADVAIR 250-51 INHALATION B.I.D. ALBUTEROL HFA 2 PUFFS Q 4-6 HOURS ONLY P.R.N. (2) Nicotine dependence, cigarettes, uncomplicated: Comment: (current smoker - onset 25, max 1ppd - currently 1/4ppd, 30+PYH). Patient is active in annual lung screening program. Code(s): F17.210 - Nicotine dependence, cigarettes, uncomplicated Category: Medical Plan: DISCUSSED ABOUT SMOKING CESSATION AGAIN. SHE IS HAVING HARD TIME, BUT SHOWS MORE SERIOUS ILLNESS ABOUT QUITTING. I HAVE ORDERED NICOTINE PATCH 14 MG TO APPLIED DAILY, (3) Pulmonary nodule: Comment: Last CT scan in June 2022, Benign category 2. Patient active in lung screening program. As noted above her current chest x-ray shows some increase in the size of density in the right hilar area. Code(s): R91.1 - Solitary pulmonary nodule Category: Medical Plan: IN ADDITION TO HER ANNUAL LUNG SCREENING PROGRAM SHE WILL BE HAVING A REGULAR CT SCAN TO EVALUATE THE HAZINESS IN RIGHT MIDDLE LOBE, MORE THOROUGHLY. Medications: New nicotine 1 patch transdermal DAILY 28 ea 3RF nicotine dependance 28 days Coding Level of Care Code Est Pt Level 3 (38152) Diagnoses Simple chronic bronchitis J41.0 COPD type: chronic bronchitis Chronic bronchitis type: simple Nicotine dependence, cigarettes, uncomplicated F17.210 Pulmonary nodule R91.1
== END 2024-03-15 11:12 | disposition home or self-care (01) ==
PROVIDERS: PCP Physician Assistant; Visit Provider Internal Medicine
DX: J41.0 Simple chronic bronchitis (principal); F17.210 Nicotine dependence, cigarettes, uncomplicated; R91.1 Solitary pulmonary nodule
CPT/HCPCS: 99213

== ENCOUNTER → 2024-03-15 10:46 | Outpatient (BNVA) | payer MEDICARE, SELFPAY | PROVIDERS: PCP Physician Assistant; Visit Provider Internal Medicine | DX: J41.0 Simple chronic bronchitis (principal); R91.1 Solitary pulmonary nodule; F17.210 Nicotine dependence, cigarettes, uncomplicated | CPT/HCPCS: 99212 ==

== ENCOUNTER 2024-03-20 16:53 | Outpatient (REF) | payer MEDICARE, SELFPAY ==
--- NOTE | ~2024-03-20 | CT_ITS ---
EXAMINATION: CT CHEST WITHOUT CONTRAST CLINICAL INFORMATION: Follow-up pulmonary nodule. COMPARISON: Prior chest CT examinations, most recently 07/30/2023. TECHNIQUE: Multidetector volumetric CT imaging of the chest was done. Axial MIP volume rendering provided. Sagittal and coronal reformatted images were obtained. This CT examination was performed using dose optimization techniques as appropriate, variously including the following: *Automated exposure control *Adjustment of mA and/or kV according to patient size (this includes techniques or standardized protocols for targeted exams where dose is matched to indication/reason for exam; i.e. 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 An L1 vertebroplasty is noted. There is lumbosacral orthopedic hardware, partially included in the [id number]. There is a moderate lumbar levoscoliosis. LUNGS: There is biapical pleural and parenchymal scarring. There are mild centrilobular emphysematous changes, most pronounced in the upper lung deluna. Towards the bases, there are moderately severe paraseptal emphysematous changes. No mass, infiltrate or groundglass opacity is seen. There is focal scar/subsegmental atelectasis at the anterolateral bases, without associated focal airway obstruction. There are small right lower lobe endobronchial densities, likely inspissated mucous (5:448 and 493). There is no generalized small airway thickening. The central airways appear patent. MEDIASTINUM: The thyroid is unremarkable. There is no thoracic aortic aneurysm. There are moderate atherosclerotic calcifications of the great vessel origins and thoracic aorta. No mediastinal or hilar lymphadenopathy is seen. CORONARY ARTERY CALCIFICATION: Moderately severe. PLEURA: There is no pleural effusion. There is a focus of pleural thickening of maximal thickness 4 mm nodule noted at the lateral left apex (5:115). This is stable from prior. No pleural mass is seen. AXILLA: No lymphadenopathy. UPPER ABDOMEN: Unremarkable. OSSEOUS STRUCTURES: There is multi-level thoracolumbar spondylosis, with degenerative disc disease particularly severe at T7-T8 through T10-T11, T12-L1 and at L2-L3 and L3-L4. There is a stable moderate L1 upper endplate wedge compression fracture, with post vertebroplasty changes noted. There is no acute or aggressive osseous finding. CT/CT chest wo IV con IMPRESSION: 1. There are emphysematous changes. 2. No nodule, mass, infiltrate or groundglass opacity is seen. 3. There are small right lower lobe endobronchial densities, likely inspissated mucous. Recommend attention to pulmonary toilet and continued attention on imaging follow-up. 4. No thoracic lymphadenopathy or pleural effusion is seen. 5. There are moderately severe coronary artery atherosclerotic calcifications. 6. There are multi-level degenerative changes of the spine. There has been a prior L1 vertebroplasty, with stable wedge compression deformity. No acute or aggressive osseous finding is noted. Fleischner guidelines were followed.
== END 2024-03-20 16:54 | disposition home or self-care (01) ==
LOC: HO.CT 16:53
PROVIDERS: PCP Physician Assistant; Visit Provider Internal Medicine
DX: R91.1 Solitary pulmonary nodule (principal); J40 Bronchitis, not specified as acute or chronic; R05.9 Cough, unspecified; Z87.891 Personal history of nicotine dependence
CPT/HCPCS: 71250

== ENCOUNTER 2024-03-31 | Outpatient (REF) | payer MEDICARE, SELFPAY | END 2024-03-31 00:01 | disposition home or self-care (01) | LOC: CF | PROVIDERS: PCP Physician Assistant; Visit Provider Registered Nurse Emergency | DX: J41.0 Simple chronic bronchitis (principal); F17.210 Nicotine dependence, cigarettes, uncomplicated; M54.50 Low back pain, unspecified; M89.8X1 Other specified disorders of bone, shoulder; M96.1 Postlaminectomy syndrome, not elsewhere classified; M16.0 Bilateral primary osteoarthritis of hip; G89.4 Chronic pain syndrome; M51.36 Other intervertebral disc degeneration, lumbar region; F11.90 Opioid use, unspecified, uncomplicated; Z51.81 Encounter for therapeutic drug level monitoring | CPT/HCPCS: 99212 ==

== ENCOUNTER 2024-03-31 10:11 | Outpatient (AMB) | payer MEDICARE, SELFPAY ==
--- NOTE | 2024-03-31 10:15 | MHC.OFFVIS ---
Vital Signs 03/31/24 10:16 Height 5 ft 7 in Weight 121 lb BMI 18.9 BP 113/71 Blood Pressure Location Rt brachial Position Sitting Pulse 67 Pulse Source Pulse Oximeter Pulse Oximetry (%) 94 Oxygen Delivery Method Room Air Intake Visit Reasons: PILL COUNT Allergies No Known Allergies Allergy (Verified 03/31/24 10:20) Medication List - Last Reconciled 03/31/24 by Francie Quinones Advair Diskus 500-50 mcg/dose (fluticasone propion-salmeterol) 1 ea PO BID NS albuterol sulfate 90 mcg/actuation (ProAir HFA) 2 puffs inhalation Q4-6H PRN 30 days back brace As directed cefpodoxime 200 mg PO BID fluticasone propion-salmeterol 250-50 mcg/dose (Advair Diskus) 1 inh inhalation BID 30 days naloxegol (Movantik) 12.5 mg PO DAILY naloxone 4 mg/actuation (Narcan) 4 mg intranasal Q2M 1 day nicotine 1 patch transdermal DAILY 28 days oxycodone-acetaminophen 7.5-325 mg 1 tab PO TID PRN 30 days polyethylene glycol 3350 (Miralax) 17 grams PO DAILY PRN ropinirole 1 mg PO TID trazodone 50 mg PO BEDTIME 90 days HPI Comments Details: Dot marcos a very pleasant 74 year old female who presents to the office for follow up chronic pain and chronic opioid therapy management. Patient is prescribed oxycodone acetaminophen 7.5-325mg take 1 tablet three times daily. Patient arrived today with the expectation of having 57 pills, she presented 58 pills which were counted in the presence of two staff members and returned to the patient in the original prescription bottle. This demonstrates responsible attitude toward patient's opioid medications. Pain is reported today as 6/10 and last dose of pain medication was taken at 06:00 this morning. Denies any recent changes or exacerbations of chronic back pain. Denies side effects including somnolence, constipation, itching, dyspnea, rash, dizziness or weakness. At previous visit was having some right upper back pain, that has improved and is now intermittent and only with certain movements of her right arm. Prior visit with Erin NET MAKER: Patient presents today for a pill count. Patient is supposed to have #51 pills in her possession and has #54 pills. Patient reports mild to moderate analgesia with no noted sided effects with current dose of oxycodone-acetaminophen 7.5-325 mg TID prn except occasional constipation for which she does bowel regime, including increasing fluids, fiber intake, Miralax prn. Denies any fever, chills, weight changes, sedation, abdominal pain, constipation, nausea, dizziness or urinary retention. Patient reports increased low back pain with prolonged walking or ADLs. Patient reports medication allows her to be less symptomatic and more functional. Patient reports new onset of mid thoracic back pain radiating into right shoulder blade. She noticed pain increase after lifting water bottle to water her flower garden or during bending or weeding her garden. She was recently seen at Pulmonology x2 end of January-early February for acute bronchitis which improved with treatment. We will obtain thoracic xray to rule out compression fractures. Denies any recent cough, cold, chest pain, shortness of breath, infection, fever, any significant changes in her medical history, medications or recent hospitalizations. Past procedures: 10/13/23: Percutaneous Spinal Cord Stimulator Trial, Lumbar: 0% relief. 05/21/23: T12 Kyphoplasty-50% pain relief 03/17/23: Sacroiliac Joint Injection, Bilateral: 50-60% relief. [facility], LAT[facility] Medical History Back pain of thoracolumbar region T12 compression fracture Osteopenia Screening for hypercholesterolemia Screening for diabetes mellitus (DM) Breast cancer screening Bilateral hip pain Personal history of nicotine dependence Muscle strain Bronchitis COPD exacerbation Pseudogout of left knee Change in bowel habit Abdominal bloating Exocrine pancreatic insufficiency COPD (chronic obstructive pulmonary disease) Lumbar post-laminectomy syndrome Acute adjustment disorder with anxiety Restless leg syndrome Surgical History History of kyphoplasty History of lumbar laminectomy (~2012) History of vein stripping (~2003) History of femoral hernia repair (~2002) History of lumbar fusion (~2013) Status post phlebectomy (~2008) Social History Housing: House Alcohol intake: current Alcohol intake frequency: does not drink Patient Tobacco Use Status: Current everyday Tobacco user Tobacco use type: Cigarette Cigarette Packs Per Day: 0.5 Cigarettes Per Day: 10.0 e-Cigarette/Vaping Use: Never Used Second Hand Smoke Exposure: No service: No Current occupational status: retired Current occupation: [employer] Cognitive needs: No Hearing needs: No Vision needs: Yes (contacts/glasses) Review of Systems Const All systems reviewed & are unremarkable except as noted in HPI and below Physical Exam Vital Signs: Last Vital Signs Pulse 67 03/31/24 10:16 BP 113/71 03/31/24 10:16 Pulse Ox 94 03/31/24 10:16 Oxygen Delivery Method Room Air 03/31/24 10:16 BMI result Body Mass Index 18.9 General: awake, alert, oriented. Answers questions appropriately. Fully engaged in examination. Skin: warm, dry, intact HEENT: Normocephalic. Hearing intact. Cardiac: External chest normal in appearance. Respiratory: No cough, audible wheezing or stridor. Abdomen: without gross distension. MS: No obvious swelling or deformities. Able to transition from sit to stand unassisted. Ambulates with bilaterally normal heel strike and toe off Neurological: Oriented to person, place, time and situation. Thought process intact. No gait abnormalities appreciated. Psychiatric: Appropriate mood and affect. Good judgment and insight. Results Reviewed Results Reviewed: 03/03/24: XR thoracic IMPRESSION: 1. There is mild degenerative disc disease at T8-T9 through T10-T11, and moderate disc space narrowing is seen at L2-L3 and L3-L4. 2. There is a mild lower thoracic dextroscoliosis. 3. There has been a prior L1 vertebroplasty. Assessment & Plan Assessment & Plan (1) Back pain of thoracolumbar region: Code(s): M54.50 - Low back pain, unspecified; M54.6 - Pain in thoracic spine Category: Medical (2) Shoulder blade pain: Code(s): M89.8X1 - Other specified disorders of bone, shoulder Category: Medical (3) Lumbar post-laminectomy syndrome: Code(s): M96.1 - Postlaminectomy syndrome, not elsewhere classified Category: Medical (4) Osteoarthritis, hip, bilateral: Code(s): M16.0 - Bilateral primary osteoarthritis of hip Category: Medical (5) Sacroiliitis: Code(s): M46.1 - Sacroiliitis, not elsewhere classified Category: Medical (6) Chronic, continuous use of opioids: Code(s): F11.90 - Opioid use, unspecified, uncomplicated Category: Medical (7) Chronic pain syndrome: Code(s): G89.4 - Chronic pain syndrome Category: Medical (8) Lumbar degenerative disc disease: Code(s): M51.36 - Other intervertebral disc degeneration, lumbar region Category: Medical [facility]. No obvious signs of diversion, abuse or misuse of the opioid medications. Will send in prescription for oxycodone-acetaminophen 7.5-325mg 1 tab PO TID with an advanced date of 04/19/24. Patient to follow-up in the office in 1 month, sooner if needed. All questions and concerns have been answered and patient agrees with the plan. Medications: Refilled oxycodone-acetaminophen 7.5-325 mg Partial Fill upon patient request. 1 tab PO TID 30 days PRN 90 tabs 0RF pain F11.90 - Opioid use, unspecified, uncomplicated, M25.551 - Pain in right hip, M25.552 - Pain in left hip, M46.1 - Sacroiliitis, not elsewhere classified, M96.1 - Postlaminectomy syndrome, not elsewhere classified Coding Level of Care Code Est Pt Level 4 (10156) Diagnoses Back pain of thoracolumbar region M54.50; M54.6 Shoulder blade pain M89.8X1 Lumbar post-laminectomy syndrome M96.1 Osteoarthritis, hip, bilateral M16.0 Sacroiliitis M46.1 Chronic, continuous use of opioids F11.90 Chronic pain syndrome G89.4 Lumbar degenerative disc disease M51.36
[2024-03-31 10:16] VITALS: BP 113/71; PULSE 67; O2SAT 94; BMI 18.9
== END 2024-03-31 10:50 | disposition home or self-care (01) ==
PROVIDERS: PCP Physician Assistant; Visit Provider Registered Nurse Emergency
DX: G89.4 Chronic pain syndrome (principal); M54.50 Low back pain, unspecified; M54.6 Pain in thoracic spine; Z79.891 Long term (current) use of opiate analgesic; M89.8X1 Other specified disorders of bone, shoulder; M96.1 Postlaminectomy syndrome, not elsewhere classified; M16.0 Bilateral primary osteoarthritis of hip; M46.1 Sacroiliitis, not elsewhere classified; M51.36 Other intervertebral disc degeneration, lumbar region
CPT/HCPCS: 99214

== ENCOUNTER 2024-04-28 10:12 | Outpatient (AMB) | payer MEDICARE, SELFPAY ==
--- NOTE | 2024-04-28 10:17 | MHC.OFFVIS ---
Vital Signs 04/28/24 10:25 Height 5 ft 7 in Weight 121 lb BMI 18.9 BP 134/59 L Blood Pressure Location Rt brachial Position Sitting Pulse 65 Pulse Source Pulse Oximeter Pulse Oximetry (%) 97 Oxygen Delivery Method Room Air Intake Visit Reasons: PILL COUNT Intake Note: Dot comes in today for a pill count to oxycodone-acetaminophen, patient should have 63 tablets and presents with 64 tablets which she last took today 04/28/24 at 6am. Pain today 01/20 Loans Officer Required: No Accompanied by: Self / Same As Patient Allergies No Known Allergies Allergy (Verified 04/28/24 10:24) HPI Comments Details: Patient presents today for a pill count. Patient is supposed to have #63 pills in her possession and has #64 pills. Patient reports mild analgesia for 3-4 hours after taking medication with no noted sided effects with current dose of oxycodone-acetaminophen 7.5-325 mg TID prn except occasional constipation for which she does bowel regime, including increasing fluids, fiber intake, Miralax prn. She is suffering from chronic pain syndrome and postlaminectomy syndrome. We have previously discussed adding long-acting opioid to provide her better pain management. Patient previously tried fentanyl patch and Belbuca films alone without significant pain coverage. She is interested to add Butrans patch at a low dose to her current opioid regimen. Denies any fever, chills, weight changes, sedation, abdominal pain, constipation, nausea, dizziness or urinary retention. Patient reports increased low back pain with prolonged walking or ADLs. Past procedures: 10/13/23: Percutaneous Spinal Cord Stimulator Trial, Lumbar: 0% relief. 05/21/23: T12 Kyphoplasty-50% pain relief 03/17/23: Sacroiliac Joint Injection, Bilateral: 50-60% relief. [facility] Medical History Back pain of thoracolumbar region T12 compression fracture Osteopenia Screening for hypercholesterolemia Screening for diabetes mellitus (DM) Breast cancer screening Bilateral hip pain Personal history of nicotine dependence Muscle strain Bronchitis COPD exacerbation Pseudogout of left knee Change in bowel habit Abdominal bloating Exocrine pancreatic insufficiency COPD (chronic obstructive pulmonary disease) Lumbar post-laminectomy syndrome Acute adjustment disorder with anxiety Restless leg syndrome Surgical History History of kyphoplasty History of lumbar laminectomy (~2012) History of vein stripping (~2003) History of femoral hernia repair (~2002) History of lumbar fusion (~2013) Status post phlebectomy (~2008) Social History Housing: House Alcohol intake: current Alcohol intake frequency: does not drink Patient Tobacco Use Status: Current everyday Tobacco user Tobacco use type: Cigarette Cigarette Packs Per Day: 0.5 Cigarettes Per Day: 10.0 e-Cigarette/Vaping Use: Never Used Second Hand Smoke Exposure: No service: No Current occupational status: retired Current occupation: [employer] Cognitive needs: No Hearing needs: No Vision needs: Yes (contacts/glasses) Review of Systems Const All systems reviewed & are unremarkable except as noted in HPI and below ENT Reports Normal hearing present Neuro Reports Normal hearing present Physical Exam Vital Signs: Last Vital Signs Pulse 65 04/28/24 10:25 BP 134/59 L 04/28/24 10:25 Pulse Ox 97 04/28/24 10:25 Oxygen Delivery Method Room Air 04/28/24 10:25 BMI result Body Mass Index 18.9 General: Appears afebrile. Mild-moderate distress due to pain. Alert and oriented. Mood and affect appropriate. Follows and participates in conversation appropriately. Respiratory effort is unlabored. No cough. No MARSHALL. Able to transition from sit to stand unassisted. Ambulates with bilaterally normal heel strike and toe off. Back/Spine/Pelvis Cervical Spine: cervical ROM normal and No Cervical spine tenderness Thoracic/Lumbar Spine: thoracic and lumbar spine normal to inspection, Thoracic/lumbar spine scar(s), Lasegue's sign negative, straight leg raise negative bilaterally, pain with thoraco-lumbar ROM, paraspinal muscle tenderness on the right in the mid thoracic, thoraco-lumbar ROM limited, thoracic spinal tenderness (mid thoracic to the right shoulder blade) and lumbar spinal tenderness (L3-S1) Pelvis: buttock tenderness (Lateral) bilaterally Sacroiliac joints: on the right tender to palpation and on the left nontender Neuro Cranial nerves: Yes Normal hearing present Psych Appearance: grossly normal and well kempt Mental Status: mental status grossly normal Speech and movement: Normal speech and movement present and Clear speech present Affect: normal affect Attitude: cooperative Thought process: Normal thought process present Thought content: Normal thought content present, suicidality (none), no hallucinations and No Depressive thoughts present Insight: Good insight present (Psych) Judgement: Good judgement present (Psych) Results Reviewed Results Reviewed: XR THORACIC SPINE 03/03/24 CLINICAL INFORMATION: Lower back pain. FINDINGS: There is bony demineralization. There is a mild lower thoracic dextroscoliosis. There is mild anterior disc space narrowing at T8-T9 and T9-T10. There is mild leftward disc space narrowing at T10-T11. There is rightward disc space narrowing at L2-L3 and L3-L4. No acute fracture or spondylolisthesis is seen. There has been a prior L1 vertebroplasty. There is multi-level mild thoracic endplate arthropathy. The posterior elements are intact. The paravertebral soft tissues are unremarkable IMPRESSION: 1. There is mild degenerative disc disease at T8-T9 through T10-T11, and moderate disc space narrowing is seen at L2-L3 and L3-L4. 2. There is a mild lower thoracic dextroscoliosis. 3. There has been a prior L1 vertebroplasty. MR LUMBAR SPINE WITHOUT AND WITH CONTRAST 05/11/23 CLINICAL INFORMATION: Post laminectomy syndrome. History of compression fracture. Pain. COMPARISON: MRI dated 10/13/2013. Nuclear bone scan report from 05/06/2023. CT dated 04/19/2023. TECHNIQUE: Multiplanar, multisequence imaging was obtained. Intravenous contrast: Gadavist 6 mL. FINDINGS: VERTEBRAL BODIES AND PARASPINAL STRUCTURES: There is a moderate leftward curvature of the lumbar spine centered at the L2 level. Significant right lateral endplate edematous changes are visible at the L1-L2 level at the apex of the spinal curvature. There is a mild superior endplate compression fracture with a 40% loss of vertebral body height at the T12 level, slightly increased compared to the prior CT study. Marrow edema is present throughout the vertebral body extending into the pedicles. Mild amount of paraspinal soft tissue edema also evident at this level. Minimal osseous retropulsion noted. No additional compression fractures are seen. Advanced degenerative endplate changes and loss of disc height noted at the L2-L3 level with a slight retrosubluxation and bulky endplate spurring. There is a mild anterolisthesis and moderate disc space narrowing at the L3-L4 level with mild posterior endplate edema. The patient is status post posterior lumbar instrumented fusion at the L4-L5 level where there is a mild anterolisthesis. Severe degenerative endplate changes with mixed chronic and edematous endplate changes noted at the L5-S1 level. There are [id number] degenerative changes in the left sacroiliac joint. CONUS MEDULLARIS AND CAUDA EQUINA: The distal cord, conus tip, and cauda equina nerve roots appear normal. No pathologic intradural enhancement is visible on postcontrast imaging. SPINAL LEVELS: L1-L2: Minimal anterolisthesis and broad-based posterior disc bulge with [id number] facet arthropathy results in mild central canal stenosis. Bulging disc impresses upon the right L2 nerve root in the subarticular zone. [id number] foraminal narrowing. Significant endplate edematous changes on the right side. L2-L3: Retrosubluxation and moderate loss of disc height with a diffuse disc bulge and hypertrophic facet arthropathy. No central canal stenosis. Moderate right foraminal narrowing. L3-L4: Mild anterolisthesis and diffuse disc bulge with moderate to severe facet arthropathy results in mild central canal stenosis. Mild left foraminal narrowing evident. L4-L5: Anterolisthesis and post laminectomy changes with hardware instrumentation. No central canal stenosis. Mild left foraminal narrowing. L5-S1: Severe loss of disc height with a retrosubluxation noted. Mixed chronic and edematous endplate changes. Broad-based disc bulge and superimposed central disc protrusion impress upon the ventral thecal sac with mild mass effect upon the S1 nerve roots. Hypertrophic facet arthropathy without central canal stenosis. Moderate to severe foraminal narrowing with compression of the exiting left L5 nerve root due to ossific spurring. IMPRESSION: 1. Subacute mild superior endplate compression fracture deformity at the T12 level with significant marrow edema throughout the vertebral body and mild paraspinal soft tissue edema. Minimal osseous retropulsion. 2. Moderate leftward lumbar spinal curvature with moderate multilevel spondylosis and postsurgical changes at the L4-L5 level, status post posterior lumbar instrumented fusion. 3. Mild central canal stenosis at the L1-L2 level with bulging disc impressing upon the right L2 nerve root. 4. Moderate right foraminal narrowing at the L2-L3 level. Mild central canal stenosis at the L3-L4 level with a mild anterolisthesis and moderate to severe facet arthropathy. 5. Severe degenerative disc disease at the L5-S1 level with mixed chronic and edematous endplate changes. Broad-based central disc protrusion with mild mass effect upon the S1 nerve roots. Moderate to severe foraminal narrowing, more so on the left side with compression of the left L5 nerve root. ADDENDUM As stated in the report, the degree of osseous retropulsion across the superior endplate of T12 is minimal, measuring 2 mm, without cord compression or central canal stenosis. If this is thought to be a pain generator for the patient, recommend follow-up neurosurgical or interventional radiology consultation to guide further management for potential vertebral body augmentation. KAJAL ANDERSON MD Assessment & Plan Assessment & Plan (1) Back pain of thoracolumbar region: Code(s): M54.50 - Low back pain, unspecified; M54.6 - Pain in thoracic spine Category: Medical (2) Chronic pain syndrome: Code(s): G89.4 - Chronic pain syndrome Category: Medical (3) Lumbar degenerative disc disease: Code(s): M51.36 - Other intervertebral disc degeneration, lumbar region Category: Medical (4) Lumbar post-laminectomy syndrome: Code(s): M96.1 - Postlaminectomy syndrome, not elsewhere classified Category: Medical (5) Osteoarthritis, hip, bilateral: Code(s): M16.0 - Bilateral primary osteoarthritis of hip Category: Medical (6) Sacroiliitis: Code(s): M46.1 - Sacroiliitis, not elsewhere classified Category: Medical (7) Chronic, continuous use of opioids: Code(s): F11.90 - Opioid use, unspecified, uncomplicated Category: Medical Plan Patient has shown accountability for her medication regimen and the pill count was accurate. The patient reported no noted side effects and adequate analgesia on current medication regime. There is no evidence of misuse, abuse or diversion at this time. [employer] reviewed. Script sent for oxycodone 7.5-325 mg TID prn with advanced date of 05/18/24. Patient will also start on a long-acting opioid, Butrans patch at 5 mcg/hr Q7D. Side effects and precautions were discussed with patient. Patient has Narcan at home. All questions were answered and patient is in agreement of plan. Follow up in 4 weeks for a pill count and sooner if needed. Medications: New buprenorphine 5 mcg/hour (Butrans) 1 patch transdermal Q7D 28 days 4 ea 0RF pain G89.4 - Chronic pain syndrome, M51.36 - Other intervertebral disc degeneration, lumbar region, M54.50 - Low back pain, unspecified, M54.6 - Pain in thoracic spine Refilled oxycodone-acetaminophen 7.5-325 mg Partial Fill upon patient request. 1 tab PO TID 30 days PRN 90 tabs 0RF pain F11.90 - Opioid use, unspecified, uncomplicated, M25.551 - Pain in right hip, M25.552 - Pain in left hip, M46.1 - Sacroiliitis, not elsewhere classified, M96.1 - Postlaminectomy syndrome, not elsewhere classified Coding Level of Care Code Est Pt Level 4 (08642) Diagnoses Back pain of thoracolumbar region M54.50; M54.6 Chronic pain syndrome G89.4 Lumbar degenerative disc disease M51.36 Lumbar post-laminectomy syndrome M96.1 Osteoarthritis, hip, bilateral M16.0 Sacroiliitis M46.1 Chronic, continuous use of opioids F11.90
[2024-04-28 10:25] VITALS: BP 134/59; PULSE 65; O2SAT 97; BMI 18.9
== END 2024-04-28 10:43 | disposition home or self-care (01) ==
PROVIDERS: PCP Physician Assistant; Visit Provider Nurse Practitioner Family
DX: G89.4 Chronic pain syndrome (principal); M54.50 Low back pain, unspecified; M51.36 Other intervertebral disc degeneration, lumbar region; Z79.891 Long term (current) use of opiate analgesic; M96.1 Postlaminectomy syndrome, not elsewhere classified; M16.0 Bilateral primary osteoarthritis of hip; M46.1 Sacroiliitis, not elsewhere classified
CPT/HCPCS: 99214

== ENCOUNTER → 2024-04-28 10:12 | Outpatient (BNVA) | payer MEDICARE, SELFPAY | PROVIDERS: PCP Physician Assistant; Visit Provider Nurse Practitioner Family | DX: G89.4 Chronic pain syndrome (principal); M51.36 Other intervertebral disc degeneration, lumbar region; M96.1 Postlaminectomy syndrome, not elsewhere classified; M16.0 Bilateral primary osteoarthritis of hip; M46.1 Sacroiliitis, not elsewhere classified; F11.90 Opioid use, unspecified, uncomplicated; Z51.81 Encounter for therapeutic drug level monitoring | CPT/HCPCS: 99212 ==

== ENCOUNTER 2024-05-17 15:57 | Outpatient (AMB) | payer MEDICARE, SELFPAY ==
--- NOTE | 2024-05-17 15:53 | A.OFFPC_ITS ---
Vital Signs 05/17/24 15:58 Height 5 ft 7 in Weight 121 lb BMI 18.9 BP 90/58 L Blood Pressure Location Lt brachial Position Sitting Pulse 110 H Pulse Source Pulse Oximeter Pulse Oximetry (%) 99 Oxygen Delivery Method Room Air Intake Visit Reasons: PE Intake Note: Patient is here today for a physical. Garde Manger Required: No Accompanied by: Self / Same As Patient Allergies No Known Allergies Allergy (Verified 05/17/24 16:19) Medication List - Last Reconciled 05/17/24 by Brannon Rider PA-C Advair Diskus 500-50 mcg/dose (fluticasone propion-salmeterol) 1 ea PO BID NS albuterol sulfate 90 mcg/actuation (ProAir HFA) 2 puffs inhalation Q4-6H PRN 30 days back brace As directed buprenorphine 5 mcg/hour (Butrans) 1 patch transdermal Q7D 28 days cefpodoxime 200 mg PO BID fluticasone propion-salmeterol 250-50 mcg/dose (Advair Diskus) 1 inh inhalation BID 30 days naloxegol (Movantik) 12.5 mg PO DAILY naloxone 4 mg/actuation (Narcan) 4 mg intranasal Q2M 1 day nicotine 1 patch transdermal DAILY 28 days oxycodone-acetaminophen 7.5-325 mg 1 tab PO TID PRN 30 days polyethylene glycol 3350 (Miralax) 17 grams PO DAILY PRN ropinirole 1 mg PO TID trazodone 50 mg PO BEDTIME 90 days Tobacco use date assessed: 05/17/24 Fall risk assessment: No Falls in past year Last assessed Fall Risk: 05/17/24 Dental Screening Dental Screen Date: 05/27/23 HPI PE HPI Details Patient is a 74-y ear-old female her e today for routin e annual physical .? Patient has a p ast medical histor y significant for tobacco dependency , sacroiliitis chr onic low back pain , COPD, insomnia. .. COPD: Followed pulmonology, cont inues to smoke and does understand s he needs to quit. OF NOTE SHE DOES REPORT CUTTING DO WN HER SMOKING JENI TE A BIT. She taylor s get annual basi s with CT scans of chest for lung ca ncer screening .. Chronic lower lum bar spine pain:? F ollowed by holger saxena and does take hydrocodone 7 mg daily p.r.n. f or pain. Has had recent increased p ain in her mid blanca k. X-rays and CT showing new mild T 12 compression fra cture. .. Osteopen ia--> patient's mo st recent bone den sity in 2021 showi oscar osteopenia, of note has had compr ession fractures i n her spine, she i s due for new bone density screening Vaccines: Up-to -date with COVID v accine, Need PCV- 20, and tetanus v accine. Consideri ng shingles vaccin e Colon cancer sc reening: declines colonoscopy. Has done Cologaurd ?- negative Mammo gram: Done Novembe r of 2022 Laboratory Tests 04/18/21 04/30/21 06/20/21 08:45 15:14 13:27 RBC 4.66 Hgb 14.4 Sodium 133 L Creatinine Hemoglobin A1c % Cholesterol Amylase 45 Lipase 21 TSH 10/14/21 04/08/22 04/08/22 11:54 08:03 08:03 RBC Hgb Sodium Creatinine 0.81 0.83 Hemoglobin A1c % 5.3 Cholesterol 197 Amylase Lipase TSH 1.51 [facility] Medical History (Updated 05/18/24 @ 07:40 by Brannon Rider PA-C) Chronic sinusitis Back pain of thoracolumbar region T12 compression fracture Osteopenia Screening for hypercholesterolemia Breast cancer screening Bilateral hip pain Personal history of nicotine dependence Muscle strain COPD exacerbation Pseudogout of left knee Change in bowel habit Abdominal bloating Exocrine pancreatic insufficiency COPD (chronic obstructive pulmonary disease) Lumbar post-laminectomy syndrome Acute adjustment disorder with anxiety Restless leg syndrome Surgical History History of kyphoplasty History of lumbar laminectomy (~2012) History of vein stripping (~2003) History of femoral hernia repair (~2002) History of lumbar fusion (~2013) Status post phlebectomy (~2008) Social History Housing: House Alcohol intake: current Alcohol intake frequency: does not drink Patient Tobacco Use Status: Current everyday Tobacco user Tobacco use type: Cigarette Cigarette Packs Per Day: 0.5 Cigarettes Per Day: 10.0 e-Cigarette/Vaping Use: Never Used Second Hand Smoke Exposure: No service: No Current occupational status: retired Current occupation: [employer] Cognitive needs: No Hearing needs: No Vision needs: Yes (contacts/glasses) Questionnaire Thrive Questionnaire Date Thrive assessed: 09/15/23 DC-7 AMB Questionnaire DC-7 Date DC - 7 assessed: 09/15/23 Source: Developed by Drs. Chong Posada, Hayley Bell, Mono Gillespie and colleagues, with an educational wesley from [employer]. Review of Systems Const Denies body aches, Denies chills, Denies excessive sweating, Denies fatigue, Denies fever(s) and Denies headache(s) Eyes Denies blurry vision ENT Denies dysphagia, Denies vertigo, Denies dizziness, Denies headache(s), Denies hearing loss and Denies tinnitus Card Denies chest pain, Denies chest pain with activity, Denies syncope, Denies irregular heart rhythm and Denies dyspnea Resp Denies chest congestion, Denies cough, Denies hemoptysis, Denies dyspnea and Denies wheezing GI Denies abdominal pain, Denies melena, Denies hematochezia, Denies coffee ground emesis, Denies dysphagia, Denies diarrhea, Denies nausea and Denies vomiting Denies urinary frequency, Denies dysuria, Denies urinary hesitancy and Denies urinary urgency Musc Denies arthralgias, Denies limited range of motion, Denies muscle cramps and Denies muscle weakness Skin/Breast Denies rash and Denies skin ulcer Neuro Denies Abnormal speech present, Denies confusion, Denies vertigo, Denies dizziness, Denies syncope, Denies headache(s), Denies memory loss and Denies seizure-like activity Psych Denies anxiety, Denies confusion, Denies depression, Denies memory loss, Denies panic attacks and Denies paranoia Endo Denies excessive sweating, Denies fatigue, Denies flushing, Denies polydipsia and Denies polyuria Aller/Immun Denies wheezing Physical exam (Primary Care) Vital Signs: Last Vital Signs Pulse 110 H 05/17/24 15:58 BP 90/58 L 05/17/24 15:58 Pulse Ox 99 05/17/24 15:58 Oxygen Delivery Method Room Air 05/17/24 15:58 BMI result Body Mass Index 18.9 Tobacco/Smoking Status: Tobacco use Status Tobacco use date assessed 05/17/24 05/17/24 16:03 Patient Tobacco Use Status Current everyday Tobacco 05/17/24 15:53 Tobacco use type Cigarette 05/17/24 15:53 e-Cigarette/Vaping Use Never Used 05/17/24 15:53 Are you ready to quit: No Tobacco cessation counseling provided: Yes Items discussed: Nicotine replacement and QuitWorks Relapse Prevention: discussed the importance of a supportive environment, discussed negative mood or depression after quitting, weight gain after smoking is common and discussed dietary, exercise and/or lifestyle changes Number of minutes spent counselin CPT code: 14496 - 4-10 Minutes Thrive Assessment: Date of Thrive Assessment Date Thrive assessed 09/15/23 05/17/24 15:53 Const General: cooperative, comfortable, no acute distress, alert and awake; No confusion Orientation/consciousness: oriented to person, oriented to place, patient orien gumaro x3 and No confusion HENMT Head: Yes normocephalic Ears: external ears normal and TM's normal bilaterally Face and sinus: No sinus tenderness Mouth: Normal oral and palatal mucosa present and tongue normal Teeth and gingiva: dentition normal and gingiva normal Throat: Yes posterior oropharynx normal, Yes tonsils normal and Yes uvula midline Eyes Conjunctivae: conjunctivae normal Sclerae: sclerae normal Pupils: Equal, round and reactive pupils present EOM: EOMs intact bilaterally Direct Ophthalmoscopy: No no photophobia Neck Neck: Yes no lymphadenopathy, No tender and Yes no JVD Thyroid: Thyroid normal Carotids: no bruits Chest Chest palpation & inspection: no tenderness Resp Effort & Inspection: normal respiratory effort, no audible wheezes, not labored and no stridor Auscultation: no crackles, no rales, no rhonchi and no wheezes Cardio Jugular venous distension: no JVD Rate: regular rate, not bradycardic and not tachycardic Rhythm: regular rhythm Bruits: no carotid bruits Peripheral pulses: Peripheral pulses 2+ throughout GI Inspection: Yes normal to inspection, No abdominal wall ecchymosis and No visible herniation Palpation (GI): Soft to palpation, nontender, no guarding, not rigid and No hepatosplenomegaly present Auscultation: normoactive bowel sounds General: Yes no CVA tenderness Back/Spine/Pelvis Back: no CVA tenderness and No back tenderness Cervical Spine: cervical ROM normal Thoracic/Lumbar Spine: thoracic and lumbar spine normal to inspection, straight leg raise negative bilaterally, No thoraco-lumbar ROM limited and No lumbar spinal tenderness Skin Lesions: no lesions Rashes: no rashes Wounds: no wounds Neuro General: oriented to person, oriented to place, patient oriented x3, CN's II-XI intact bilaterally and No confusion Cranial nerves: Yes Equal, round and reactive pupils present and Yes Normal accommodation reflex present Cognition (Neuro): normal cognition Speech: No Abnormal speech present Gait exam (Neuro): Normal gait present Motor exam (neuro): 5/5 motor strength present throughout Extrem Right upper extremity: full ROM; no cyanosis Left upper extremity: full ROM; no cyanosis Right lower extremity: no edema Left lower extremity: no edema Psych Appearance: grossly normal Mental Status: mental status grossly normal Affect: normal affect Attitude: cooperative Thought process: Normal thought process present Immunizations pneumoc 20-eleazar conj-dip cr(PF) 0.5 mL IM syringe Performing Provider: Brannon Rider PA-C Performing Location: [facility] Administered by: ADDISON Reilly on 05/17/24 16:30 Dose Route Admin Location Dispensed Lot Number Expiration Date NDC Global Manager 0.5 mL IM Left Deltoid 0.5 mL [id number] 05/14/25 7775-1523-13 [employer] VIS Given Date VIS Provided VIS Publication Date 05/17/24 Single Vaccine 21 Eligibility Eligibility Date Funding Source Not [facility] Eligible 05/17/24 Private Assessment and Plan Assessment & Plan (1) Annual physical exam: Code(s): Z00.00 - Encounter for general adult medical examination without abnormal findings (2) Osteopenia: Comment: (Osteoporosis T score -2.9 lumbar in 2015 - Osteopenia T score -2.1 lumbar in 2019, Osteopenia T score -2.0 lumbar in 2021) Code(s): M85.80 - Other specified disorders of bone density and structure, unspecified site Qualifiers: Laterality: right Osteopenia location: femoral neck Qualified Code(s): M85.851 - Other specified disorders of bone density and structure, right thigh Plan: As per HPI patient is due for repeat bone density to evaluate for any worsening bone density issues. (3) COPD (chronic obstructive pulmonary disease): Comment: PATIENT DOES HAVE CHRONIC OBSTRUCTIVE PULMONARY DISEASE WHICH IS SECONDARY TO HER ONGOING SMOKING. THE SYMPTOMS GET EXACERBATED BECAUSE OF HER CONTINUED SMOKING AND INTERMITTENT LOW-GRADE RESPIRATORY INFECTIONS. Code(s): J44.9 - Chronic obstructive pulmonary disease, unspecified Qualifiers: COPD type: chronic bronchitis Chronic bronchitis type: simple Qualified Code(s): J41.0 - Simple chronic bronchitis Plan: Patient is follow-up pulmonology. Unfortunately continues to smoke and understand she needs to completely quit. Her COPD is fairly well maintained with maintenance inhaler and p.r.n. use of albuterol inhaler. (4) Tobacco dependence: Code(s): F17.200 - Nicotine dependence, unspecified, uncomplicated Plan: Patient does understand she needs to completely quit smoking. She has a hard time doing so. Does have nicotine patches available to her. She will reconsider Chantix in the future (5) PVD (peripheral vascular disease): Code(s): I73.9 - Peripheral vascular disease, unspecified Plan: Patient has a history of vein surgeries in the past which have been somewhat effective though still has notable varicosities in her lower extremities. She also does have a family history of varicose veins. (6) Lumbar degenerative disc disease: Code(s): M51.36 - Other intervertebral disc degeneration, lumbar region Plan: Patient followed by pain management for chronic lower lumbar spine pain. Of note does have post laminectomy syndrome. Continues with the use of oxycodone 7.5 mg t.i.d. p.r.n. Orders: Orders Pneumococcal 20 Immunization 05/17/24 Z23 - Encounter for immunization XR DEXA axial skeleton 05/17/24 M85.851 - Other specified disorders of bone density and structure, right thigh, Z78.0 - Asymptomatic menopausal state Medications: Refilled trazodone 50 mg PO BEDTIME 90 tabs 2RF 90 days G47.00 - Insomnia, unspecified Discontinued cefpodoxime must administer with a meal/food Discontinued Reason: Duplicate 200 mg PO BID 14 tabs 0RF Coding Level of Care Code Est Pt Prev Care >65y(72519) Diagnoses Annual physical exam Z00.00 Osteopenia of neck of right femur M85.851 Laterality: right Osteopenia location: femoral neck Simple chronic bronchitis J41.0 COPD type: chronic bronchitis Chronic bronchitis type: simple Tobacco dependence F17.200 PVD (peripheral vascular disease) I73.9 Lumbar degenerative disc disease M51.36 Additional Codes Vital Signs *Quality* - CPT code: 85687 - 4-10 Minutes ([id number])
[2024-05-17 15:58] VITALS: BP 90/58; PULSE 110; O2SAT 99; BMI 18.9
== END 2024-05-17 16:42 | disposition home or self-care (01) ==
LOC: HO.HMGH 15:57
PROVIDERS: PCP Physician Assistant; Visit Provider Physician Assistant
DX: Z23 Encounter for immunization (principal)
CPT/HCPCS: 90471; 90677; 99397

== ENCOUNTER 2024-05-26 10:44 | Outpatient (AMB) | payer MEDICARE, SELFPAY ==
--- NOTE | 2024-05-26 10:45 | A.OFFVIS_ITS ---
Vital Signs 05/26/24 10:58 05/26/24 10:58 Height 5 ft 7 in Weight 120 lb 4 oz BMI 18.8 BP 181/127 H 98/57 L Blood Pressure Location Rt brachial Lt brachial Position Sitting Sitting Pulse 98 71 Pulse Source Pulse Oximeter Pulse Oximeter Pulse Oximetry (%) 96 Oxygen Delivery Method Room Air Intake Visit Reasons: Pill Count Intake Note: Dot comes in today for a patch count to buprenorphine, and a pill count to oxycodone-acetaminophen. Patient should have 0 patches and presents with 0 patches and 1 currently on which was last placed on 05/20/24, oxycodone- acetaminophen should have 66 tablets and presents with 72 tablets which she last took today 05/26/24 at 6:30am. Pain today 12/21 Allergies No Known Allergies Allergy (Verified 05/26/24 10:59) HPI Comments Details: Patient presents today for a pill count. Patient is supposed to have #66 pills and #0 patches in her possession and has #72 pills and #0 patches. Patient reports no significant pain improvement since adding Butrans patchs. She reports she can no longer continues due to its low benefit and high out of pocket costs. She denies no noted sided effects with current dose of oxycodone- acetaminophen 7.5-325 mg TID prn except occasional constipation for which she does bowel regime, including increasing fluids, fiber intake or stool softener. She is suffering from chronic pain syndrome and postlaminectomy syndrome. We have previously discussed adding long-acting opioid to provide her better pain management. Patient previously tried fentanyl patch and Belbuca films alone without significant pain coverage. Denies any fever, chills, weight changes, sedation, abdominal pain, constipation, nausea, dizziness or urinary retention. Patient reports increased low back pain with prolonged walking or ADLs. Past procedures: 10/13/23: Percutaneous Spinal Cord Stimulator Trial, Lumbar: 0% relief. 05/21/23: T12 Kyphoplasty-50% pain relief 03/17/23: Sacroiliac Joint Injection, Bilateral: 50-60% relief. [facility] Medical History Chronic sinusitis Back pain of thoracolumbar region T12 compression fracture Osteopenia Screening for hypercholesterolemia Breast cancer screening Bilateral hip pain Personal history of nicotine dependence Muscle strain COPD exacerbation Pseudogout of left knee Change in bowel habit Abdominal bloating Exocrine pancreatic insufficiency COPD (chronic obstructive pulmonary disease) Lumbar post-laminectomy syndrome Acute adjustment disorder with anxiety Restless leg syndrome Surgical History History of kyphoplasty History of lumbar laminectomy (~2012) History of vein stripping (~2003) History of femoral hernia repair (~2002) History of lumbar fusion (~2013) Status post phlebectomy (~2008) Social History Housing: House Alcohol intake: current Alcohol intake frequency: does not drink Patient Tobacco Use Status: Current everyday Tobacco user Tobacco use type: Cigarette Cigarette Packs Per Day: 0.5 Cigarettes Per Day: 10.0 e-Cigarette/Vaping Use: Never Used Second Hand Smoke Exposure: No service: No Current occupational status: retired Current occupation: [employer] Cognitive needs: No Hearing needs: No Vision needs: Yes (contacts/glasses) Review of Systems Const All systems reviewed & are unremarkable except as noted in HPI and below ENT Reports Normal hearing present Neuro Reports Normal hearing present Physical Exam Vital Signs: Last Vital Signs Pulse 71 05/26/24 10:58 BP 98/57 L 05/26/24 10:58 Pulse Ox 96 05/26/24 10:58 Oxygen Delivery Method Room Air 05/26/24 10:58 BMI result Body Mass Index 18.8 General: Appears afebrile. Mild-moderate distress due to pain. Alert and oriented. Mood and affect appropriate. Follows and participates in conversation appropriately. Respiratory effort is unlabored. No cough. No MARSHALL. Able to transition from sit to stand unassisted. Ambulates with bilaterally normal heel strike and toe off. Back/Spine/Pelvis Cervical Spine: cervical ROM normal, cervical muscular tenderness and No Cervical spine tenderness Thoracic/Lumbar Spine: thoracic and lumbar spine normal to inspection, Thoracic/lumbar spine scar(s), Lasegue's sign negative, straight leg raise negative bilaterally, pain with thoraco-lumbar ROM, paraspinal muscle tenderness on the right in the mid thoracic, thoraco-lumbar ROM limited, No thoracic spinal tenderness and lumbar spinal tenderness (L3-S1) Pelvis: buttock tenderness (Lateral) bilaterally Sacroiliac joints: on the right tender to palpation and on the left nontender Neuro Cranial nerves: Yes Normal hearing present Psych Appearance: grossly normal and well kempt Mental Status: mental status grossly normal Speech and movement: Normal speech and movement present and Clear speech present Affect: normal affect Attitude: cooperative Thought process: Normal thought process present Thought content: Normal thought content present, suicidality (none), no hallucinations and Depressive thoughts present Insight: Good insight present (Psych) Judgement: Good judgement present (Psych) Results Reviewed Results Reviewed: XR THORACIC SPINE 03/03/24 CLINICAL INFORMATION: Lower back pain. FINDINGS: There is bony demineralization. There is a mild lower thoracic dextroscoliosis. There is mild anterior disc space narrowing at T8-T9 and T9-T10. There is mild leftward disc space narrowing at T10-T11. There is rightward disc space narrowing at L2-L3 and L3-L4. No acute fracture or spondylolisthesis is seen. There has been a prior L1 vertebroplasty. There is multi-level mild thoracic endplate arthropathy. The posterior elements are intact. The paravertebral soft tissues are unremarkable IMPRESSION: 1. There is mild degenerative disc disease at T8-T9 through T10-T11, and moderate disc space narrowing is seen at L2-L3 and L3-L4. 2. There is a mild lower thoracic dextroscoliosis. 3. There has been a prior L1 vertebroplasty. MR LUMBAR SPINE WITHOUT AND WITH CONTRAST 05/11/23 CLINICAL INFORMATION: Post laminectomy syndrome. History of compression fracture. Pain. COMPARISON: MRI dated 10/13/2013. Nuclear bone scan report from 05/06/2023. CT dated 04/19/2023. TECHNIQUE: Multiplanar, multisequence imaging was obtained. Intravenous contrast: Gadavist 6 mL. FINDINGS: VERTEBRAL BODIES AND PARASPINAL STRUCTURES: There is a moderate leftward curvature of the lumbar spine centered at the L2 level. Significant right lateral endplate edematous changes are visible at the L1-L2 level at the apex of the spinal curvature. There is a mild superior endplate compression fracture with a 40% loss of vertebral body height at the T12 level, slightly increased compared to the prior CT study. Marrow edema is present throughout the vertebral body extending into the pedicles. Mild amount of paraspinal soft tissue edema also evident at this level. Minimal osseous retropulsion noted. No additional compression fractures are seen. Advanced degenerative endplate changes and loss of disc height noted at the L2-L3 level with a slight retrosubluxation and bulky endplate spurring. There is a mild anterolisthesis and moderate disc space narrowing at the L3-L4 level with mild posterior endplate edema. The patient is status post posterior lumbar instrumented fusion at the L4-L5 level where there is a mild anterolisthesis. Severe degenerative endplate changes with mixed chronic and edematous endplate changes noted at the L5-S1 level. There are [id number] degenerative changes in the left sacroiliac joint. CONUS MEDULLARIS AND CAUDA EQUINA: The distal cord, conus tip, and cauda equina nerve roots appear normal. No pathologic intradural enhancement is visible on postcontrast imaging. SPINAL LEVELS: L1-L2: Minimal anterolisthesis and broad-based posterior disc bulge with etex-sk-[id number] facet arthropathy results in mild central canal stenosis. Bulging disc impresses upon the right L2 nerve root in the subarticular zone. Uywy-fh-hsuatsma foraminal narrowing. Significant endplate edematous changes on the right side. L2-L3: Retrosubluxation and moderate loss of disc height with a diffuse disc bulge and hypertrophic facet arthropathy. No central canal stenosis. Moderate right foraminal narrowing. L3-L4: Mild anterolisthesis and diffuse disc bulge with moderate to severe facet arthropathy results in mild central canal stenosis. Mild left foraminal narrowing evident. L4-L5: Anterolisthesis and post laminectomy changes with hardware instrumentation. No central canal stenosis. Mild left foraminal narrowing. L5-S1: Severe loss of disc height with a retrosubluxation noted. Mixed chronic and edematous endplate changes. Broad-based disc bulge and superimposed central disc protrusion impress upon the ventral thecal sac with mild mass effect upon the S1 nerve roots. Hypertrophic facet arthropathy without central canal stenosis. Moderate to severe foraminal narrowing with compression of the exiting left L5 nerve root due to ossific spurring. IMPRESSION: 1. Subacute mild superior endplate compression fracture deformity at the T12 level with significant marrow edema throughout the vertebral body and mild paraspinal soft tissue edema. Minimal osseous retropulsion. 2. Moderate leftward lumbar spinal curvature with moderate multilevel spondylosis and postsurgical changes at the L4-L5 level, status post posterior lumbar instrumented fusion. 3. Mild central canal stenosis at the L1-L2 level with bulging disc impressing upon the right L2 nerve root. 4. Moderate right foraminal narrowing at the L2-L3 level. Mild central canal stenosis at the L3-L4 level with a mild anterolisthesis and moderate to severe facet arthropathy. 5. Severe degenerative disc disease at the L5-S1 level with mixed chronic and edematous endplate changes. Broad-based central disc protrusion with mild mass effect upon the S1 nerve roots. Moderate to severe foraminal narrowing, more so on the left side with compression of the left L5 nerve root. ADDENDUM As stated in the report, the degree of osseous retropulsion across the superior endplate of T12 is minimal, measuring 2 mm, without cord compression or central canal stenosis. If this is thought to be a pain generator for the patient, recommend follow-up neurosurgical or interventional radiology consultation to guide further management for potential vertebral body augmentation. KAJAL ANDESRON MD Assessment & Plan Assessment & Plan (1) Lumbar post-laminectomy syndrome: Code(s): M96.1 - Postlaminectomy syndrome, not elsewhere classified Category: Medical (2) Chronic pain syndrome: Code(s): G89.4 - Chronic pain syndrome Category: Medical (3) Lumbar degenerative disc disease: Code(s): M51.36 - Other intervertebral disc degeneration, lumbar region Category: Medical (4) Back pain of thoracolumbar region: Code(s): M54.50 - Low back pain, unspecified; M54.6 - Pain in thoracic spine Category: Medical (5) Osteoarthritis, hip, bilateral: Code(s): M16.0 - Bilateral primary osteoarthritis of hip Category: Medical (6) Sacroiliitis: Code(s): M46.1 - Sacroiliitis, not elsewhere classified Category: Medical (7) Chronic, continuous use of opioids: Code(s): F11.90 - Opioid use, unspecified, uncomplicated Category: Medical Plan Patient has shown accountability for her medication regimen and the pill count was accurate. The patient reported no noted side effects and adequate analgesia on current medication regime. There is no evidence of misuse, abuse or diversion at this time. Mass[facility] reviewed. Script sent for increased dose of oxycodone 10-325 mg TID prn with advanced date of 06/13/24. Patient will discontinue Butrans patch at 5 mcg/hr Q7D due to minimal benefit and high out of pocket copay. Patient has Narcan at home. All questions were answered and patient is in agreement of plan. Follow up in 4 weeks for a pill count and sooner if needed. Medications: Changed From oxycodone-acetaminophen 7.5-325 mg Partial Fill upon patient request. 1 tab PO TID 30 days PRN 90 tabs 0RF pain G89.4 - Chronic pain syndrome, M51.36 - Other intervertebral disc degeneration, lumbar region, M96.1 - Postlaminectomy syndrome, not elsewhere classified To oxycodone-acetaminophen 10-325 mg Partial Fill upon patient request. 1 tab PO TID 30 days PRN 90 tabs 0RF pain G89.4 - Chronic pain syndrome, M51.36 - Other intervertebral disc degeneration, lumbar region, M96.1 - Postlaminectomy syndrome, not elsewhere classified Discontinued buprenorphine 5 mcg/hour (Butrans) Discontinued Reason: Patient Completed Course 1 patch transdermal Q7D 28 days 4 ea 0RF pain G89.4 - Chronic pain syndrome, M51.36 - Other intervertebral disc degeneration, lumbar region, M54.50 - Low back pain, unspecified, M54.6 - Pain in thoracic spine Coding Level of Care Code Est Pt Level 4 (37408) Complex EM visit Add On G2211 Diagnoses Lumbar post-laminectomy syndrome M96.1 Chronic pain syndrome G89.4 Lumbar degenerative disc disease M51.36 Back pain of thoracolumbar region M54.50; M54.6 Osteoarthritis, hip, bilateral M16.0 Sacroiliitis M46.1 Chronic, continuous use of opioids F11.90
[2024-05-26 10:58] VITALS: BP 181/127; BP 98/57; PULSE 71; PULSE 98; O2SAT 96; BMI 18.8
== END 2024-05-26 11:12 | disposition home or self-care (01) ==
PROVIDERS: PCP Physician Assistant; Visit Provider Nurse Practitioner Family
DX: G89.4 Chronic pain syndrome (principal); M96.1 Postlaminectomy syndrome, not elsewhere classified; M51.36 Other intervertebral disc degeneration, lumbar region; M54.50 Low back pain, unspecified; Z79.891 Long term (current) use of opiate analgesic
CPT/HCPCS: 99214; G2211

== ENCOUNTER → 2024-05-26 10:44 | Outpatient (BNVA) | payer MEDICARE, SELFPAY | PROVIDERS: PCP Physician Assistant; Visit Provider Nurse Practitioner Family | DX: M96.1 Postlaminectomy syndrome, not elsewhere classified (principal); M51.36 Other intervertebral disc degeneration, lumbar region; M54.50 Low back pain, unspecified; M16.0 Bilateral primary osteoarthritis of hip; M46.1 Sacroiliitis, not elsewhere classified; G89.4 Chronic pain syndrome; F11.90 Opioid use, unspecified, uncomplicated; Z51.81 Encounter for therapeutic drug level monitoring | CPT/HCPCS: 99212 ==

== ENCOUNTER 2024-05-31 08:34 | Outpatient (REF) | payer MEDICARE, SELFPAY ==
[2024-05-31 09:33] LABS: Hematocrit 42.8 % (37.0-47.0); Hemoglobin 14.6 g/dl (12.0-16.0); Mean Corpuscular HGB Conc 34.1 g/dl (31.0-35.0); Mean Corpuscular Hemoglobin 31.6 pg (27.0-33.0); Mean Corpuscular Volume 92.6 fL (80.0-98.0); Mean Platelet Volume 8.8 fL (9.4-12.3); Platelet Count 215 X10*3/uL (160-400); Red Blood Count 4.62 X10*6/uL (4.20-5.50); Red Cell Distribution Width 14.1 % (11.0-16.0); White Blood Count 6.4 X10*3/uL (4.8-10.8)
[2024-05-31 10:28] LABS: Alanine Aminotransferase 17 U/L (0-31); Anion Gap 10 (12-20); Aspartate Amino Transferase 22 U/L (5-31); Bilirubin Total 0.8 mg/dL (0.0-1.0); Blood Urea Nitrogen 15 mg/dL (9-16); Calcium 9.4 mg/dL (8.4-10.2); Carbon Dioxide 27 mmol/L (22-29); Chloride 102 mmol/L (96-108); Estimated Glomerular Filt Rate > 60; Glucose Fasting 84 mg/dL (60-99); Potassium 4.3 mmol/L (3.3-5.1); Sodium 135 mmol/L (135-145)
[2024-05-31 10:29] LABS: Alkaline Phosphatase 65 U/L (39-117)
== END 2024-05-31 08:35 | disposition home or self-care (01) ==
LOC: HO.LAB 08:34
PROVIDERS: PCP Physician Assistant; Visit Provider Physician Assistant
DX: J41.0 Simple chronic bronchitis (principal); Z13.1 Encounter for screening for diabetes mellitus
CPT/HCPCS: 36415; 80053; 85027

== ENCOUNTER 2024-06-22 10:37 | Outpatient (AMB) | payer MEDICARE, SELFPAY ==
--- NOTE | 2024-06-22 10:50 | MHC.OFFVIS ---
Vital Signs 06/22/24 10:52 Height 5 ft 7 in Weight 123 lb 7.342 oz BMI 19.3 BP 112/62 Blood Pressure Location Lt brachial Position Sitting Pulse 61 Pulse Source Pulse Oximeter Pulse Oximetry (%) 98 Oxygen Delivery Method Room Air Intake Visit Reasons: Cough Intake Note: pt is here for follow up and doing well, on the nicotine patch and trying very hard to stop Assorter Required: No Allergies No Known Allergies Allergy (Verified 06/22/24 11:00) Medication List - Last Reconciled 06/22/24 by Julissa Evans MD albuterol sulfate 90 mcg/actuation (ProAir HFA) 2 puffs inhalation Q4-6H PRN 30 days back brace As directed fluticasone propion-salmeterol 250-50 mcg/dose (Advair Diskus) 1 inh inhalation BID 30 days naloxone 4 mg/actuation (Narcan) 4 mg intranasal Q2M 1 day nicotine 1 patch transdermal DAILY 28 days oxycodone-acetaminophen 10-325 mg 1 tab PO TID PRN 30 days polyethylene glycol 3350 (Miralax) 17 grams PO DAILY PRN ropinirole 1 mg PO TID trazodone 50 mg PO BEDTIME 90 days Do you need a note to return to daycare/school/sports/work: No HPI HPI Cough: Details: MOLLY is here for follow-up, pulmonary daniel doing much better because she has now cut down the cigarettes to about 5 per day. She continues to use Advair twice a day and hardly needs to use albuterol. She is applying nicotine patches which are helpful. She has restless legs syndrome and if she does not take ropinirole she starts having symptoms. So she continues to use it about twice a day. For ongoing back pain she is on oxycodone-acetaminophen tablets t.i.d. p.r.n.. [facility] [place] Medical History Chronic sinusitis Back pain of thoracolumbar region T12 compression fracture Osteopenia Screening for hypercholesterolemia Breast cancer screening Bilateral hip pain Personal history of nicotine dependence Muscle strain COPD exacerbation Pseudogout of left knee Change in bowel habit Abdominal bloating Exocrine pancreatic insufficiency COPD (chronic obstructive pulmonary disease) Lumbar post-laminectomy syndrome Acute adjustment disorder with anxiety Restless leg syndrome Surgical History History of kyphoplasty History of lumbar laminectomy (~2012) History of vein stripping (~2003) History of femoral hernia repair (~2002) History of lumbar fusion (~2013) Status post phlebectomy (~2008) Social History Housing: House Alcohol intake: current Alcohol intake frequency: does not drink Patient Tobacco Use Status: Current everyday Tobacco user Tobacco use type: Cigarette Cigarette Packs Per Day: 0.5 Cigarettes Per Day: 5 e-Cigarette/Vaping Use: Never Used Second Hand Smoke Exposure: No service: No Current occupational status: retired Current occupation: [employer] Cognitive needs: No Hearing needs: No Vision needs: Yes (contacts/glasses) Review of Systems Const All systems reviewed & are unremarkable except as noted in HPI and below Eyes Reports no additional complaints ENT Reports no additional complaints Card Denies chest pain, Denies irregular heart rhythm, Denies leg edema and Denies dyspnea Resp Reports as per HPI, Reports cough (Mild off and on), Denies dyspnea and Denies wheezing GI Denies no additional complaints Reports no additional complaints Musc Reports back pain (Chronic) Skin/Breast Reports system reviewed and no additional complaints, except as documented Psych Reports no additional complaints Endo Reports no additional complaints Aller/Immun Reports no additional complaints and Denies wheezing Physical Exam Vital Signs: Last Vital Signs Pulse 61 06/22/24 10:52 BP 112/62 06/22/24 10:52 Pulse Ox 98 06/22/24 10:52 Oxygen Delivery Method Room Air 06/22/24 10:52 BMI result Body Mass Index 19.3 Const General: comfortable, no acute distress, alert and awake Orientation/consciousness: patient oriented x3 HEENT Head: Yes normal to inspection General nose exam: No nasal polyps present and No nasal discharge present Face and sinus: Yes sinuses nontender Mouth: oropharynx normal Throat: Yes posterior oropharynx normal Eyes General: appearance normal, both eyes and all related structures Neck Neck: Yes normal visual inspection, Yes no lymphadenopathy, Yes trachea midline and Yes no JVD Thyroid: Thyroid normal Chest Chest palpation & inspection: normal inspection of the chest, normal palpation of entire chest wall and no tenderness Resp Other: Percussion note hyper-resonant, breath sounds are equal on both sides. Does not have any crepitations or wheezes on auscultation. Cardio Palpation: normal PMI Rate: regular rate Rhythm: regular rhythm Heart sounds: no gallops and no murmurs GI Palpation (GI): Soft to palpation, nontender, No hepatosplenomegaly present and no masses Auscultation: normal bowel sounds Back/Spine/Pelvis Thoracic/Lumbar Spine: thoracic and lumbar spine normal to inspection, thoraco-lumbar ROM limited and thoraco-lumbar spasm Skin General skin exam: no rashes or lesions noted Neuro General: patient oriented x3 and no focal motor deficits Cranial nerves: Yes CN's II-XII intact bilaterally Extrem General: Yes normal to inspection, Yes no clubbing, cyanosis or edema and Yes no calf tenderness Psych Appearance: grossly normal and well kempt Speech and movement: Normal speech and movement present Results Reviewed Results Reviewed: CT scan of the chest does not show any mass lymph nodes or pulmonary nodules. There is plenty of pulmonary emphysema as known from before. Assessment & Plan Assessment & Plan (1) COPD (chronic obstructive pulmonary disease): Comment: PATIENT DOES HAVE CHRONIC OBSTRUCTIVE PULMONARY DISEASE WHICH IS SECONDARY TO HER ONGOING SMOKING. THE SYMPTOMS GET EXACERBATED BECAUSE OF HER CONTINUED SMOKING AND INTERMITTENT LOW-GRADE RESPIRATORY INFECTIONS. LATELY HE SHE HAS CUT DOWN THE CIGARETTES , SHE IS DOWN TO 5 CIGARETTES A DAY AND IS TRYING HARD TO QUIT COMPLETELY. Code(s): J44.9 - Chronic obstructive pulmonary disease, unspecified Category: Medical Qualifiers: COPD type: chronic bronchitis Chronic bronchitis type: simple Qualified Code(s): J41.0 - Simple chronic bronchitis Plan: CONTINUE ADVAIR DISKUS 250-51 INHALATION B.I.D. ALBUTEROL HFA 2 PUFFS Q 4-6 HOURS P.R.N. (2) Restless leg syndrome: Comment: THIS IS A CHRONIC PROBLEM, CONTROLLED BY TAKING ROPINIROLE 0.5 MG 1 TABLET AT 18:00 AND 2 TABLETS AT BEDTIME. AND SHE WILL CONTINUE THE SAME WAY . Code(s): G25.81 - Restless legs syndrome Category: Medical Plan: CONTINUE TO TAKE ROPINIROLE AT PRESENT. SHE HAS TRIED TO GO OFF THE PILLS BUT HE STARTS HAVING LOT OF RESTLESS LEGS, AND HAS TO CONTINUE ON THIS MEDICATION. (3) Nicotine dependence, cigarettes, uncomplicated: Comment: (current smoker - onset 25, max 1ppd - currently 1/4ppd, 30+PYH). Patient is active in annual lung screening program. Currently on nicotine patch, and has been able to cut down cigarettes to 5 a day. Code(s): F17.210 - Nicotine dependence, cigarettes, uncomplicated Category: Medical Plan: Commended for cutting down the number of cigarettes. Encouraged to stop completely. (4) Pulmonary nodule: Comment: Last CT scan in June 2022, Benign category 2. Patient active in lung screening program. Her chest x-ray had shown some increase in the size of density in the right hilar area. HOWEVER HER CURRENT CT SCAN THE CHEST DOES NOT SHOW ANY GROUND-GLASS DENSITY, MASS, OR ANY SIGNIFICANT PULMONARY NODULE. Code(s): R91.1 - Solitary pulmonary nodule Category: Medical Plan: PATIENT WILL CONTINUE TO HAVE ANNUAL LUNG SCREENING WITH LDCT Coding Level of Care Code Est Pt Level 3 (44445) Diagnoses Simple chronic bronchitis J41.0 COPD type: chronic bronchitis Chronic bronchitis type: simple Restless leg syndrome G25.81 Nicotine dependence, cigarettes, uncomplicated F17.210 Pulmonary nodule R91.1
[2024-06-22 10:52] VITALS: BP 112/62; PULSE 61; O2SAT 98; BMI 19.3
== END 2024-06-22 11:10 | disposition home or self-care (01) ==
PROVIDERS: PCP Physician Assistant; Visit Provider Internal Medicine
DX: J41.0 Simple chronic bronchitis (principal); G25.81 Restless legs syndrome; F17.210 Nicotine dependence, cigarettes, uncomplicated; R91.1 Solitary pulmonary nodule
CPT/HCPCS: 99213

== ENCOUNTER → 2024-06-22 10:37 | Outpatient (BNVA) | payer MEDICARE, SELFPAY | PROVIDERS: PCP Physician Assistant; Visit Provider Internal Medicine | DX: J41.0 Simple chronic bronchitis (principal); R91.1 Solitary pulmonary nodule; G25.81 Restless legs syndrome; F17.210 Nicotine dependence, cigarettes, uncomplicated | CPT/HCPCS: 99212 ==

== ENCOUNTER 2024-06-23 10:58 | Outpatient (AMB) | payer MEDICARE, SELFPAY ==
--- NOTE | 2024-06-23 11:01 | A.OFFVIS_ITS ---
Intake Visit Reasons: Pill Count Intake Note: Dot comes in today for a pill count to oxycodone-acetaminophen, patient should have 72 tablets and presents with 78 tablets which she last took today 06/23/24 at 6:30am Foreclosure Home Inspector Required: No Accompanied by: Self / Same As Patient Allergies No Known Allergies Allergy (Verified 06/23/24 11:09) HPI Comments Details: Patient presents today for a pill count. Patient is supposed to have #72 pills and has #78 pills. This demonstrates a responsible attitude in regards to the medication regimen. Patient reports reasonable pain relief and no noted sided effects with current dose of oxycodone-acetaminophen 10-325 mg TID prn except occasional constipation for which she does bowel regime, including increasing fluids, fiber intake or stool softener. She rates pain at 4/10. Denies any fever, chills, weight changes, sedation, abdominal pain, constipation, nausea, dizziness or urinary retention. Patient reports increased low back pain with prolonged walking or ADLs. Past procedures: 10/13/23: Percutaneous Spinal Cord Stimulator Trial, Lumbar: 0% relief. 05/21/23: T12 Kyphoplasty-50% pain relief 03/17/23: Sacroiliac Joint Injection, Bilateral: 50-60% relief. [facility] Medical History Chronic sinusitis Back pain of thoracolumbar region T12 compression fracture Osteopenia Screening for hypercholesterolemia Breast cancer screening Bilateral hip pain Personal history of nicotine dependence Muscle strain COPD exacerbation Pseudogout of left knee Change in bowel habit Abdominal bloating Exocrine pancreatic insufficiency COPD (chronic obstructive pulmonary disease) Lumbar post-laminectomy syndrome Acute adjustment disorder with anxiety Restless leg syndrome Surgical History History of kyphoplasty History of lumbar laminectomy (~2012) History of vein stripping (~2003) History of femoral hernia repair (~2002) History of lumbar fusion (~2013) Status post phlebectomy (~2008) Social History Housing: House Alcohol intake: current Alcohol intake frequency: does not drink Patient Tobacco Use Status: Current everyday Tobacco user Tobacco use type: Cigarette Cigarette Packs Per Day: 0.5 Cigarettes Per Day: 5 e-Cigarette/Vaping Use: Never Used Second Hand Smoke Exposure: No service: No Current occupational status: retired Current occupation: [employer] Cognitive needs: No Hearing needs: No Vision needs: Yes (contacts/glasses) Review of Systems Const All systems reviewed & are unremarkable except as noted in HPI and below ENT Reports Normal hearing present Neuro Reports Normal hearing present Physical Exam General: Appears afebrile. No acute distress. Alert and oriented. Mood and affect appropriate. Follows and participates in conversation appropriately. Respiratory effort is unlabored. No cough. Able to transition from sit to stand unassisted. Ambulates with bilaterally normal heel strike and toe off. Back/Spine/Pelvis Cervical Spine: cervical ROM normal, cervical muscular tenderness and No Cervical spine tenderness Thoracic/Lumbar Spine: thoracic and lumbar spine normal to inspection, Tho racic/lumbar spine scar(s), Lasegue's sign negative, straight leg raise negative bilaterally, pain with thoraco-lumbar ROM, paraspinal muscle tenderness on the right in the mid thoracic, thoraco-lumbar ROM limited, No thoracic spinal tenderness and lumbar spinal tenderness (L3-S1) Pelvis: buttock tenderness (Lateral) bilaterally Sacroiliac joints: on the right tender to palpation and on the left nontender Neuro Cranial nerves: Yes Normal hearing present Extrem General: Yes capillary refill normal, Yes no clubbing, cyanosis or edema and Yes no calf tenderness Psych Appearance: grossly normal and well kempt Mental Status: mental status grossly normal Speech and movement: Normal speech and movement present and Clear speech present Affect: normal affect Attitude: cooperative Thought process: Normal thought process present Thought content: Normal thought content present, suicidality (none), no hallucinations and Depressive thoughts present Insight: Good insight present (Psych) Judgement: Good judgement present (Psych) Assessment & Plan Assessment & Plan (1) Lumbar post-laminectomy syndrome: Code(s): M96.1 - Postlaminectomy syndrome, not elsewhere classified Category: Medical (2) Chronic pain syndrome: Code(s): G89.4 - Chronic pain syndrome Category: Medical (3) Lumbar degenerative disc disease: Code(s): M51.36 - Other intervertebral disc degeneration, lumbar region Category: Medical (4) Back pain of thoracolumbar region: Code(s): M54.50 - Low back pain, unspecified; M54.6 - Pain in thoracic spine Category: Medical (5) Osteoarthritis, hip, bilateral: Code(s): M16.0 - Bilateral primary osteoarthritis of hip Category: Medical (6) Sacroiliitis: Code(s): M46.1 - Sacroiliitis, not elsewhere classified Category: Medical (7) Chronic, continuous use of opioids: Code(s): F11.90 - Opioid use, unspecified, uncomplicated Category: Medical Plan Patient has shown accountability for her medication regimen and the pill count was accurate. The patient reported no noted side effects and adequate analgesia on current medication regime. There is no evidence of misuse, abuse or diversion at this time. MassPAT reviewed. Script sent for increased dose of oxycodone 10-325 mg TID prn with advanced date of 07/18/24. Patient has Narcan at home. All questions were answered and patient is in agreement of plan. Follow up in 4- 5 weeks for a pill count and sooner if needed. Medications: Refilled oxycodone-acetaminophen 10-325 mg Partial Fill upon patient request. 1 tab PO TID 30 days PRN 90 tabs 0RF pain G89.4 - Chronic pain syndrome, M51.36 - Other intervertebral disc degeneration, lumbar region, M96.1 - Postlaminectomy syndrome, not elsewhere classified Coding Level of Care Code Est Pt Level 4 (22597) Complex EM visit Add On G2211 Diagnoses Lumbar post-laminectomy syndrome M96.1 Chronic pain syndrome G89.4 Lumbar degenerative disc disease M51.36 Back pain of thoracolumbar region M54.50; M54.6 Osteoarthritis, hip, bilateral M16.0 Sacroiliitis M46.1 Chronic, continuous use of opioids F11.90
== END 2024-06-23 11:17 | disposition home or self-care (01) ==
PROVIDERS: PCP Physician Assistant; Visit Provider Nurse Practitioner Family
DX: G89.4 Chronic pain syndrome (principal); M96.1 Postlaminectomy syndrome, not elsewhere classified; M51.369 Other intervertebral disc degeneration, lumbar region without mention of lumbar back pain or lower extremity pain; Z79.891 Long term (current) use of opiate analgesic; M54.50 Low back pain, unspecified; M54.6 Pain in thoracic spine; M16.0 Bilateral primary osteoarthritis of hip; M46.1 Sacroiliitis, not elsewhere classified
CPT/HCPCS: 99214; G2211

== ENCOUNTER → 2024-06-23 10:58 | Outpatient (BNVA) | payer MEDICARE, SELFPAY | PROVIDERS: PCP Physician Assistant; Visit Provider Nurse Practitioner Family | DX: M96.1 Postlaminectomy syndrome, not elsewhere classified (principal); G89.4 Chronic pain syndrome; M51.369 Other intervertebral disc degeneration, lumbar region without mention of lumbar back pain or lower extremity pain; M54.50 Low back pain, unspecified; M16.0 Bilateral primary osteoarthritis of hip; M46.1 Sacroiliitis, not elsewhere classified; F11.90 Opioid use, unspecified, uncomplicated; Z51.81 Encounter for therapeutic drug level monitoring | CPT/HCPCS: 99212 ==

== ENCOUNTER 2024-07-21 10:57 | Outpatient (AMB) | payer MEDICARE, SELFPAY ==
--- NOTE | 2024-07-21 11:05 | MHC.OFFVIS ---
Vital Signs 07/21/24 11:15 Height 5 ft 7 in Weight 121 lb 8 oz BMI 19.0 BP 139/61 Blood Pressure Location Rt brachial Position Sitting Pulse 63 Pulse Source Pulse Oximeter Pulse Oximetry (%) 98 Oxygen Delivery Method Room Air Intake Visit Reasons: PILL COUNT Intake Note: Dot comes in today for a pill count to oxycodone-acetaminophen, patient should have 81 tablets 84 tablets which she last took today 07/21/24 at 7am. Pain today 10 Director Business Intelligence Required: No Accompanied by: Self / Same As Patient Allergies No Known Allergies Allergy (Verified 07/21/24 11:13) HPI Comments Details: Patient presents today for a pill count. Patient is supposed to have #81 pills and has #84 pills. This demonstrates a responsible attitude in regards to the medication regimen. Patient reports reasonable pain relief and no noted sided effects with current dose of oxycodone-acetaminophen 10-325 mg TID prn except occasional constipation for which she does bowel regime, including increasing fluids, fiber intake or stool softener. She rates pain at 4/10. Denies any fever, chills, weight changes, sedation, abdominal pain, constipation, nausea, dizziness or urinary retention. Past procedures: 10/13/23: Percutaneous Spinal Cord Stimulator Trial, Lumbar: 0% relief. 05/21/23: T12 Kyphoplasty-50% pain relief 03/17/23: Sacroiliac Joint Injection, Bilateral: 50-60% relief. [facility] Medical History Chronic sinusitis Back pain of thoracolumbar region T12 compression fracture Osteopenia Screening for hypercholesterolemia Breast cancer screening Bilateral hip pain Personal history of nicotine dependence Muscle strain COPD exacerbation Pseudogout of left knee Change in bowel habit Abdominal bloating Exocrine pancreatic insufficiency COPD (chronic obstructive pulmonary disease) Lumbar post-laminectomy syndrome Acute adjustment disorder with anxiety Restless leg syndrome Surgical History History of kyphoplasty History of lumbar laminectomy (~2012) History of vein stripping (~2003) History of femoral hernia repair (~2002) History of lumbar fusion (~2013) Status post phlebectomy (~2008) Social History Housing: House Alcohol intake: current Alcohol intake frequency: does not drink Patient Tobacco Use Status: Current everyday Tobacco user Tobacco use type: Cigarette Cigarette Packs Per Day: 0.5 Cigarettes Per Day: 5 e-Cigarette/Vaping Use: Never Used Second Hand Smoke Exposure: No service: No Current occupational status: retired Current occupation: [employer] Cognitive needs: No Hearing needs: No Vision needs: Yes (contacts/glasses) Review of Systems Const All systems reviewed & are unremarkable except as noted in HPI and below ENT Reports Normal hearing present Neuro Reports Normal hearing present Physical Exam General: Appears afebrile. No acute distress. Alert and oriented. Mood and affect appropriate. Follows and participates in conversation appropriately. Respiratory effort is unlabored. No cough. Able to transition from sit to stand unassisted. Ambulates with bilaterally normal heel strike and toe off. Back/Spine/Pelvis Cervical Spine: cervical ROM normal and No Cervical spine tenderness Thoracic/Lumbar Spine: thoracic and lumbar spine normal to inspection, Thoracic/lumbar spine scar(s), pain with thoraco-lumbar ROM, thoraco-lumbar ROM limited, No thoracic spinal tenderness and lumbar spinal tenderness (L3-S1) Sacroiliac joints: on the right tender to palpation and on the left nontender Neuro Cranial nerves: Yes Normal hearing present Extrem General: Yes capillary refill normal, Yes no clubbing, cyanosis or edema and Yes no calf tenderness Psych Appearance: grossly normal and well kempt Mental Status: mental status grossly normal Speech and movement: Normal speech and movement present and Clear speech present Affect: normal affect Attitude: cooperative Thought process: Normal thought process present Thought content: Normal thought content present, suicidality (none), no hallucinations and Depressive thoughts present Insight: Good insight present (Psych) Judgement: Good judgement present (Psych) Results Reviewed Results Reviewed: XR THORACIC SPINE 03/03/24 CLINICAL INFORMATION: Lower back pain. FINDINGS: There is bony demineralization. There is a mild lower thoracic dextroscoliosis. There is mild anterior disc space narrowing at T8-T9 and T9-T10. There is mild leftward disc space narrowing at T10-T11. There is rightward disc space narrowing at L2-L3 and L3-L4. No acute fracture or spondylolisthesis is seen. There has been a prior L1 vertebroplasty. There is multi-level mild thoracic endplate arthropathy. The posterior elements are intact. The paravertebral soft tissues are unremarkable IMPRESSION: 1. There is mild degenerative disc disease at T8-T9 through T10-T11, and moderate disc space narrowing is seen at L2-L3 and L3-L4. 2. There is a mild lower thoracic dextroscoliosis. 3. There has been a prior L1 vertebroplasty. MR LUMBAR SPINE WITHOUT AND WITH CONTRAST 05/11/23 CLINICAL INFORMATION: Post laminectomy syndrome. History of compression fracture. Pain. COMPARISON: MRI dated 10/13/2013. Nuclear bone scan report from 05/06/2023. CT dated 04/19/2023. TECHNIQUE: Multiplanar, multisequence imaging was obtained. Intravenous contrast: Gadavist 6 mL. FINDINGS: VERTEBRAL BODIES AND PARASPINAL STRUCTURES: There is a moderate leftward curvature of the lumbar spine centered at the L2 level. Significant right lateral endplate edematous changes are visible at the L1-L2 level at the apex of the spinal curvature. There is a mild superior endplate compression fracture with a 40% loss of vertebral body height at the T12 level, slightly increased compared to the prior CT study. Marrow edema is present throughout the vertebral body extending into the pedicles. Mild amount of paraspinal soft tissue edema also evident at this level. Minimal osseous retropulsion noted. No additional compression fractures are seen. Advanced degenerative endplate changes and loss of disc height noted at the L2-L3 level with a slight retrosubluxation and bulky endplate spurring. There is a mild anterolisthesis and moderate disc space narrowing at the L3-L4 level with mild posterior endplate edema. The patient is status post posterior lumbar instrumented fusion at the L4-L5 level where there is a mild anterolisthesis. Severe degenerative endplate changes with mixed chronic and edematous endplate changes noted at the L5-S1 level. There are ygkl-[id number] degenerative changes in the left sacroiliac joint. CONUS MEDULLARIS AND CAUDA EQUINA: The distal cord, conus tip, and cauda equina nerve roots appear normal. No pathologic intradural enhancement is visible on postcontrast imaging. SPINAL LEVELS: L1-L2: Minimal anterolisthesis and broad-based posterior disc bulge with njgt-[id number] facet arthropathy results in mild central canal stenosis. Bulging disc impresses upon the right L2 nerve root in the subarticular zone. Sqau-qg-iivwqenq foraminal narrowing. Significant endplate edematous changes on the right side. L2-L3: Retrosubluxation and moderate loss of disc height with a diffuse disc bulge and hypertrophic facet arthropathy. No central canal stenosis. Moderate right foraminal narrowing. L3-L4: Mild anterolisthesis and diffuse disc bulge with moderate to severe facet arthropathy results in mild central canal stenosis. Mild left foraminal narrowing evident. L4-L5: Anterolisthesis and post laminectomy changes with hardware instrumentation. No central canal stenosis. Mild left foraminal narrowing. L5-S1: Severe loss of disc height with a retrosubluxation noted. Mixed chronic and edematous endplate changes. Broad-based disc bulge and superimposed central disc protrusion impress upon the ventral thecal sac with mild mass effect upon the S1 nerve roots. Hypertrophic facet arthropathy without central canal stenosis. Moderate to severe foraminal narrowing with compression of the exiting left L5 nerve root due to ossific spurring. IMPRESSION: 1. Subacute mild superior endplate compression fracture deformity at the T12 level with significant marrow edema throughout the vertebral body and mild paraspinal soft tissue edema. Minimal osseous retropulsion. 2. Moderate leftward lumbar spinal curvature with moderate multilevel spondylosis and postsurgical changes at the L4-L5 level, status post posterior lumbar instrumented fusion. 3. Mild central canal stenosis at the L1-L2 level with bulging disc impressing upon the right L2 nerve root. 4. Moderate right foraminal narrowing at the L2-L3 level. Mild central canal stenosis at the L3-L4 level with a mild anterolisthesis and moderate to severe facet arthropathy. 5. Severe degenerative disc disease at the L5-S1 level with mixed chronic and edematous endplate changes. Broad-based central disc protrusion with mild mass effect upon the S1 nerve roots. Moderate to severe foraminal narrowing, more so on the left side with compression of the left L5 nerve root. ADDENDUM As stated in the report, the degree of osseous retropulsion across the superior endplate of T12 is minimal, measuring 2 mm, without cord compression or central canal stenosis. If this is thought to be a pain generator for the patient, recommend follow-up neurosurgical or interventional radiology consultation to guide further management for potential vertebral body augmentation. KAJAL ANDERSON MD Assessment & Plan Assessment & Plan (1) Lumbar post-laminectomy syndrome: Code(s): M96.1 - Postlaminectomy syndrome, not elsewhere classified Category: Medical (2) Chronic pain syndrome: Code(s): G89.4 - Chronic pain syndrome Category: Medical (3) Lumbar degenerative disc disease: Code(s): M51.36 - Other intervertebral disc degeneration, lumbar region Category: Medical (4) Back pain of thoracolumbar region: Code(s): M54.50 - Low back pain, unspecified; M54.6 - Pain in thoracic spine Category: Medical (5) Chronic, continuous use of opioids: Code(s): F11.90 - Opioid use, unspecified, uncomplicated Category: Medical Plan Patient has shown accountability for her medication regimen and the pill count was accurate. The patient reported no noted side effects and adequate analgesia on current medication regime. There is no evidence of misuse, abuse or diversion at this time. MassPAT reviewed. Script sent for oxycodone 10-325 mg TID prn with advanced date of 08/16/24. Refill sent for Narcan. All questions were answered and patient is in agreement of plan. Follow up in 4-5 weeks for a pill count and sooner if needed. Medications: Refilled oxycodone-acetaminophen 10-325 mg Partial Fill upon patient request. 1 tab PO TID 30 days PRN 90 tabs 0RF pain G89.4 - Chronic pain syndrome, M51.36 - Other intervertebral disc degeneration, lumbar region, M96.1 - Postlaminectomy syndrome, not elsewhere classified naloxone 4 mg/actuation (Narcan) spray 1 dose into ONE nostril; alternate nostrils w each dose until help arrives 4 mg intranasal Q2M 1 day 2 ea 1RF M96.1 - Postlaminectomy syndrome, not elsewhere classified Coding Level of Care Code Est Pt Level 4 (97288) Complex EM visit Add On G2211 Diagnoses Lumbar post-laminectomy syndrome M96.1 Chronic pain syndrome G89.4 Lumbar degenerative disc disease M51.36 Back pain of thoracolumbar region M54.50; M54.6 Chronic, continuous use of opioids F11.90
[2024-07-21 11:15] VITALS: BP 139/61; PULSE 63; O2SAT 98; BMI 19.0
== END 2024-07-21 11:20 | disposition home or self-care (01) ==
PROVIDERS: PCP Physician Assistant; Visit Provider Nurse Practitioner Family
DX: G89.4 Chronic pain syndrome (principal); M96.1 Postlaminectomy syndrome, not elsewhere classified; M51.369 Other intervertebral disc degeneration, lumbar region without mention of lumbar back pain or lower extremity pain; Z79.891 Long term (current) use of opiate analgesic; M54.50 Low back pain, unspecified; M54.6 Pain in thoracic spine
CPT/HCPCS: 99214; G2211

== ENCOUNTER → 2024-07-21 10:57 | Outpatient (BNVA) | payer MEDICARE, SELFPAY | PROVIDERS: PCP Physician Assistant; Visit Provider Nurse Practitioner Family | DX: Z51.81 Encounter for therapeutic drug level monitoring (principal); M96.1 Postlaminectomy syndrome, not elsewhere classified; M51.360 Other intervertebral disc degeneration, lumbar region with discogenic back pain only; M54.50 Low back pain, unspecified; M54.6 Pain in thoracic spine; F11.20 Opioid dependence, uncomplicated; G89.4 Chronic pain syndrome | CPT/HCPCS: 99212 ==

== ENCOUNTER 2024-08-02 11:16 | Outpatient (REF) | payer MEDICARE, SELFPAY ==
--- NOTE | ~2024-08-02 | MM_ITS ---
EXAMINATION: MM SCREENING DIGITAL BREAST TOMOSYNTHESIS, BILATERAL CLINICAL INFORMATION: Screening. Asymptomatic. COMPARISON: Mammography: Comparison is made with available priors TECHNIQUE: Digital breast mammography with tomosynthesis is performed in both the craniocaudal and mediolateral oblique views along with computer-aided detection (CAD). FINDINGS: The breasts are extremely dense, which lowers the sensitivity of mammography (ACR BI-RADS breast composition Category d). There are no significant masses, abnormal calcifications, or other abnormalities. MM/MM tomosynthesis screening BI IMPRESSION: No mammographic evidence of malignancy. ASSESSMENT: BI-RADS BI-RADS 1 - Negative RECOMMENDATION: Routine annual mammography screening. 1 year F/U This examination should not preclude the clinical evaluation of a suspicious palpable abnormality. This patient's information was entered into a reminder system with a target due date for their next mammogram. Electronically signed by: Socorro Gold DO 08/09/2024 02:51 PM [facility]
--- NOTE | ~2024-08-02 | MM_ITS ---
EXAMINATION: BONE DENSITOMETRY CLINICAL INDICATION: Menopause. COMPARISON: Previous BD dated 07/28/2022 and baseline BD dated 11/17/2007. TECHNIQUE: Using a Keel[employer] DXA System (software version: 13.1) manufactured by [email or web address], dual-energy x-ray absorptiometry was performed of the lumbar spine and left hip. The images are of good technical quality. Summary results are attached. FINDINGS: LEFT FEMUR, NECK: Current: BMD 0.985 g/cm2, Z-score 1.7, T-score -0.4, normal. Prior: BMD 1.016 g/cm2. Baseline: BMD 1.120 g/cm2. LEFT FEMUR, TOTAL: Current: BMD 0.911 g/cm2, Z-score 1.2, T-score -0.8, normal, 6.2% decrease from previous, 15.2% decrease from baseline (<5% change is not significant). Prior: BMD 0.971 g/cm2. Baseline: BMD 1.074 g/cm2. AP SPINE L1-L4: Current: BMD 1.139 g/cm2, Z-score 1.8, T-score -0.3, normal, 2.3% increase from previous, 1.3% increase from baseline (<5% change is not significant). Prior: BMD 1.113 g/cm2. Baseline: BMD 1.124 g/cm2. IDENTIFIED RISK FACTORS: Menopause, low body weight, family history (parent hip fracture), height loss, history of fracture (adult), tobacco use (current smoker). HISTORY OF FRACTURE: Other. MEDICATIONS: Calcium or multivitamin. Vitamin D. MM/XR DEXA axial skeleton IMPRESSION: 1. DIAGNOSIS: Normal bone density based on the lowest T-score value of -0.8 in the total femur applying World Health Organization criteria. 2. 10-YEAR FRACTURE RISK PREDICTION, FRAX: According to the guidelines, FRAX calculation should only be performed on patients in the osteopenia bone density category. Therefore, FRAX was not performed on this patient. 3. Treatment Recommendations: NOF guidelines recommend consideration for treatment in postmenopausal women and men age 50 and older presenting with the following: -A hip or vertebral (clinical or morphometric) fracture. -T-score less than or equal to -2.5 at the femoral neck or spine after appropriate evaluation to exclude secondary causes. -Low bone mass at the hip or spine and a 10-year fracture probability by FRAX of greater than or equal to 3% for hip fracture or greater than or equal to 20% for major osteoporotic fracture based on the [place] adapted WHO algorithm. 4. Other Recommendations: All treatment decisions require clinical judgment and consideration of individual patient factors, including patient preferences, comorbidities, previous drug use, risk factors not captured in the FRAX model (e.g. frailty, falls, vitamin D deficiency, increased bone turnover, interval significant decline in bone density) and possible under or overestimation of fracture risk by FRAX. 5. Levoscoliosis. FUTURE SCAN RECOMMENDATION: People with diagnosed cases of osteoporosis or at high risk for fracture should have regular bone mineral density tests. For patients eligible for Medicare, routine testing is allowed once every 2 years. The testing frequency can be increased to one year for patients who have rapidly progressing disease, those who are receiving or discontinuing medical therapy to restore bone mass, or have additional risk factors. Electronically signed by: Mylene Clifton MD 08/04/2024 06:07 PM [facility] LAO
== END 2024-08-02 11:17 | disposition home or self-care (01) ==
LOC: HO.MAMMO 11:16
PROVIDERS: PCP Physician Assistant; Visit Provider Physician Assistant
DX: Z12.31 Encounter for screening mammogram for malignant neoplasm of breast (principal); Z13.820 Encounter for screening for osteoporosis; Z78.0 Asymptomatic menopausal state; M85.851 Other specified disorders of bone density and structure, right thigh
CPT/HCPCS: 77063; 77067; 77080

== ENCOUNTER → 2024-08-02 11:30 | Outpatient (BNV) | payer MEDICARE, SELFPAY | PROVIDERS: PCP Physician Assistant; Visit Provider Internal Medicine | DX: Z12.31 Encounter for screening mammogram for malignant neoplasm of breast (principal) | CPT/HCPCS: 77063; 77067 ==

== ENCOUNTER 2024-08-25 11:04 | Outpatient (AMB) | payer MEDICARE, SELFPAY ==
--- NOTE | 2024-08-25 11:06 | MHC.OFFVIS ---
Vital Signs 08/25/24 11:13 Height 5 ft 7 in Weight 119 lb BMI 18.6 BP 124/62 Blood Pressure Location Rt brachial Position Sitting Pulse 66 Pulse Source Pulse Oximeter Pulse Oximetry (%) 98 Oxygen Delivery Method Room Air Intake Visit Reasons: PILL COUNT Intake Note: Dot comes in today for a pill count to oxycodone-acetaminophen, patient should have 66 tablets and presents with 69 tablets which she last took today 08/25/24 at 6:30am. Pain today 11/20 Environmental Conflict Manager Required: No Allergies No Known Allergies Allergy (Verified 08/25/24 11:13) HPI Comments Details: Patient presents today for a pill count. Patient is supposed to have #66 pills and has #69 pills. This demonstrates a responsible attitude in regards to the medication regimen. Patient reports reasonable pain relief and no noted sided effects with current dose of oxycodone-acetaminophen 10-325 mg TID prn except occasional constipation for which she does bowel regime, including increasing fluids, fiber intake or stool softener. Patient rates her pain at 3/10. Denies any fever, chills, weight changes, sedation, abdominal pain, constipation, nausea, dizziness or urinary retention. Past procedures: 10/13/23: Percutaneous Spinal Cord Stimulator Trial, Lumbar: 0% relief. 05/21/23: T12 Kyphoplasty-50% pain relief 03/17/23: Sacroiliac Joint Injection, Bilateral: 50-60% relief. [facility] Medical History Chronic sinusitis Back pain of thoracolumbar region T12 compression fracture Osteopenia Screening for hypercholesterolemia Breast cancer screening Bilateral hip pain Personal history of nicotine dependence Muscle strain COPD exacerbation Pseudogout of left knee Change in bowel habit Abdominal bloating Exocrine pancreatic insufficiency COPD (chronic obstructive pulmonary disease) Lumbar post-laminectomy syndrome Acute adjustment disorder with anxiety Restless leg syndrome Surgical History History of kyphoplasty History of lumbar laminectomy (~2012) History of vein stripping (~2003) History of femoral hernia repair (~2002) History of lumbar fusion (~2013) Status post phlebectomy (~2008) Social History Housing: House Alcohol intake: current Alcohol intake frequency: does not drink Patient Tobacco Use Status: Current everyday Tobacco user Tobacco use type: Cigarette Cigarette Packs Per Day: 0.5 Cigarettes Per Day: 5 e-Cigarette/Vaping Use: Never Used Second Hand Smoke Exposure: No service: No Current occupational status: retired Current occupation: [employer] Cognitive needs: No Hearing needs: No Vision needs: Yes (contacts/glasses) Review of Systems Const All systems reviewed & are unremarkable except as noted in HPI and below Physical Exam General: Appears afebrile. No acute distress. Alert and oriented. Mood and affect appropriate. Follows and participates in conversation appropriately. Respiratory effort is unlabored. No cough. Able to transition from sit to stand unassisted. Ambulates with bilaterally normal heel strike and toe off. Extrem General: Yes capillary refill normal, Yes no clubbing, cyanosis or edema and Yes no calf tenderness Psych Appearance: grossly normal and well kempt Mental Status: mental status grossly normal Speech and movement: Normal speech and movement present and Clear speech present Affect: normal affect Attitude: cooperative Thought process: Normal thought process present Thought content: Normal thought content present, suicidality (none), no hallucinations and Depressive thoughts present Insight: Good insight present (Psych) Judgement: Good judgement present (Psych) Results Reviewed Results Reviewed: XR THORACIC SPINE 03/03/24 CLINICAL INFORMATION: Lower back pain. FINDINGS: There is bony demineralization. There is a mild lower thoracic dextroscoliosis. There is mild anterior disc space narrowing at T8-T9 and T9-T10. There is mild leftward disc space narrowing at T10-T11. There is rightward disc space narrowing at L2-L3 and L3-L4. No acute fracture or spondylolisthesis is seen. There has been a prior L1 vertebroplasty. There is multi-level mild thoracic endplate arthropathy. The posterior elements are intact. The paravertebral soft tissues are unremarkable IMPRESSION: 1. There is mild degenerative disc disease at T8-T9 through T10-T11, and moderate disc space narrowing is seen at L2-L3 and L3-L4. 2. There is a mild lower thoracic dextroscoliosis. 3. There has been a prior L1 vertebroplasty. MR LUMBAR SPINE WITHOUT AND WITH CONTRAST 05/11/23 CLINICAL INFORMATION: Post laminectomy syndrome. History of compression fracture. Pain. COMPARISON: MRI dated 10/13/2013. Nuclear bone scan report from 05/06/2023. CT dated 04/19/2023. TECHNIQUE: Multiplanar, multisequence imaging was obtained. Intravenous contrast: Gadavist 6 mL. FINDINGS: VERTEBRAL BODIES AND PARASPINAL STRUCTURES: There is a moderate leftward curvature of the lumbar spine centered at the L2 level. Significant right lateral endplate edematous changes are visible at the L1-L2 level at the apex of the spinal curvature. There is a mild superior endplate compression fracture with a 40% loss of vertebral body height at the T12 level, slightly increased compared to the prior CT study. Marrow edema is present throughout the vertebral body extending into the pedicles. Mild amount of paraspinal soft tissue edema also evident at this level. Minimal osseous retropulsion noted. No additional compression fractures are seen. Advanced degenerative endplate changes and loss of disc height noted at the L2-L3 level with a slight retrosubluxation and bulky endplate spurring. There is a mild anterolisthesis and moderate disc space narrowing at the L3-L4 level with mild posterior endplate edema. The patient is status post posterior lumbar instrumented fusion at the L4-L5 level where there is a mild anterolisthesis. Severe degenerative endplate changes with mixed chronic and edematous endplate changes noted at the L5-S1 level. There are [id number] degenerative changes in the left sacroiliac joint. CONUS MEDULLARIS AND CAUDA EQUINA: The distal cord, conus tip, and cauda equina nerve roots appear normal. No pathologic intradural enhancement is visible on postcontrast imaging. SPINAL LEVELS: L1-L2: Minimal anterolisthesis and broad-based posterior disc bulge with vljt-wv-gemvyvsm facet arthropathy results in mild central canal stenosis. Bulging disc impresses upon the right L2 nerve root in the subarticular zone. Axvv-gi-ygrrljxv foraminal narrowing. Significant endplate edematous changes on the right side. L2-L3: Retrosubluxation and moderate loss of disc height with a diffuse disc bulge and hypertrophic facet arthropathy. No central canal stenosis. Moderate right foraminal narrowing. L3-L4: Mild anterolisthesis and diffuse disc bulge with moderate to severe facet arthropathy results in mild central canal stenosis. Mild left foraminal narrowing evident. L4-L5: Anterolisthesis and post laminectomy changes with hardware instrumentation. No central canal stenosis. Mild left foraminal narrowing. L5-S1: Severe loss of disc height with a retrosubluxation noted. Mixed chronic and edematous endplate changes. Broad-based disc bulge and superimposed central disc protrusion impress upon the ventral thecal sac with mild mass effect upon the S1 nerve roots. Hypertrophic facet arthropathy without central canal stenosis. Moderate to severe foraminal narrowing with compression of the exiting left L5 nerve root due to ossific spurring. IMPRESSION: 1. Subacute mild superior endplate compression fracture deformity at the T12 level with significant marrow edema throughout the vertebral body and mild paraspinal soft tissue edema. Minimal osseous retropulsion. 2. Moderate leftward lumbar spinal curvature with moderate multilevel spondylosis and postsurgical changes at the L4-L5 level, status post posterior lumbar instrumented fusion. 3. Mild central canal stenosis at the L1-L2 level with bulging disc impressing upon the right L2 nerve root. 4. Moderate right foraminal narrowing at the L2-L3 level. Mild central canal stenosis at the L3-L4 level with a mild anterolisthesis and moderate to severe facet arthropathy. 5. Severe degenerative disc disease at the L5-S1 level with mixed chronic and edematous endplate changes. Broad-based central disc protrusion with mild mass effect upon the S1 nerve roots. Moderate to severe foraminal narrowing, more so on the left side with compression of the left L5 nerve root. ADDENDUM As stated in the report, the degree of osseous retropulsion across the superior endplate of T12 is minimal, measuring 2 mm, without cord compression or central canal stenosis. If this is thought to be a pain generator for the patient, recommend follow-up neurosurgical or interventional radiology consultation to guide further management for potential vertebral body augmentation. KAJAL ANDERSON MD Assessment & Plan Assessment & Plan (1) Lumbar post-laminectomy syndrome: Code(s): M96.1 - Postlaminectomy syndrome, not elsewhere classified Category: Medical (2) Chronic pain syndrome: Code(s): G89.4 - Chronic pain syndrome Category: Medical (3) Lumbar degenerative disc disease: Code(s): M51.36 - Other intervertebral disc degeneration, lumbar region Category: Medical (4) Back pain of thoracolumbar region: Code(s): M54.50 - Low back pain, unspecified; M54.6 - Pain in thoracic spine Category: Medical (5) Chronic, continuous use of opioids: Code(s): F11.90 - Opioid use, unspecified, uncomplicated Category: Medical Plan Patient has shown accountability for her medication regimen and the pill count was accurate. The patient reported no noted side effects and adequate analgesia on current medication regime. There is no evidence of misuse, abuse or diversion at this time. [employer] reviewed. Script sent for oxycodone 10-325 mg TID prn with advanced date of 09/15/24. Refill sent for Narcan. All questions were answered and patient is in agreement of plan. Follow up in 4-5 weeks for a pill count and sooner if needed. Medications: Refilled oxycodone-acetaminophen 10-325 mg Partial Fill upon patient request. 1 tab PO TID 30 days PRN 90 tabs 0RF pain G89.4 - Chronic pain syndrome, M51.36 - Other intervertebral disc degeneration, lumbar region, M96.1 - Postlaminectomy syndrome, not elsewhere classified Coding Level of Care Code Est Pt Level 4 (45677) Complex EM visit Add On G2211 Diagnoses Lumbar post-laminectomy syndrome M96.1 Chronic pain syndrome G89.4 Lumbar degenerative disc disease M51.36 Back pain of thoracolumbar region M54.50; M54.6 Chronic, continuous use of opioids F11.90
[2024-08-25 11:13] VITALS: BP 124/62; PULSE 66; O2SAT 98; BMI 18.6
== END 2024-08-25 11:30 | disposition home or self-care (01) ==
PROVIDERS: PCP Physician Assistant; Visit Provider Nurse Practitioner Family
DX: M96.1 Postlaminectomy syndrome, not elsewhere classified (principal); G89.4 Chronic pain syndrome; M51.369 Other intervertebral disc degeneration, lumbar region without mention of lumbar back pain or lower extremity pain; Z79.891 Long term (current) use of opiate analgesic; M54.50 Low back pain, unspecified
CPT/HCPCS: 99214; G2211

== ENCOUNTER → 2024-08-25 11:04 | Outpatient (BNVA) | payer MEDICARE, SELFPAY | PROVIDERS: PCP Physician Assistant; Visit Provider Nurse Practitioner Family | DX: M96.1 Postlaminectomy syndrome, not elsewhere classified (principal); G89.4 Chronic pain syndrome; M51.360 Other intervertebral disc degeneration, lumbar region with discogenic back pain only; F11.90 Opioid use, unspecified, uncomplicated; Z51.81 Encounter for therapeutic drug level monitoring | CPT/HCPCS: 99212 ==

== ENCOUNTER 2024-09-22 11:15 | Outpatient (AMB) | payer MEDICARE, SELFPAY ==
--- NOTE | 2024-09-22 11:16 | MHC.OFFVIS ---
Vital Signs 09/22/24 11:17 Height 5 ft 7 in Weight 120 lb BMI 18.8 BP 103/54 L Blood Pressure Location Lt brachial Position Sitting Respiration 16 Pulse 77 Pulse Source Pulse Oximeter Pulse Oximetry (%) 96 Oxygen Delivery Method Room Air Intake Visit Reasons: PILL COUNT Intake Note: Pt states she last took percocet 09/22/24 @ 7am Allergies No Known Allergies Allergy (Verified 09/22/24 11:19) Medication List - Last Reconciled 09/22/24 by Lea Cisse LPN albuterol sulfate 90 mcg/actuation (ProAir HFA) 2 puffs inhalation Q4-6H PRN 30 days back brace As directed fluticasone propion-salmeterol 250-50 mcg/dose (Advair Diskus) 1 inh inhalation BID 30 days naloxone 4 mg/actuation (Narcan) 4 mg intranasal Q2M 1 day nicotine 1 patch transdermal DAILY 28 days oxycodone-acetaminophen 10-325 mg 1 tab PO TID PRN 30 days polyethylene glycol 3350 (Miralax) 17 grams PO DAILY PRN ropinirole 1 mg PO TID trazodone 50 mg PO BEDTIME 90 days HPI Comments Details: Patient presents today for a pill count. Patient is supposed to have #75 pills and has #73 pills. This demonstrates a responsible attitude in regards to the medication regimen. Patient reports reasonable pain relief and no noted sided effects with current dose of oxycodone-acetaminophen 10-325 mg TID prn except occasional constipation for which she does bowel regime, including increasing fluids, fiber intake or stool softener. Patient rates her pain at 7-8/10. She reports increased back pain since her has been hospitalized and she has been performing house chores by herself. She continues to endorse pain in the projection superior lateral iliac crest areas, worse on the right side. Previous injections and neuromodulation were minimally effctive. Denies any fever, chills, weight changes, sedation, abdominal pain, constipation, nausea, dizziness or urinary retention. Past procedures: 10/13/23: Percutaneous Spinal Cord Stimulator Trial, Lumbar: 0% relief. 05/21/23: T12 Kyphoplasty-50% pain relief 03/17/23: Sacroiliac Joint Injection, Bilateral: 50-60% relief. [facility] Medical History Chronic sinusitis Back pain of thoracolumbar region T12 compression fracture Osteopenia Screening for hypercholesterolemia Breast cancer screening Bilateral hip pain Personal history of nicotine dependence Muscle strain COPD exacerbation Pseudogout of left knee Change in bowel habit Abdominal bloating Exocrine pancreatic insufficiency COPD (chronic obstructive pulmonary disease) Lumbar post-laminectomy syndrome Acute adjustment disorder with anxiety Restless leg syndrome Surgical History History of kyphoplasty History of lumbar laminectomy (~2012) History of vein stripping (~2003) History of femoral hernia repair (~2002) History of lumbar fusion (~2013) Status post phlebectomy (~2008) Social History Housing: House Alcohol intake: current Alcohol intake frequency: does not drink Patient Tobacco Use Status: Current everyday Tobacco user Tobacco use type: Cigarette Cigarette Packs Per Day: 0.5 Cigarettes Per Day: 5 e-Cigarette/Vaping Use: Never Used Second Hand Smoke Exposure: No service: No Current occupational status: retired Current occupation: [employer] Cognitive needs: No Hearing needs: No Vision needs: Yes (contacts/glasses) Review of Systems Const All systems reviewed & are unremarkable except as noted in HPI and below Physical Exam Vital Signs: Last Vital Signs Pulse 77 09/22/24 11:17 Resp 16 09/22/24 11:17 BP 103/54 L 09/22/24 11:17 Pulse Ox 96 09/22/24 11:17 Oxygen Delivery Method Room Air 09/22/24 11:17 BMI result Body Mass Index 18.8 General: Appears afebrile. Alert and oriented. Mood and affect appropriate. Follows and participates in conversation appropriately. Respiratory effort is unlabored. No cough. Able to transition from sit to stand unassisted. Ambulates with bilaterally normal heel strike and toe off. Back/Spine/Pelvis Cervical Spine: cervical ROM normal and No Cervical spine tenderness Thoracic/Lumbar Spine: Thoracic/lumbar spine scar(s), pain with thoraco-lumbar ROM, thoraco-lumbar ROM limited, No thoracic spinal tenderness and lumbar spinal tenderness at L4 and at L5 Sacroiliac joints: bilaterally (TTP in iliac crest superior lateral areas, right>left) tender to palpation Extrem General: Yes capillary refill normal, Yes no clubbing, cyanosis or edema and Yes no calf tenderness Psych Appearance: grossly normal and well kempt Mental Status: mental status grossly normal Speech and movement: Normal speech and movement present and Clear speech present Affect: normal affect Attitude: cooperative Thought process: Normal thought process present Thought content: Normal thought content present, suicidality (none), no hallucinations and Depressive thoughts present Insight: Good insight present (Psych) Judgement: Good judgement present (Psych) Results Reviewed Results Reviewed: XR THORACIC SPINE 03/03/24 CLINICAL INFORMATION: Lower back pain. FINDINGS: There is bony demineralization. There is a mild lower thoracic dextroscoliosis. There is mild anterior disc space narrowing at T8-T9 and T9-T10. There is mild leftward disc space narrowing at T10-T11. There is rightward disc space narrowing at L2-L3 and L3-L4. No acute fracture or spondylolisthesis is seen. There has been a prior L1 vertebroplasty. There is multi-level mild thoracic endplate arthropathy. The posterior elements are intact. The paravertebral soft tissues are unremarkable IMPRESSION: 1. There is mild degenerative disc disease at T8-T9 through T10-T11, and moderate disc space narrowing is seen at L2-L3 and L3-L4. 2. There is a mild lower thoracic dextroscoliosis. 3. There has been a prior L1 vertebroplasty. MR LUMBAR SPINE WITHOUT AND WITH CONTRAST 05/11/23 CLINICAL INFORMATION: Post laminectomy syndrome. History of compression fracture. Pain. COMPARISON: MRI dated 10/13/2013. Nuclear bone scan report from 05/06/2023. CT dated 04/19/2023. TECHNIQUE: Multiplanar, multisequence imaging was obtained. Intravenous contrast: Gadavist 6 mL. FINDINGS: VERTEBRAL BODIES AND PARASPINAL STRUCTURES: There is a moderate leftward curvature of the lumbar spine centered at the L2 level. Significant right lateral endplate edematous changes are visible at the L1-L2 level at the apex of the spinal curvature. There is a mild superior endplate compression fracture with a 40% loss of vertebral body height at the T12 level, slightly increased compared to the prior CT study. Marrow edema is present throughout the vertebral body extending into the pedicles. Mild amount of paraspinal soft tissue edema also evident at this level. Minimal osseous retropulsion noted. No additional compression fractures are seen. Advanced degenerative endplate changes and loss of disc height noted at the L2-L3 level with a slight retrosubluxation and bulky endplate spurring. There is a mild anterolisthesis and moderate disc space narrowing at the L3-L4 level with mild posterior endplate edema. The patient is status post posterior lumbar instrumented fusion at the L4-L5 level where there is a mild anterolisthesis. Severe degenerative endplate changes with mixed chronic and edematous endplate changes noted at the L5-S1 level. There are nreu-fg-[id number] degenerative changes in the left sacroiliac joint. CONUS MEDULLARIS AND CAUDA EQUINA: The distal cord, conus tip, and cauda equina nerve roots appear normal. No pathologic intradural enhancement is visible on postcontrast imaging. SPINAL LEVELS: L1-L2: Minimal anterolisthesis and broad-based posterior disc bulge with [id number]-mmafrlqx facet arthropathy results in mild central canal stenosis. Bulging disc impresses upon the right L2 nerve root in the subarticular zone. Yvnx-kn-pqusrobb foraminal narrowing. Significant endplate edematous changes on the right side. L2-L3: Retrosubluxation and moderate loss of disc height with a diffuse disc bulge and hypertrophic facet arthropathy. No central canal stenosis. Moderate right foraminal narrowing. L3-L4: Mild anterolisthesis and diffuse disc bulge with moderate to severe facet arthropathy results in mild central canal stenosis. Mild left foraminal narrowing evident. L4-L5: Anterolisthesis and post laminectomy changes with hardware instrumentation. No central canal stenosis. Mild left foraminal narrowing. L5-S1: Severe loss of disc height with a retrosubluxation noted. Mixed chronic and edematous endplate changes. Broad-based disc bulge and superimposed central disc protrusion impress upon the ventral thecal sac with mild mass effect upon the S1 nerve roots. Hypertrophic facet arthropathy without central canal stenosis. Moderate to severe foraminal narrowing with compression of the exiting left L5 nerve root due to ossific spurring. IMPRESSION: 1. Subacute mild superior endplate compression fracture deformity at the T12 level with significant marrow edema throughout the vertebral body and mild paraspinal soft tissue edema. Minimal osseous retropulsion. 2. Moderate leftward lumbar spinal curvature with moderate multilevel spondylosis and postsurgical changes at the L4-L5 level, status post posterior lumbar instrumented fusion. 3. Mild central canal stenosis at the L1-L2 level with bulging disc impressing upon the right L2 nerve root. 4. Moderate right foraminal narrowing at the L2-L3 level. Mild central canal stenosis at the L3-L4 level with a mild anterolisthesis and moderate to severe facet arthropathy. 5. Severe degenerative disc disease at the L5-S1 level with mixed chronic and edematous endplate changes. Broad-based central disc protrusion with mild mass effect upon the S1 nerve roots. Moderate to severe foraminal narrowing, more so on the left side with compression of the left L5 nerve root. ADDENDUM As stated in the report, the degree of osseous retropulsion across the superior endplate of T12 is minimal, measuring 2 mm, without cord compression or central canal stenosis. If this is thought to be a pain generator for the patient, recommend follow-up neurosurgical or interventional radiology consultation to guide further management for potential vertebral body augmentation. KAJAL ANDERSON MD Assessment & Plan Assessment & Plan (1) Lumbar post-laminectomy syndrome: Code(s): M96.1 - Postlaminectomy syndrome, not elsewhere classified Category: Medical (2) Chronic pain syndrome: Code(s): G89.4 - Chronic pain syndrome Category: Medical (3) Lumbar degenerative disc disease: Code(s): M51.36 - Other intervertebral disc degeneration, lumbar region Category: Medical (4) Back pain of thoracolumbar region: Code(s): M54.50 - Low back pain, unspecified; M54.6 - Pain in thoracic spine Category: Medical (5) Chronic, continuous use of opioids: Code(s): F11.90 - Opioid use, unspecified, uncomplicated Category: Medical Plan Patient has shown accountability for her medication regimen and the pill count was accurate. The patient reported no noted side effects and adequate analgesia on current medication regime. There is no evidence of misuse, abuse or diversion at this time. [employer] reviewed. Script sent for oxycodone 10-325 mg TID prn with advanced date of 10/15/24. Patient has Narcan at home. All questions were answered and patient is in agreement of plan. Follow up in 4-5 weeks for a pill count and sooner if needed. Medications: Refilled oxycodone-acetaminophen 10-325 mg Partial Fill upon patient request. 1 tab PO TID 30 days PRN 90 tabs 0RF pain G89.4 - Chronic pain syndrome, M51.36 - Other intervertebral disc degeneration, lumbar region, M96.1 - Postlaminectomy syndrome, not elsewhere classified Coding Level of Care Code Est Pt Level 4 (06635) Complex EM visit Add On G2211 Diagnoses Lumbar post-laminectomy syndrome M96.1 Chronic pain syndrome G89.4 Lumbar degenerative disc disease M51.36 Back pain of thoracolumbar region M54.50; M54.6 Chronic, continuous use of opioids F11.90
[2024-09-22 11:17] VITALS: BP 103/54; PULSE 77; RESP 16; O2SAT 96; BMI 18.8
== END 2024-09-22 11:33 | disposition home or self-care (01) ==
PROVIDERS: PCP Physician Assistant; Visit Provider Nurse Practitioner Family
DX: G89.4 Chronic pain syndrome (principal); M96.1 Postlaminectomy syndrome, not elsewhere classified; M51.369 Other intervertebral disc degeneration, lumbar region without mention of lumbar back pain or lower extremity pain; Z79.891 Long term (current) use of opiate analgesic; M54.50 Low back pain, unspecified; M54.6 Pain in thoracic spine
CPT/HCPCS: 99214; G2211

== ENCOUNTER → 2024-09-22 11:15 | Outpatient (BNVA) | payer MEDICARE, SELFPAY | PROVIDERS: PCP Physician Assistant; Visit Provider Nurse Practitioner Family | DX: Z51.81 Encounter for therapeutic drug level monitoring (principal); F11.20 Opioid dependence, uncomplicated; M96.1 Postlaminectomy syndrome, not elsewhere classified; M51.360 Other intervertebral disc degeneration, lumbar region with discogenic back pain only; M54.50 Low back pain, unspecified; M54.6 Pain in thoracic spine; G89.4 Chronic pain syndrome | CPT/HCPCS: 99212 ==

== ENCOUNTER → 2024-10-20 11:23 | Outpatient (BNVA) | payer MEDICARE, SELFPAY | PROVIDERS: PCP Physician Assistant; Visit Provider Nurse Practitioner Family | DX: M96.1 Postlaminectomy syndrome, not elsewhere classified (principal); M51.360 Other intervertebral disc degeneration, lumbar region with discogenic back pain only; G89.4 Chronic pain syndrome; F11.90 Opioid use, unspecified, uncomplicated; Z51.81 Encounter for therapeutic drug level monitoring | CPT/HCPCS: 99212 ==

== ENCOUNTER → 2024-10-20 11:23 | Outpatient (AMB) | payer MEDICARE, SELFPAY | END | disposition home or self-care (01) | PROVIDERS: PCP Physician Assistant; Visit Provider Nurse Practitioner Family | CPT/HCPCS: 99214; G2211 ==

== ENCOUNTER 2024-11-14 11:09 | Outpatient (AMB) | payer MEDICARE, SELFPAY ==
--- NOTE | 2024-11-14 11:19 | A.OFFPC_ITS ---
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: No Accompanied by: Self / Same As Patient Allergies No Known Allergies Allergy (Verified 11/14/24 11:40) Medication List - Last Reconciled 11/14/24 by Brannon Rider PA-C albuterol sulfate 90 mcg/actuation (ProAir HFA) 2 puffs inhalation Q4-6H PRN 30 days azithromycin For 250 mg dose pack: take 500 mg today (day 1), then 250 mg for 4 days (days 2-5) PO back brace As directed fluticasone propion-salmeterol 250-50 mcg/dose (Advair Diskus) 1 inh inhalation BID 30 days naloxone 4 mg/actuation (Narcan) 4 mg intranasal Q2M 1 day nicotine 1 patch transdermal DAILY 28 days oxycodone-acetaminophen 10-325 mg 1 tab PO TID PRN 30 days polyethylene glycol 3350 (Miralax) 17 grams PO DAILY PRN prednisone 40 mg (2 x 20 mg) PO DAILY prednisone 10 mg PO DAILY 7 days ropinirole 1 mg PO TID trazodone 50 mg PO BEDTIME 90 days Tobacco use date assessed: 11/14/24 Fall risk assessment: No Falls in past year Last assessed Fall Risk: 11/14/24 Dental Screening Dental Screen Date: 11/14/24 Did you have a dental visit in the last 12 months?: Yes Did you have a dental problem in the last 6 months where you did not have access to dental care?: No Was dental information given to patient?: Patient has dentist HPI f/u COPD 2 HPI0 Details Patient is a 74-year-old female here today for a follow up visit . ? Patient has a past medical history significant for tobacco dependency, sacroiliitis chronic low back pain, COPD, insomnia. .. Concern--> reports she has been very concerned about her weight loss. She is under lot of stress at this point due to her failing 's health secondary to lung cancer. She was also noted a left groin lump that has been painful to palpation. PLAN: Will send for CT abdomen pelvis to evaluate for hernia. .. COPD: Followed pulmonology, continues to smoke and does understand she needs to quit. OF NOTE SHE DOES REPORT CUTTING DOWN HER SMOKING QUITE A BIT. She does get annual basis with CT scans of chest for lung cancer screening .. ..Chronic lower lumbar spine pain:? Foll owed by pain management and does take oxycodone daily p.r.n. for pain. Has had recent increased pain in her mid back. X-rays and CT showing new mild T12 compression fracture. .. Osteopenia--> patient's most recent bone density in 2021 showing osteopenia, of note has had compression fractures in her spine, she is due for new bone density screening [facility] Medical History Chronic sinusitis Back pain of thoracolumbar region T12 compression fracture Osteopenia Screening for hypercholesterolemia Breast cancer screening Bilateral hip pain Personal history of nicotine dependence Muscle strain COPD exacerbation Pseudogout of left knee Change in bowel habit Abdominal bloating Exocrine pancreatic insufficiency COPD (chronic obstructive pulmonary disease) Lumbar post-laminectomy syndrome Acute adjustment disorder with anxiety Restless leg syndrome Surgical History History of kyphoplasty History of lumbar laminectomy (~2012) History of vein stripping (~2003) History of femoral hernia repair (~2002) History of lumbar fusion (~2013) Status post phlebectomy (~2008) Social History Housing: House Alcohol intake: current Alcohol intake frequency: does not drink Patient Tobacco Use Status: Current everyday Tobacco user Tobacco use type: Cigarette Cigarette Packs Per Day: 0.5 Cigarettes Per Day: 5 e-Cigarette/Vaping Use: Never Used Second Hand Smoke Exposure: No service: No Current occupational status: retired Current occupation: [employer] Cognitive needs: No Hearing needs: No Vision needs: Yes (contacts/glasses) Questionnaire PHQ-9 Over the last 2 weeks, how often have you been bothered by any of the following problems? 1. Little interest or pleasure in doing things: not at all 2. Feeling down, depressed, or hopeless: not at all 3. Trouble falling or staying asleep, or sleeping too much: not at all 4. Feeling tired or having little energy: not at all 5. Poor appetite or overeating: not at all 6. Feeling bad about yourself - or that you are a failure or have let yourself or your family down: not at all 7. Trouble concentrating on things, such as reading the newspaper or watching television: not at all 8. Moving or speaking so slowly that other people could have noticed. Or the opposite - being so fidgety or restless that you have been moving around a lot more than usual: not at all 9. Thoughts that you would be better off or of hurting yourself in some way: not at all Total score: 0 Depression Screening Interpretation: Negative Depression Screening Done: Yes 98527 - PHQ-9 Billing: Yes Source: Developed by Drs. Chong Posada, Hayley Bell, Mono Gillespie and colleagues, with an educational wesley from [employer]. Thrive Questionnaire Date Thrive assessed: 11/14/24 I am a: Patient What is your living situation today?: I have a steady place to live Within the past 12 months, did the food you bought not last and you didn't have the money to get more?: Never true Within the past 12 months, did you worry whether your food would run out before you got money to buy more?: Never true Do you have trouble paying for medicines?: No Do you have trouble getting transportation to medical appointments?: No Do you have trouble paying your heating and electricity bill?: No Do you have trouble taking care of your child, family member or friend?: No Do you have trouble with day-to-day activities such as bathing, preparing meals, shopping, managing finances, etc.?: No Are you currently unemployed and looking for a job?: No Are you interested in more education?: No Please select the resources that you would like help with: None Currently or been in a relationship where the following occur: No concerns reported THRIVE Score: 0 AUDIT C Alcohol Use Questionnaire (AUDIT-C) 1. How often do you have a drink containing alcohol?: Never 3. How often do you have six or more drinks on one occasion?: Never Total Score: 0 DC-7 AMB Questionnaire DC-7 Date DC - 7 assessed: 11/14/24 Feeling nervous, anxious, or on edge: 0 = Not at all Not being able to stop or control worryin = Not at all Worrying too much about different things: 0 = Not at all Trouble relaxin = Not at all Being so restless that it is hard to sit still: 0 = Not at all Becoming easily annoyed or irritable: 0 = Not at all Feeling afraid as if something awful might happen: 0 = Not at all Total DC-7 score (0-4 normal; 5-9 mild; 10-14 moderate; 15-21 severe): 0 Source: Developed by Drs. Chong Posada, Hayley Bell, Mono Gillespie and colleagues, with an educational wesley from [employer]. DC-7 Assessment Billing DC-7 Assessment Tool: DC-7 Assessment 91452 Review of Systems Const Denies headache(s) Eyes Denies loss of vision ENT Denies vertigo, Denies dizziness, Denies headache(s) and Denies sore throat Card Denies chest pain, Denies leg edema and Denies lightheadedness Resp Denies cough, Denies hemoptysis and Denies wheezing GI Denies abdominal pain, Denies melena, Denies constipation, Denies diarrhea and Denies vomiting Denies urinary frequency, Denies dysuria and Denies urinary urgency Musc Denies arthralgias, Denies joint swelling, Denies numbness and Denies tingling Neuro Denies Abnormal speech present, Denies behavioral changes, Denies vertigo, Denies dizziness, Denies headache(s), Denies loss of vision, Denies memory loss, Denies numbness and Denies tingling Psych Denies anxiety, Denies behavioral changes, Denies depression, Denies memory loss and Denies panic attacks Donte/Lymph Denies easy bleeding and Denies easy bruising Aller/Immun Denies wheezing Physical exam (Primary Care) Vital Signs: Last Vital Signs Temp 97.1 F 11/14/24 11:27 Pulse 78 11/14/24 11:27 BP 106/60 11/14/24 11:27 Pulse Ox 96 11/14/24 11:27 BMI result Body Mass Index 18.2 Tobacco/Smoking Status: Tobacco use Status Tobacco use date assessed 11/14/24 11/14/24 11:32 Patient Tobacco Use Status Current everyday Tobacco 11/14/24 11:21 Tobacco use type Cigarette 11/14/24 11:21 e-Cigarette/Vaping Use Never Used 11/14/24 11:21 Are you ready to quit: No Tobacco cessation counseling provided: Yes Items discussed: Nicotine replacement Relapse Prevention: discussed the importance of a supportive environment, discussed negative mood or depression after quitting, weight gain after smoking is common and discussed dietary, exercise and/or lifestyle changes Number of minutes spent counselin CPT code: 55201 - 4-10 Minutes PHQ-9: PHQ-9 Score PHQ-9: Total score 0 11/14/24 11:45 Depression Screening Interpretation: Negative Thrive Assessment: Date of Thrive Assessment Date Thrive assessed 11/14/24 11/14/24 11:21 Currently or been in a relationship where the following occur: No concerns reported Const General: healthy appearing, no acute distress, alert and awake Nutritional Appearance: well nourished Orientation/consciousness: oriented to person, oriented to place and oriented to time HENMT Ears: TM's normal bilaterally General nose exam: Normal nasal mucous membranes and turbinates present Eyes Conjunctivae: conjunctivae normal Sclerae: sclerae normal Pupils: Equal, round and reactive pupils present Neck Neck: Yes no lymphadenopathy and Yes no JVD Thyroid: Thyroid normal Carotids: no bruits Resp Effort & Inspection: normal respiratory effort and not tachypneic Auscultation: no crackles, no rales, no rhonchi and no wheezes Cardio Rate: regular rate Rhythm: regular rhythm Heart sounds: no murmurs and normal S1 and S2 GI Palpation (GI): Soft to palpation, nontender, no hepatomegaly and no splenomegaly Auscultation: normal bowel sounds Abdomen image: 2 1. Palpable lump in the area outlined Skin General skin exam: no rashes or lesions noted and dry skin Neuro General: oriented to person, oriented to place and oriented to time Cranial nerves: Yes Equal, round and reactive pupils present Speech: No Abnormal speech present Gait exam (Neuro): Normal gait present Motor exam (neuro): no tremor noted Extrem Right upper extremity: full ROM Left upper extremity: full ROM Right lower extremity: full ROM; no edema Left lower extremity: full ROM; no edema Psych Mental Status: mental status grossly normal Speech and movement: Normal speech and movement present Affect: normal affect Attitude: cooperative Thought process: Normal thought process present Coding Level of Care Code Est Pt Level 4 (41433) Diagnoses Simple chronic bronchitis J41.0 COPD type: chronic bronchitis Chronic bronchitis type: simple Tobacco dependence F17.200 Left groin mass R19.09 Weight loss R63.4 Additional Codes DC-7 Assessment Billing - DC-7 Assessment Tool: DC-7 Assessment 85179 ([id number]) PHQ-9 - 95079 - PHQ-9 Billing: Yes ([id number]) Vital Signs *Quality* - CPT code: 61769 - 4-10 Minutes ([id number]) Assessment & Plan Assessment & Plan (1) COPD (chronic obstructive pulmonary disease): Comment: PATIENT DOES HAVE CHRONIC OBSTRUCTIVE PULMONARY DISEASE WHICH IS SECONDARY TO HER ONGOING SMOKING. THE SYMPTOMS GET EXACERBATED BECAUSE OF HER CONTINUED SMOKING AND INTERMITTENT LOW-GRADE RESPIRATORY INFECTIONS. LATELY HE SHE HAS CUT DOWN THE CIGARETTES , SHE IS DOWN TO 5 CIGARETTES A DAY AND IS TRYING HARD TO QUIT COMPLETELY. Code(s): J44.9 - Chronic obstructive pulmonary disease, unspecified Category: Medical Qualifiers: COPD type: chronic bronchitis Chronic bronchitis type: simple Q ualified Code(s): J41.0 - Simple chronic bronchitis Plan: Continues to follow up pulmonology, breathing has been fairly stable recently though needed antibiotics and prednisone due to acute exacerbation. (2) Tobacco dependence: Code(s): F17.200 - Nicotine dependence, unspecified, uncomplicated Category: Medical Plan: She has cut down her smoking though has found it very difficult to completely quit smoking due to her stress due to personal issues. (3) Left groin mass: Code(s): R19.09 - Other intra-abdominal and pelvic swelling, mass and lump Category: Medical Plan: There has a palpable left groin lump. Has been has been to physically help her has been transferred in and of chair lately due to his failing health and weakness.. Will send for CT abdomen pelvis to evaluate for left groin hernia. Has had a right groin hernia in the past. (4) Weight loss: Code(s): R63.4 - Abnormal weight loss Category: Medical Plan: Unclear etiology to patient's weight loss. Has not gotten colonoscopy. Will check labs including thyroid testing to evaluate for a clear cause for weight loss. Most likely her weight loss is related to stress having to take care for has been at home was battling with lung cancer. Orders: Orders 2 Complete Blood Count no Diff Today J41.0 - Simple chronic bronchitis TSH reflex Free T4 Today R63.4 - Abnormal weight loss HIV Ab/Ag Today R63.4 - Abnormal weight loss, Z11.3 - Encounter for screening for infections with a predominantly sexual mode of transmission IRON PROFILE Today D50.9 - Iron deficiency anemia, unspecified, R63.4 - Abnormal weight loss Comprehensive Met. Panel Today Z13.1 - Encounter for screening for diabetes mellitus Vitamin B12 and Folate Today E53.8 - Deficiency of other specified B group vitamins, R63.4 - Abnormal weight loss Vitamin D 25-OH Total Today R63.4 - Abnormal weight loss CT abdomen pelvis w IV con Today R19.09 - Other intra-abdominal and pelvic swelling, mass and lump
[2024-11-14 11:27] VITALS: BP 106/60; PULSE 78; TEMP 36.2; O2SAT 96; BMI 18.2
--- OUTSIDE RECORDS SUMMARY | 2024-11-14 13:59 | XMS_ITS | Data Portability ---
Author Organization [facility] Address [address] [place] [address] Assessment No assessment recorded. Plan of Treatment Reminders Order Date Submit Date Provider Last Modified By Organization Details Last Modified Time Details Appointments None recorded. Lab rapid flu (A+B) 2022 023 gustavo [email or web address] [facility], [address] [facility], [place], [address], 18:21:59 Referral None recorded. Procedures None recorded. Surgeries None recorded. Imaging None recorded. Medication Orders prednisone 20 mg tablet 2022 023 [id number], [address] [facility] [place], [address], 3 18:32:03 Augmentin 875 mg-125 mg tablet 2022 023 [id number], [address] [facility] [place], [address], 3 18:32:03 Patient TargetsNo targets recorded. Patient Instructions Encounter Date Encounter Id Patient Instructions Last Modified By Organization Details Last Modified Time 09/13/2022 [id number] chronic obstructive pulmonary disease (COPD) flare-ups: care instructions [email or web address] Not available 09/13/2022 18:34:31 COPD exacerbatio n plan: care instructions [email or web address] Not available 09/13/2022 18:34:31 upper respirator y infection (cold): care instructions [email or web address] Not available 09/13/2022 18:21:59 Reason for Referral None Reported. Results Created Date Observation Date Name Description Value Unit Range Abnormal Flag Note LastModifiedBy Organization Detail LastModifiedTime 09/13/19 23 09/13/2022 rapid flu (A+B) Unknown Analyte Normal = Negati ve Not Available [facility] [address] [place], [address], 09/13/2022 18:21:34 09/13/19 23 09/13/2022 rapid flu (A+B) Unknown Analyte negati ve Not Available [facility] [address] [place], [address], 09/13/2022 18:21:34 09/13/19 23 09/13/2022 rapid flu (A+B) Unknown Analyte Normal = Negati ve Not Available [address] [place], [address], 09/13/2022 18:21:34 09/13/19 23 09/13/2022 rapid flu (A+B) Unknown Analyte negati ve Not Available [facility] [address] [place], [address], 09/13/2022 18:21:34 Result Notes None recorded. Problems Name Problem SNOMED Code Status Onset Date Resolution Date Notes Provider Name and Address Organization Details Recorded Time Chronic back pain 304806130 Active 2022 IRIS COUVERTIE R null, [place] - [facility] 3 17:55:32 Restless legs 76230623 Active 2022 IRIS COUVERTIE R null, [place] - [facility] 3 17:56:01 Insomnia 981843445 Active 2022 IRIS COUVERTIE R null, [place] - [facility] 3 17:56:21 Chronic obstructive pulmonary disease 74735782 Active 2022 IRIS COUVERTIE R null, [place] - [facility] 3 17:57:36 Problem Notes None recorded. Medical Equipment None Reported. Allergies No known drug allergies Medications Name Sig Start Date Stop Date Status Note LastModified by Organization Details LastModified Time Augmentin 875 mg-125 mg tablet Take 1 tablet every 12 hours by oral route for 7 days. 2022 active Not Available Not Available Not Avai lable prednisone 20 mg tablet Take 2 tablets twice a day by oral route in the morning for 7 days. 2022 active Not Available Not Available Not Avai lable Vicodin active Not Available Not Avail able Not Available Requip active Not Available Not Availa ble Not Available trazodone active Not Available Not Heather ilable Not Available Advair Diskus active Not Available Not Available Not Available albuterol sulf 90 mcg/actuatio n breath activated powder inhaler,sens or Inhale 2 puffs every 4 hours by inhalation route. active Not Available Not Available No t Available Vitals Date Recorded Body height Body mass index (BMI) Body weight Body temperature Respiratory rate Heart rate Oxygen saturation Oxygen saturation in Arterial blood by Pulse oximetry Systolic blood pressure Diastolic blood pressure Provider Name and Address Organization Details Last Updated DateTime 3 170.18 cm 20.4 kg/m2 01966.0 1 g 98.1 [degF] 20 /min 82 /min 97 % 97 % 147 mm[Hg] 82 mm[Hg] IRIS COUGLENN R PA - [facility] 3 18:00:09 Social History None recorded. Functional Status None recorded. Mental Status None recorded. Family History Relationship Description Onset Age of this Age Resolved Age Notes LastModified by Organization Details LastModified Time Father No current problems or disability [email or web address] Not available 17:57:16 Mother No current problems or disability [email or web address] Not available 17:57:16 Medical History No medical history recorded. Gynecological HistoryNo gynecological history recorded. Obstetrics History GPAL:G 0 P 0 0 0 0 Past Encounters Encounter ID Performer Location Encounter Start Date Encounter Closed Date Diagnosis/Indication Diagnosis SNOMED-CT Code Diagnosis ICD10 Code Diagnosis Note [id number] [address] [address] 05/27/2020 18:47:16 05/27/2020 19:58:17 [id number] [address] [address] [place] [address] 02/07/2022 19:35:00 02/07/2022 20:25:06 [id number] [facility] [address] [place] [address] 09/13/2022 17:34:13 09/13/2022 18:38:31 Acute upper respiratory infection 83824942 J06.9 Acute exac erbation of chronic obstructive pulmonary disease [id number] J44.1 Health Concerns Section Related Observation LastModified by Organization Detai ls LastModified Time None Recorded Concern Status LastModified by Organization Details LastModified Time None Recorded Advance Directives Directive None Recorded Payers Encounter Date Sequence Insurance Name Policy Number Policy Zambrano Covered Member ID Zambrano Member ID Guarantor Name 05/27/2020 1 [place] [id number] [facility] [place] [id number] [place] 02/07/2022 1 [place] [id number] [facility] [place] [id number] [address] [place] 09/13/2022 1 [place] [id number] [facility] [place] [id number] [facility] [place] Notes Date Note Type Note Provider Name and Address Organization Details Recorded Time 09/13/2022 text/html Dot is a 72 yo F with PMH of COPD here for congestion, chills , dry cough, nasal/head pressure X 4 days . Patient has a h/o pneumonia in January secondary to COPD. Negative for Covid at home. Would like Flu Test. Was around sick family members over jamal which she thinks she caught a cold from. Had difficulty sleeping last night secondary to cough, SOB and wheezing. Improved today but still wheezing. O2 is 97% on RA. MARK SOTOMAYOR [address] [place], [address], [place] - [facility] 09/13/2022 18:34:37 OBGyn Episode No OBEpisode recorded.
--- OUTSIDE RECORDS SUMMARY | 2024-11-14 13:59 | XMS_ITS ---
Author Organization [facility] Address [address] [place] [address] Care Team Providers Care Flight Follower Name Role Phone Brannon Rider Primary Care Provider Unavailab Chong Haynes Unavailable [phone] REASON FOR VISIT Patient presents today for constipation,bowel obstruction Encounters Encounter Location Date Provider Diagnosis [facility] [address] [place] [address] 07/08/2023 Chong Kruse PLAN OF TREATMENT No Information
--- OUTSIDE RECORDS SUMMARY | 2024-11-14 13:59 | XMS_ITS ---
Author Organization [facility] Address [address] [place] [address] Care Team Providers Care Beauty Shop Manager Name Role Phone Brannon Rider Primary Care Provider Unavailab Chong Haynes [phone] REASON FOR VISIT cancel appt Encounters Encounter Location Date Provider Diagnosis [facility] [address] [place] [address] 06/08/2023 Chong Kruse PLAN OF TREATMENT No Information
--- OUTSIDE RECORDS SUMMARY | 2024-11-14 13:59 | XMS_ITS | Patient Health Record ---
Author Organization [facility] Address [address] [place] [address] Care Team Providers Care Pediatric Radiologist Name Role Phone Brannon Rider Primary Care Provider Chong Cornell Unavailable [phone] ALLERGIES No Known Allergies REASON FOR REFERRAL No Information MEDICATIONS Medication SIG (Take, Route, Frequency, Duration) Notes Start Date End Date Status Vitamin C Immune Health 500 MG 1 tablet Orally Once a day for 30 day(s) Active Calcium 1200 7951-7069 MG-UNIT 1 tablet Orally Once a day for 30 day(s) Active Imitrex 50 MG 1 tablet at least 2 hours between doses as needed Orally Twice a day Active Multivitamin - as directed Orally Active traZODone HCl 50 MG 1 tablet at bedtime as needed Orally Once a day for 30 day(s) Active vicodin 1 tab Oral for 14 days Active Colchicine 0.6 MG Oral for 15 Active Requip XL Active IMMUNIZATIONS Vaccine Route Administration Date Status Comme nts Influenza Unknown 07/30/2021 Administered SOCIAL HISTORY Tobacco Use: Social History Observation Description Date Details (start date - stop date) Current Smoker NA - NA Sex Assigned At : Social History Observation Description Sex Assigned At Unknown Tobacco Use/Smoking Question Answer Notes Patient is a current smoker How often do you smoke cigarettes? every day How many cigarettes a day do you smoke? 6-10 How soon after you wake up d o you smoke your first cigarette? 31-60 minutes Are you interested in quitting? Thinking about q uitting Alcohol Screen Question Answer Notes Did you have a drink containing alcohol in the p ast year? No Points 0 Interpretation Negative PROBLEMS Problem Type ICD Code Onset Dates Problem Status W/U Status Risk SNOMED Code Notes Problem Encounter for screening for malignant neoplasm of colon (Z12.11) Active confirmed 855103030 Problem Abdominal bloating (R14.0) Active confirmed 498917955 Problem Change in bowel habits (R19.4) Active confirmed 854401911 Problem Abdominal pain, generalized (R10.84) Active confirmed 113218069 Problem Chronic constipation (K59.09) Active confirmed Chronic constipation (774170098) PLAN OF TREATMENT Pending Test Test Name Order Date BUN 08/26/2021 CREATININE 08/26/2021 CELIAC PANEL #10 08/26/2021 CT ABD & PELVIS WITH CONTRAST 08/26/2021 Future Test Test Name Order Date COLONOSCOPY 08/26/2021 COLONOSCOPY 02/05/2022 Insurance Providers Payer Name Payer Address Payer Phone Subscriber Number Group Number Insured Name Patient Relationship to Insured Coverage Start Date Coverage End Date [facility] [address] [place] [address] [id number] MOLLY VILLEGAS Self - patient is the insured MEDICAL (GENERAL) HISTORY Medical History History ICD Code COPD Herniated cervical disc Restless leg syndrome Migraines Denies CO,DM,CVA,renal disease Negative Cologuard in approx 2018--she h as never had a colonoscopy Chronic constipation Negative laboratories for celiac disease in 2021 Surgical History Surgery Date(Month/Year) Varicose veins 2008 Right inguinal hernia Lower Back surgeries x 3
== END 2024-11-14 12:14 | disposition home or self-care (01) ==
PROVIDERS: PCP Physician Assistant; Visit Provider Physician Assistant
DX: J41.0 Simple chronic bronchitis (principal); F17.200 Nicotine dependence, unspecified, uncomplicated; R19.09 Other intra-abdominal and pelvic swelling, mass and lump; R63.4 Abnormal weight loss

== ENCOUNTER → 2024-11-14 11:09 | Outpatient (BNVA) | payer MEDICARE, SELFPAY | PROVIDERS: PCP Physician Assistant; Visit Provider Physician Assistant | DX: J41.0 Simple chronic bronchitis (principal); R19.09 Other intra-abdominal and pelvic swelling, mass and lump; R63.4 Abnormal weight loss; F17.200 Nicotine dependence, unspecified, uncomplicated; Z71.6 Tobacco abuse counseling | CPT/HCPCS: 96127; 99212 ==

== ENCOUNTER 2024-11-16 11:29 | Outpatient (AMB) | payer MEDICARE, SELFPAY ==
--- NOTE | 2024-11-16 11:29 | A.OFFVIS_ITS ---
Vital Signs 11/16/24 11:33 Height 5 ft 7 in Weight 116 lb BMI 18.2 BP 114/56 L Blood Pressure Location Rt brachial Position Sitting Pulse 80 Pulse Source Pulse Oximeter Pulse Oximetry (%) 97 Oxygen Delivery Method Room Air Intake Visit Reasons: Pill Count Intake Note: Dot comes in today for a pill count to oxycodone-acetaminophen, patient should have 87 tablets and presents with 91 tablets which she last took today 11/16/24 at 6am. Pain today 02/20 Patient had extra tablets from last script in current script bottle. Electrical Worker Required: No Accompanied by: Self / Same As Patient Allergies No Known Allergies Allergy (Verified 11/16/24 11:34) HPI Comments Details: Patient presents today for a pill count. Patient is supposed to have #87 pills and has #91 pills. This demonstrates a responsible attitude in regards to the medication regimen. She reports reasonable pain relief and no noted sided effects with current dose of oxycodone-acetaminophen 10-325 mg TID prn except occasional constipation for which she does bowel regime, including increasing fluids, fiber intake or stool softener. Patient rates her pain at 6/10. 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 Denies any fever, chills, weight changes, sedation, abdominal pain, constipation, nausea, dizziness or urinary retention. Past procedures: 10/13/23: Percutaneous Spinal Cord Stimulator Trial, Lumbar: 0% relief. 05/21/23: T12 Kyphoplasty-50% pain relief 03/17/23: Sacroiliac Joint Injection, Bilateral: 50-60% relief. [facility] Medical History Chronic sinusitis Back pain of thoracolumbar region T12 compression fracture Osteopenia Screening for hypercholesterolemia Breast cancer screening Bilateral hip pain Personal history of nicotine dependence Muscle strain COPD exacerbation Pseudogout of left knee Change in bowel habit Abdominal bloating Exocrine pancreatic insufficiency COPD (chronic obstructive pulmonary disease) Lumbar post-laminectomy syndrome Acute adjustment disorder with anxiety Restless leg syndrome Surgical History History of kyphoplasty History of lumbar laminectomy (~2012) History of vein stripping (~2003) History of femoral hernia repair (~2002) History of lumbar fusion (~2013) Status post phlebectomy (~2008) Social History Housing: House Alcohol intake: current Alcohol intake frequency: does not drink Patient Tobacco Use Status: Current everyday Tobacco user Tobacco use type: Cigarette Cigarette Packs Per Day: 0.5 Cigarettes Per Day: 5 e-Cigarette/Vaping Use: Never Used Second Hand Smoke Exposure: No service: No Current occupational status: retired Current occupation: [employer] Cognitive needs: No Hearing needs: No Vision needs: Yes (contacts/glasses) Review of Systems Const All systems reviewed & are unremarkable except as noted in HPI and below Physical Exam Vital Signs: Last Vital Signs Pulse 80 11/16/24 11:33 BP 114/56 L 11/16/24 11:33 Pulse Ox 97 11/16/24 11:33 Oxygen Delivery Method Room Air 11/16/24 11:33 BMI result Body Mass Index 18.2 General: Appears afebrile. Alert and oriented. Mood and affect appropriate. Follows and participates in conversation appropriately. Respiratory effort is unlabored. No cough. Able to transition from sit to stand unassisted. Ambulates with bilaterally normal heel strike and toe off. Extrem General: Yes capillary refill normal, Yes no clubbing, cyanosis or edema and Yes no calf tenderness Psych Appearance: grossly normal and well kempt Mental Status: mental status grossly normal Speech and movement: Normal speech and movement present and Clear speech present Affect: normal affect Attitude: cooperative Thought process: Normal thought process present Thought content: Normal thought content present, suicidality (none), no hallucinations and No Depressive thoughts present Insight: Good insight present (Psych) Judgement: Good judgement present (Psych) Results Reviewed Results Reviewed: XR THORACIC SPINE 03/03/24 CLINICAL INFORMATION: Lower back pain. FINDINGS: There is bony demineralization. There is a mild lower thoracic dextroscoliosis. There is mild anterior disc space narrowing at T8-T9 and T9-T10. There is mild leftward disc space narrowing at T10-T11. There is rightward disc space narrowing at L2-L3 and L3-L4. No acute fracture or spondylolisthesis is seen. There has been a prior L1 vertebroplasty. There is multi-level mild thoracic endplate arthropathy. The posterior elements are intact. The paravertebral soft tissues are unremarkable IMPRESSION: 1. There is mild degenerative disc disease at T8-T9 through T10-T11, and moderate disc space narrowing is seen at L2-L3 and L3-L4. 2. There is a mild lower thoracic dextroscoliosis. 3. There has been a prior L1 vertebroplasty. MR LUMBAR SPINE WITHOUT AND WITH CONTRAST 05/11/23 CLINICAL INFORMATION: Post laminectomy syndrome. History of compression fracture. Pain. COMPARISON: MRI dated 10/13/2013. Nuclear bone scan report from 05/06/2023. CT dated 04/19/2023. TECHNIQUE: Multiplanar, multisequence imaging was obtained. Intravenous contrast: Gadavist 6 mL. FINDINGS: VERTEBRAL BODIES AND PARASPINAL STRUCTURES: There is a moderate leftward curvature of the lumbar spine centered at the L2 level. Significant right lateral endplate edematous changes are visible at the L1-L2 level at the apex of the spinal curvature. There is a mild superior endplate compression fracture with a 40% loss of vertebral body height at the T12 level, slightly increased compared to the prior CT study. Marrow edema is present throughout the vertebral body extending into the pedicles. Mild amount of paraspinal soft tissue edema also evident at this level. Minimal osseous retropulsion noted. No additional compression fractures are seen. Advanced degenerative endplate changes and loss of disc height noted at the L2-L3 level with a slight retrosubluxation and bulky endplate spurring. There is a mild anterolisthesis and moderate disc space narrowing at the L3-L4 level with mild posterior endplate edema. The patient is status post posterior lumbar instrumented fusion at the L4-L5 level where there is a mild anterolisthesis. Severe degenerative endplate changes with mixed chronic and edematous endplate changes noted at the L5-S1 level. There are xjdy-kg-qxzdsmms degenerative changes in the left sacroiliac joint. CONUS MEDULLARIS AND CAUDA EQUINA: The distal cord, conus tip, and cauda equina nerve roots appear normal. No pathologic intradural enhancement is visible on postcontrast imaging. SPINAL LEVELS: L1-L2: Minimal anterolisthesis and broad-based posterior disc bulge with ibqr-pw-uayomtmi facet arthropathy results in mild central canal stenosis. Bulging disc impresses upon the right L2 nerve root in the subarticular zone. Cmmf-rq-qsqiraeo foraminal narrowing. Significant endplate edematous changes on the right side. L2-L3: Retrosubluxation and moderate loss of disc height with a diffuse disc bulge and hypertrophic facet arthropathy. No central canal stenosis. Moderate right foraminal narrowing. L3-L4: Mild anterolisthesis and diffuse disc bulge with moderate to severe facet arthropathy results in mild central canal stenosis. Mild left foraminal narrowing evident. L4-L5: Anterolisthesis and post laminectomy changes with hardware instrumentation. No central canal stenosis. Mild left foraminal narrowing. L5-S1: Severe loss of disc height with a retrosubluxation noted. Mixed chronic and edematous endplate changes. Broad-based disc bulge and superimposed central disc protrusion impress upon the ventral thecal sac with mild mass effect upon the S1 nerve roots. Hypertrophic facet arthropathy without central canal stenosis. Moderate to severe foraminal narrowing with compression of the exiting left L5 nerve root due to ossific spurring. IMPRESSION: 1. Subacute mild superior endplate compression fracture deformity at the T12 level with significant marrow edema throughout the vertebral body and mild paraspinal soft tissue edema. Minimal osseous retropulsion. 2. Moderate leftward lumbar spinal curvature with moderate multilevel spondylosis and postsurgical changes at the L4-L5 level, status post posterior lumbar instrumented fusion. 3. Mild central canal stenosis at the L1-L2 level with bulging disc impressing upon the right L2 nerve root. 4. Moderate right foraminal narrowing at the L2-L3 level. Mild central canal stenosis at the L3-L4 level with a mild anterolisthesis and moderate to severe facet arthropathy. 5. Severe degenerative disc disease at the L5-S1 level with mixed chronic and edematous endplate changes. Broad-based central disc protrusion with mild mass effect upon the S1 nerve roots. Moderate to severe foraminal narrowing, more so on the left side with compression of the left L5 nerve root. ADDENDUM As stated in the report, the degree of osseous retropulsion across the superior endplate of T12 is minimal, measuring 2 mm, without cord compression or central canal stenosis. If this is thought to be a pain generator for the patient, recommend follow-up neurosurgical or interventional radiology consultation to guide further management for potential vertebral body augmentation. KAJAL L ANDERSON, MD Assessment & Plan Assessment & Plan (1) Lumbar post-laminectomy syndrome: Code(s): M96.1 - Postlaminectomy syndrome, not elsewhere classified Category: Medical (2) Chronic pain syndrome: Code(s): G89.4 - Chronic pain syndrome Category: Medical (3) Lumbar degenerative disc disease: Code(s): M51.36 - Other intervertebral disc degeneration, lumbar region Category: Medical (4) Back pain of thoracolumbar region: Code(s): M54.50 - Low back pain, unspecified; M54.6 - Pain in thoracic spine Category: Medical (5) Chronic, continuous use of opioids: Code(s): F11.90 - Opioid use, unspecified, uncomplicated Category: Medical Plan Patient has shown accountability for her medication regimen and the pill count was accurate. The patient reported no noted side effects and adequate analgesia on current medication regime. There is no evidence of misuse, abuse or diversion at this time. MassPAT reviewed. Refill sent for oxycodone 10-325 mg TID prn with advanced date of 12/16/24. Patient has Narcan at home. All questions were answered and patient is in agreement of plan. Follow up in 4- 5 weeks for a pill count and sooner if needed. Medications: Refilled oxycodone-acetaminophen 10-325 mg Partial Fill upon patient request. 1 tab PO TID PRN 90 tabs 0RF pain 30 days G89.4 - Chronic pain syndrome, M51.36 - Other intervertebral disc degeneration, lumbar region, M96.1 - Postlaminectomy syndrome, not elsewhere classified Coding Level of Care Code Est Pt Level 4 (08269) Complex EM visit Add On G2211 Diagnoses Lumbar post-laminectomy syndrome M96.1 Chronic pain syndrome G89.4 Lumbar degenerative disc disease M51.36 Back pain of thoracolumbar region M54.50; M54.6 Chronic, continuous use of opioids F11.90
[2024-11-16 11:33] VITALS: BP 114/56; PULSE 80; O2SAT 97; BMI 18.2
--- OUTSIDE RECORDS SUMMARY | 2024-11-16 14:08 | XMS_ITS ---
Author Organization [facility] Address [address] [place] [address] Care Team Providers Care Seo Associate Name Role Phone Brannon Rider Primary Care Provider Unavailab Chong Haynes [phone] REASON FOR VISIT cancel appt Encounters Encounter Location Date Provider Diagnosis [facility] [address] [place] [phone] 06/08/2023 Chong Kruse Plan Of Treatment No Information Progress Notes * MOLLY VILLEGASDOB:1950 (73 yo F)Acc No.[id number]:06/08/2023 Patient:?MOLLY VILLEGAS :1950???Age:73 Y???Sex:Female Address:[address] [place] [address], [phone] * true * Date:? Generated for Krystyna moore/[place]/eTransmitting on:?11/16/2024 02:08 PM EST
--- OUTSIDE RECORDS SUMMARY | 2024-11-16 14:08 | XMS_ITS | Data Portability ---
Author Organization [facility] Address [address] [place] [address] Assessment No assessment recorded. Plan of Treatment Reminders Order Date Submit Date Provider Last Modified By Organization Details Last Modified Time Details Appointments None recorded. Lab rapid flu (A+B) 2022 023 gustavo [email or web address] [facility], [address] [facility], [place], [address], 18:21:59 Referral None recorded. Procedures None recorded. Surgeries None recorded. Imaging None recorded. Medication Orders prednisone 20 mg tablet 2022 023 [id number], [address] [facility] [place], [address], 3 18:32:03 Augmentin 875 mg-125 mg tablet 2022 023 [facility] #[id number], [address] [facility] [place], [address], 3 18:32:03 Patient TargetsNo targets recorded. Patient Instructions Encounter Date Encounter Id Patient Instructions Last Modified By Organization Details Last Modified Time 09/13/2022 [id number] chronic obstructive pulmonary disease (COPD) flare-ups: care [...] Analyte Normal = Negati ve Not Available [facility] [address] [place], [address], 09/13/2022 18:21:34 09/13/19 23 09/13/2022 rapid flu (A+B) Unknown Analyte negati ve Not Available [facility] [address] [place], [address], 09/13/2022 18:21:34 09/13/19 23 09/13/2022 rapid flu (A+B) Unknown Analyte Normal = Negati ve Not Available [address] [place], [address], 09/13/2022 18:21:34 09/13/19 23 09/13/2022 rapid flu (A+B) Unknown Analyte negati ve Not Available [facility] [address] [place], [address], 09/13/2022 18:21:34 Result Notes None recorded. Problems Name Problem SNOMED Code Status Onset Date Resolution Date Notes Provider Name and Address Organization Details Recorded Time Chronic back pain 048173586 Active 2022 IRIS COUVERTIE R null, [place] - [facility] 3 17:55:32 Restless legs 32476593 Active 2022 IRIS COUVERTIE R null, [place] - [facility] 3 17:56:01 Insomnia 785583400 Active 2022 IRIS COUVERTIE R null, [place] - [facility] 3 17:56:21 Chronic obstructive pulmonary disease 33803463 Active 2022 IRIS COUVERTIE R null, PA [...] Updated DateTime 3 170.18 cm 20.4 kg/m2 97995.0 1 g 98.1 [degF] 20 /min 82 [...] SNOMED-CT Code Diagnosis ICD10 Code Diagnosis Note [id number] [address] [address] 05/27/2020 18:47:16 05/27/2020 19:58:17 [id number] [address] [address] [place] [address] 02/07/2022 19:35:00 02/07/2022 20:25:06 [id number] MARK CARTER [address] [place] [address] 09/13/2022 17:34:13 09/13/2022 18:38:31 Acute upper respiratory infection 95043165 J06.9 Acute exac erbation of chronic obstructive pulmonary disease 880054913 J44.1 Health Concerns Section Related Observation LastModified by Organization Detai ls LastModified Time None Recorded Concern Status LastModified by Organization Details LastModified Time None Recorded Advance Directives Directive None Recorded Payers Encounter Date Sequence Insurance Name Policy Number Policy Zambrano Covered Member ID Zambrano Member ID Guarantor Name 05/27/2020 1 [place] [id number] Dot J Rivest [id number] Dot Rivest 02/07/2022 1 [place] [id number] Dot J Rivest [id number] Dot Rivest 09/13/2022 1 [place] [id number] Dot J Rivest [id number] [facility] Notes Date Note Type Note Provider Name [...] O2 is 97% on RA. MARK SOTOMAYOR On license of [facility] [place], [address], [place] - [facility] 09/13/2022 18:34:37 OBGyn Episode No OBEpisode recorded.
--- OUTSIDE RECORDS SUMMARY | 2024-11-16 14:09 | XMS_ITS | Patient Health Record ---
Author Organization [facility] Address [address] [place] [address] Care Team Providers Care Older Adult Social Work Specialist Name Role Phone Brannon Rider Primary Care Provider Chong Cornell Unavailable [phone] Allergies No Known Allergies Reason For Referral No Information Medications Medication SIG (Take, Route, Frequency, Duration) Notes Start Date End Date Status Vitamin C Immune Health 500 MG 1 tablet Orally Once a day for 30 day(s) Active Calcium 1200 5932-4297 MG-UNIT 1 tablet Orally Once a day [...] Oral for 15 Active Requip XL Active Immunizations Vaccine Route Administration Date Status Comme nts Influenza Unknown 07/30/2021 Administered Social History Tobacco Use: Social History Observation Description Date Details (start date - stop date) Current Smoker NA - NA Tobacco Use/Smoking Question Answer Notes Patient is [...] ast year? No Points 0 Interpretation Negative Section Notes: Smoker 1/2 ppd; 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 ol Problems Problem Type SNOMED Code ICD Code Onset Dates Problem Status W/U Status Risk Notes Problem 604398341 Encounter for screening for malignant neoplasm of colon (Z12.11) Active confirmed Problem 708460683 Abdominal bloating (R14.0) Active confirmed Problem 351115455 Change in bowel habits (R19.4) Active confirmed Problem 392519059 Abdominal pain, generalized (R10.84) Active confirmed Problem Chronic constipation (474549902) Chronic constipation (K59.09) Active confirmed Plan Of Treatment Pending Test Test Name Order Date BUN 08/26/2021 CREATININE 08/26/2021 CELIAC PANEL #10 08/26/2021 CT ABD & PELVIS WITH CONTRAST 08/26/2021 Future Test Test Name Order Date COLONOSCOPY 08/26/2021 COLONOSCOPY 02/05/2022 Insurance Providers Payer Name Payer Address Payer Phone Subscriber Number Group Number Insured Name Patient Relationship to Insured Coverage Start Date Coverage End Date [facility] [address] [place] [address] [id number] MOLLY VILLEGAS Self - patient is the insured Medical (General) History Medical History History ICD Code COPD Herniated cervical disc Restless leg syndrome Migraines Denies ID,DM,CVA,renal disease Negative Cologuard in approx 2018--she h as never had a colonoscopy Chronic constipation Negative laboratories for celiac disease in 2021 Surgical History Surgery Date(Month/Year) Varicose veins 2008 Right inguinal hernia Lower Back surgeries x 3
--- OUTSIDE RECORDS SUMMARY | 2024-11-16 14:09 | XMS_ITS ---
Author Organization [facility] Address [address] [place] [address] Care Team Providers Care Aquatics Instructor Name Role Phone Brannon Rider Primary Care Provider Unavailab Chong Haynes [phone] REASON FOR VISIT Patient presents today for constipation,bowel obstruction Encounters Encounter Location Date Provider Diagnosis [facility] [address] [place] [phone] 07/08/2023 Chong Kruse Plan Of Treatment No Information Progress Notes * MOLLY VILLEGASDOB:1950 (74 yo F)Acc No.[id number]:07/08/2023 Progress Notes Patient:?BAKARI MOLLY Mireles Provider:?Chong Kruse MD :1950???Age:73 Y???Sex:Female D ate:07/08/2023 Address:[address] [place], [place] [id number] Pcp:Brannon Rider Subjective: * Chief Complaints: * ???1. Patient presents today for constipation,bowel obstruction. * Medical History:? Objective: * Vitals:? Assessment: Plan: * Treatment: * * The named appointment provid er may or may not be the originator of this progress note, and it is not deemed complete until electronically signed by the appointment provider. Sign off status: Pending * Provider:?Chong Kruse MD Date:? 023 Generated for Radhai oscar/[place]/eTransmitting on:?11/16/2024 02:08 PM EST
== END 2024-11-16 11:50 | disposition home or self-care (01) ==
PROVIDERS: PCP Physician Assistant; Visit Provider Nurse Practitioner Family
DX: M96.1 Postlaminectomy syndrome, not elsewhere classified (principal); M51.369 Other intervertebral disc degeneration, lumbar region without mention of lumbar back pain or lower extremity pain; G89.4 Chronic pain syndrome; Z79.891 Long term (current) use of opiate analgesic; M54.50 Low back pain, unspecified; M54.6 Pain in thoracic spine
CPT/HCPCS: 99214; G2211

== ENCOUNTER 2024-11-16 15:58 | Outpatient (REF) | payer MEDICARE, SELFPAY ==
[2024-11-16 16:45] LABS: Hematocrit 37.9 % (37.0-47.0); Hemoglobin 13.1 g/dl (12.0-16.0); Mean Corpuscular HGB Conc 34.6 g/dl (31.0-35.0); Mean Corpuscular Hemoglobin 32.4 pg (27.0-33.0); Mean Corpuscular Volume 93.8 fL (80.0-98.0); Mean Platelet Volume 8.1 fL (9.4-12.3); Platelet Count 240 X10*3/uL (160-400); Red Blood Count 4.04 X10*6/uL (4.20-5.50); Red Cell Distribution Width 14.3 % (11.0-16.0); White Blood Count 8.3 X10*3/uL (4.8-10.8)
[2024-11-16 17:43] LABS: Alanine Aminotransferase 26 U/L (0-31); Alkaline Phosphatase 73 U/L (39-117); Anion Gap 9 (12-20); Aspartate Amino Transferase 29 U/L (5-31); Bilirubin Total 0.5 mg/dL (0.0-1.0); Blood Urea Nitrogen 16 mg/dL (9-16); Calcium 9.2 mg/dL (8.4-10.2); Carbon Dioxide 30 mmol/L (22-29); Chloride 98 mmol/L (96-108); Estimated Glomerular Filt Rate > 60; Glucose Random 96 mg/dL (60-115); Iron 41 mcg/dL (30-160); Percent Iron Saturation 18 % (15-50); Potassium 4.3 mmol/L (3.3-5.1); Sodium 133 mmol/L (135-145); Total Iron Binding Capacity 223 mcg/dL (228-428); Total Protein 7.2 g/dL (6.5-8.0); Unsaturated Iron Binding 182 ug/dL
[2024-11-16 17:52] LABS: TSH reflex Free T4 1.21 uIU/mL (0.32-4.0); Vitamin D 25-OH Total 50.6 ng/mL (>30)
[2024-11-16 18:07] LABS: Folate 18.2 ng/mL (> or = 4.0); Vitamin B12 917 pg/mL (200-900)
[2024-11-17 08:59] LABS: HIV AB/AG Nonreactive (Nonreactive); HIV Num 1 0.06 S/CO (0.00-0.99)
== END 2024-11-16 15:59 | disposition home or self-care (01) ==
LOC: HO.LAB 15:58
PROVIDERS: PCP Physician Assistant; Visit Provider Physician Assistant
DX: Z13.1 Encounter for screening for diabetes mellitus (principal); D50.9 Iron deficiency anemia, unspecified; R63.4 Abnormal weight loss; E53.8 Deficiency of other specified B group vitamins; J41.0 Simple chronic bronchitis; Z11.3 Encounter for screening for infections with a predominantly sexual mode of transmission; M96.1 Postlaminectomy syndrome, not elsewhere classified; G89.4 Chronic pain syndrome; M51.360 Other intervertebral disc degeneration, lumbar region with discogenic back pain only; F11.90 Opioid use, unspecified, uncomplicated
CPT/HCPCS: 36415; 80053; 82306; 82607; 82746; 83540; 84443; 85027; 87389; 99212

== ENCOUNTER 2024-12-21 14:01 | Outpatient (AMB) | payer MEDICARE, SELFPAY ==
--- NOTE | 2024-12-21 14:08 | A.OFFVIS_ITS ---
Vital Signs 12/21/24 14:14 Height 5 ft 7 in Weight 122 lb 2 oz BMI 19.1 BP 132/68 Blood Pressure Location Rt brachial Position Sitting Pulse 63 Pulse Source Pulse Oximeter Pulse Oximetry (%) 97 Oxygen Delivery Method Room Air Intake Visit Reasons: PILL COUNT Intake Note: Dot comes in today for a pill count to oxycodone-acetaminophen, patient should have 72 tablets and presents with 76 tablets which she last took today 12/21/24 at 1pm. Pain today 0/10. Accompanied by: Self / Same As Patient Allergies No Known Allergies Allergy (Verified 12/21/24 14:15) HPI Comments Details: Patient presents today for a pill count. Patient is supposed to have #72 pills and has #76 pills. This demonstrates a responsible attitude in regards to the medication regimen. She reports reasonable pain relief and no noted sided effects with current dose of oxycodone-acetaminophen 10-325 mg TID prn except occasional constipation for which she does bowel regime, including increasing fluids, fiber intake or stool softener. Patient rates her pain at 0/10, pain is worst in the morning and prolonged sitting with highest intensity reaching 8- 10/10. Denies any fever, chills, weight changes, sedation, abdominal pain, constipation, nausea, dizziness or urinary retention. Past procedures: 10/13/23: Percutaneous Spinal Cord Stimulator Trial, Lumbar: 0% relief. 05/21/23: T12 Kyphoplasty-50% pain relief 03/17/23: Sacroiliac Joint Injection, Bilateral: 50-60% relief. [facility] Medical History Chronic sinusitis Back pain of thoracolumbar region T12 compression fracture Osteopenia Screening for hypercholesterolemia Breast cancer screening Bilateral hip pain Personal history of nicotine dependence Muscle strain COPD exacerbation Pseudogout of left knee Change in bowel habit Abdominal bloating Exocrine pancreatic insufficiency COPD (chronic obstructive pulmonary disease) Lumbar post-laminectomy syndrome Acute adjustment disorder with anxiety Restless leg syndrome Surgical History History of kyphoplasty History of lumbar laminectomy (~2012) History of vein stripping (~2003) History of femoral hernia repair (~2002) History of lumbar fusion (~2013) Status post phlebectomy (~2008) Social History Housing: House Alcohol intake: current Alcohol intake frequency: does not drink Patient Tobacco Use Status: Current everyday Tobacco user Tobacco use type: Cigarette Cigarette Packs Per Day: 0.5 Cigarettes Per Day: 5 e-Cigarette/Vaping Use: Never Used Second Hand Smoke Exposure: No service: No Current occupational status: retired Current occupation: [employer] Cognitive needs: No Hearing needs: No Vision needs: Yes (contacts/glasses) Review of Systems Const All systems reviewed & are unremarkable except as noted in HPI and below Physical Exam Vital Signs: Last Vital Signs Pulse 63 12/21/24 14:14 BP 132/68 12/21/24 14:14 Pulse Ox 97 12/21/24 14:14 Oxygen Delivery Method Room Air 12/21/24 14:14 BMI result Body Mass Index 19.1 General: Appears afebrile. Alert and oriented. Mood and affect appropriate. Follows and participates in conversation appropriately. Respiratory effort is unlabored. No cough. Able to transition from sit to stand unassisted. Ambulates with bilaterally normal heel strike and toe off. Psych Appearance: grossly normal and well kempt Mental Status: mental status grossly normal Speech and movement: Normal speech and movement present and Clear speech present Affect: normal affect Attitude: cooperative Thought process: Normal thought process present Thought content: Normal thought content present, suicidality (none), no hallucinations and No Depressive thoughts present Insight: Good insight present (Psych) Judgement: Good judgement present (Psych) Results Reviewed Results Reviewed: XR THORACIC SPINE 03/03/24 CLINICAL INFORMATION: Lower back pain. FINDINGS: There is bony demineralization. There is a mild lower thoracic dextroscoliosis. There is mild anterior disc space narrowing at T8-T9 and T9-T10. There is mild leftward disc space narrowing at T10-T11. There is rightward disc space narrowing at L2-L3 and L3-L4. No acute fracture or spondylolisthesis is seen. There has been a prior L1 vertebroplasty. There is multi-level mild thoracic endplate arthropathy. The posterior elements are intact. The paravertebral soft tissues are unremarkable IMPRESSION: 1. There is mild degenerative disc disease at T8-T9 through T10-T11, and moderate disc space narrowing is seen at L2-L3 and L3-L4. 2. There is a mild lower thoracic dextroscoliosis. 3. There has been a prior L1 vertebroplasty. MR LUMBAR SPINE WITHOUT AND WITH CONTRAST 05/11/23 CLINICAL INFORMATION: Post laminectomy syndrome. History of compression fracture. Pain. COMPARISON: MRI dated 10/13/2013. Nuclear bone scan report from 05/06/2023. CT dated 04/19/2023. TECHNIQUE: Multiplanar, multisequence imaging was obtained. Intravenous contrast: Gadavist 6 mL. FINDINGS: VERTEBRAL BODIES AND PARASPINAL STRUCTURES: There is a moderate leftward curvature of the lumbar spine centered at the L2 level. Significant right lateral endplate edematous changes are visible at the L1-L2 level at the apex of the spinal curvature. There is a mild superior endplate compression fracture with a 40% loss of vertebral body height at the T12 level, slightly increased compared to the prior CT study. Marrow edema is present throughout the vertebral body extending into the pedicles. Mild amount of paraspinal soft tissue edema also evident at this level. Minimal osseous retropulsion noted. No additional compression fractures are seen. Advanced degenerative endplate changes and loss of disc height noted at the L2-L3 level with a slight retrosubluxation and bulky endplate spurring. There is a mild anterolisthesis and moderate disc space narrowing at the L3-L4 level with mild posterior endplate edema. The patient is status post posterior lumbar instrumented fusion at the L4-L5 level where there is a mild anterolisthesis. Severe degenerative endplate changes with mixed chronic and edematous endplate changes noted at the L5-S1 level. There are cfqd-pj-ttusiqqu degenerative changes in the left sacroiliac joint. CONUS MEDULLARIS AND CAUDA EQUINA: The distal cord, conus tip, and cauda equina nerve roots appear normal. No pathologic intradural enhancement is visible on postcontrast imaging. SPINAL LEVELS: L1-L2: Minimal anterolisthesis and broad-based posterior disc bulge with xkmk-cl-mmseyeoz facet arthropathy results in mild central canal stenosis. Bulging disc impresses upon the right L2 nerve root in the subarticular zone. Fqlt-kx-dmhoqrhj foraminal narrowing. Significant endplate edematous changes on the right side. L2-L3: Retrosubluxation and moderate loss of disc height with a diffuse disc bulge and hypertrophic facet arthropathy. No central canal stenosis. Moderate right foraminal narrowing. L3-L4: Mild anterolisthesis and diffuse disc bulge with moderate to severe facet arthropathy results in mild central canal stenosis. Mild left foraminal narrowing evident. L4-L5: Anterolisthesis and post laminectomy changes with hardware instrumentation. No central canal stenosis. Mild left foraminal narrowing. L5-S1: Severe loss of disc height with a retrosubluxation noted. Mixed chronic and edematous endplate changes. Broad-based disc bulge and superimposed central disc protrusion impress upon the ventral thecal sac with mild mass effect upon the S1 nerve roots. Hypertrophic facet arthropathy without central canal stenosis. Moderate to severe foraminal narrowing with compression of the exiting left L5 nerve root due to ossific spurring. IMPRESSION: 1. Subacute mild superior endplate compression fracture deformity at the T12 level with significant marrow edema throughout the vertebral body and mild paraspinal soft tissue edema. Minimal osseous retropulsion. 2. Moderate leftward lumbar spinal curvature with moderate multilevel spondylosis and postsurgical changes at the L4-L5 level, status post posterior lumbar instrumented fusion. 3. Mild central canal stenosis at the L1-L2 level with bulging disc impressing upon the right L2 nerve root. 4. Moderate right foraminal narrowing at the L2-L3 level. Mild central canal stenosis at the L3-L4 level with a mild anterolisthesis and moderate to severe facet arthropathy. 5. Severe degenerative disc disease at the L5-S1 level with mixed chronic and edematous endplate changes. Broad-based central disc protrusion with mild mass effect upon the S1 nerve roots. Moderate to severe foraminal narrowing, more so on the left side with compression of the left L5 nerve root. ADDENDUM As stated in the report, the degree of osseous retropulsion across the superior endplate of T12 is minimal, measuring 2 mm, without cord compression or central canal stenosis. If this is thought to be a pain generator for the patient, recommend follow-up neurosurgical or interventional radiology consultation to guide further management for potential vertebral body augmentation. KAJAL ANDERSON MD Assessment & Plan Assessment & Plan (1) Lumbar post-laminectomy syndrome: Code(s): M96.1 - Postlaminectomy syndrome, not elsewhere classified Category: Medical (2) Chronic pain syndrome: Code(s): G89.4 - Chronic pain syndrome Category: Medical (3) Lumbar degenerative disc disease: Code(s): M51.36 - Other intervertebral disc degeneration, lumbar region Category: Medical (4) Back pain of thoracolumbar region: Code(s): M54.50 - Low back pain, unspecified; M54.6 - Pain in thoracic spine Category: Medical (5) Chronic, continuous use of opioids: Code(s): F11.90 - Opioid use, unspecified, uncomplicated Category: Medical Plan Patient has shown accountability for her medication regimen and the pill count was accurate. The patient reported no noted side effects and adequate analgesia on current medication regime. There is no evidence of misuse, abuse or diversion at this time. [employer] reviewed. Refill sent for oxycodone 10-325 mg TID prn with advanced date of 12/16/24. Patient has Narcan at home. All questions were answered and patient is in agreement of plan. Follow up in 4- 5 weeks for a pill count and sooner if needed. Medications: Refilled oxycodone-acetaminophen 10-325 mg Partial Fill upon patient request. 1 tab PO TID 30 days PRN 90 tabs 0RF pain G89.4 - Chronic pain syndrome, M51.36 - Other intervertebral disc degeneration, lumbar region, M96.1 - Postlaminectomy syndrome, not elsewhere classified Coding Level of Care Code Est Pt Level 4 (13966) Complex EM visit Add On G2211 Diagnoses Lumbar post-laminectomy syndrome M96.1 Chronic pain syndrome G89.4 Lumbar degenerative disc disease M51.36 Back pain of thoracolumbar region M54.50; M54.6 Chronic, continuous use of opioids F11.90
[2024-12-21 14:14] VITALS: BP 132/68; PULSE 63; O2SAT 97; BMI 19.1
--- OUTSIDE RECORDS SUMMARY | 2024-12-21 16:51 | XMS_ITS ---
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 Name Role Phone Brannon Rider Primary Care Provider Unavailab Chong Haynes [phone] REASON FOR VISIT Patient presents today for constipation,bowel obstruction Encounters Encounter Location Date Provider Diagnosis [facility] [address] [place] [phone] 07/08/2023 Chong Kruse Plan Of Treatment No Information Progress Notes * MOLLY VILLEGASDOB:1950 (74 yo F)Acc No.[id number]:07/08/2023 Progress Notes Patient:?BAKARI MOLLY Mireles Provider:?Chong Kruse MD :1950???Age:73 Y???Sex:Female D ate:07/08/2023 Address:[address] [place], [place] [id number] Pcp:Brannon Rider Subjective: * Chief Complaints: * [...] Kruse MD Date:? 023 Generated for Radhai oscar/[place]/eTransmitting on:?12/21/2024 04:51 PM EDT
--- OUTSIDE RECORDS SUMMARY | 2024-12-21 16:51 | XMS_ITS | Data Portability ---
Author Organization [facility] Address [address] [place] [address] Assessment No assessment recorded. Plan of Treatment Reminders Order Date Submit Date Provider Last Modified By Organization Details Last Modified Time Details Appointments None recorded. Lab rapid flu (A+B) 2022 023 gustavo [email or web address] [facility], [address] [facility], [place], [address], 18:21:59 Referral None recorded. Procedures None recorded. Surgeries None recorded. Imaging None recorded. Medication Orders prednisone 20 mg tablet 2022 023 [facility] #[id number], [address] [facility] [place], [address], 3 18:32:03 Augmentin 875 mg-125 mg tablet 2022 023 [facility] #[id number], [address] [facility] [place], [address], 3 18:32:03 Patient TargetsNo targets recorded. Patient Instructions Encounter Date Encounter Id Patient Instructions Last Modified By Organization Details Last Modified Time 09/13/2022 [id number] chronic obstructive pulmonary disease (COPD) flare-ups: care [...] Analyte Normal = Negati ve Not Available [facility] [address] [place], [address], 09/13/2022 18:21:34 09/13/19 23 09/13/2022 rapid flu (A+B) Unknown Analyte negati ve Not Available [facility] [address] [place], [address], 09/13/2022 18:21:34 09/13/19 23 09/13/2022 rapid flu (A+B) Unknown Analyte Normal = Negati ve Not Available [address] [place], [address], 09/13/2022 18:21:34 09/13/19 23 09/13/2022 rapid flu (A+B) Unknown Analyte negati ve Not Available [facility] [address] [place], [address], 09/13/2022 18:21:34 Result Notes None recorded. Problems Name Problem SNOMED Code Status Onset Date Resolution Date Notes Provider Name and Address Organization Details Recorded Time Chronic back pain 867908144 Active 2022 IRIS COUVERTIE R null, [place] - [facility] 3 17:55:32 Restless legs 42449118 Active 2022 IRIS COUVERTIE R null, [place] - [facility] 3 17:56:01 Insomnia 170593704 Active 2022 IRIS COUVERTIE R null, [place] - [facility] 3 17:56:21 Chronic obstructive pulmonary disease 65486517 Active 2022 IRIS COUVERTIE R null, PA [...] Updated DateTime 3 170.18 cm 20.4 kg/m2 05515.0 1 g 98.1 [degF] 20 /min 82 [...] SNOMED-CT Code Diagnosis ICD10 Code Diagnosis Note [id number] [address] [address] [address] 05/27/2020 18:47:16 05/27/2020 19:58:17 [id number] [address] [address] [place] [address] 02/07/2022 19:35:00 02/07/2022 20:25:06 [id number] MARK CARTER [address] [place] [address] 09/13/2022 17:34:13 09/13/2022 18:38:31 Acute upper respiratory infection 53113958 J06.9 Acute exac erbation of chronic obstructive pulmonary disease 343945471 J44.1 Health Concerns Section Related Observation LastModified by Organization Detai ls LastModified Time None Recorded Concern Status LastModified by Organization Details LastModified Time None Recorded Advance Directives Directive None Recorded Payers Encounter Date Sequence Insurance Name Policy Number Policy Zambrano Covered Member ID Zambrano Member ID Guarantor Name 05/27/2020 1 [place] [id number] Dot J Rivest [id number] Dot Rivest 02/07/2022 1 [place] [id number] Dot J Rivest [id number] Dot Rivest 09/13/2022 1 [place] [id number] Dot J Rivest [id number] [facility] Notes Date Note Type Note Provider [...] O2 is 97% on RA. MARK SOTOMAYOR [facility] [place], [address], [place] - [facility] 09/13/2022 18:34:37 OBGyn Episode No OBEpisode recorded.
--- OUTSIDE RECORDS SUMMARY | 2024-12-21 16:51 | XMS_ITS | Patient Health Record ---
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 Name Role Phone Brannon Rider Primary Care Provider Chong Cornell Unavailable [phone] Allergies No Known Allergies Reason For Referral No Information Medications Medication SIG (Take, Route, Frequency, Duration) Notes Start Date End Date Status Vitamin C Immune Health 500 MG 1 tablet Orally Once a day for 30 day(s) Active Calcium 1200 5562-1564 MG-UNIT 1 tablet Orally Once a day [...] Problem Status W/U Status Risk Notes Problem 907665494 Encounter for screening for malignant neoplasm of colon (Z12.11) Active confirmed Problem 150934257 Abdominal bloating (R14.0) Active confirmed Problem 876243540 Change in bowel habits (R19.4) Active confirmed Problem 445196141 Abdominal pain, generalized (R10.84) Active confirmed Problem Chronic constipation (417385979) Chronic constipation (K59.09) Active confirmed Plan Of Treatment Pending Test Test Name Order Date BUN 08/26/2021 CREATININE 08/26/2021 CELIAC PANEL #10 08/26/2021 CT ABD & PELVIS WITH CONTRAST 08/26/2021 Future Test Test Name Order Date COLONOSCOPY 08/26/2021 COLONOSCOPY 02/05/2022 Insurance Providers Payer Name Payer Address Payer Phone Subscriber Number Group Number Insured Name Patient Relationship to Insured Coverage Start Date Coverage End Date [facility] [address] [place] [address] [phone] [id number] MOLLY VILLEGAS Self - patient is the insured Medical (General) History Medical History History ICD Code COPD Herniated cervical disc Restless leg syndrome Migraines Denies [place],DM,CVA,renal disease Negative Cologuard in approx 2018--she h as never had a colonoscopy Chronic constipation Negative laboratories for celiac disease in 2021 Surgical History Surgery Date(Month/Year) Varicose veins 2008 Right inguinal hernia Lower Back surgeries x 3
== END 2024-12-21 14:21 | disposition home or self-care (01) ==
LOC: HO.PMC 14:01
PROVIDERS: PCP Physician Assistant; Visit Provider Nurse Practitioner Family
DX: G89.4 Chronic pain syndrome (principal); M96.1 Postlaminectomy syndrome, not elsewhere classified; M51.369 Other intervertebral disc degeneration, lumbar region without mention of lumbar back pain or lower extremity pain; Z79.891 Long term (current) use of opiate analgesic; M54.50 Low back pain, unspecified; M54.6 Pain in thoracic spine
CPT/HCPCS: 99214; G2211

== ENCOUNTER → 2024-12-21 14:01 | Outpatient (BNVA) | payer MEDICARE, SELFPAY | PROVIDERS: PCP Physician Assistant; Visit Provider Nurse Practitioner Family | DX: M96.1 Postlaminectomy syndrome, not elsewhere classified (principal); G89.4 Chronic pain syndrome; M51.369 Other intervertebral disc degeneration, lumbar region without mention of lumbar back pain or lower extremity pain; M51.360 Other intervertebral disc degeneration, lumbar region with discogenic back pain only; F11.90 Opioid use, unspecified, uncomplicated; Z51.81 Encounter for therapeutic drug level monitoring | CPT/HCPCS: 99212 ==

== ENCOUNTER 2025-01-10 10:56 | Outpatient (AMB) | payer MEDICARE, SELFPAY ==
--- NOTE | 2025-01-10 11:18 | MHC.OFFVIS ---
Vital Signs 01/10/25 11:19 Height 5 ft 7 in Weight 122 lb 5.705 oz BMI 19.2 BP 112/70 Blood Pressure Location Lt brachial Position Sitting Pulse 62 Pulse Source Pulse Oximeter Pulse Oximetry (%) 99 Oxygen Delivery Method Room Air Intake Visit Reasons: cough Intake Note: pt is here for follow up and her breathing is fine, carrying things does cause short of breath. please refill albuterol hfa to have on hand Forms Examiner Required: No Allergies No Known Allergies Allergy (Verified 01/10/25 12:00) Medication List - Last Reconciled 01/10/25 by Julissa Evans MD albuterol sulfate 90 mcg/actuation (ProAir HFA) 2 puffs inhalation Q4-6H PRN 30 days back brace As directed fluticasone propion-salmeterol 250-50 mcg/dose (Advair Diskus) 1 inh inhalation BID 30 days naloxone 4 mg/actuation (Narcan) 4 mg intranasal Q2M 1 day nicotine 1 patch transdermal DAILY 28 days oxycodone-acetaminophen 10-325 mg 1 tab PO TID PRN 30 days polyethylene glycol 3350 (Miralax) 17 grams PO DAILY PRN ropinirole 1 mg PO BID trazodone 50 mg PO BEDTIME 90 days Do you need a note to return to daycare/school/sports/work: No HPI HPI cough: Details: Dot , a retired or an, comes for her routine follow-up after 6 months. She has longstanding dependence on cigarettes, and also longstanding mild chronic obstructive pulmonary disease. Currently smoking about 5 cigarettes a day, and on some days has to go up to about 8 cigarettes a day, usually when she is stressed out. She has usual intermittent cough, and shortness of breath only if she walks. Up hill or walks fast Main issue is ongoing anxiety and stress because of her being treated for lung cancer, and just started on chemotherapy. She also has longstanding history of muscle cramps in the legs at night/ being treated for restless legs syndrome with small dose of ropinirole , and it is stable. [facility] Medical History Nicotine dependence, cigarettes, uncomplicated Chronic sinusitis Back pain of thoracolumbar region T12 compression fracture Osteopenia Screening for hypercholesterolemia Breast cancer screening Bilateral hip pain Muscle strain COPD exacerbation Pseudogout of left knee Change in bowel habit Abdominal bloating Exocrine pancreatic insufficiency COPD (chronic obstructive pulmonary disease) Lumbar post-laminectomy syndrome Acute adjustment disorder with anxiety Restless leg syndrome Surgical History History of kyphoplasty History of lumbar laminectomy (~2012) History of vein stripping (~2003) History of femoral hernia repair (~2002) History of lumbar fusion (~2013) Status post phlebectomy (~2008) Social History Housing: House Alcohol intake: current Alcohol intake frequency: does not drink Patient Tobacco Use Status: Current everyday Tobacco user Tobacco use type: Cigarette Cigarette Packs Per Day: 0.5 Cigarettes Per Day: 5 e-Cigarette/Vaping Use: Never Used Second Hand Smoke Exposure: No service: No Current occupational status: retired Current occupation: [employer] Cognitive needs: No Hearing needs: No Vision needs: Yes (contacts/glasses) Review of Systems Const All systems reviewed & are unremarkable except as noted in HPI and below Eyes Reports no additional complaints ENT Reports no additional complaints Card Denies chest pain, Denies irregular heart rhythm, Denies leg edema and Denies dyspnea Resp Reports as per HPI, Reports cough (Mild off and on), Denies dyspnea and Denies wheezing GI Denies no additional complaints Reports no additional complaints Musc Reports back pain (Chronic) Skin/Breast Reports system reviewed and no additional complaints, except as documented Psych Reports no additional complaints Endo Reports no additional complaints Aller/Immun Reports no additional complaints and Denies wheezing Physical Exam Vital Signs: Last Vital Signs Pulse 62 01/10/25 11:19 BP 112/70 01/10/25 11:19 Pulse Ox 99 01/10/25 11:19 Oxygen Delivery Method Room Air 01/10/25 11:19 BMI result Body Mass Index 19.2 Const General: comfortable, no acute distress, alert and awake Orientation/consciousness: patient oriented x3 HEENT Head: Yes normal to inspection General nose exam: No nasal polyps present and No nasal discharge present Face and sinus: Yes sinuses nontender Mouth: oropharynx normal Throat: Yes posterior oropharynx normal Eyes General: appearance normal, both eyes and all related structures Neck Neck: Yes normal visual inspection, Yes no lymphadenopathy, Yes trachea midline and Yes no JVD Thyroid: Thyroid normal Chest Chest palpation & inspection: normal inspection of the chest, normal palpation of entire chest wall and no tenderness Resp Other: Percussion note hyper-resonant, breath sounds are equal on both sides. Does not have any crepitations or wheezes on auscultation. Cardio Palpation: normal PMI Rate: regular rate Rhythm: regular rhythm Heart sounds: no gallops and no murmurs GI Palpation (GI): Soft to palpation, nontender, No hepatosplenomegaly present and no masses Auscultation: normal bowel sounds Back/Spine/Pelvis Thoracic/Lumbar Spine: thoracic and lumbar spine normal to inspection, thoraco-lumbar ROM limited and thoraco-lumbar spasm Skin General skin exam: no rashes or lesions noted Neuro General: patient oriented x3 and no focal motor deficits Cranial nerves: Yes CN's II-XII intact bilaterally Extrem General: Yes normal to inspection, Yes no clubbing, cyanosis or edema and Yes no calf tenderness Psych Appearance: grossly normal and well kempt Speech and movement: Normal speech and movement present Assessment & Plan Assessment & Plan (1) Nicotine dependence, cigarettes, uncomplicated: Comment: (current smoker - onset 25, max 1ppd - currently 1/4ppd, 30+PYH). Patient is active in annual lung screening program. Currently on nicotine patch, and has been able to cut down cigarettes to 5 a day. Code(s): F17.210 - Nicotine dependence, cigarettes, uncomplicated Category: Medical Plan: Again had a good talk about quitting. She is not able to quit at this time because she is under lot of stress on account of her being treated for lung cancer. (2) COPD (chronic obstructive pulmonary disease): Comment: PATIENT DOES HAVE CHRONIC OBSTRUCTIVE PULMONARY DISEASE WHICH IS SECONDARY TO HER ONGOING SMOKING. THE SYMPTOMS GET EXACERBATED BECAUSE OF HER CONTINUED SMOKING AND INTERMITTENT LOW-GRADE RESPIRATORY INFECTIONS. LATELY HE SHE HAS CUT DOWN THE CIGARETTES , SHE IS DOWN TO 5 CIGARETTES A DAY AND IS TRYING HARD TO QUIT COMPLETELY. Code(s): J44.9 - Chronic obstructive pulmonary disease, unspecified Category: Medical Qualifiers: COPD type: chronic bronchitis Chronic bronchitis type: simple Qualified Code(s): J41.0 - Simple chronic bronchitis Plan: Continue to use Advair Diskus 250-51 inhalation b.i.d. And albuterol HFA 2 puffs Q 6 hours p.r.n. (3) Pulmonary nodule: Comment: Last CT scan in June 2022, Benign category 2. Patient active in lung screening program. Her chest x-ray had shown some increase in the size of density in the right hilar area. HOWEVER HER CURRENT CT SCAN THE CHEST DOES NOT SHOW ANY GROUND-GLASS DENSITY, MASS, OR ANY SIGNIFICANT PULMONARY NODULE. Code(s): R91.1 - Solitary pulmonary nodule Category: Medical Plan: Advised to continue having annual lung scan (4) Restless leg syndrome: Comment: THIS IS A CHRONIC PROBLEM, CONTROLLED BY TAKING ROPINIROLE 0.5 MG 1 TABLET AT 18:00 AND 2 TABLETS AT BEDTIME. AND SHE WILL CONTINUE THE SAME WAY . Code(s): G25.81 - Restless legs syndrome Category: Medical Plan: Continue same medication Medications: Changed From ropinirole 1 mg PO TID 270 tabs 0RF G2.81 - Restless legs syndrome To ropinirole 1 mg PO BID G2.81 - Restless legs syndrome Coding Level of Care Code Est Pt Level 3 (40477) Diagnoses Nicotine dependence, cigarettes, uncomplicated F17.210 Simple chronic bronchitis J41.0 COPD type: chronic bronchitis Chronic bronchitis type: simple Pulmonary nodule R91.1 Restless leg syndrome G25.81
[2025-01-10 11:19] VITALS: BP 112/70; PULSE 62; O2SAT 99; BMI 19.2
== END 2025-01-10 11:36 | disposition home or self-care (01) ==
LOC: HO.HPS 10:56
PROVIDERS: PCP Physician Assistant; Visit Provider Internal Medicine
DX: F17.210 Nicotine dependence, cigarettes, uncomplicated (principal); J41.0 Simple chronic bronchitis; R91.1 Solitary pulmonary nodule; G25.81 Restless legs syndrome
CPT/HCPCS: 99213

== ENCOUNTER → 2025-01-10 10:56 | Outpatient (BNVA) | payer MEDICARE, SELFPAY | PROVIDERS: PCP Physician Assistant; Visit Provider Internal Medicine | DX: J41.0 Simple chronic bronchitis (principal); R91.1 Solitary pulmonary nodule; G25.81 Restless legs syndrome; F17.210 Nicotine dependence, cigarettes, uncomplicated | CPT/HCPCS: 99212 ==

== ENCOUNTER 2025-01-25 11:29 | Outpatient (AMB) | payer MEDICARE, SELFPAY ==
--- NOTE | 2025-01-25 11:31 | A.OFFVIS_ITS ---
Vital Signs 01/25/25 11:37 Height 5 ft 7 in Weight 115 lb 4 oz BMI 18.0 BP 123/91 H Blood Pressure Location Rt brachial Position Sitting Pulse 80 Pulse Source Pulse Oximeter Pulse Oximetry (%) 98 Oxygen Delivery Method Room Air Intake Visit Reasons: Pill Count Intake Note: Dot comes in today for a pill count to oxycodone-acetaminophen, patient should have 54 tablets and presents with 60 tablets which she last took today 01/25/25 at 5:30am. 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 Patient is supposed to have #54 pills and has #60 pills. This demonstrates a responsible attitude in regards to the medication regimen. She reports mild to moderate pain relief and no noted sided effects with current dose of oxycodone-acetaminophen 10-325 mg TID prn except occasional constipation for which she does bowel regime, including increasing fluids, fiber intake or stool softener. Patient rates her pain at 7-8/10, pain is worst in the morning and prolonged sitting as well as caring for her who recently returned from hospital. Denies any fever, chills, weight changes, sedation, abdominal pain, constipation, nausea, dizziness or urinary retention except recent chest cold for which she completed 5 days of prednisone treatment over a week ago. She is followed by Dr. Evans for COPD and pulmonary nodule management. Past procedures: 10/13/23: Percutaneous Spinal Cord Stimulator Trial, Lumbar: 0% relief. 05/21/23: T12 Kyphoplasty-50% pain relief 03/17/23: Sacroiliac Joint Injection, Bilateral: 50-60% relief. [facility] Medical History Nicotine dependence, cigarettes, uncomplicated Chronic sinusitis Back pain of thoracolumbar region T12 compression fracture Osteopenia Screening for hypercholesterolemia Breast cancer screening Bilateral hip pain Muscle strain COPD exacerbation Pseudogout of left knee Change in bowel habit Abdominal bloating Exocrine pancreatic insufficiency COPD (chronic obstructive pulmonary disease) Lumbar post-laminectomy syndrome Acute adjustment disorder with anxiety Restless leg syndrome Surgical History History of kyphoplasty History of lumbar laminectomy (~2012) History of vein stripping (~2003) History of femoral hernia repair (~2002) History of lumbar fusion (~2013) Status post phlebectomy (~2008) Social History Housing: House Alcohol intake: current Alcohol intake frequency: does not drink Patient Tobacco Use Status: Current everyday Tobacco user Tobacco use type: Cigarette Cigarette Packs Per Day: 0.5 Cigarettes Per Day: 5 e-Cigarette/Vaping Use: Never Used Second Hand Smoke Exposure: No service: No Current occupational status: retired Current occupation: [employer] Cognitive needs: No Hearing needs: No Vision needs: Yes (contacts/glasses) Review of Systems Const All systems reviewed & are unremarkable except as noted in HPI and below Physical Exam General: Appears afebrile. Alert and oriented. Mood and affect appropriate. Follows and participates in conversation appropriately. Respiratory effort is unlabored. No cough. Able to transition from sit to stand unassisted. Ambulates with bilaterally normal heel strike and toe off. Back/Spine/Pelvis Cervical Spine: cervical ROM normal, cervical muscular tenderness and No Cervical spine tenderness Thoracic/Lumbar Spine: thoracic and lumbar spine normal to inspection, Thoracic/lumbar spine scar(s), pain with thoraco-lumbar ROM, thoraco-lumbar ROM limited, No thoracic spinal tenderness and lumbar spinal tenderness at L4 and at L5 Sacroiliac joints: bilaterally tender to palpation Psych Appearance: grossly normal and well kempt Mental Status: mental status grossly normal Speech and movement: Normal speech and movement present and Clear speech present Affect: normal affect Attitude: cooperative Thought process: Normal thought process present Thought content: Normal thought content present, suicidality (none), no hallucinations and Depressive thoughts present Insight: Good insight present (Psych) Judgement: Good judgement present (Psych) Results Reviewed Results Reviewed: XR THORACIC SPINE 03/03/24 CLINICAL INFORMATION: Lower back pain. FINDINGS: There is bony demineralization. There is a mild lower thoracic dextroscoliosis. There is mild anterior disc space narrowing at T8-T9 and T9-T10. There is mild leftward disc space narrowing at T10-T11. There is rightward disc space narrowing at L2-L3 and L3-L4. No acute fracture or spondylolisthesis is seen. There has been a prior L1 vertebroplasty. There is multi-level mild thoracic endplate arthropathy. The posterior elements are intact. The paravertebral soft tissues are unremarkable IMPRESSION: 1. There is mild degenerative disc disease at T8-T9 through T10-T11, and moderate disc space narrowing is seen at L2-L3 and L3-L4. 2. There is a mild lower thoracic dextroscoliosis. 3. There has been a prior L1 vertebroplasty. MR LUMBAR SPINE WITHOUT AND WITH CONTRAST 05/11/23 CLINICAL INFORMATION: Post laminectomy syndrome. History of compression fracture. Pain. COMPARISON: MRI dated 10/13/2013. Nuclear bone scan report from 05/06/2023. CT dated 04/19/2023. TECHNIQUE: Multiplanar, multisequence imaging was obtained. Intravenous contrast: Gadavist 6 mL. FINDINGS: VERTEBRAL BODIES AND PARASPINAL STRUCTURES: There is a moderate leftward curvature of the lumbar spine centered at the L2 level. Significant right lateral endplate edematous changes are visible at the L1-L2 level at the apex of the spinal curvature. There is a mild superior endplate compression fracture with a 40% loss of vertebral body height at the T12 level, slightly increased compared to the prior CT study. Marrow edema is present throughout the vertebral body extending into the pedicles. Mild amount of paraspinal soft tissue edema also evident at this level. Minimal osseous retropulsion noted. No additional compression fractures are seen. Advanced degenerative endplate changes and loss of disc height noted at the L2-L3 level with a slight retrosubluxation and bulky endplate spurring. There is a mild anterolisthesis and moderate disc space narrowing at the L3-L4 level with mild posterior endplate edema. The patient is status post posterior lumbar instrumented fusion at the L4-L5 level where there is a mild anterolisthesis. Severe degenerative endplate changes with mixed chronic and edematous endplate changes noted at the L5-S1 level. There are [id number] degenerative changes in the left sacroiliac joint. CONUS MEDULLARIS AND CAUDA EQUINA: The distal cord, conus tip, and cauda equina nerve roots appear normal. No pathologic intradural enhancement is visible on postcontrast imaging. SPINAL LEVELS: L1-L2: Minimal anterolisthesis and broad-based posterior disc bulge with [id number] facet arthropathy results in mild central canal stenosis. Bulging disc impresses upon the right L2 nerve root in the subarticular zone. [id number] foraminal narrowing. Significant endplate edematous changes on the right side. L2-L3: Retrosubluxation and moderate loss of disc height with a diffuse disc bulge and hypertrophic facet arthropathy. No central canal stenosis. Moderate right foraminal narrowing. L3-L4: Mild anterolisthesis and diffuse disc bulge with moderate to severe facet arthropathy results in mild central canal stenosis. Mild left foraminal narrowing evident. L4-L5: Anterolisthesis and post laminectomy changes with hardware instrumentation. No central canal stenosis. Mild left foraminal narrowing. L5-S1: Severe loss of disc height with a retrosubluxation noted. Mixed chronic and edematous endplate changes. Broad-based disc bulge and superimposed central disc protrusion impress upon the ventral thecal sac with mild mass effect upon the S1 nerve roots. Hypertrophic facet arthropathy without central canal stenosis. Moderate to severe foraminal narrowing with compression of the exiting left L5 nerve root due to ossific spurring. IMPRESSION: 1. Subacute mild superior endplate compression fracture deformity at the T12 level with significant marrow edema throughout the vertebral body and mild paraspinal soft tissue edema. Minimal osseous retropulsion. 2. Moderate leftward lumbar spinal curvature with moderate multilevel spondylosis and postsurgical changes at the L4-L5 level, status post posterior lumbar instrumented fusion. 3. Mild central canal stenosis at the L1-L2 level with bulging disc impressing upon the right L2 nerve root. 4. Moderate right foraminal narrowing at the L2-L3 level. Mild central canal stenosis at the L3-L4 level with a mild anterolisthesis and moderate to severe facet arthropathy. 5. Severe degenerative disc disease at the L5-S1 level with mixed chronic and edematous endplate changes. Broad-based central disc protrusion with mild mass effect upon the S1 nerve roots. Moderate to severe foraminal narrowing, more so on the left side with compression of the left L5 nerve root. ADDENDUM As stated in the report, the degree of osseous retropulsion across the superior endplate of T12 is minimal, measuring 2 mm, without cord compression or central canal stenosis. If this is thought to be a pain generator for the patient, recommend follow-up neurosurgical or interventional radiology consultation to guide further management for potential vertebral body augmentation. KAJAL ANDERSON MD Assessment & Plan Assessment & Plan (1) Lumbar post-laminectomy syndrome: Code(s): M96.1 - Postlaminectomy syndrome, not elsewhere classified Category: Medical (2) Chronic pain syndrome: Code(s): G89.4 - Chronic pain syndrome Category: Medical (3) Lumbar degenerative disc disease: Code(s): M51.36 - Other intervertebral disc degeneration, lumbar region Category: Medical (4) Back pain of thoracolumbar region: Code(s): M54.50 - Low back pain, unspecified; M54.6 - Pain in thoracic spine Category: Medical (5) Chronic, continuous use of opioids: Code(s): F11.90 - Opioid use, unspecified, uncomplicated Category: Medical Plan Patient has shown accountability for her medication regimen and the pill count was accurate. The patient reported no noted side effects and adequate analgesia on current medication regime. There is no evidence of misuse, abuse or diversion at this time. [facility] reviewed. Refill sent for oxycodone 10-325 mg TID prn with advanced date of 02/12/25. Patient has Narcan at home. All questions were answered and patient is in agreement of plan. Follow up in 4- 5 weeks for a pill count and sooner if needed. Medications: Refilled oxycodone-acetaminophen 10-325 mg Partial Fill upon patient request. 1 tab PO TID 30 days PRN 90 tabs 0RF pain G89.4 - Chronic pain syndrome, M51.36 - Other intervertebral disc degeneration, lumbar region, M96.1 - Postlaminectomy syndrome, not elsewhere classified Coding Level of Care Code Est Pt Level 4 (44162) Complex EM visit Add On G2211 Diagnoses Lumbar post-laminectomy syndrome M96.1 Chronic pain syndrome G89.4 Lumbar degenerative disc disease M51.36 Back pain of thoracolumbar region M54.50; M54.6 Chronic, continuous use of opioids F11.90
[2025-01-25 11:37] VITALS: BP 123/91; PULSE 80; O2SAT 98; BMI 18.0
--- OUTSIDE RECORDS SUMMARY | 2025-01-25 12:37 | XMS_ITS | Patient Health Record ---
Author Organization [facility] Address [address] [place] [address] Care Team Providers Care Vulcan Crewmember Name Role Phone Brannon Rider Primary Care Provider Chong Cornell Unavailable [phone] Allergies No Known Allergies Reason For Referral No Information Medications Medication SIG (Take, Route, Frequency, Duration) Notes Start Date End Date Status Vitamin C Immune Health 500 MG 1 tablet Orally Once a day for 30 day(s) Active Calcium 1200 0200-2134 MG-UNIT 1 tablet Orally Once a day [...] Problem Status W/U Status Risk Notes Problem [id number] Encounter for screening for malignant neoplasm of colon (Z12.11) Active confirmed Problem 340050476 Abdominal bloating (R14.0) Active confirmed Problem [id number] Change in bowel habits (R19.4) Active confirmed Problem [id number] Abdominal pain, generalized (R10.84) Active confirmed Problem Chronic constipation (021776755) Chronic constipation (K59.09) Active confirmed Plan Of Treatment Pending Test Test Name Order Date BUN 08/26/2021 CREATININE 08/26/2021 CELIAC PANEL #10 08/26/2021 CT ABD & PELVIS WITH CONTRAST 08/26/2021 Future Test Test Name Order Date COLONOSCOPY 08/26/2021 COLONOSCOPY 02/05/2022 Insurance Providers Payer Name Payer Address Payer Phone Subscriber Number Group Number Insured Name Patient Relationship to Insured Coverage Start Date Coverage End Date [facility] [address] [place] [address] [id number] MOLLY VILLEGAS Self - patient is the insured Medical (General) History Medical History History ICD Code COPD Herniated cervical disc Restless leg syndrome Migraines Denies PR,DM,CVA,renal disease Negative Cologuard in approx 2018--she h as never had a colonoscopy Chronic constipation Negative laboratories for celiac disease in 2021 Surgical History Surgery Date(Month/Year) Varicose veins 2008 Right inguinal hernia Lower Back surgeries x 3
--- OUTSIDE RECORDS SUMMARY | 2025-01-25 12:37 | XMS_ITS | Data Portability ---
Author Organization MARK [facility] [address] Address [address] [place] [address] Assessment No assessment recorded. Plan of Treatment Reminders Order Date Submit Date Provider Last Modified By Organization Details Last Modified Time Details Appointments None recorded. Lab rapid flu (A+B) 2022 023 gustavo [email or web address] _minal wynn, [address] [facility], [place], [address], 18:21:59 Referral None recorded. Procedures None recorded. Surgeries None recorded. Imaging None recorded. Medication Orders prednisone 20 mg tablet 2022 023 [facility]/Pharmacy #[id number], [address] [facility] [place], [address], 3 18:32:03 Augmentin 875 mg-125 mg tablet 2022 023 [facility]/Pharmacy #[id number], [address] [facility] [place], [address], 3 18:32:03 Patient TargetsNo targets recorded. Patient Instructions Encounter Date Encounter Id Patient Instructions Last Modified By Organization Details Last Modified Time 09/13/2022 [id number] chronic obstructive pulmonary disease (COPD) flare-ups: care [...] Analyte Normal = Negati ve Not Available [facility] [address] [place], [address], 09/13/2022 18:21:34 09/13/19 23 09/13/2022 rapid flu (A+B) Unknown Analyte negati ve Not Available [facility] [address] [place], [address], 09/13/2022 18:21:34 09/13/19 23 09/13/2022 rapid flu (A+B) Unknown Analyte Normal = Negati ve Not Available 2099el mendoza [address] [place], [address], 09/13/2022 18:21:34 09/13/19 23 09/13/2022 rapid flu (A+B) Unknown Analyte negati ve Not Available [facility] [address] [place], [address], 09/13/2022 18:21:34 Result Notes None recorded. Problems Name Problem SNOMED Code Status Onset Date Resolution Date Notes Provider Name and Address Organization Details Recorded Time Chronic back pain 231336072 Active 2022 IRIS COUVERTIE R null, [place] - [facility] 3 17:55:32 Restless legs 26160523 Active 2022 IRIS COUVERTIE R null, PA - [facility] 3 17:56:01 Insomnia 490644606 Active 2022 IRIS COUVERTIE R null, PA - [facility] 3 17:56:21 Chronic obstructive pulmonary disease 00208746 Active 2022 IRIS COUVERTIE R null, PA [...] Updated DateTime 3 170.18 cm 20.4 kg/m2 70090.0 1 g 98.1 [degF] 20 /min 82 /min 97 % 97 % 147 mm[Hg] 82 mm[Hg] IRIS COUVERTIE R PA - [facility] 3 18:00:09 [...] SNOMED-CT Code Diagnosis ICD10 Code Diagnosis Note [id number] [address] [address] [place] [phone] 05/27/2020 18:47:16 05/27/2020 19:58:17 [id number] [address] [address] [place] [address] 02/07/2022 19:35:00 02/07/2022 20:25:06 [id number] MARK CARTER [address] [place] [address] 09/13/2022 17:34:13 09/13/2022 18:38:31 Acute upper respiratory infection 69827926 J06.9 Acute exac erbation of chronic obstructive pulmonary disease 110771234 J44.1 Health Concerns Section Related Observation LastModified by Organization Detai ls LastModified Time None Recorded Concern Status LastModified by Organization Details LastModified Time None Recorded Advance Directives Directive None Recorded Payers Insurance Date Sequence Insurance Name Policy Number Policy Zambrano Covered Member ID Zambrano Member ID Guarantor Name 09/13/2022 1 [place] [id number] Dot J Rivest [id number] [facility] Rivest Notes Date Note Type [...] Test. Was around sick family members over [place] which she thinks she caught a cold from. Had difficulty sleeping last night secondary to cough, SOB and wheezing. Improved today but still wheezing. O2 is 97% on RA. MARK SOTOMAYOR [address] [place], [address], [place] - [facility] 09/13/2022 18:34:37 OBGyn Episode No OBEpisode recorded.
== END 2025-01-25 11:51 | disposition home or self-care (01) ==
LOC: HO.PMC 11:30
PROVIDERS: PCP Physician Assistant; Visit Provider Nurse Practitioner Family
DX: M96.1 Postlaminectomy syndrome, not elsewhere classified (principal); G89.4 Chronic pain syndrome; M51.369 Other intervertebral disc degeneration, lumbar region without mention of lumbar back pain or lower extremity pain; Z79.891 Long term (current) use of opiate analgesic; M54.50 Low back pain, unspecified; M54.6 Pain in thoracic spine
CPT/HCPCS: 99214; G2211

== ENCOUNTER → 2025-01-25 11:29 | Outpatient (BNVA) | payer MEDICARE, SELFPAY | PROVIDERS: PCP Physician Assistant; Visit Provider Nurse Practitioner Family | DX: Z51.81 Encounter for therapeutic drug level monitoring (principal); F11.20 Opioid dependence, uncomplicated; M96.1 Postlaminectomy syndrome, not elsewhere classified; M51.360 Other intervertebral disc degeneration, lumbar region with discogenic back pain only; M54.6 Pain in thoracic spine; G89.4 Chronic pain syndrome | CPT/HCPCS: 99212 ==

== ENCOUNTER 2025-02-13 16:24 | Outpatient (REF) | payer MEDICARE, SELFPAY ==
--- NOTE | ~2025-02-13 | CT_ITS ---
CLINICAL HISTORY: F17.210 - Nicotine dependence, cigarettes, uncomplicated CT lung cancer screening (LDCT) Comparison: None Technique: Axial CT images of the chest using low-dose technique. Referring provider counseled the patient on shared decision-making for LDCT screening. Additional counseling was provided on smoking cessation. Effective radiation dose total: DLP 26.6 mGycm, CTDIvol 0.7 mGy. Findings: There are moderate to severe coronary artery calcifications. There is mild centrilobular and paraseptal emphysema. There is a 5 mm irregular pulmonary nodule in the right upper lobe best seen on image number 48 of series number Coronary artery calcifications: Moderate Limited upper abdomen: Unremarkable Other: None Impression: LungRADS 3 - Probably benign: Recommend low dose screening Chest CT in 6 months. ##L3# Category 1: Normal; continue annual screening Category 2: Benign appearance or behavior, continue annual screening Category 3: Probably benign, [address] recommended Category 4A: Suspicious, [address] recommended; may consider PET/CT Category 4B: Suspicious, Additional diagnostics and/or tissue sampling recommended Category 4X: Suspicious, Additional diagnostics and/or tissue sampling recommended Category 0: Recalls (incomplete screen due to Incomplete coverage, Noise, Respiratory motion, Expiration, Obscured by acute abnormality) This document has been electronically signed by: Willis Carr MD on 02/14/2025 10:54:40
--- OUTSIDE RECORDS SUMMARY | 2025-02-13 17:12 | XMS_ITS | Data Portability ---
Author Organization [facility] [address] Address [address] [place] [address] Assessment No assessment recorded. Plan of Treatment Reminders Order Date Submit Date Provider Last Modified By Organization Details Last Modified Time Details Appointments None recorded. Lab rapid flu (A+B) 2022 023 gustavo [email or web address] _minal wynn, [address] [facility], [place], [address], 18:21:59 Referral None recorded. Procedures None recorded. Surgeries None recorded. Imaging None recorded. Medication Orders prednisone [address] [facility] [place]Pharmacy #[id number], [address] [facility] [place], [address], 18:32:03 Augmentin 875 mg-125 [address] [facility] [place]Pharmacy #[id number], [address] [facility] [place], [address], 3 18:32:03 Patient TargetsNo targets recorded. Patient Instructions Encounter Date Encounter Id Patient Instructions Last Modified By Organization Details Last Modified Time 09/13/2022 [id number] chronic obstructive pulmonary disease (COPD) flare-ups: care [...] Analyte Normal = Negati ve Not Available [facility] [address] [place], [address], 09/13/2022 18:21:34 09/13/19 23 09/13/2022 rapid flu (A+B) Unknown Analyte negati ve Not Available [facility] [address] [place], [address], 09/13/2022 18:21:34 09/13/19 23 09/13/2022 rapid flu (A+B) Unknown Analyte Normal = Negati ve Not Available [address]endo[address] [place], [address], 09/13/2022 18:21:34 09/13/19 23 09/13/2022 rapid flu (A+B) Unknown Analyte negati ve Not Available [facility] [address] [place], [address], 09/13/2022 18:21:34 Result Notes None recorded. Problems Name Problem SNOMED Code Status Onset Date Resolution Date Notes Provider Name and Address Organization Details Recorded Time Chronic back pain 014213399 Active 2022 IRIS COUVERTIE R null, PA - [facility] 3 17:55:32 Restless legs 46798315 Active 2022 IRIS COUVERTIE R null, PA - [facility] 3 17:56:01 Insomnia 776851108 Active 2022 IRIS COUVERTIE R null, PA - [facility] 3 17:56:21 Chronic obstructive pulmonary disease 40750670 Active 2022 IRIS COUVERTIE R null, PA [...] Updated DateTime 3 170.18 cm 20.4 kg/m2 08931.0 1 g 98.1 [degF] 20 /min 82 [...] SNOMED-CT Code Diagnosis ICD10 Code Diagnosis Note [id number] [address] [facility] [address] [place] [address] 05/27/2020 18:47:16 05/27/2020 19:58:17 [id number] [address] [place] [address] 02/07/2022 19:35:00 02/07/2022 20:25:06 [id number] MARK CARTER [address] [place] [address] 09/13/2022 17:34:13 09/13/2022 18:38:31 Acute upper respiratory infection 60660105 J06.9 Acute exac erbation of chronic obstructive pulmonary disease 368696672 J44.1 Health Concerns Section Related Observation LastModified by Organization Detai ls LastModified Time None Recorded Concern Status LastModified by Organization Details LastModified Time None Recorded Advance Directives Directive None Recorded Payers Insurance Date Sequence Insurance Name Policy Number Policy Zambrano Covered Member ID Zambrano Member ID Guarantor Name 09/13/2022 1 CHUYITA (PPO) [id number] [facility] J Rivest [id number] [facility] Rivest Notes Date Note Type Note Provider [...] Test. Was around sick family members over [place] which she thinks she caught a cold from. Had difficulty sleeping last night secondary to cough, SOB and wheezing. Improved today but still wheezing. O2 is 97% on RA. MARK SOTOMAYOR [address] [place], [address], [place] - [facility] 09/13/2022 18:34:37 OBGyn Episode No OBEpisode recorded.
== END 2025-02-13 16:25 | disposition home or self-care (01) ==
LOC: HO.CT 16:24
PROVIDERS: PCP Physician Assistant; Visit Provider Physician Assistant Medical
DX: Z12.2 Encounter for screening for malignant neoplasm of respiratory organs (principal); F17.210 Nicotine dependence, cigarettes, uncomplicated
CPT/HCPCS: 71271

== ENCOUNTER → 2025-02-13 16:31 | Outpatient (BNV) | payer MEDICARE, SELFPAY | PROVIDERS: PCP Physician Assistant; Visit Provider Radiology Diagnostic Radiology | DX: F17.210 Nicotine dependence, cigarettes, uncomplicated (principal) | CPT/HCPCS: 71271 ==

== ENCOUNTER 2025-03-01 12:58 | Outpatient (AMB) | payer MEDICARE, SELFPAY ==
--- NOTE | 2025-03-01 13:02 | MHC.OFFVIS ---
Vital Signs 03/01/25 13:10 Height 5 ft 7 in Weight 116 lb 8 oz BMI 18.2 BP 114/73 Blood Pressure Location Rt brachial Position Sitting Respiration 16 Pulse 69 Pulse Source Pulse Oximeter Pulse Oximetry (%) 98 Oxygen Delivery Method Room Air Intake Visit Reasons: PILL COUNT Intake Note: Dot comes in today for a pill count to oxycodone-acetaminophen, patient should have 36 tablets and presents with 39 tablets which she last took today 03/01/25 at 6am. Pain today 03/22 Accompanied by: Self / Same As Patient Allergies No Known Allergies Allergy (Verified 03/01/25 13:10) Medication List - Last Reconciled 03/01/25 by BRIANA Hermosillo albuterol sulfate 90 mcg/actuation 2 puffs inhalation Q4-6H PRN 30 days back brace As directed doxycycline hyclate 100 mg PO BID 10 days fluticasone propion-salmeterol 250-50 mcg/dose (Advair Diskus) 1 inh inhalation BID 30 days naloxone 4 mg/actuation (Narcan) 4 mg intranasal Q2M 1 day nicotine 1 patch transdermal DAILY 28 days oxycodone-acetaminophen 10-325 mg 1 tab PO TID PRN 30 days polyethylene glycol 3350 (Miralax) 17 grams PO DAILY PRN prednisone 20 mg PO BID 5 days ropinirole 1 mg PO TID trazodone 50 mg PO BEDTIME 90 days HPI Comments Details: Patient presents today for a pill count. Patient is supposed to have #36 pills and has # pills. This demonstrates a responsible attitude in regards to the medication regimen. She reports mild to moderate pain relief and no noted sided effects with current dose of oxycodone-acetaminophen 10-325 mg TID prn except occasional constipation for which she does bowel regime, including increasing fluids, fiber intake or stool softener. Pain is rated at 7-8/10. Denies any fever, chills, weight changes, sedation, abdominal pain, constipation, nausea, dizziness or urinary retention. She is followed by Dr. Evans for COPD and pulmonary nodule management. Past procedures: 10/13/23: Percutaneous Spinal Cord Stimulator Trial, Lumbar: 0% relief. 05/21/23: T12 Kyphoplasty-50% pain relief 03/17/23: Sacroiliac Joint Injection, Bilateral: 50-60% relief. [facility] Medical History Nicotine dependence, cigarettes, uncomplicated Chronic sinusitis Back pain of thoracolumbar region T12 compression fracture Osteopenia Screening for hypercholesterolemia Breast cancer screening Bilateral hip pain Muscle strain COPD exacerbation Pseudogout of left knee Change in bowel habit Abdominal bloating Exocrine pancreatic insufficiency COPD (chronic obstructive pulmonary disease) Lumbar post-laminectomy syndrome Acute adjustment disorder with anxiety Restless leg syndrome Surgical History History of kyphoplasty History of lumbar laminectomy (~2012) History of vein stripping (~2003) History of femoral hernia repair (~2002) History of lumbar fusion (~2013) Status post phlebectomy (~2008) Social History Housing: House Alcohol intake: current Alcohol intake frequency: does not drink Patient Tobacco Use Status: Current everyday Tobacco user Tobacco use type: Cigarette Cigarette Packs Per Day: 0.5 Cigarettes Per Day: 5 e-Cigarette/Vaping Use: Never Used Second Hand Smoke Exposure: No service: No Current occupational status: retired Current occupation: [employer] Cognitive needs: No Hearing needs: No Vision needs: Yes (contacts/glasses) Review of Systems Const All systems reviewed & are unremarkable except as noted in HPI and below Physical Exam General: Appears afebrile. Alert and oriented. Mood and affect appropriate. Follows and participates in conversation appropriately. Respiratory effort is unlabored. No cough. Able to transition from sit to stand unassisted. Ambulates with bilaterally normal heel strike and toe off. Psych Appearance: grossly normal and well kempt Mental Status: mental status grossly normal Speech and movement: Normal speech and movement present and Clear speech present Affect: normal affect Attitude: cooperative Thought process: Normal thought process present Thought content: Normal thought content present, suicidality (none), no hallucinations and Depressive thoughts present Insight: Good insight present (Psych) Judgement: Good judgement present (Psych) Results Reviewed Results Reviewed: XR THORACIC SPINE 03/03/24 CLINICAL INFORMATION: Lower back pain. FINDINGS: There is bony demineralization. There is a mild lower thoracic dextroscoliosis. There is mild anterior disc space narrowing at T8-T9 and T9-T10. There is mild leftward disc space narrowing at T10-T11. There is rightward disc space narrowing at L2-L3 and L3-L4. No acute fracture or spondylolisthesis is seen. There has been a prior L1 vertebroplasty. There is multi-level mild thoracic endplate arthropathy. The posterior elements are intact. The paravertebral soft tissues are unremarkable IMPRESSION: 1. There is mild degenerative disc disease at T8-T9 through T10-T11, and moderate disc space narrowing is seen at L2-L3 and L3-L4. 2. There is a mild lower thoracic dextroscoliosis. 3. There has been a prior L1 vertebroplasty. MR LUMBAR SPINE WITHOUT AND WITH CONTRAST 05/11/23 CLINICAL INFORMATION: Post laminectomy syndrome. History of compression fracture. Pain. COMPARISON: MRI dated 10/13/2013. Nuclear bone scan report from 05/06/2023. CT dated 04/19/2023. TECHNIQUE: Multiplanar, multisequence imaging was obtained. Intravenous contrast: Gadavist 6 mL. FINDINGS: VERTEBRAL BODIES AND PARASPINAL STRUCTURES: There is a moderate leftward curvature of the lumbar spine centered at the L2 level. Significant right lateral endplate edematous changes are visible at the L1-L2 level at the apex of the spinal curvature. There is a mild superior endplate compression fracture with a 40% loss of vertebral body height at the T12 level, slightly increased compared to the prior CT study. Marrow edema is present throughout the vertebral body extending into the pedicles. Mild amount of paraspinal soft tissue edema also evident at this level. Minimal osseous retropulsion noted. No additional compression fractures are seen. Advanced degenerative endplate changes and loss of disc height noted at the L2-L3 level with a slight retrosubluxation and bulky endplate spurring. There is a mild anterolisthesis and moderate disc space narrowing at the L3-L4 level with mild posterior endplate edema. The patient is status post posterior lumbar instrumented fusion at the L4-L5 level where there is a mild anterolisthesis. Severe degenerative endplate changes with mixed chronic and edematous endplate changes noted at the L5-S1 level. There are eiyd-[id number] degenerative changes in the left sacroiliac joint. CONUS MEDULLARIS AND CAUDA EQUINA: The distal cord, conus tip, and cauda equina nerve roots appear normal. No pathologic intradural enhancement is visible on postcontrast imaging. SPINAL LEVELS: L1-L2: Minimal anterolisthesis and broad-based posterior disc bulge with [id number]-dw-[id number] facet arthropathy results in mild central canal stenosis. Bulging disc impresses upon the right L2 nerve root in the subarticular zone. Lwmh-td-kmzktaqc foraminal narrowing. Significant endplate edematous changes on the right side. L2-L3: Retrosubluxation and moderate loss of disc height with a diffuse disc bulge and hypertrophic facet arthropathy. No central canal stenosis. Moderate right foraminal narrowing. L3-L4: Mild anterolisthesis and diffuse disc bulge with moderate to severe facet arthropathy results in mild central canal stenosis. Mild left foraminal narrowing evident. L4-L5: Anterolisthesis and post laminectomy changes with hardware instrumentation. No central canal stenosis. Mild left foraminal narrowing. L5-S1: Severe loss of disc height with a retrosubluxation noted. Mixed chronic and edematous endplate changes. Broad-based disc bulge and superimposed central disc protrusion impress upon the ventral thecal sac with mild mass effect upon the S1 nerve roots. Hypertrophic facet arthropathy without central canal stenosis. Moderate to severe foraminal narrowing with compression of the exiting left L5 nerve root due to ossific spurring. IMPRESSION: 1. Subacute mild superior endplate compression fracture deformity at the T12 level with significant marrow edema throughout the vertebral body and mild paraspinal soft tissue edema. Minimal osseous retropulsion. 2. Moderate leftward lumbar spinal curvature with moderate multilevel spondylosis and postsurgical changes at the L4-L5 level, status post posterior lumbar instrumented fusion. 3. Mild central canal stenosis at the L1-L2 level with bulging disc impressing upon the right L2 nerve root. 4. Moderate right foraminal narrowing at the L2-L3 level. Mild central canal stenosis at the L3-L4 level with a mild anterolisthesis and moderate to severe facet arthropathy. 5. Severe degenerative disc disease at the L5-S1 level with mixed chronic and edematous endplate changes. Broad-based central disc protrusion with mild mass effect upon the S1 nerve roots. Moderate to severe foraminal narrowing, more so on the left side with compression of the left L5 nerve root. ADDENDUM As stated in the report, the degree of osseous retropulsion across the superior endplate of T12 is minimal, measuring 2 mm, without cord compression or central canal stenosis. If this is thought to be a pain generator for the patient, recommend follow-up neurosurgical or interventional radiology consultation to guide further management for potential vertebral body augmentation. KAJAL ANDERSON MD Assessment & Plan Assessment & Plan (1) Lumbar post-laminectomy syndrome: Code(s): M96.1 - Postlaminectomy syndrome, not elsewhere classified Category: Medical (2) Chronic pain syndrome: Code(s): G89.4 - Chronic pain syndrome Category: Medical (3) Lumbar degenerative disc disease: Code(s): M51.36 - Other intervertebral disc degeneration, lumbar region Category: Medical (4) Back pain of thoracolumbar region: Code(s): M54.50 - Low back pain, unspecified; M54.6 - Pain in thoracic spine Category: Medical (5) Chronic, continuous use of opioids: Code(s): F11.90 - Opioid use, unspecified, uncomplicated Category: Medical Plan Patient has shown accountability for her medication regimen and the pill count was accurate. The patient reported no noted side effects and adequate analgesia on current medication regime. There is no evidence of misuse, abuse or diversion at this time. instruMagicT reviewed. Refill sent for oxycodone 10-325 mg TID prn with advanced date of 03/13/25. Patient has Narcan at home. All questions were answered and patient is in agreement of plan. Follow up in 4-5 weeks for a pill count and sooner if needed. Medications: Refilled oxycodone-acetaminophen 10-325 mg Partial Fill upon patient request. 1 tab PO TID PRN 90 tabs 0RF pain 30 days G89.4 - Chronic pain syndrome, M51.36 - Other intervertebral disc degeneration, lumbar region, M96.1 - Postlaminectomy syndrome, not elsewhere classified Coding Level of Care Code Est Pt Level 4 (17197) Complex EM visit Add On G2211 Diagnoses Lumbar post-laminectomy syndrome M96.1 Chronic pain syndrome G89.4 Lumbar degenerative disc disease M51.36 Back pain of thoracolumbar region M54.50; M54.6 Chronic, continuous use of opioids F11.90
[2025-03-01 13:10] VITALS: BP 114/73; PULSE 69; RESP 16; O2SAT 98; BMI 18.2
== END 2025-03-01 13:30 | disposition home or self-care (01) ==
PROVIDERS: PCP Physician Assistant; Visit Provider Nurse Practitioner Family
DX: G89.4 Chronic pain syndrome (principal); M96.1 Postlaminectomy syndrome, not elsewhere classified; M51.369 Other intervertebral disc degeneration, lumbar region without mention of lumbar back pain or lower extremity pain; Z79.891 Long term (current) use of opiate analgesic; M54.50 Low back pain, unspecified; M54.6 Pain in thoracic spine
CPT/HCPCS: 99214; G2211

== ENCOUNTER → 2025-03-01 12:58 | Outpatient (BNVA) | payer MEDICARE, SELFPAY | PROVIDERS: PCP Physician Assistant; Visit Provider Nurse Practitioner Family | DX: M96.1 Postlaminectomy syndrome, not elsewhere classified (principal); G89.4 Chronic pain syndrome; M51.360 Other intervertebral disc degeneration, lumbar region with discogenic back pain only; F11.90 Opioid use, unspecified, uncomplicated | CPT/HCPCS: 99212 ==

== ENCOUNTER 2025-04-05 11:46 | Outpatient (AMB) | payer MEDICARE, SELFPAY ==
--- NOTE | 2025-04-05 11:49 | MHC.OFFVIS ---
Vital Signs 04/05/25 12:04 Height 5 ft 7 in Weight 114 lb 6 oz BMI 17.9 BP 118/72 Blood Pressure Location Rt brachial Position Sitting Intake Visit Reasons: PILL COUNT/ random UDS Intake Note: Dot comes in today for a pill count to oxycodone-acetaminophen, patient should have 24 tablets and presents with 27 tablets which she last took today 04/05/25 at 9:30am. Pain today 03/22 Patient will also have random UDS done today, aware that she will need to go to the lab on the first floor of this building today 04/05/25 before 1pm. Learning Services Coordinator Required: No Accompanied by: Self / Same As Patient Allergies No Known Allergies Allergy (Verified 04/05/25 11:59) HPI Comments Details: Patient presents today for a pill count. Patient is supposed to have #24 pills and has #27 pills. This demonstrates a responsible attitude in regards to the medication regimen. She reports mild to moderate pain relief and no noted sided effects with current dose of oxycodone-acetaminophen 10-325 mg TID prn and no constipation for the past month. Pain is rated at 7/10. She reports recent flare up in her lower back and hips after taking care of her during his hospice care. Patient reports her few weeks ago, she is grieving and has good family and friend support during this difficult time for her. Patient reports she walks uneven due to scoliosis, with moderate leftward curvature of the lumbar spine centered at the L2 level. She is interested foot orthotics to improve her posture and balance. Her scoliosis and leg discrepancy significantly impacts her foot mechanics. Denies any fever, chills, weight changes, sedation, abdominal pain, constipation, nausea, dizziness or urinary retention. She is followed by Dr. Evans for COPD and pulmonary nodule management. Past procedures: 10/13/23: Percutaneous Spinal Cord Stimulator Trial, Lumbar: 0% relief. 05/21/23: T12 Kyphoplasty-50% pain relief 03/17/23: Sacroiliac Joint Injection, Bilateral: 50-60% relief. [facility] Medical History Nicotine dependence, cigarettes, uncomplicated Chronic sinusitis Back pain of thoracolumbar region T12 compression fracture Osteopenia Screening for hypercholesterolemia Breast cancer screening Bilateral hip pain Muscle strain COPD exacerbation Pseudogout of left knee Change in bowel habit Abdominal bloating Exocrine pancreatic insufficiency COPD (chronic obstructive pulmonary disease) Lumbar post-laminectomy syndrome Acute adjustment disorder with anxiety Restless leg syndrome Surgical History History of kyphoplasty History of lumbar laminectomy (~2012) History of vein stripping (~2003) History of femoral hernia repair (~2002) History of lumbar fusion (~2013) Status post phlebectomy (~2008) Social History Housing: House Alcohol intake: current Alcohol intake frequency: does not drink Patient Tobacco Use Status: Current everyday Tobacco user Tobacco use type: Cigarette Cigarette Packs Per Day: 0.5 Cigarettes Per Day: 5 e-Cigarette/Vaping Use: Never Used Second Hand Smoke Exposure: No service: No Current occupational status: retired Current occupation: [employer] Cognitive needs: No Hearing needs: No Vision needs: Yes (contacts/glasses) Review of Systems Const All systems reviewed & are unremarkable except as noted in HPI and below Physical Exam Vital Signs: Last Vital Signs BP 118/72 04/05/25 12:04 BMI result Body Mass Index 17.9 General: Appears afebrile. Alert and oriented. Mood and affect appropriate. Follows and participates in conversation appropriately. Respiratory effort is unlabored. No cough. Able to transition from sit to stand unassisted. Ambulates with bilaterally normal heel strike and toe off. Back/Spine/Pelvis Cervical Spine: cervical ROM normal, cervical muscular tenderness and No Cervical spine tenderness Thoracic/Lumbar Spine: thoracic and lumbar spine normal to inspection, Thoracic/lumbar spine scar(s), pain with thoraco-lumbar ROM, thoraco-lumbar ROM limited, Thoracic/lumbar scoliosis, No thoracic spinal tenderness, lumbar spinal tenderness at L4 and at L5 and tilt present Pelvis: iliac crest elevation on the right Sacroiliac joints: bilaterally tender to palpation Psych Appearance: grossly normal and well kempt Mental Status: mental status grossly normal Speech and movement: Normal speech and movement present and Clear speech present Affect: normal affect Attitude: cooperative Thought process: Normal thought process present Thought content: Normal thought content present, suicidality (none), no hallucinations and Depressive thoughts present Insight: Good insight present (Psych) Judgement: Good judgement present (Psych) Results Reviewed Results Reviewed: XR THORACIC SPINE 03/03/24 CLINICAL INFORMATION: Lower back pain. FINDINGS: There is bony demineralization. There is a mild lower thoracic dextroscoliosis. There is mild anterior disc space narrowing at T8-T9 and T9-T10. There is mild leftward disc space narrowing at T10-T11. There is rightward disc space narrowing at L2-L3 and L3-L4. No acute fracture or spondylolisthesis is seen. There has been a prior L1 vertebroplasty. There is multi-level mild thoracic endplate arthropathy. The posterior elements are intact. The paravertebral soft tissues are unremarkable IMPRESSION: 1. There is mild degenerative disc disease at T8-T9 through T10-T11, and moderate disc space narrowing is seen at L2-L3 and L3-L4. 2. There is a mild lower thoracic dextroscoliosis. 3. There has been a prior L1 vertebroplasty. MR LUMBAR SPINE WITHOUT AND WITH CONTRAST 05/11/23 CLINICAL INFORMATION: Post laminectomy syndrome. History of compression fracture. Pain. COMPARISON: MRI dated 10/13/2013. Nuclear bone scan report from 05/06/2023. CT dated 04/19/2023. TECHNIQUE: Multiplanar, multisequence imaging was obtained. Intravenous contrast: Gadavist 6 mL. FINDINGS: VERTEBRAL BODIES AND PARASPINAL STRUCTURES: There is a moderate leftward curvature of the lumbar spine centered at the L2 level. Significant right lateral endplate edematous changes are visible at the L1-L2 level at the apex of the spinal curvature. There is a mild superior endplate compression fracture with a 40% loss of vertebral body height at the T12 level, slightly increased compared to the prior CT study. Marrow edema is present throughout the vertebral body extending into the pedicles. Mild amount of paraspinal soft tissue edema also evident at this level. Minimal osseous retropulsion noted. No additional compression fractures are seen. Advanced degenerative endplate changes and loss of disc height noted at the L2-L3 level with a slight retrosubluxation and bulky endplate spurring. There is a mild anterolisthesis and moderate disc space narrowing at the L3-L4 level with mild posterior endplate edema. The patient is status post posterior lumbar instrumented fusion at the L4-L5 level where there is a mild anterolisthesis. Severe degenerative endplate changes with mixed chronic and edematous endplate changes noted at the L5-S1 level. There are dbeb-fs-nqabdzqf degenerative changes in the left sacroiliac joint. CONUS MEDULLARIS AND CAUDA EQUINA: The distal cord, conus tip, and cauda equina nerve roots appear normal. No pathologic intradural enhancement is visible on postcontrast imaging. SPINAL LEVELS: L1-L2: Minimal anterolisthesis and broad-based posterior disc bulge with lajj-yc-llehllrn facet arthropathy results in mild central canal stenosis. Bulging disc impresses upon the right L2 nerve root in the subarticular zone. Clrl-uh-kwiytrwm foraminal narrowing. Significant endplate edematous changes on the right side. L2-L3: Retrosubluxation and moderate loss of disc height with a diffuse disc bulge and hypertrophic facet arthropathy. No central canal stenosis. Moderate right foraminal narrowing. L3-L4: Mild anterolisthesis and diffuse disc bulge with moderate to severe facet arthropathy results in mild central canal stenosis. Mild left foraminal narrowing evident. L4-L5: Anterolisthesis and post laminectomy changes with hardware instrumentation. No central canal stenosis. Mild left foraminal narrowing. L5-S1: Severe loss of disc height with a retrosubluxation noted. Mixed chronic and edematous endplate changes. Broad-based disc bulge and superimposed central disc protrusion impress upon the ventral thecal sac with mild mass effect upon the S1 nerve roots. Hypertrophic facet arthropathy without central canal stenosis. Moderate to severe foraminal narrowing with compression of the exiting left L5 nerve root due to ossific spurring. IMPRESSION: 1. Subacute mild superior endplate compression fracture deformity at the T12 level with significant marrow edema throughout the vertebral body and mild paraspinal soft tissue edema. Minimal osseous retropulsion. 2. Moderate leftward lumbar spinal curvature with moderate multilevel spondylosis and postsurgical changes at the L4-L5 level, status post posterior lumbar instrumented fusion. 3. Mild central canal stenosis at the L1-L2 level with bulging disc impressing upon the right L2 nerve root. 4. Moderate right foraminal narrowing at the L2-L3 level. Mild central canal stenosis at the L3-L4 level with a mild anterolisthesis and moderate to severe facet arthropathy. 5. Severe degenerative disc disease at the L5-S1 level with mixed chronic and edematous endplate changes. Broad-based central disc protrusion with mild mass effect upon the S1 nerve roots. Moderate to severe foraminal narrowing, more so on the left side with compression of the left L5 nerve root. ADDENDUM As stated in the report, the degree of osseous retropulsion across the superior endplate of T12 is minimal, measuring 2 mm, without cord compression or central canal stenosis. If this is thought to be a pain generator for the patient, recommend follow-up neurosurgical or interventional radiology consultation to guide further management for potential vertebral body augmentation. KAJAL ANDERSON MD Assessment & Plan Assessment & Plan (1) Lumbar post-laminectomy syndrome: Code(s): M96.1 - Postlaminectomy syndrome, not elsewhere classified Category: Medical (2) Leg length discrepancy: Code(s): M21.70 - Unequal limb length (acquired), unspecified site Category: Medical (3) Lumbar scoliosis: Code(s): M41.9 - Scoliosis, unspecified Category: Medical (4) Chronic low back pain: Code(s): M54.50 - Low back pain, unspecified; G89.29 - Other chronic pain Category: Medical (5) Chronic pain syndrome: Code(s): G89.4 - Chronic pain syndrome Category: Medical (6) Lumbar degenerative disc disease: Code(s): M51.36 - Other intervertebral disc degeneration, lumbar region Category: Medical (7) Back pain of thoracolumbar region: Code(s): M54.50 - Low back pain, unspecified; M54.6 - Pain in thoracic spine Category: Medical (8) Chronic, continuous use of opioids: Code(s): F11.90 - Opioid use, unspecified, uncomplicated Category: Medical Plan Patient has shown accountability for her medication regimen and the pill count was accurate. The patient reported no noted side effects and adequate analgesia on current medication regime. There is no evidence of misuse, abuse or diversion at this time. MassPAT reviewed. Random UDS will be obtained today. Refill sent for oxycodone 10-325 mg TID prn with advanced date of 04/10/25. Patient has Narcan at home. Given significant low back pain exacerbation while providing hospice care to her who recently, patient will increase her daily dose to QID prn for 6-7 days for moderate-severe pain only for 1 week and restart usual script on 04/10/25. Podiatry Referral to evaluate foot mechanics and potential food orthotics to correct posture and improve balance. All questions were answered and patient is in agreement of plan. Follow up in 4-5 weeks for a pill count/UDS review and sooner if needed. Orders: Referrals Podiatry Referral G89.29 - Other chronic pain, M21.70 - Unequal limb length (acquired), unspecified site, M41.9 - Scoliosis, unspecified, M54.50 - Low back pain, unspecified, M96.1 - Postlaminectomy syndrome, not elsewhere classified Medications: Refilled oxycodone-acetaminophen 10-325 mg Partial Fill upon patient request. 1 tab PO TID PRN 90 tabs 0RF pain 30 days G89.4 - Chronic pain syndrome, M51.36 - Other intervertebral disc degeneration, lumbar region, M96.1 - Postlaminectomy syndrome, not elsewhere classified Coding Level of Care Code Est Pt Level 4 (33426) Complex EM visit Add On G2211 Diagnoses Lumbar post-laminectomy syndrome M96.1 Leg length discrepancy M21.70 Lumbar scoliosis M41.9 Chronic low back pain M54.50; G89.29 Chronic pain syndrome G89.4 Lumbar degenerative disc disease M51.36 Back pain of thoracolumbar region M54.50; M54.6 Chronic, continuous use of opioids F11.90
[2025-04-05 12:04] VITALS: BP 118/72; BMI 17.9
--- OUTSIDE RECORDS SUMMARY | 2025-04-05 12:36 | XMS_ITS | Patient Health Record ---
Author Organization [facility] Address [address] [place] [address] Care Team Providers Care Assembler Engine Name Role Phone Brannon Rider Primary Care Provider Chong Cornell Unavailable [phone] Allergies No Known Allergies Reason For Referral No Information Medications Medication SIG (Take, Route, Frequency, Duration) Notes Start Date End Date Status Vitamin C Immune Health 500 MG 1 tablet Orally Once a day for 30 day(s) Active Calcium 1200 2573-6469 MG-UNIT 1 tablet Orally Once a day [...] Problem Status W/U Status Risk Notes Problem 368513306 Encounter for screening for malignant neoplasm of colon (Z12.11) Active confirmed Problem 655663012 Abdominal bloating (R14.0) Active confirmed Problem 886949980 Change in bowel habits (R19.4) Active confirmed Problem 113965169 Abdominal pain, generalized (R10.84) Active confirmed Problem Chronic constipation (482870518) Chronic constipation (K59.09) Active confirmed Plan Of Treatment Pending Test Test Name Order Date BUN 08/26/2021 CREATININE 08/26/2021 CELIAC PANEL #10 08/26/2021 CT ABD & PELVIS WITH CONTRAST 08/26/2021 Future Test Test Name Order Date COLONOSCOPY 08/26/2021 COLONOSCOPY 02/05/2022 Insurance Providers Payer Name Payer Address Payer Phone Subscriber Number Group Number Insured Name Patient Relationship to Insured Coverage Start Date Coverage End Date [facility] [address] [place] [address] [phone] [id number] MOLLY VILLEGAS Self - patient is the insured Medical (General) History Medical History History ICD Code COPD Herniated cervical disc Restless leg syndrome Migraines Denies TX,DM,CVA,renal disease Negative Cologuard in approx 2018--she h as never had a colonoscopy Chronic constipation Negative laboratories for celiac disease in 2021 Surgical History Surgery Date(Month/Year) Varicose veins 2008 Right inguinal hernia Lower Back surgeries x 3
--- OUTSIDE RECORDS SUMMARY | 2025-04-05 12:36 | XMS_ITS | Data Portability ---
Author Organization [facility] Address [address] [place] [address] Assessment No assessment recorded. Plan of Treatment Reminders Order Date Submit Date Provider Last Modified By Organization Details Last Modified Time Details Appointments None recorded. Lab rapid flu (A+B) 2022 023 gustavo [email or web address] _[facility], [address] [facility], [place], [address], 18:21:59 Referral None recorded. Procedures None recorded. Surgeries None recorded. Imaging None recorded. Medication Orders prednisone [address] [facility] #[id number], [address] [facility] [place], [address], 3 18:32:03 Augmentin 875 mg-125 mg tablet [address] [facility] #[id number], [address] [facility] [place], [address], 3 18:32:03 Patient TargetsNo targets recorded. Patient Instructions Encounter Date Encounter Id Patient Instructions Last Modified By Organization Details Last Modified Time 09/13/2022 [id number] chronic obstructive pulmonary disease (COPD) flare-ups: care [...] Analyte Normal = Negati ve Not Available [facility] [address] [place], [address], 09/13/2022 18:21:34 09/13/19 23 09/13/2022 rapid flu (A+B) Unknown Analyte negati ve Not Available [facility] [place], [address], 09/13/2022 18:21:34 09/13/19 23 09/13/2022 rapid flu (A+B) Unknown Analyte Normal = Negati ve Not Available [facility] [address] [place], [address], 09/13/2022 18:21:34 09/13/19 23 09/13/2022 rapid flu (A+B) Unknown Analyte negati ve Not Available [facility] [place], [address], 09/13/2022 18:21:34 Result Notes None recorded. Problems Name Problem SNOMED Code Status Onset Date Resolution Date Notes Provider Name and Address Organization Details Recorded Time Chronic back pain 409831029 Active 2022 IRIS COUVERTIE R null, [place] - [facility] 3 17:55:32 Restless legs 21647573 Active 2022 IRIS COUVERTIE R null, [place] - [facility] 3 17:56:01 Insomnia 596483822 Active 2022 IRIS COUVERTIE R null, [place] - [facility] 3 17:56:21 Chronic obstructive pulmonary disease 68137103 Active 2022 IRIS COUVERTIE R null, PA [...] in Arterial blood by Pulse oximetry Systolic And Diastolic Provider Name and Address Organization Details Last Updated DateTime 3 170.18 cm 20.4 kg/m2 48188.0 1 g 98.1 [degF] 20 /min 82 /min 97 % 97 % 147/82 mm[Hg] IRIS COUGLENN R [facility] - [facility] [...] SNOMED-CT Code Diagnosis ICD10 Code Diagnosis Note [id number] [address] [address] [facility] [address] [place] [address] 05/27/2020 18:47:16 05/27/2020 19:58:17 [id number] [address] [address] [facility] [place] [address] 02/07/2022 19:35:00 02/07/2022 20:25:06 [id number] MARK CARTER [address] [place] [address] 09/13/2022 17:34:13 09/13/2022 18:38:31 Acute upper respiratory infection 20599759 J06.9 Acute exac erbation of chronic obstructive pulmonary disease 934083712 J44.1 Health Concerns Section Related Observation LastModified by Organization Detai ls LastModified Time None Recorded Concern Status LastModified by Organization Details LastModified Time None Recorded Advance Directives Directive None Recorded Payers Insurance Date Sequence Insurance Name Policy Number Policy Zambrano Covered Member ID Zambrano Member ID Guarantor Name 09/13/2022 1 CHUYITA (PPO) [id number] Dot J Rivest [id number] Dot Rivest Notes Date Note Type Note Provider Name and Address Organization Details Recorded Time 09/13/2022 text/html CongestionReport ed by Patient Dot is a 72 yo F with PMH of COPD here for congestion, chills , dry cough, nasal/head pressure X 4 days . Patient has a h/o pneumonia in January secondary to COPD. Negative for Covid at home. Would like Flu Test. Was around sick family members over [place] which she thinks she caught a cold from. Had difficulty sleeping last night secondary to cough, SOB and wheezing. Improved today but still wheezing. O2 is 97% on RA. MARK GOINS JD [address] [place], [address], [place] - [facility] 09/13/2022 18:34:37 OBGyn Episode No OBEpisode recorded.
== END 2025-04-05 12:05 | disposition home or self-care (01) ==
LOC: HO.PMC 11:47
PROVIDERS: PCP Physician Assistant; Visit Provider Nurse Practitioner Family
DX: M96.1 Postlaminectomy syndrome, not elsewhere classified (principal); M21.70 Unequal limb length (acquired), unspecified site; M41.9 Scoliosis, unspecified; Z79.891 Long term (current) use of opiate analgesic; M54.50 Low back pain, unspecified; G89.29 Other chronic pain; G89.4 Chronic pain syndrome; M51.369 Other intervertebral disc degeneration, lumbar region without mention of lumbar back pain or lower extremity pain; M54.6 Pain in thoracic spine
CPT/HCPCS: 99214; G2211

== ENCOUNTER → 2025-04-05 11:46 | Outpatient (BNVA) | payer MEDICARE, SELFPAY | PROVIDERS: PCP Physician Assistant; Visit Provider Nurse Practitioner Family | DX: M41.9 Scoliosis, unspecified (principal); M21.70 Unequal limb length (acquired), unspecified site; M54.50 Low back pain, unspecified; G89.29 Other chronic pain; M51.369 Other intervertebral disc degeneration, lumbar region without mention of lumbar back pain or lower extremity pain; M96.1 Postlaminectomy syndrome, not elsewhere classified; Z79.891 Long term (current) use of opiate analgesic | CPT/HCPCS: 99212 ==

== ENCOUNTER 2025-05-08 11:45 | Outpatient (AMB) | payer MEDICARE, SELFPAY ==
--- NOTE | 2025-05-08 11:46 | MHC.OFFVIS ---
Vital Signs 05/08/25 11:52 Height 5 ft 7 in Weight 117 lb 6 oz BMI 18.4 BP 141/72 H Blood Pressure Location Rt brachial Position Sitting Pulse 58 Pulse Source Pulse Oximeter Pulse Oximetry (%) 97 Oxygen Delivery Method Room Air Intake Visit Reasons: PILL COUNT Intake Note: Dot comes in today for a pill count to oxycodone-acetaminophen, patient should have 9 tablets and presents with 9 tablets which she last took today 05/08/25 at 6:30 am. 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 Patient is supposed to have #9 pills and has #9 pills. This demonstrates a responsible attitude in regards to the medication regimen. She reports mild to moderate pain relief and no noted sided effects with current dose of oxycodone-acetaminophen 10-325 mg TID prn and no constipation for the past month. Pain is rated at 5/10. She reports recent flare up in her lower back and hips after taking care of her during his hospice care. Patient reports her few weeks ago, she is grieving and has good family and friend support during this difficult time for her. Patient reports she walks uneven due to scoliosis, with moderate leftward curvature of the lumbar spine centered at the L2 level. She is awaiting Podiatry evaluation for foot orthotics to improve her posture and balance. Her scoliosis and leg discrepancy significantly impacts her foot mechanics. Denies any fever, chills, weight changes, sedation, abdominal pain, constipation, nausea, dizziness or urinary retention. She is followed by Dr. Evans for COPD and pulmonary nodule management. Past procedures: 10/13/23: Percutaneous Spinal Cord Stimulator Trial, Lumbar: 0% relief. 05/21/23: T12 Kyphoplasty-50% pain relief 03/17/23: Sacroiliac Joint Injection, Bilateral: 50-60% relief. [facility] Medical History Nicotine dependence, cigarettes, uncomplicated Chronic sinusitis Back pain of thoracolumbar region T12 compression fracture Osteopenia Screening for hypercholesterolemia Breast cancer screening Bilateral hip pain Muscle strain COPD exacerbation Pseudogout of left knee Change in bowel habit Abdominal bloating Exocrine pancreatic insufficiency COPD (chronic obstructive pulmonary disease) Lumbar post-laminectomy syndrome Acute adjustment disorder with anxiety Restless leg syndrome Surgical History History of kyphoplasty History of lumbar laminectomy (~2012) History of vein stripping (~2003) History of femoral hernia repair (~2002) History of lumbar fusion (~2013) Status post phlebectomy (~2008) Social History Housing: House Alcohol intake: current Alcohol intake frequency: does not drink Patient Tobacco Use Status: Current everyday Tobacco user Tobacco use type: Cigarette Cigarette Packs Per Day: 0.5 Cigarettes Per Day: 5 e-Cigarette/Vaping Use: Never Used Second Hand Smoke Exposure: No service: No Current occupational status: retired Current occupation: [employer] Cognitive needs: No Hearing needs: No Vision needs: Yes (contacts/glasses) Review of Systems Const All systems reviewed & are unremarkable except as noted in HPI and below Physical Exam General: Appears afebrile. Alert and oriented. Mood and affect appropriate. Follows and participates in conversation appropriately. Respiratory effort is unlabored. No cough. Able to transition from sit to stand unassisted. Ambulates with bilaterally normal heel strike and toe off. Back/Spine/Pelvis Cervical Spine: cervical ROM normal, cervical muscular tenderness and No Cervical spine tenderness Thoracic/Lumbar Spine: thoracic and lumbar spine normal to inspection, Thoracic/lumbar spine scar(s), pain with thoraco-lumbar ROM, thoraco-lumbar ROM limited, Thoracic/lumbar scoliosis, No thoracic spinal tenderness, lumbar spinal tenderness at L4 and at L5 and tilt present Pelvis: iliac crest elevation on the right Sacroiliac joints: bilaterally tender to palpation Extrem General: Yes capillary refill normal, Yes no clubbing, cyanosis or edema and Yes no calf tenderness Psych Appearance: grossly normal and well kempt Mental Status: mental status grossly normal Speech and movement: Normal speech and movement present and Clear speech present Affect: normal affect Attitude: cooperative Thought process: Normal thought process present Thought content: Normal thought content present, suicidality (none), no hallucinations and Depressive thoughts present Insight: Good insight present (Psych) Judgement: Good judgement present (Psych) Results Reviewed Results Reviewed: XR THORACIC SPINE 03/03/24 CLINICAL INFORMATION: Lower back pain. FINDINGS: There is bony demineralization. There is a mild lower thoracic dextroscoliosis. There is mild anterior disc space narrowing at T8-T9 and T9-T10. There is mild leftward disc space narrowing at T10-T11. There is rightward disc space narrowing at L2-L3 and L3-L4. No acute fracture or spondylolisthesis is seen. There has been a prior L1 vertebroplasty. There is multi-level mild thoracic endplate arthropathy. The posterior elements are intact. The paravertebral soft tissues are unremarkable IMPRESSION: 1. There is mild degenerative disc disease at T8-T9 through T10-T11, and moderate disc space narrowing is seen at L2-L3 and L3-L4. 2. There is a mild lower thoracic dextroscoliosis. 3. There has been a prior L1 vertebroplasty. MR LUMBAR SPINE WITHOUT AND WITH CONTRAST 05/11/23 CLINICAL INFORMATION: Post laminectomy syndrome. History of compression fracture. Pain. COMPARISON: MRI dated 10/13/2013. Nuclear bone scan report from 05/06/2023. CT dated 04/19/2023. TECHNIQUE: Multiplanar, multisequence imaging was obtained. Intravenous contrast: Gadavist 6 mL. FINDINGS: VERTEBRAL BODIES AND PARASPINAL STRUCTURES: There is a moderate leftward curvature of the lumbar spine centered at the L2 level. Significant right lateral endplate edematous changes are visible at the L1-L2 level at the apex of the spinal curvature. There is a mild superior endplate compression fracture with a 40% loss of vertebral body height at the T12 level, slightly increased compared to the prior CT study. Marrow edema is present throughout the vertebral body extending into the pedicles. Mild amount of paraspinal soft tissue edema also evident at this level. Minimal osseous retropulsion noted. No additional compression fractures are seen. Advanced degenerative endplate changes and loss of disc height noted at the L2-L3 level with a slight retrosubluxation and bulky endplate spurring. There is a mild anterolisthesis and moderate disc space narrowing at the L3-L4 level with mild posterior endplate edema. The patient is status post posterior lumbar instrumented fusion at the L4-L5 level where there is a mild anterolisthesis. Severe degenerative endplate changes with mixed chronic and edematous endplate changes noted at the L5-S1 level. There are sysq-ni-llyqfrdc degenerative changes in the left sacroiliac joint. CONUS MEDULLARIS AND CAUDA EQUINA: The distal cord, conus tip, and cauda equina nerve roots appear normal. No pathologic intradural enhancement is visible on postcontrast imaging. SPINAL LEVELS: L1-L2: Minimal anterolisthesis and broad-based posterior disc bulge with [id number]-wu-[id number] facet arthropathy results in mild central canal stenosis. Bulging disc impresses upon the right L2 nerve root in the subarticular zone. Zaor-ci-fvmrfnew foraminal narrowing. Significant endplate edematous changes on the right side. L2-L3: Retrosubluxation and moderate loss of disc height with a diffuse disc bulge and hypertrophic facet arthropathy. No central canal stenosis. Moderate right foraminal narrowing. L3-L4: Mild anterolisthesis and diffuse disc bulge with moderate to severe facet arthropathy results in mild central canal stenosis. Mild left foraminal narrowing evident. L4-L5: Anterolisthesis and post laminectomy changes with hardware instrumentation. No central canal stenosis. Mild left foraminal narrowing. L5-S1: Severe loss of disc height with a retrosubluxation noted. Mixed chronic and edematous endplate changes. Broad-based disc bulge and superimposed central disc protrusion impress upon the ventral thecal sac with mild mass effect upon the S1 nerve roots. Hypertrophic facet arthropathy without central canal stenosis. Moderate to severe foraminal narrowing with compression of the exiting left L5 nerve root due to ossific spurring. IMPRESSION: 1. Subacute mild superior endplate compression fracture deformity at the T12 level with significant marrow edema throughout the vertebral body and mild paraspinal soft tissue edema. Minimal osseous retropulsion. 2. Moderate leftward lumbar spinal curvature with moderate multilevel spondylosis and postsurgical changes at the L4-L5 level, status post posterior lumbar instrumented fusion. 3. Mild central canal stenosis at the L1-L2 level with bulging disc impressing upon the right L2 nerve root. 4. Moderate right foraminal narrowing at the L2-L3 level. Mild central canal stenosis at the L3-L4 level with a mild anterolisthesis and moderate to severe facet arthropathy. 5. Severe degenerative disc disease at the L5-S1 level with mixed chronic and edematous endplate changes. Broad-based central disc protrusion with mild mass effect upon the S1 nerve roots. Moderate to severe foraminal narrowing, more so on the left side with compression of the left L5 nerve root. ADDENDUM As stated in the report, the degree of osseous retropulsion across the superior endplate of T12 is minimal, measuring 2 mm, without cord compression or central canal stenosis. If this is thought to be a pain generator for the patient, recommend follow-up neurosurgical or interventional radiology consultation to guide further management for potential vertebral body augmentation. KAJAL ANDERSON MD Assessment & Plan Assessment & Plan (1) Iliac crest bone pain: Code(s): M89.8X8 - Other specified disorders of bone, other site Category: Medical (2) Leg length discrepancy: Code(s): M21.70 - Unequal limb length (acquired), unspecified site Category: Medical (3) Chronic low back pain: Code(s): M54.50 - Low back pain, unspecified; G89.29 - Other chronic pain Category: Medical (4) Lumbar scoliosis: Code(s): M41.9 - Scoliosis, unspecified Category: Medical (5) Lumbar post-laminectomy syndrome: Code(s): M96.1 - Postlaminectomy syndrome, not elsewhere classified Category: Medical (6) Chronic pain syndrome: Code(s): G89.4 - Chronic pain syndrome Category: Medical (7) Lumbar degenerative disc disease: Code(s): M51.36 - Other intervertebral disc degeneration, lumbar region Category: Medical (8) Back pain of thoracolumbar region: Code(s): M54.50 - Low back pain, unspecified; M54.6 - Pain in thoracic spine Category: Medical (9) Chronic, continuous use of opioids: Code(s): F11.90 - Opioid use, unspecified, uncomplicated Category: Medical Plan Patient has shown accountability for her medication regimen and the pill count was accurate. The patient reported no noted side effects and adequate analgesia on current medication regime. There is no evidence of misuse, abuse or diversion at this time. MassPAT reviewed. Random UDS was concordant. Refill sent for oxycodone 10-325 mg TID prn with advanced date of 05/10/25. Patient has Narcan at home. Podiatry Referral to evaluate foot mechanics and potential food orthotics to correct posture and improve balance. All questions were answered and patient is in agreement of plan. Follow up in 4-5 weeks for a pill count and sooner if needed. Orders: Referrals Podiatry Referral G89.29 - Other chronic pain, M21.70 - Unequal limb length (acquired), unspecified site, M41.9 - Scoliosis, unspecified, M54.50 - Low back pain, unspecified, M89.8X8 - Other specified disorders of bone, other site Medications: Refilled oxycodone-acetaminophen 10-325 mg Partial Fill upon patient request. 1 tab PO TID PRN 90 tabs 0RF pain 30 days G89.4 - Chronic pain syndrome, M51.36 - Other intervertebral disc degeneration, lumbar region, M96.1 - Postlaminectomy syndrome, not elsewhere classified Coding Level of Care Code Est Pt Level 4 (27784) Complex EM visit Add On G2211 Diagnoses Iliac crest bone pain M89.8X8 Leg length discrepancy M21.70 Chronic low back pain M54.50; G89.29 Lumbar scoliosis M41.9 Lumbar post-laminectomy syndrome M96.1 Chronic pain syndrome G89.4 Lumbar degenerative disc disease M51.36 Back pain of thoracolumbar region M54.50; M54.6 Chronic, continuous use of opioids F11.90
[2025-05-08 11:52] VITALS: BP 141/72; PULSE 58; O2SAT 97; BMI 18.4
--- OUTSIDE RECORDS SUMMARY | 2025-05-08 12:41 | XMS_ITS | Patient Health Record ---
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 Multiple Name Role Phone Brannon Rider Primary Care Provider Chong Cornell Unavailable [phone] Allergies No Known Allergies Reason For Referral No Information Medications Medication SIG (Take, Route, Frequency, Duration) Notes Start Date End Date Status Vitamin C Immune Health 500 MG 1 tablet Orally Once a day for 30 day(s) Active Calcium 1200 7723-8110 MG-UNIT 1 tablet Orally Once a day [...] Problem Status W/U Status Risk Notes Problem [id number] Encounter for screening for malignant neoplasm of colon (Z12.11) Active confirmed Problem [id number] Abdominal bloating (R14.0) Active confirmed Problem [id number] Change in bowel habits (R19.4) Active confirmed Problem [id number] Abdominal pain, generalized (R10.84) Active confirmed Problem Chronic constipation (203214941) Chronic constipation (K59.09) Active confirmed Plan Of Treatment Pending Test Test Name Order Date BUN 08/26/2021 CREATININE 08/26/2021 CELIAC PANEL #10 08/26/2021 CT ABD & PELVIS WITH CONTRAST 08/26/2021 Future Test Test Name Order Date COLONOSCOPY 08/26/2021 COLONOSCOPY 02/05/2022 Insurance Providers Payer Name Payer Address Payer Phone Subscriber Number Group Number Insured Name Patient Relationship to Insured Coverage Start Date Coverage End Date [facility] [address] [place] [address] [id number] MOLLY VILLEGAS Self - patient is the insured Medical (General) History Medical History History ICD Code COPD Herniated cervical disc Restless leg syndrome Migraines Denies MT,DM,CVA,renal disease Negative Cologuard in approx 2018--she h as never had a colonoscopy Chronic constipation Negative laboratories for celiac disease in 2021 Surgical History Surgery Date(Month/Year) Varicose veins 2008 Right inguinal hernia Lower Back surgeries x 3
== END 2025-05-08 11:58 | disposition home or self-care (01) ==
LOC: HO.PMC 11:46
PROVIDERS: PCP Physician Assistant; Visit Provider Nurse Practitioner Family
DX: G89.4 Chronic pain syndrome (principal); M51.369 Other intervertebral disc degeneration, lumbar region without mention of lumbar back pain or lower extremity pain; Z79.891 Long term (current) use of opiate analgesic
CPT/HCPCS: 99214; G2211

== ENCOUNTER → 2025-05-08 11:45 | Outpatient (BNVA) | payer MEDICARE, SELFPAY | PROVIDERS: PCP Physician Assistant; Visit Provider Nurse Practitioner Family | DX: M96.1 Postlaminectomy syndrome, not elsewhere classified (principal); F11.90 Opioid use, unspecified, uncomplicated; M54.50 Low back pain, unspecified; G89.4 Chronic pain syndrome; M51.369 Other intervertebral disc degeneration, lumbar region without mention of lumbar back pain or lower extremity pain | CPT/HCPCS: 99212 ==

== ENCOUNTER 2025-05-22 10:46 | Outpatient (AMB) | payer MEDICARE, SELFPAY ==
--- NOTE | 2025-05-22 11:00 | MHC.PC.OV ---
Vital Signs 05/22/25 11:01 Height 5 ft 7 in Weight 118 lb 4 oz BMI 18.5 BP 110/66 Blood Pressure Location Lt brachial Position Sitting Temp 97.1 F Temp Source Temporal Artery Scan Intake Visit Reasons: Annual Exam - see comments Intake Note: Patient is here today for a physical. Document Control Assistant Required: No Bankruptcy Processor: Not Required per policy Accompanied by: Self / Same As Patient Allergies No Known Allergies Allergy (Verified 05/22/25 11:28) Medication List - Last Reconciled 05/22/25 by Brannon Rider PA-C albuterol sulfate 90 mcg/actuation 2 puffs inhalation Q4-6H PRN 30 days back brace As directed fluticasone propion-salmeterol 250-50 mcg/dose (Advair Diskus) 1 inh inhalation BID 30 days naloxone 4 mg/actuation (Narcan) 4 mg intranasal Q2M 1 day nicotine 1 patch transdermal DAILY 28 days oxycodone-acetaminophen 10-325 mg 1 tab PO TID PRN 30 days polyethylene glycol 3350 (Miralax) 17 grams PO DAILY PRN ropinirole 1 mg PO TID trazodone 50 mg PO BEDTIME 90 days Tobacco use date assessed: 05/22/25 Fall risk assessment: No Falls in past year Last assessed Fall Risk: 05/22/25 Dental Screening Dental Screen Date: 11/14/24 HPI Annual Exam - see comments HPI Details Patient is a 75-year-old female here for routine annual physical. ? Patient has a past medical history significant for tobacco dependency, sacroiliitis chronic low back pain, COPD, insomnia. Unfortunately patient's has been recently in March of 2025. She reports she is doing well with her grief. Concern--> The patient reports experiencing urinary urgency, particularly in the morning, which has been ongoing for about a year. She describes a sensation of urgency that requires her to rosenthal to the bathroom, and sometimes experiences dribbling without control while standing. The patient is considering medication for spastic bladder and has been informed about pelvic floor therapy as a potential intervention. .. Low BMI: reports she has been very concerned about her weight loss. Has been having a hard time regaining her weight. She has used her 's liquid megerol which did increase her appetite .. COPD: Followed pulmonology, continues to smoke and does understand she needs to quit. OF NOTE SHE DOES REPORT CUTTING DOWN HER SMOKING QUITE A BIT. She does get annual basis with CT scans of chest for lung cancer screening .. ..Chronic lower lumbar spine pain:? Followed by pain management and does take oxycodone daily p.r.n. for pain. Has had recent increased pain in her mid back. X-rays and CT showing new mild T12 compression fracture. .. Osteopenia--> patient's most recent bone density in 2023 showing osteopenia, of note has had compression fractures in her spine, she is due for new bone density screening Vaccines: Up-to-date with COVID vaccine, up-to-date with pneumonia vaccine, and tetanus vaccine. Up-to-date with shingles vaccine Colon cancer screening: Cologuard done in 2022, repeat 2025 Mammogram: Done July of 2024- [facility] Medical History Nicotine dependence, cigarettes, uncomplicated Chronic sinusitis Back pain of thoracolumbar region T12 compression fracture Osteopenia Screening for hypercholesterolemia Breast cancer screening Bilateral hip pain Muscle strain COPD exacerbation Pseudogout of left knee Change in bowel habit Abdominal bloating Exocrine pancreatic insufficiency COPD (chronic obstructive pulmonary disease) Lumbar post-laminectomy syndrome Acute adjustment disorder with anxiety Restless leg syndrome Surgical History History of kyphoplasty History of lumbar laminectomy (~2012) History of vein stripping (~2003) History of femoral hernia repair (~2002) History of lumbar fusion (~2013) Status post phlebectomy (~2008) Social History Housing: House Alcohol intake: current Alcohol intake frequency: does not drink Patient Tobacco Use Status: Current everyday Tobacco user Tobacco use type: Cigarette Cigarette Packs Per Day: 0.5 Cigarettes Per Day: 10 e-Cigarette/Vaping Use: Never Used Second Hand Smoke Exposure: Yes service: No Current occupational status: retired Current occupation: [employer] Cognitive needs: No Hearing needs: No Vision needs: Yes (contacts/glasses) Questionnaire PHQ-9 Over the last 2 weeks, how often have you been bothered by any of the following problems? 1. Little interest or pleasure in doing things: not at all 2. Feeling down, depressed, or hopeless: not at all 3. Trouble falling or staying asleep, or sleeping too much: not at all 4. Feeling tired or having little energy: not at all 5. Poor appetite or overeating: not at all 6. Feeling bad about yourself - or that you are a failure or have let yourself or your family down: not at all 7. Trouble concentrating on things, such as reading the newspaper or watching television: not at all 8. Moving or speaking so slowly that other people could have noticed. Or the opposite - being so fidgety or restless that you have been moving around a lot more than usual: not at all 9. Thoughts that you would be better off or of hurting yourself in some way: not at all Total score: 0 Depression Screening Interpretation: Negative Depression Screening Done: Yes 16945 - PHQ-9 Billing: Yes Source: Developed by Drs. Chong Posada, Hayley Bell, Mono Gillespie and colleagues, with an educational wesley from [employer]. Thrive Questionnaire Date Thrive assessed: 05/15/25 I am a: Patient What is your living situation today?: I have a steady place to live Within the past 12 months, did the food you bought not last and you didn't have the money to get more?: Never true Within the past 12 months, did you worry whether your food would run out before you got money to buy more?: Never true Do you have trouble paying for medicines?: No Do you have trouble getting transportation to medical appointments?: No Do you have trouble paying your heating and electricity bill?: No Do you have trouble taking care of your child, family member or friend?: No Do you have trouble with day-to-day activities such as bathing, preparing meals, shopping, managing finances, etc.?: No Are you currently unemployed and looking for a job?: No Are you interested in more education?: No Please select the resources that you would like help with: None Currently or been in a relationship where the following occur: No concerns reported THRIVE Score: 0 AUDIT C Alcohol Use Questionnaire (AUDIT-C) 1. How often do you have a drink containing alcohol?: Never Total Score: 0 DC-7 AMB Questionnaire DC-7 Date DC - 7 assessed: 11/14/24 Feeling nervous, anxious, or on edge: 0 = Not at all Not being able to stop or control worryin = Not at all Worrying too much about different things: 0 = Not at all Trouble relaxin = Not at all Being so restless that it is hard to sit still: 0 = Not at all Becoming easily annoyed or irritable: 0 = Not at all Feeling afraid as if something awful might happen: 0 = Not at all Total DC-7 score (0-4 normal; 5-9 mild; 10-14 moderate; 15-21 severe): 0 Source: Developed by Drs. Chong Posada, Hayley Bell, Mono Gillespie and colleagues, with an educational wesley from [employer]. DC-7 Assessment Billing DC-7 Assessment Tool: DC-7 Assessment 56538 Review of Systems Const Denies body aches, Denies chills, Denies excessive sweating, Denies fatigue, Denies fever(s) and Denies headache(s) Eyes Denies blurry vision ENT Denies dysphagia, Denies vertigo, Denies dizziness, Denies headache(s), Denies hearing loss and Denies tinnitus Card Denies chest pain, Denies chest pain with activity, Denies syncope, Denies irregular heart rhythm and Denies dyspnea Resp Denies chest congestion, Denies cough, Denies hemoptysis, Denies dyspnea and Denies wheezing GI Denies abdominal pain, Denies melena, Denies hematochezia, Denies coffee ground emesis, Denies dysphagia, Denies diarrhea, Denies nausea and Denies vomiting Denies urinary frequency, Denies dysuria, Denies urinary hesitancy and Denies urinary urgency Musc Denies arthralgias, Denies limited range of motion, Denies muscle cramps and Denies muscle weakness Skin/Breast Denies rash and Denies skin ulcer Neuro Denies Abnormal speech present, Denies confusion, Denies vertigo, Denies dizziness, Denies syncope, Denies headache(s), Denies memory loss and Denies seizure-like activity Psych Denies anxiety, Denies confusion, Denies depression, Denies memory loss, Denies panic attacks and Denies paranoia Endo Denies excessive sweating, Denies fatigue, Denies flushing, Denies polydipsia and Denies polyuria Aller/Immun Denies wheezing Physical exam (Primary Care) Vital Signs: Last Vital Signs Temp 97.1 F 05/22/25 11:01 BP 110/66 05/22/25 11:01 BMI result Body Mass Index 18.5 BMI Assessment/Plan discussion: Low BMI Low, Plan discussed: lifestyle, increase calorie intake, dietary and other Tobacco/Smoking Status: Tobacco use Status Tobacco use date assessed 05/22/25 05/22/25 11:07 Patient Tobacco Use Status Current everyday Tobacco 05/22/25 11:07 Tobacco use type Cigarette 05/22/25 11:07 e-Cigarette/Vaping Use Never Used 05/22/25 11:07 Are you ready to quit: No Tobacco cessation counseling provided: Yes Items discussed: Nicotine replacement Relapse Prevention: discussed the importance of a supportive environment, discussed negative mood or depression after quitting, weight gain after smoking is common and discussed dietary, exercise and/or lifestyle changes Number of minutes spent counselin CPT code: 99356 - 4-10 Minutes PHQ-9: PHQ-9 Score PHQ-9: Total score 0 05/22/25 11:26 Depression Screening Interpretation: Negative Thrive Assessment: Date of Thrive Assessment Date Thrive assessed 05/15/25 05/22/25 11:07 Currently or been in a relationship where the following occur: No concerns reported Const General: cooperative, comfortable, no acute distress, alert and awake; No confusion Orientation/consciousness: oriented to person, oriented to place, patient oriented x3 and No confusion HENMT Head: Yes normocephalic Ears: external ears normal and TM's normal bilaterally Face and sinus: No sinus tenderness Mouth: Normal oral and palatal mucosa present and tongue normal Teeth and gingiva: dentition normal and gingiva normal Throat: Yes posterior oropharynx normal, Yes tonsils normal and Yes uvula midline Eyes Conjunctivae: conjunctivae normal Sclerae: sclerae normal Pupils: Equal, round and reactive pupils present EOM: EOMs intact bilaterally Direct Ophthalmoscopy: No no photophobia Neck Neck: Yes no lymphadenopathy, No tender and Yes no JVD Thyroid: Thyroid normal Carotids: no bruits Chest Chest palpation & inspection: no tenderness Resp Effort & Inspection: normal respiratory effort, no audible wheezes, not labored and no stridor Auscultation: no crackles, no rales, no rhonchi and no wheezes Cardio Jugular venous distension: no JVD Rate: regular rate, not bradycardic and not tachycardic Rhythm: regular rhythm Bruits: no carotid bruits Peripheral pulses: Peripheral pulses 2+ throughout GI Inspection: Yes normal to inspection, No abdominal wall ecchymosis and No visible herniation Palpation (GI): Soft to palpation, nontender, no guarding, not rigid and No hepatosplenomegaly present Auscultation: normoactive bowel sounds General: Yes no CVA tenderness Back/Spine/Pelvis Back: no CVA tenderness and No back tenderness Cervical Spine: cervical ROM normal Thoracic/Lumbar Spine: thoracic and lumbar spine normal to inspection, straight leg raise negative bilaterally, No thoraco-lumbar ROM limited and No lumbar spinal tenderness Skin Lesions: no lesions Rashes: no rashes Wounds: no wounds Neuro General: oriented to person, oriented to place, patient oriented x3, CN's II-XI intact bilaterally and No confusion Cranial nerves: Yes Equal, round and reactive pupils present and Yes Normal accommodation reflex present Cognition (Neuro): normal cognition Speech: No Abnormal speech present Gait exam (Neuro): Normal gait present Motor exam (neuro): 5/5 motor strength present throughout Extrem Right upper extremity: full ROM; no cyanosis Left upper extremity: full ROM; no cyanosis Right lower extremity: no edema Left lower extremity: no edema Psych Appearance: grossly normal Mental Status: mental status grossly normal Affect: normal affect Attitude: cooperative Thought process: Normal thought process present Coding Level of Care Code Est Pt Prev Care >65y(84426) Diagnoses Annual physical exam Z00.00 Simple chronic bronchitis J41.0 COPD type: chronic bronchitis Chronic bronchitis type: simple Tobacco dependence F17.200 Back pain of thoracolumbar region M54.50; M54.6 Low weight R63.6 Spastic bladder N32.89 Additional Codes PHQ-9 - 50052 - PHQ-9 Billing: Yes ([id number]) DC-7 Assessment Billing - DC-7 Assessment Tool: DC-7 Assessment 34997 ([id number]) Vital Signs *Quality* - CPT code: 33244 - 4-10 Minutes ([id number]) Assessment & Plan Assessment & Plan (1) Annual physical exam: Code(s): Z00.00 - Encounter for general adult medical examination without abnormal findings Category: Medical Plan: As per HPI (2) COPD (chronic obstructive pulmonary disease): Comment: PATIENT DOES HAVE CHRONIC OBSTRUCTIVE PULMONARY DISEASE WHICH IS SECONDARY TO HER ONGOING SMOKING. THE SYMPTOMS GET EXACERBATED BECAUSE OF HER CONTINUED SMOKING AND INTERMITTENT LOW-GRADE RESPIRATORY INFECTIONS. LATELY HE SHE HAS CUT DOWN THE CIGARETTES , SHE IS DOWN TO 5 CIGARETTES A DAY AND IS TRYING HARD TO QUIT COMPLETELY. Code(s): J44.9 - Chronic obstructive pulmonary disease, unspecified Category: Medical Qualifiers: COPD type: chronic bronchitis Chronic bronchitis type: simple Qualified Code(s): J41.0 - Simple chronic bronchitis Plan: Continues to follow up pulmonology, breathing has been fairly stable. Unfortunately still smoking and has found it very difficult to quit smoking. (3) Tobacco dependence: Code(s): F17.200 - Nicotine dependence, unspecified, uncomplicated Category: Medical Plan: She has cut down her smoking though has found it very difficult to completely quit smoking due to her stress due to personal issues. (4) Back pain of thoracolumbar region: Code(s): M54.50 - Low back pain, unspecified; M54.6 - Pain in thoracic spine Category: Medical Plan: Continues to follow [place] pain management, does use narcotic pain medication as needed for her pain. (5) Low weight: Code(s): R63.6 - Underweight Category: Medical Plan: The patient reports decreased appetite and weight loss, with a current weight of 118 pounds. Megace has been effective in the past to stimulate appetite and weight gain, and a prescription will be considered. (6) Spastic bladder: Code(s): N32.89 - Other specified disorders of bladder Category: Medical Plan: The patient is experiencing urinary urgency and dribbling, suggestive of a spastic bladder. Oxybutynin has been discussed as a potential medication to manage symptoms, and pelvic floor therapy has been recommended as an adjunct treatment. Orders: Orders Comprehensive [place]. Panel Fast Today Z13.1 - Encounter for screening for diabetes mellitus Complete Blood Count no Diff Today Z13.1 - Encounter for screening for diabetes mellitus Medications: New megestrol 800 mg (20 mL) PO DAILY 600 mL 1RF 30 days R63.6 - Underweight oxybutynin chloride ER 5 mg PO DAILY 90 tabs 1RF 90 days N32.89 - Other specified disorders of bladder
[2025-05-22 11:01] VITALS: BP 110/66; TEMP 36.2; BMI 18.5
--- OUTSIDE RECORDS SUMMARY | 2025-05-22 12:59 | XMS_ITS | Patient Health Record ---
Author Organization [facility] Address [address] [place] [address] Care Team Providers Care Space Engineer Name Role Phone Brannon Rider Primary Care Provider Chong Cornell Unavailable [phone] Allergies No Known Allergies Reason For Referral No Information Medications Medication SIG (Take, Route, Frequency, Duration) Notes Start Date End Date Status Vitamin C Immune Health 500 MG 1 tablet Orally Once a day for 30 day(s) Active Calcium 1200 0128-1454 MG-UNIT 1 tablet Orally Once a day [...] Problem Status W/U Status Risk Notes Problem [id number] Encounter for screening for malignant neoplasm of colon (Z12.11) Active confirmed Problem 346583134 Abdominal bloating (R14.0) Active confirmed Problem [id number] Change in bowel habits (R19.4) Active confirmed Problem [id number] Abdominal pain, generalized (R10.84) Active confirmed Problem Chronic constipation ([id number]) Chronic constipation (K59.09) Active confirmed Plan Of Treatment Pending Test Test Name Order Date BUN 08/26/2021 CREATININE 08/26/2021 CELIAC PANEL #10 08/26/2021 CT ABD & PELVIS WITH CONTRAST 08/26/2021 Future Test Test Name Order Date COLONOSCOPY 08/26/2021 COLONOSCOPY 02/05/2022 Insurance Providers Payer Name Payer Address Payer Phone Subscriber Number Group Number Insured Name Patient Relationship to Insured Coverage Start Date Coverage End Date [facility] [address] [place] [address] [phone] [id number] MOLLY VILLEGAS Self - patient is the insured Medical (General) History Medical History History ICD Code COPD Herniated cervical disc Restless leg syndrome Migraines Denies CT,DM,CVA,renal disease Negative Cologuard in approx 2018--she h as never had a colonoscopy Chronic constipation Negative laboratories for celiac disease in 2021 Surgical History Surgery Date(Month/Year) Varicose veins 2008 Right inguinal hernia Lower Back surgeries x 3
== END 2025-05-22 11:49 | disposition home or self-care (01) ==
LOC: HO.HMCH 10:47
PROVIDERS: PCP Physician Assistant; Visit Provider Physician Assistant
DX: Z00.00 Encounter for general adult medical examination without abnormal findings (principal); J41.0 Simple chronic bronchitis; F17.200 Nicotine dependence, unspecified, uncomplicated; M54.50 Low back pain, unspecified; M54.6 Pain in thoracic spine; R63.6 Underweight; N32.89 Other specified disorders of bladder

== ENCOUNTER → 2025-05-22 10:46 | Outpatient (BNVA) | payer MEDICARE, SELFPAY | PROVIDERS: PCP Physician Assistant; Visit Provider Physician Assistant | DX: Z00.00 Encounter for general adult medical examination without abnormal findings (principal); R39.15 Urgency of urination; M85.80 Other specified disorders of bone density and structure, unspecified site; J41.0 Simple chronic bronchitis; M54.50 Low back pain, unspecified; M54.6 Pain in thoracic spine; R63.6 Underweight; N32.89 Other specified disorders of bladder; F17.210 Nicotine dependence, cigarettes, uncomplicated; Z68.1 Body mass index [BMI] 19.9 or less, adult | CPT/HCPCS: 96127; 99397 ==

== ENCOUNTER 2025-06-28 11:45 | Outpatient (AMB) | payer MEDICARE, SELFPAY ==
--- NOTE | 2025-06-28 11:49 | A.OFFVIS_ITS ---
Vital Signs 06/28/25 11:59 Height 5 ft 7 in Weight 126 lb BMI 19.7 BP 93/52 L Blood Pressure Location Lt brachial Position Sitting Pulse 69 Pulse Source Pulse Oximeter Pulse Oximetry (%) 98 Oxygen Delivery Method Room Air Intake Visit Reasons: Pill Count Intake Note: Dot comes in today for a pill count to oxycodone-acetaminophen,patient should have 42 tablets and presents with 44 tablets which she last took today 06/28/25 at 6:30am. Pain today 4/10 Screen Roller Required: No Accompanied by: Self / Same As Patient Allergies No Known Allergies Allergy (Verified 06/28/25 12:00) HPI Comments Details: Patient presents today for a pill count. Patient is supposed to have #42 pills and has #44 pills. This demonstrates a responsible attitude in regards to the medication regimen. She reports reasonable analgesia and no noted sided effects with current dose of oxycodone-acetaminophen 10-325 mg TID prn and no constipation for the past month. Pain is rated at 5/10. She reports recent flare up in her lower back and hips after taking care of her during his hospice care. Patient reports her few weeks ago, she is grieving and has good family and friend support during this difficult time for h er. Chronic pain is rated at 4/10 and is primarily located in the lower back and hips, mostly on the right side. The patient has history of leg length discrepancy and swelling is noted in the left ankle after walking, having undergone vein stripping and phlebectomies. The left side is particularly affected, with swelling occurring after walking. Patient reports she walks uneven due to scoliosis, with moderate leftward curvature of the lumbar spine centered at the L2 level. The patient experienced appetite loss, which was managed with Megestrol, leading to a weight gain of 10 pounds. This intervention was necessary following significant stress related to the passing of her 3 months ago. Denies any fever, chills, weight changes, sedation, abdominal pain, constipation, nausea, dizziness or urinary retention. Past procedures: 10/13/23: Percutaneous Spinal Cord Stimulator Trial, Lumbar: 0% relief. 05/21/23: T12 Kyphoplasty-50% pain relief 03/17/23: Sacroiliac Joint Injection, Bilateral: 50-60% relief. [facility] Medical History Nicotine dependence, cigarettes, uncomplicated Chronic sinusitis Back pain of thoracolumbar region T12 compression fracture Osteopenia Screening for hypercholesterolemia Breast cancer screening Bilateral hip pain Muscle strain COPD exacerbation Pseudogout of left knee Change in bowel habit Abdominal bloating Exocrine pancreatic insufficiency COPD (chronic obstructive pulmonary disease) Lumbar post-laminectomy syndrome Acute adjustment disorder with anxiety Restless leg syndrome Surgical History History of kyphoplasty History of lumbar laminectomy (~2012) History of vein stripping (~2003) History of femoral hernia repair (~2002) History of lumbar fusion (~2013) Status post phlebectomy (~2008) Social History Housing: House Alcohol intake: current Alcohol intake frequency: does not drink Patient Tobacco Use Status: Current everyday Tobacco user Tobacco use type: Cigarette Cigarette Packs Per Day: 0.5 Cigarettes Per Day: 10 e-Cigarette/Vaping Use: Never Used Second Hand Smoke Exposure: Yes service: No Current occupational status: retired Current occupation: [employer] Cognitive needs: No Hearing needs: No Vision needs: Yes (contacts/glasses) Review of Systems Const All systems reviewed & are unremarkable except as noted in HPI and below Physical Exam General: Appears afebrile. Alert and oriented. Mood and affect appropriate. Follows and participates in conversation appropriately. Respiratory effort is unlabored. No cough. Able to transition from sit to stand unassisted. Ambulates with bilaterally normal heel strike and toe off. Back/Spine/Pelvis Cervical Spine: cervical ROM normal, cervical muscular tenderness and No Cervical spine tenderness Thoracic/Lumbar Spine: thoracic and lumbar spine normal to inspection, Thoracic/lumbar spine scar(s), pain with thoraco-lumbar ROM, thoraco-lumbar ROM limited, Thoracic/lumbar scoliosis, No thoracic spinal tenderness, lumbar spinal tenderness at L4 and at L5 and tilt present Pelvis: iliac crest elevation on the right Sacroiliac joints: bilaterally tender to palpation Extrem General: Yes capillary refill normal, Yes no clubbing, cyanosis or edema, Yes no calf tenderness and Yes edema (BLE pedal and ankle nonpitting edema, left>right. Venous varicosities noted) Psych Appearance: grossly normal and well kempt Mental Status: mental status grossly normal Speech and movement: Normal speech and movement present and Clear speech present Affect: normal affect Attitude: cooperative Thought process: Normal thought process present Thought content: Normal thought content present, suicidality (none), no hallucinations and Depressive thoughts present Insight: Good insight present (Psych) Judgement: Good judgement present (Psych) Results Reviewed Results Reviewed: XR THORACIC SPINE 03/03/24 CLINICAL INFORMATION: Lower back pain. FINDINGS: There is bony demineralization. There is a mild lower thoracic dextroscoliosis. There is mild anterior disc space narrowing at T8-T9 and T9-T10. There is mild leftward disc space narrowing at T10-T11. There is rightward disc space narrowing at L2-L3 and L3-L4. No acute fracture or spondylolisthesis is seen. There has been a prior L1 vertebroplasty. There is multi-level mild thoracic endplate arthropathy. The posterior elements are intact. The paravertebral soft tissues are unremarkable IMPRESSION: 1. There is mild degenerative disc disease at T8-T9 through T10-T11, and moderate disc space narrowing is seen at L2-L3 and L3-L4. 2. There is a mild lower thoracic dextroscoliosis. 3. There has been a prior L1 vertebroplasty. MR LUMBAR SPINE WITHOUT AND WITH CONTRAST 05/11/23 CLINICAL INFORMATION: Post laminectomy syndrome. History of compression fracture. Pain. COMPARISON: MRI dated 10/13/2013. Nuclear bone scan report from 05/06/2023. CT dated 04/19/2023. TECHNIQUE: Multiplanar, multisequence imaging was obtained. Intravenous contrast: Gadavist 6 mL. FINDINGS: VERTEBRAL BODIES AND PARASPINAL STRUCTURES: There is a moderate leftward curvature of the lumbar spine centered at the L2 level. Significant right lateral endplate edematous changes are visible at the L1-L2 level at the apex of the spinal curvature. There is a mild superior endplate compression fracture with a 40% loss of vertebral body height at the T12 level, slightly increased compared to the prior CT study. Marrow edema is present throughout the vertebral body extending into the pedicles. Mild amount of paraspinal soft tissue edema also evident at this level. Minimal osseous retropulsion noted. No additional compression fractures are seen. Advanced degenerative endplate changes and loss of disc height noted at the L2-L3 level with a slight retrosubluxation and bulky endplate spurring. There is a mild anterolisthesis and moderate disc space narrowing at the L3-L4 level with mild posterior endplate edema. The patient is status post posterior lumbar instrumented fusion at the L4-L5 level where there is a mild anterolisthesis. Severe degenerative endplate changes with mixed chronic and edematous endplate changes noted at the L5-S1 level. There are wome-np-[id number] degenerative changes in the left sacroiliac joint. CONUS MEDULLARIS AND CAUDA EQUINA: The distal cord, conus tip, and cauda equina nerve roots appear normal. No pathologic intradural enhancement is visible on postcontrast imaging. SPINAL LEVELS: L1-L2: Minimal anterolisthesis and broad-based posterior disc bulge with ndem-jb-stkizdjw facet arthropathy results in mild central canal stenosis. Bulging disc impresses upon the right L2 nerve root in the subarticular zone. Cxrz-zg-jprgebts foraminal narrowing. Significant endplate edematous changes on the right side. L2-L3: Retrosubluxation and moderate loss of disc height with a diffuse disc bulge and hypertrophic facet arthropathy. No central canal stenosis. Moderate right foraminal narrowing. L3-L4: Mild anterolisthesis and diffuse disc bulge with moderate to severe facet arthropathy results in mild central canal stenosis. Mild left foraminal narrowing evident. L4-L5: Anterolisthesis and post laminectomy changes with hardware instrumentation. No central canal stenosis. Mild left foraminal narrowing. L5-S1: Severe loss of disc height with a retrosubluxation noted. Mixed chronic and edematous endplate changes. Broad-based disc bulge and superimposed central disc protrusion impress upon the ventral thecal sac with mild mass effect upon the S1 nerve roots. Hypertrophic facet arthropathy without central canal stenosis. Moderate to severe foraminal narrowing with compression of the exiting left L5 nerve root due to ossific spurring. IMPRESSION: 1. Subacute mild superior endplate compression fracture deformity at the T12 level with significant marrow edema throughout the vertebral body and mild paraspinal soft tissue edema. Minimal osseous retropulsion. 2. Moderate leftward lumbar spinal curvature with moderate multilevel spondylosis and postsurgical changes at the L4-L5 level, status post posterior lumbar instrumented fusion. 3. Mild central canal stenosis at the L1-L2 level with bulging disc impressing upon the right L2 nerve root. 4. Moderate right foraminal narrowing at the L2-L3 level. Mild central canal stenosis at the L3-L4 level with a mild anterolisthesis and moderate to severe facet arthropathy. 5. Severe degenerative disc disease at the L5-S1 level with mixed chronic and edematous endplate changes. Broad-based central disc protrusion with mild mass effect upon the S1 nerve roots. Moderate to severe foraminal narrowing, more so on the left side with compression of the left L5 nerve root. ADDENDUM As stated in the report, the degree of osseous retropulsion across the superior endplate of T12 is minimal, measuring 2 mm, without cord compression or central canal stenosis. If this is thought to be a pain generator for the patient, recommend follow-up neurosurgical or interventional radiology consultation to guide further management for potential vertebral body augmentation. KAJAL ANDERSON MD Assessment & Plan Assessment & Plan (1) Iliac crest bone pain: Code(s): M89.8X8 - Other specified disorders of bone, other site Category: Medical (2) Chronic low back pain: Code(s): M54.50 - Low back pain, unspecified; G89.29 - Other chronic pain Category: Medical (3) Lumbar scoliosis: Code(s): M41.9 - Scoliosis, unspecified Category: Medical (4) Lumbar post-laminectomy syndrome: Code(s): M96.1 - Postlaminectomy syndrome, not elsewhere classified Category: Medical (5) Chronic pain syndrome: Code(s): G89.4 - Chronic pain syndrome Category: Medical (6) Lumbar degenerative disc disease: Code(s): M51.36 - Other intervertebral disc degeneration, lumbar region Category: Medical (7) Chronic, continuous use of opioids: Code(s): F11.90 - Opioid use, unspecified, uncomplicated Category: Medical Plan Patient has shown accountability for her medication regimen and the pill count was accurate. The patient reported no noted side effects and adequate analgesia on current medication regime. There is no evidence of misuse, abuse or diversion at this time. [facility] reviewed. Refill sent for oxycodone 10-325 mg TID prn with advanced date of 07/10/25. Patient has Narcan at home. All questions were answered and patient is in agreement of plan. Follow up in 4- 5 weeks for a pill count and sooner if needed. Medications: Refilled oxycodone-acetaminophen 10-325 mg Partial Fill upon patient request. 1 tab PO TID PRN 90 tabs 0RF pain 30 days G89.4 - Chronic pain syndrome, M51.36 - Other intervertebral disc degeneration, lumbar region, M96.1 - Postlaminectomy syndrome, not elsewhere classified Coding Level of Care Code Est Pt Level 4 (17921) Complex EM visit Add On G2211 Diagnoses Iliac crest bone pain M89.8X8 Chronic low back pain M54.50; G89.29 Lumbar scoliosis M41.9 Lumbar post-laminectomy syndrome M96.1 Chronic pain syndrome G89.4 Lumbar degenerative disc disease M51.36 Chronic, continuous use of opioids F11.90
[2025-06-28 11:59] VITALS: BP 93/52; PULSE 69; O2SAT 98; BMI 19.7
--- OUTSIDE RECORDS SUMMARY | 2025-06-28 15:04 | XMS_ITS | Patient Health Record ---
Author Organization [facility] Address [address] [place] [address] Care Team Providers Care Assistant Professor Of Geography Name Role Phone Brannon Rider Primary Care Provider Chong Cornell Unavailable [phone] Allergies No Known Allergies Reason For Referral No Information Medications Medication SIG (Take, Route, Frequency, Duration) Notes Start Date End Date Status Vitamin C Immune Health 500 MG 1 tablet Orally Once a day; Duration: 30 day(s) Active Calcium 1200 2171-5416 MG-UNIT 1 tablet Orally Once a day; Duration: 30 day(s) Active Imitrex 50 MG 1 tablet at least 2 hours between doses as needed Orally Twice a day Active Multivitamin - as directed Orally Active traZODone HCl 50 MG 1 tablet at bedtime as needed Orally Once a day; Duration: 30 day(s) Active vicodin 1 tab Oral; Duration : 14 days Active Colchicine 0.6 MG Oral; Duration: 15 Active Requip XL Active Immunizations Vaccine [...] Problem Status W/U Status Risk Notes Problem Screening for malignant neoplasm of colon (176957616) Encounter for screening for malignant neoplasm of colon (Z12.11) Active confirmed Problem Abdominal bloating (947500939) Abdominal bloating (R14.0) Active confirmed Problem Change in bowel habit (71189101) Change in bowel habits (R19.4) Active confirmed Problem Generalized abdominal pain (902021421) Abdominal pain, generalized (R10.84) Active confirmed Problem Chronic constipation (009159122) Chronic constipation (K59.09) Active confirmed Plan Of Treatment Pending Test Test Name Order Date BUN 08/26/2021 CREATININE 08/26/2021 CELIAC PANEL #10 08/26/2021 CT ABD & PELVIS WITH CONTRAST 08/26/2021 Future Test Test Name Order Date COLONOSCOPY 08/26/2021 COLONOSCOPY 02/05/2022 Insurance Providers Payer Name Payer Address Payer Phone Subscriber Number Group Number Insured Name Patient Relationship to Insured Coverage Start Date Coverage End Date [facility] [address] [place] [address] [phone] [id number] MOLLY VILLEGAS Self - patient is the insured Medical (General) History Medical History History ICD Code COPD Herniated cervical disc Restless leg syndrome Migraines Denies LA,DM,CVA,renal disease Negative Cologuard in approx 2018--she h as never had a colonoscopy Chronic constipation Negative laboratories for celiac disease in 2021 Surgical History Surgery Date(Month/Year) Varicose veins 2008 Right inguinal hernia Lower Back surgeries x 3
--- OUTSIDE RECORDS SUMMARY | 2025-06-28 15:04 | XMS_ITS | Data Portability ---
Author Organization [facility] [address] Address [address] [place] [address] Assessment No assessment recorded. Plan of Treatment Reminders Order Date Submit Date Provider Last Modified By Organization Details Last Modified Time Details Appointments None recorded. Lab rapid flu (A+B) 2022 023 gustavo [email or web address] [facility], [address] [facility], [place], [address], 18:21:59 Referral None recorded. Procedures None recorded. Surgeries None recorded. Imaging None recorded. Medication Orders prednisone 20 mg tablet 2022 023 [facility] #[id number], [address] [facility] [place], [address], 3 18:32:03 Augmentin 875 mg-125 mg tablet 2022 023 [facility] #[id number], [address] [facility] [place], [address], 3 18:32:03 Patient TargetsNo targets recorded. Patient Instructions Encounter Date Encounter Id Patient Instructions Last Modified By Organization Details Last Modified Time 09/13/2022 [id number] chronic obstructive pulmonary disease (COPD) flare-ups: care [...] Not Available [facility] [address] [place], [address], 09/13/2022 18:21:34 09/13/19 23 09/13/2022 rapid flu (A+B) Unknown Analyte negati ve Not Available [facility] [place], [address], 09/13/2022 18:21:34 09/13/19 23 09/13/2022 rapid flu (A+B) Unknown Analyte Normal = Negati ve Not Available [facility] [address] [place], [address], 09/13/2022 18:21:34 09/13/19 23 09/13/2022 rapid flu (A+B) Unknown Analyte negati ve Not Available [facility] [place], [address], 09/13/2022 18:21:34 Result Notes None recorded. Problems Name Problem SNOMED Code Status Onset Date Resolution Date Notes Provider Name and Address Organization Details Recorded Time Chronic back pain 557905233 Active 2022 IRIS COUVERTIE R null, [place] - [facility] 3 17:55:32 Restless legs syndrome 97056301 Active 2022 IRIS COUVERTIE R null, [place] - [facility] 3 17:56:01 Insomnia 297681106 Active 2022 IRIS COUVERTIE R null, [place] - [facility] 3 17:56:21 Chronic obstructive pulmonary disease 50488455 Active 2022 IRIS COUVERTIE R null, [place] [...] Updated DateTime 3 170.18 cm 20.4 kg/m2 32247.0 1 g 98.1 [degF] 20 /min 82 /min 97 % 97 % 147/82 mm[Hg] [facility] [...] Diagnosis SNOMED-CT Code Diagnosis ICD10 Code Diagnosis IMO Codes Diagnosis Note [id number] [address] [facility] [address] [place] [address] 05/27/2020 18:47:16 05/27/2020 19:58:17 [id number] [address] [address] [place] [address] 02/07/2022 19:35:00 02/07/2022 20:25:06 [id number] MARK CARTER [address] [place] [address] 09/13/2022 17:34:13 09/13/2022 18:38:31 Acute upper respiratory infection 90438057 J06.9 Acute exac erbation of chronic obstructive pulmonary disease 145399438 J44.1 Health Concerns Section Related Observation LastModified by Organization Detai ls LastModified Time None Recorded Concern Status LastModified by Organization Details LastModified Time None Recorded Advance Directives Directive None Recorded Payers Insurance Date Sequence Insurance Name Policy Number Policy Zambrano Covered Member ID Zambrano Member ID Guarantor Name 09/13/2022 1 CHUYITA (PPO) [id number] [facility] [place] [id number] [facility] [place] Notes Date Note Type Note Provider [...] Test. Was around sick family members over [place] which she thinks she caught a cold from. Had difficulty sleeping last night secondary to cough, SOB and wheezing. Improved today but still wheezing. O2 is 97% on RA. MARK GOINS JD [address] [place], [address], [place] - [facility] 09/13/2022 18:34:37 OBGyn Episode No OBEpisode recorded.
== END 2025-06-28 12:12 | disposition home or self-care (01) ==
LOC: HO.PMC 11:46
PROVIDERS: PCP Physician Assistant; Visit Provider Nurse Practitioner Family
DX: M89.8X8 Other specified disorders of bone, other site (principal); M54.50 Low back pain, unspecified; G89.29 Other chronic pain; M41.9 Scoliosis, unspecified; M96.1 Postlaminectomy syndrome, not elsewhere classified; G89.4 Chronic pain syndrome; M51.369 Other intervertebral disc degeneration, lumbar region without mention of lumbar back pain or lower extremity pain; F11.90 Opioid use, unspecified, uncomplicated
CPT/HCPCS: 99214; G2211

== ENCOUNTER → 2025-06-28 11:45 | Outpatient (BNVA) | payer MEDICARE, SELFPAY | PROVIDERS: PCP Physician Assistant; Visit Provider Nurse Practitioner Family | DX: M54.50 Low back pain, unspecified (principal); G89.29 Other chronic pain; M41.9 Scoliosis, unspecified; M96.1 Postlaminectomy syndrome, not elsewhere classified; M51.369 Other intervertebral disc degeneration, lumbar region without mention of lumbar back pain or lower extremity pain; Z51.81 Encounter for therapeutic drug level monitoring; Z79.891 Long term (current) use of opiate analgesic | CPT/HCPCS: 99212 ==

== ENCOUNTER 2025-07-12 10:55 | Outpatient (AMB) | payer MEDICARE, SELFPAY ==
[2025-07-12 11:01] VITALS: BP 94/60; PULSE 85; O2SAT 95; BMI 19.3
--- NOTE | 2025-07-12 11:01 | MHC.OFFVIS ---
Vital Signs 07/12/25 11:01 Height 5 ft 7 in Weight 123 lb 7.342 oz BMI 19.3 BP 94/60 Blood Pressure Location Lt brachial Position Sitting Pulse 85 Pulse Source Pulse Oximeter Pulse Oximetry (%) 95 Oxygen Delivery Method Room Air Intake Visit Reasons: Cough Intake Note: pt is here for follow up and states she has a head and chest cold, on mucinex this started on Wednesday, and coughing up a lot of yellow phelgm in am. Evp Managing Director Required: No Executive Director Global Brand Marketing: Executive Director Global Brand Marketing offered & declined Allergies No Known Allergies Allergy (Verified 07/12/25 11:18) Medication List - Last Reconciled 07/12/25 by Julissa Evans MD albuterol sulfate 90 mcg/actuation 2 puffs inhalation Q4-6H PRN 30 days back brace As directed fluticasone propion-salmeterol 250-50 mcg/dose (Advair Diskus) 1 inh inhalation BID 30 days megestrol 800 mg (20 mL) PO DAILY 30 days megestrol mg PO naloxone 4 mg/actuation (Narcan) 4 mg intranasal Q2M 1 day nicotine 1 patch transdermal DAILY 28 days oxybutynin chloride ER 5 mg PO DAILY 90 days oxycodone-acetaminophen 10-325 mg 1 tab PO TID PRN 30 days polyethylene glycol 3350 (Miralax) 17 grams PO DAILY PRN ropinirole 1 mg PO TID trazodone 50 mg PO BEDTIME 90 days Do you need a note to return to daycare/school/sports/work: No HPI HPI Cough: Details: 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 Because of that she started smoking little more than usual and has gone up to half pack a day. She tries to keep herself busy with her grandchildren, and last we contracted some cold symptoms from the older grandchild. She is having more cough and feeling of chest congestion. But does not have any fever or chills. [facility] Medical History (Updated 07/12/25 @ 11:27 by Julissa Evans MD) Clinical depression Nicotine dependence, cigarettes, uncomplicated Chronic sinusitis Back pain of thoracolumbar region T12 compression fracture Osteopenia Screening for hypercholesterolemia Breast cancer screening Bilateral hip pain Muscle strain COPD exacerbation Pseudogout of left knee Change in bowel habit Abdominal bloating Exocrine pancreatic insufficiency COPD (chronic obstructive pulmonary disease) Lumbar post-laminectomy syndrome Acute adjustment disorder with anxiety Restless leg syndrome Surgical History History of kyphoplasty History of lumbar laminectomy (~2012) History of vein stripping (~2003) History of femoral hernia repair (~2002) History of lumbar fusion (~2013) Status post phlebectomy (~2008) Social History Housing: House Alcohol intake: current Alcohol intake frequency: does not drink Patient Tobacco Use Status: Current everyday Tobacco user Tobacco use type: Cigarette Cigarette Packs Per Day: 0.5 Cigarettes Per Day: 10 e-Cigarette/Vaping Use: Never Used Second Hand Smoke Exposure: Yes service: No Current occupational status: retired Current occupation: [employer] Cognitive needs: No Hearing needs: No Vision needs: Yes (contacts/glasses) Review of Systems Const All systems reviewed & are unremarkable except as noted in HPI and below Eyes Reports no additional complaints ENT Reports no additional complaints Card Denies chest pain, Denies irregular heart rhythm, Denies leg edema and Denies dyspnea Resp Reports as per HPI, Reports cough (Mild off and on), Denies dyspnea and Denies wheezing GI Denies no additional complaints Reports no additional complaints Musc Reports back pain (Chronic) Skin/Breast Reports system reviewed and no additional complaints, except as documented Psych Reports no additional complaints Endo Reports no additional complaints Aller/Immun Reports no additional complaints and Denies wheezing Physical Exam Vital Signs: Last Vital Signs Pulse 85 07/12/25 11:01 BP 94/60 07/12/25 11:01 Pulse Ox 95 07/12/25 11:01 Oxygen Delivery Method Room Air 07/12/25 11:01 BMI result Body Mass Index 19.3 Const General: comfortable, no acute distress, alert and awake Orientation/consciousness: patient oriented x3 HEENT Head: Yes normal to inspection General nose exam: No nasal polyps present and No nasal discharge present Face and sinus: Yes sinuses nontender Mouth: oropharynx normal Throat: Yes posterior oropharynx normal Eyes General: appearance normal, both eyes and all related structures Neck Neck: Yes normal visual inspection, Yes no lymphadenopathy, Yes trachea midline and Yes no JVD Thyroid: Thyroid normal Chest Chest palpation & inspection: normal inspection of the chest, normal palpation of entire chest wall and no tenderness Resp Other: Percussion note hyper-resonant, breath sounds are equal on both sides. Has a few crepitations over the left mid lung. No wheezes. Cardio Palpation: normal PMI Rate: regular rate Rhythm: regular rhythm Heart sounds: no gallops and no murmurs GI Palpation (GI): Soft to palpation, nontender, No hepatosplenomegaly present and no masses Auscultation: normal bowel sounds Back/Spine/Pelvis Thoracic/Lumbar Spine: thoracic and lumbar spine normal to inspection, thoraco-lumbar ROM limited and thoraco-lumbar spasm Skin General skin exam: no rashes or lesions noted Neuro General: patient oriented x3 and no focal motor deficits Cranial nerves: Yes CN's II-XII intact bilaterally Extrem General: Yes normal to inspection, Yes no clubbing, cyanosis or edema and Yes no calf tenderness Psych Appearance: grossly normal and well kempt Speech and movement: Normal speech and movement present Assessment & Plan Assessment & Plan (1) COPD (chronic obstructive pulmonary disease): Comment: PATIENT DOES HAVE CHRONIC OBSTRUCTIVE PULMONARY DISEASE WHICH IS SECONDARY TO HER ONGOING SMOKING. THE SYMPTOMS GET EXACERBATED BECAUSE OF HER CONTINUED SMOKING AND INTERMITTENT LOW-GRADE RESPIRATORY INFECTIONS. AT PRESENT SHE DOES HAVE MILD ACUTE EXACERBATION, DUE TO LOW-GRADE RESPIRATORY INFECTION. Code(s): J44.9 - Chronic obstructive pulmonary disease, unspecified Category: Medical Qualifiers: COPD type: chronic bronchitis Chronic bronchitis type: simple Qualified Code(s): J41.0 - Simple chronic bronchitis Plan: CONTINUE ADVAIR DISKUS 250-51 INHALATION B.I.D. USE ALBUTEROL HFA 2 PUFFS Q 6 HOURS P.R.N. . A COURSE OF PREDNISONE 20 MG B.I.D. FOR 5 DAYS AND Z-HA IS PRESCRIBED (2) Nicotine dependence, cigarettes, uncomplicated: Comment: (current smoker - onset 25, max 1ppd - currently 1/4ppd, 30+PYH). SHE HAS INCREASED CIGARETTES FROM 5-10 A DAY AFTER HER AND SHE HAS BECOME MORE DEPRESSED. Code(s): F17.210 - Nicotine dependence, cigarettes, uncomplicated Category: Medical Plan: TALKED TO HER ABOUT SMOKING AND ADVISED THAT SHE NEEDS TO CUT IT DOWN MUCH POSSIBLE AND THE BEST THING TO DO IS TO QUIT SMOKING. SHE IS CLAIMING THAT SHE HAS REMAINED DEPRESSED, AND INCREASE THE NUMBER OF CIGARETTES DUE TO THAT. I WILL START HER ON A MILD ANTIDEPRESSANT AGENT. (3) Pulmonary nodule: Comment: (5mm RUL nodule on 02/14/25 LDCT - plan is 6m repeat LDCT) Code(s): R91.1 - Solitary pulmonary nodule Category: Medical Plan: CONTINUE TO BE INVOLVED IN LUNG SCREENING PROGRAM . (4) Clinical depression: Comment: SHE IS DEFINITELY DEPRESSED, AFTER THE OF HER DUE TO LUNG CANCER. AND WOULD LIKE TO BE STARTED ON A MILD ANTIDEPRESSANT AGENT. Code(s): F32.A - Depression, unspecified Category: Medical Plan: I HAVE ORDERED CITALOPRAM 10 MG 1 TABLET DAILY Medications: New prednisone 20 mg PO BID 10 tabs 1RF COPD EXCERBATION 5 days azithromycin For 250 mg dose pack: take 500 mg today (day 1), then 250 mg for 4 days (days 2-5) PO 6 tabs 0RF citalopram 10 mg PO DAILY 30 tabs 4RF DEPRESSION 30 days Coding Level of Care Code Est Pt Level 3 (30546) Diagnoses Simple chronic bronchitis J41.0 COPD type: chronic bronchitis Chronic bronchitis type: simple Nicotine dependence, cigarettes, uncomplicated F17.210 Pulmonary nodule R91.1 Clinical depression F32.A
--- OUTSIDE RECORDS SUMMARY | 2025-07-12 13:43 | XMS_ITS | Data Portability ---
Author Organization [facility] [address] Address [address] [place] [address] Assessment No assessment recorded. Plan of Treatment Reminders Order Date Submit Date Provider Last Modified By Organization Details Last Modified Time Details Appointments None recorded. Lab rapid flu (A+B) 2022 023 gustavo [email or web address] [facility], [address] [facility], [place], [address], 18:21:59 Referral None recorded. Procedures None recorded. Surgeries None recorded. Imaging None recorded. Medication Orders prednisone 20 mg tablet 2022 023 [facility] #[id number], [address] [facility] [place], [address], 3 18:32:03 Augmentin 875 mg-125 mg tablet 2022 023 [facility] #[id number], [address] [facility] [place], [address], 3 18:32:03 Patient TargetsNo targets recorded. Patient Instructions Encounter Date Encounter Id Patient Instructions Last Modified By Organization Details Last Modified Time 09/13/2022 [id number] chronic obstructive pulmonary disease (COPD) flare-ups: care [...] Normal = Negati ve Not [facility] [address] [place], [address], 09/13/2022 18:21:34 09/13/19 23 09/13/2022 rapid flu (A+B) Unknown Analyte negati ve Not Available [facility] [place], [address], 09/13/2022 18:21:34 09/13/19 23 09/13/2022 rapid flu (A+B) Unknown Analyte Normal = Negati ve Not [facility] [address] [place], [address], 09/13/2022 18:21:34 09/13/19 23 09/13/2022 rapid flu (A+B) Unknown Analyte negati ve Not Available [facility] [place], [address], 09/13/2022 18:21:34 Result Notes None recorded. Problems Name Problem SNOMED Code Status Onset Date Resolution Date Notes Provider Name and Address Organization Details Recorded Time Chronic back pain 984298908 Active 2022 IRIS COUVERTIE R null, [place] - [facility] 3 17:55:32 Restless legs syndrome 70005053 Active 2022 IRIS COUVERTIE R null, [place] - [facility] 3 17:56:01 Insomnia 614561794 Active 2022 IRIS COUVERTIE R null, PA - [facility] 3 17:56:21 Chronic obstructive pulmonary disease 98190684 Active 2022 IRIS COUVERTIE R null, PA [...] Updated DateTime 3 170.18 cm 20.4 kg/m2 27640.0 1 g 98.1 [degF] 20 /min 82 [...] ICD10 Code Diagnosis IMO Codes Diagnosis Note [id number] [address] [facility] [address] [place] [address] 05/27/2020 18:47:16 05/27/2020 19:58:17 [id number] [address] [facility] [address] [facility] [place] [address] 02/07/2022 19:35:00 02/07/2022 20:25:06 [id number] MARK CARTER [address] [place] [address] 09/13/2022 17:34:13 09/13/2022 18:38:31 Acute upper respiratory infection 18190094 J06.9 Acute exac erbation of chronic obstructive pulmonary disease 904142758 J44.1 Health Concerns Section Related Observation LastModified by Organization Detai ls LastModified Time None Recorded Concern Status LastModified by Organization Details LastModified Time None Recorded Advance Directives Directive None Recorded Payers Insurance Date Sequence Insurance Name Policy Number Policy Zambrano Covered Member ID Zambrano Member ID Guarantor Name 09/13/2022 1 CHUYITA (PPO) [id number] [facility] [place] [id number] [facility] [place] Notes Date Note Type [...] Test. Was around sick family members over [place] which she thinks she caught a cold from. Had difficulty sleeping last night secondary to cough, SOB and wheezing. Improved today but still wheezing. O2 is 97% on RA. MARK GOINS JD [address] [place], [address], [place] - [facility] 09/13/2022 18:34:37 OBGyn Episode No OBEpisode recorded.
--- OUTSIDE RECORDS SUMMARY | 2025-07-12 13:43 | XMS_ITS | Patient Health Record ---
Author Organization [facility] Address [address] [place] [address] Care Team Providers Care Smearer Name Role Phone Brannon Rider Primary Care Provider Chong Cornell Unavailable [phone] Allergies No Known Allergies Reason For Referral No Information Medications Medication SIG (Take, Route, Frequency, Duration) Notes Start Date End Date Status Vitamin C Immune Health 500 MG 1 tablet Orally Once a day; Duration: 30 day(s) Active Calcium 1200 4985-7018 MG-UNIT 1 tablet Orally Once a day; [...] Problem Screening for malignant neoplasm of colon (429499873) Encounter for screening for malignant neoplasm of colon (Z12.11) Active confirmed Problem Abdominal bloating (457801498) Abdominal bloating (R14.0) Active confirmed Problem Change in bowel habit (21076820) Change in bowel habits (R19.4) Active confirmed Problem Generalized abdominal pain (241330961) Abdominal pain, generalized (R10.84) Active confirmed Problem Chronic constipation (157111855) Chronic constipation (K59.09) Active confirmed Plan Of Treatment Pending Test Test Name Order Date BUN 08/26/2021 CREATININE 08/26/2021 CELIAC PANEL #10 08/26/2021 CT ABD & PELVIS WITH CONTRAST 08/26/2021 Future Test Test Name Order Date COLONOSCOPY 08/26/2021 COLONOSCOPY 02/05/2022 Insurance Providers Payer Name Payer Address Payer Phone Subscriber Number Group Number Insured Name Patient Relationship to Insured Coverage Start Date Coverage End Date [facility] [address] [place] [address] [phone] [id number] MOLLY VILLEGAS Self - patient is the insured Medical (General) History Medical History History ICD Code COPD Herniated cervical disc Restless leg syndrome Migraines Denies MN,DM,CVA,renal disease Negative Cologuard in approx 2018--she h as never had a colonoscopy Chronic constipation Negative laboratories for celiac disease in 2021 Surgical History Surgery Date(Month/Year) Varicose veins 2008 Right inguinal hernia Lower Back surgeries x 3
== END 2025-07-12 11:20 | disposition home or self-care (01) ==
PROVIDERS: PCP Physician Assistant; Visit Provider Internal Medicine
DX: J41.0 Simple chronic bronchitis (principal); F17.210 Nicotine dependence, cigarettes, uncomplicated; R91.1 Solitary pulmonary nodule; F32.A Depression, unspecified
CPT/HCPCS: 99213

== ENCOUNTER → 2025-07-12 10:55 | Outpatient (BNVA) | payer MEDICARE, SELFPAY | PROVIDERS: PCP Physician Assistant; Visit Provider Internal Medicine | DX: J41.0 Simple chronic bronchitis (principal); R91.1 Solitary pulmonary nodule; F32.A Depression, unspecified; F17.210 Nicotine dependence, cigarettes, uncomplicated | CPT/HCPCS: 99212 ==

== ENCOUNTER 2025-08-02 11:30 | Outpatient (AMB) | payer MEDICARE, SELFPAY ==
--- NOTE | 2025-08-02 11:32 | A.OFFVIS_ITS ---
Vital Signs 08/02/25 11:41 Height 5 ft 7 in Weight 123 lb 6 oz BMI 19.3 BP 104/61 Blood Pressure Location Lt brachial Position Sitting Pulse 73 Pulse Source Pulse Oximeter Pulse Oximetry (%) 96 Oxygen Delivery Method Room Air Intake Visit Reasons: Pill Count Intake Note: Dot comes in today for a pill count to oxycodone-acetaminophen, patient should have 24 tablets and presents with 28 tablets which she last took today 08/02/25 at 6am. Director Service Required: No Allergies No Known Allergies Allergy (Verified 08/02/25 11:42) HPI Comments Details: Patient presents today for a pill count. Patient is supposed to have #24 pills and has #28 pills. This demonstrates a responsible attitude in regards to the medication regimen. She reports reasonable analgesia and no noted sided effects with current dose of oxycodone-acetaminophen 10-325 mg TID prn and no significant side effects, manageable occasional constipation. Pain is rated at 3/10. Denies any fever, chills, weight changes, sedation, abdominal pain, constipation, nausea, dizziness or urinary retention. Past procedures: 10/13/23: Percutaneous Spinal Cord Stimulator Trial, Lumbar: 0% relief. 05/21/23: T12 Kyphoplasty-50% pain relief 03/17/23: Sacroiliac Joint Injection, Bilateral: 50-60% relief. [facility] Medical History Clinical depression Nicotine dependence, cigarettes, uncomplicated Chronic sinusitis Back pain of thoracolumbar region T12 compression fracture Osteopenia Screening for hypercholesterolemia Breast cancer screening Bilateral hip pain Muscle strain COPD exacerbation Pseudogout of left knee Change in bowel habit Abdominal bloating Exocrine pancreatic insufficiency COPD (chronic obstructive pulmonary disease) Lumbar post-laminectomy syndrome Acute adjustment disorder with anxiety Restless leg syndrome Surgical History History of kyphoplasty History of lumbar laminectomy (~2012) History of vein stripping (~2003) History of femoral hernia repair (~2002) History of lumbar fusion (~2013) Status post phlebectomy (~2008) Social History Housing: House Alcohol intake: current Alcohol intake frequency: does not drink Patient Tobacco Use Status: Current everyday Tobacco user Tobacco use type: Cigarette Cigarette Packs Per Day: 0.5 Cigarettes Per Day: 10 e-Cigarette/Vaping Use: Never Used Second Hand Smoke Exposure: Yes service: No Current occupational status: retired Current occupation: [employer] Cognitive needs: No Hearing needs: No Vision needs: Yes (contacts/glasses) Review of Systems Const All systems reviewed & are unremarkable except as noted in HPI and below Physical Exam General: Appears afebrile. Alert and oriented. Mood and affect appropriate. Follows and participates in conversation appropriately. Respiratory effort is unlabored. No cough. Able to transition from sit to stand unassisted. Ambulates with bilaterally normal heel strike and toe off. Psych Appearance: grossly normal and well kempt Mental Status: mental status grossly normal Speech and movement: Normal speech and movement present and Clear speech present Affect: normal affect Attitude: cooperative Thought process: Normal thought process present Thought content: Normal thought content present, suicidality (none), no hallucinations and Depressive thoughts present Insight: Good insight present (Psych) Judgement: Good judgement present (Psych) Results Reviewed Results Reviewed: XR THORACIC SPINE 03/03/24 CLINICAL INFORMATION: Lower back pain. FINDINGS: There is bony demineralization. There is a mild lower thoracic dextroscoliosis. There is mild anterior disc space narrowing at T8-T9 and T9-T10. There is mild leftward disc space narrowing at T10-T11. There is rightward disc space narrowing at L2-L3 and L3-L4. No acute fracture or spondylolisthesis is seen. There has been a prior L1 vertebroplasty. There is multi-level mild thoracic endplate arthropathy. The posterior elements are intact. The paravertebral soft tissues are unremarkable IMPRESSION: 1. There is mild degenerative disc disease at T8-T9 through T10-T11, and moderate disc space narrowing is seen at L2-L3 and L3-L4. 2. There is a mild lower thoracic dextroscoliosis. 3. There has been a prior L1 vertebroplasty. MR LUMBAR SPINE WITHOUT AND WITH CONTRAST 05/11/23 CLINICAL INFORMATION: Post laminectomy syndrome. History of compression fracture. Pain. COMPARISON: MRI dated 10/13/2013. Nuclear bone scan report from 05/06/2023. CT dated 04/19/2023. TECHNIQUE: Multiplanar, multisequence imaging was obtained. Intravenous contrast: Gadavist 6 mL. FINDINGS: VERTEBRAL BODIES AND PARASPINAL STRUCTURES: There is a moderate leftward curvature of the lumbar spine centered at the L2 level. Significant right lateral endplate edematous changes are visible at the L1-L2 level at the apex of the spinal curvature. There is a mild superior endplate compression fracture with a 40% loss of vertebral body height at the T12 level, slightly increased compared to the prior CT study. Marrow edema is present throughout the vertebral body extending into the pedicles. Mild amount of paraspinal soft tissue edema also evident at this level. Minimal osseous retropulsion noted. No additional compression fractures are seen. Advanced degenerative endplate changes and loss of disc height noted at the L2-L3 level with a slight retrosubluxation and bulky endplate spurring. There is a mild anterolisthesis and moderate disc space narrowing at the L3-L4 level with mild posterior endplate edema. The patient is status post posterior lumbar instrumented fusion at the L4-L5 level where there is a mild anterolisthesis. Severe degenerative endplate changes with mixed chronic and edematous endplate changes noted at the L5-S1 level. There are geet-ir-ibysntfu degenerative changes in the left sacroiliac joint. CONUS MEDULLARIS AND CAUDA EQUINA: The distal cord, conus tip, and cauda equina nerve roots appear normal. No pathologic intradural enhancement is visible on postcontrast imaging. SPINAL LEVELS: L1-L2: Minimal anterolisthesis and broad-based posterior disc bulge with icqm-ym-ptgdbwdp facet arthropathy results in mild central canal stenosis. Bulging disc impresses upon the right L2 nerve root in the subarticular zone. Bpym-in-jigvfrdu foraminal narrowing. Significant endplate edematous changes on the right side. L2-L3: Retrosubluxation and moderate loss of disc height with a diffuse disc bulge and hypertrophic facet arthropathy. No central canal stenosis. Moderate right foraminal narrowing. L3-L4: Mild anterolisthesis and diffuse disc bulge with moderate to severe facet arthropathy results in mild central canal stenosis. Mild left foraminal narrowing evident. L4-L5: Anterolisthesis and post laminectomy changes with hardware instrumentation. No central canal stenosis. Mild left foraminal narrowing. L5-S1: Severe loss of disc height with a retrosubluxation noted. Mixed chronic and edematous endplate changes. Broad-based disc bulge and superimposed central disc protrusion impress upon the ventral thecal sac with mild mass effect upon the S1 nerve roots. Hypertrophic facet arthropathy without central canal stenosis. Moderate to severe foraminal narrowing with compression of the exiting left L5 nerve root due to ossific spurring. IMPRESSION: 1. Subacute mild superior endplate compression fracture deformity at the T12 level with significant marrow edema throughout the vertebral body and mild paraspinal soft tissue edema. Minimal osseous retropulsion. 2. Moderate leftward lumbar spinal curvature with moderate multilevel spondylosis and postsurgical changes at the L4-L5 level, status post posterior lumbar instrumented fusion. 3. Mild central canal stenosis at the L1-L2 level with bulging disc impressing upon the right L2 nerve root. 4. Moderate right foraminal narrowing at the L2-L3 level. Mild central canal stenosis at the L3-L4 level with a mild anterolisthesis and moderate to severe facet arthropathy. 5. Severe degenerative disc disease at the L5-S1 level with mixed chronic and edematous endplate changes. Broad-based central disc protrusion with mild mass effect upon the S1 nerve roots. Moderate to severe foraminal narrowing, more so on the left side with compression of the left L5 nerve root. ADDENDUM As stated in the report, the degree of osseous retropulsion across the superior endplate of T12 is minimal, measuring 2 mm, without cord compression or central canal stenosis. If this is thought to be a pain generator for the patient, recommend follow-up neurosurgical or interventional radiology consultation to guide further management for potential vertebral body augmentation. KAJAL ANDERSON MD Assessment & Plan Assessment & Plan (1) Chronic low back pain: Code(s): M54.50 - Low back pain, unspecified; G89.29 - Other chronic pain Category: Medical (2) Lumbar scoliosis: Code(s): M41.9 - Scoliosis, unspecified Category: Medical (3) Lumbar post-laminectomy syndrome: Code(s): M96.1 - Postlaminectomy syndrome, not elsewhere classified Category: Medical (4) Chronic pain syndrome: Code(s): G89.4 - Chronic pain syndrome Category: Medical (5) Lumbar degenerative disc disease: Code(s): M51.36 - Other intervertebral disc degeneration, lumbar region Category: Medical (6) Chronic, continuous use of opioids: Code(s): F11.90 - Opioid use, unspecified, uncomplicated Category: Medical Plan Patient has shown accountability for her medication regimen and the pill count was accurate. The patient reported no noted side effects and adequate analgesia on current medication regime. There is no evidence of misuse, abuse or diversion at this time. [facility] reviewed. Refill sent for oxycodone 10-325 mg TID prn with advanced date of 08/08/25. Patient has Narcan at home. All questions were answered and patient is in agreement of plan. Follow up in 4- 5 weeks for a pill count and sooner if needed. Medications: Refilled oxycodone-acetaminophen 10-325 mg Partial Fill upon patient request. 1 tab PO TID PRN 90 tabs 0RF pain 30 days G89.4 - Chronic pain syndrome, M51.36 - Other intervertebral disc degeneration, lumbar region, M96.1 - Postlaminectomy syndrome, not elsewhere classified Coding Level of Care Code Est Pt Level 4 (72811) Complex EM visit Add On G2211 Diagnoses Chronic low back pain M54.50; G89.29 Lumbar scoliosis M41.9 Lumbar post-laminectomy syndrome M96.1 Chronic pain syndrome G89.4 Lumbar degenerative disc disease M51.36 Chronic, continuous use of opioids F11.90
[2025-08-02 11:41] VITALS: BP 104/61; PULSE 73; O2SAT 96; BMI 19.3
--- OUTSIDE RECORDS SUMMARY | 2025-08-02 17:47 | XMS_ITS | Data Portability ---
Author Organization [facility] [address] Address [address] [place] [address] Assessment No assessment recorded. Plan of Treatment Reminders Order Date Submit Date Provider Last Modified By Organization Details Last Modified Time Details Appointments None recorded. Lab rapid flu (A+B) 2022 023 gustavo [email or web address] [facility], [address] [facility], [place], [address], 18:21:59 Referral None recorded. Procedures None recorded. Surgeries None recorded. Imaging None recorded. Medication Orders prednisone 20 mg tablet 2022 023 [facility] #[id number], [address] [facility] [place], [address], 3 18:32:03 Augmentin 875 mg-125 mg tablet 2022 023 [facility]armacy #[id number], [address] [facility] [place], [address], 3 18:32:03 Patient TargetsNo targets recorded. Patient Instructions Encounter Date Encounter Id Patient Instructions Last Modified By Organization Details Last Modified Time 09/13/2022 [id number] chronic obstructive pulmonary disease (COPD) flare-ups: care [...] Analyte Normal = Negati ve Not Available [facility] [address] [place], [address], 09/13/2022 18:21:34 09/13/19 23 09/13/2022 rapid flu (A+B) Unknown Analyte negati ve Not Available [facility] [place], [address], 09/13/2022 18:21:34 09/13/19 23 09/13/2022 rapid flu (A+B) Unknown Analyte Normal = Negati ve Not Available [facility] [address] [place], [address], 09/13/2022 18:21:34 09/13/19 23 09/13/2022 rapid flu (A+B) Unknown Analyte negati ve Not Available [facility] [place], [address], 09/13/2022 18:21:34 Result Notes None recorded. Problems Name Problem SNOMED Code Status Onset Date Resolution Date Notes Provider Name and Address Organization Details Recorded Time Chronic back pain 600846421 Active 2022 IRIS COUVERTIE R null, [place] - [facility] 3 17:55:32 Restless legs syndrome 08707537 Active 2022 IRIS COUVERTIE R null, PA - [facility] 3 17:56:01 Insomnia 061869564 Active 2022 IRIS COUVERTIE R null, PA - [facility] 3 17:56:21 Chronic obstructive pulmonary disease 86580690 Active 2022 IRIS COUVERTIE R null, PA [...] temperature Respiratory rate Heart rate Oxygen saturation Systolic And Diastolic Provider Name and Address Organization Details Last Updated DateTime 3 170.18 cm 20.4 kg/m2 03943.0 1 g 98.1 [degF] 20 /min 82 /min 97 % 147/82 mm[Hg] MERCY Pal PA - [facility] 3 18:00:09 Social [...] ICD10 Code Diagnosis IMO Codes Diagnosis Note [id number] [address] [facility] [address] [place] [address] 05/27/2020 18:47:16 05/27/2020 19:58:17 [id number] [address] [address] [place] [address] 02/07/2022 19:35:00 02/07/2022 20:25:06 [id number] MARK CARTER [address] [place] [address] 09/13/2022 17:34:13 09/13/2022 18:38:31 Acute upper respiratory infection 63388635 J06.9 Acute exac erbation of chronic obstructive pulmonary disease 480795596 J44.1 Health Concerns Section Related Observation LastModified by Organization Detai ls LastModified Time None Recorded Concern Status LastModified by Organization Details LastModified Time None Recorded Advance Directives Directive None Recorded Payers Insurance Date Sequence Insurance Name Policy Number Policy Zambrano Covered Member ID Zambrano Member ID Guarantor Name 09/13/2022 1 CHUYITA (PPO) [id number] [facility] Aline Rivest [id number] Dot Rivest Notes Date Note Type [...] Test. Was around sick family members over peebles which she thinks she caught a cold from. Had difficulty sleeping last night secondary to cough, SOB and wheezing. Improved today but still wheezing. O2 is 97% on RA. MARK GOINS JD [address] [place], [address], [place] - [facility] 09/13/2022 18:34:37 OBGyn Episode No OBEpisode recorded.
--- OUTSIDE RECORDS SUMMARY | 2025-08-02 17:48 | XMS_ITS | Patient Health Record ---
Author Organization [facility] Address [address] [place] [address] Care Team Providers Care Farm Advisor Name Role Phone Brannon Rider Primary Care Provider Chong Cornell Unavailable [phone] Allergies No Known Allergies Reason For Referral No Information Medications Medication SIG (Take, Route, Frequency, Duration) Notes Start Date End Date Status Vitamin C Immune Health 500 MG Tablet Chewable 1 tablet Orally Once a day; Duration: 30 day(s) Active Calcium 1200 0432-2641 MG-UNIT Tablet Chewable 1 tablet Orally Once a day; Duration: 30 day(s) Active Imitrex 50 MG Tablet 1 tablet at least 2 hours between doses as needed Orally Twice a day Active Multivitamin - Liquid as directed Orally Active traZODone HCl 50 MG Tablet 1 tablet at b edtime as needed Orally Once a day; Duration: 30 day(s) Active vicodin 1 tab Oral; Duration : 14 days Active Colchicine 0.6 MG Tablet Oral; Duration: 15 Active Requip XL Active Immunizations Vaccine Route Administration Date Status Comme nts Influenza Unknown 07/30/2021 Administered Social History Tobacco Use: Social History Observation Description Date Details (start date - stop date) Current Smoker NA - NA Social History Drugs/Alcohol: Social Info Question Answer Notes Alcohol Screen Did you have a drink containing alcohol in the past year? No Points 0 Interpretation Negative Tobacco Use: Social Info Question Answer Notes Tobacco Use/Smoking Patient is a current smoker How often do you smoke cigarettes? every day How many cigarettes a day do you smoke? 6-10 How soon after you wake up do you smoke your first cigarette? 31-60 minutes Are you interested in quitting? 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; 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 ol Problems Problem Type SNOMED Code ICD Code Onset Dates Problem Status W/U Status Risk Notes Problem Screening for malignant neoplasm of colon (525840202) Encounter for screening for malignant neoplasm of colon (Z12.11) Active confirmed Problem Abdominal bloating (722150748) Abdominal bloating (R14.0) Active confirmed Problem Change in bowel habit (24173446) Change in bowel habits (R19.4) Active confirmed Problem Generalized abdominal pain (836846798) Abdominal pain, generalized (R10.84) Active confirmed Problem Chronic constipation (347610758) Chronic constipation (K59.09) Active confirmed Plan Of Treatment Pending Test Test Name Order Date BUN 08/26/2021 CREATININE 08/26/2021 CELIAC PANEL #10 08/26/2021 CT ABD & PELVIS WITH CONTRAST 08/26/2021 Future Test Test Name Order Date COLONOSCOPY 08/26/2021 COLONOSCOPY 02/05/2022 Insurance Providers Payer Name Payer Address Payer Phone Subscriber Number Group Number Insured Name Patient Relationship to Insured Coverage Start Date Coverage End Date [facility] [address] [place] [address] [phone] [id number] MOLLY VILLEGAS Self - patient is the insured Medical (General) History Medical History History ICD Code COPD Herniated cervical disc Restless leg syndrome Migraines Denies NE,DM,CVA,renal disease Negative Cologuard in approx 2018--she h as never had a colonoscopy Chronic constipation Negative laboratories for celiac disease in 2021 Surgical History Surgery Date(Month/Year) Varicose veins 2009 Right inguinal hernia Lower Back surgeries x 3
== END 2025-08-02 11:56 | disposition home or self-care (01) ==
LOC: HO.PMC 11:31
PROVIDERS: PCP Physician Assistant; Visit Provider Nurse Practitioner Family
DX: M54.50 Low back pain, unspecified (principal); G89.29 Other chronic pain; M41.9 Scoliosis, unspecified; M96.1 Postlaminectomy syndrome, not elsewhere classified; G89.4 Chronic pain syndrome; M51.369 Other intervertebral disc degeneration, lumbar region without mention of lumbar back pain or lower extremity pain; Z79.891 Long term (current) use of opiate analgesic
CPT/HCPCS: 99214; G2211

== ENCOUNTER → 2025-08-02 11:30 | Outpatient (BNVA) | payer MEDICARE, SELFPAY | PROVIDERS: PCP Physician Assistant; Visit Provider Nurse Practitioner Family | DX: G89.4 Chronic pain syndrome (principal); M41.9 Scoliosis, unspecified; M96.1 Postlaminectomy syndrome, not elsewhere classified; F11.90 Opioid use, unspecified, uncomplicated; M51.360 Other intervertebral disc degeneration, lumbar region with discogenic back pain only | CPT/HCPCS: 99212 ==

== ENCOUNTER 2025-08-30 11:29 | Outpatient (AMB) | payer MEDICARE, SELFPAY ==
--- NOTE | 2025-08-30 11:31 | A.OFFVIS_ITS ---
Vital Signs 08/30/25 11:37 Height 5 ft 7 in Weight 126 lb 4 oz BMI 19.8 BP 124/69 Blood Pressure Location Rt brachial Position Sitting Pulse 72 Pulse Source Pulse Oximeter Intake Visit Reasons: Pill Count Intake Note: Dot comes in today for a pill count to oxycodone-acetaminophen, patient should have 30 tablets which she last took today 08/30/25 at 6am. Pain today 5/10 Shop Service Technician Required: No Accompanied by: Self / Same As Patient Allergies No Known Allergies Allergy (Verified 08/30/25 11:38) HPI Comments Details: Patient presents today for a pill count. Patient is supposed to have #30 pills and has #34 pills. This demonstrates a responsible attitude in regards to the medication regimen. She reports reasonable analgesia and no noted sided effects with current dose of oxycodone-acetaminophen 10-325 mg TID prn and no significant side effects, manageable occasional constipation. Pain is rated at 5/10. Denies any fever, chills, weight changes, sedation, abdominal pain, constipation, nausea, dizziness or urinary retention. Denies any recent cough, cold, infection, fever or any significant changes in medical history since last office visit. Past procedures: 10/13/23: Percutaneous Spinal Cord Stimulator Trial, Lumbar: 0% relief. 05/21/23: T12 Kyphoplasty-50% pain relief 03/17/23: Sacroiliac Joint Injection, Bilateral: 50-60% relief. [facility] Medical History Clinical depression Nicotine dependence, cigarettes, uncomplicated Chronic sinusitis Back pain of thoracolumbar region T12 compression fracture Osteopenia Screening for hypercholesterolemia Breast cancer screening Bilateral hip pain Muscle strain COPD exacerbation Pseudogout of left knee Change in bowel habit Abdominal bloating Exocrine pancreatic insufficiency COPD (chronic obstructive pulmonary disease) Lumbar post-laminectomy syndrome Acute adjustment disorder with anxiety Restless leg syndrome Surgical History History of kyphoplasty History of lumbar laminectomy (~2012) History of vein stripping (~2003) History of femoral hernia repair (~2002) History of lumbar fusion (~2013) Status post phlebectomy (~2008) Social History Housing: House Alcohol intake: current Alcohol intake frequency: does not drink Patient Tobacco Use Status: Current everyday Tobacco user Tobacco use type: Cigarette Cigarette Packs Per Day: 0.5 Cigarettes Per Day: 10 e-Cigarette/Vaping Use: Never Used Second Hand Smoke Exposure: Yes service: No Current occupational status: retired Current occupation: [employer] Cognitive needs: No Hearing needs: No Vision needs: Yes (contacts/glasses) Review of Systems Const All systems reviewed & are unremarkable except as noted in HPI and below Physical Exam General: Appears afebrile. Alert and oriented. Mood and affect appropriate. Follows and participates in conversation appropriately. Respiratory effort is unlabored. No cough. Able to transition from sit to stand unassisted. Ambulates with bilaterally normal heel strike and toe off. Psych Appearance: grossly normal and well kempt Mental Status: mental status grossly normal Speech and movement: Normal speech and movement present and Clear speech present Affect: normal affect Attitude: cooperative Thought process: Normal thought process present Thought content: Normal thought content present, suicidality (none), no hallucinations and Depressive thoughts present Insight: Good insight present (Psych) Judgement: Good judgement present (Psych) Results Reviewed Results Reviewed: XR THORACIC SPINE 03/03/24 CLINICAL INFORMATION: Lower back pain. FINDINGS: There is bony demineralization. There is a mild lower thoracic dextroscoliosis. There is mild anterior disc space narrowing at T8-T9 and T9-T10. There is mild leftward disc space narrowing at T10-T11. There is rightward disc space narrowing at L2-L3 and L3-L4. No acute fracture or spondylolisthesis is seen. There has been a prior L1 vertebroplasty. There is multi-level mild thoracic endplate arthropathy. The posterior elements are intact. The paravertebral soft tissues are unremarkable IMPRESSION: 1. There is mild degenerative disc disease at T8-T9 through T10-T11, and moderate disc space narrowing is seen at L2-L3 and L3-L4. 2. There is a mild lower thoracic dextroscoliosis. 3. There has been a prior L1 vertebroplasty. MR LUMBAR SPINE WITHOUT AND WITH CONTRAST 05/11/23 CLINICAL INFORMATION: Post laminectomy syndrome. History of compression fracture. Pain. COMPARISON: MRI dated 10/13/2013. Nuclear bone scan report from 05/06/2023. CT dated 04/19/2023. TECHNIQUE: Multiplanar, multisequence imaging was obtained. Intravenous contrast: Gadavist 6 mL. FINDINGS: VERTEBRAL BODIES AND PARASPINAL STRUCTURES: There is a moderate leftward curvature of the lumbar spine centered at the L2 level. Significant right lateral endplate edematous changes are visible at the L1-L2 level at the apex of the spinal curvature. There is a mild superior endplate compression fracture with a 40% loss of vertebral body height at the T12 level, slightly increased compared to the prior CT study. Marrow edema is present throughout the vertebral body extending into the pedicles. Mild amount of paraspinal soft tissue edema also evident at this level. Minimal osseous retropulsion noted. No additional compression fractures are seen. Advanced degenerative endplate changes and loss of disc height noted at the L2-L3 level with a slight retrosubluxation and bulky endplate spurring. There is a mild anterolisthesis and moderate disc space narrowing at the L3-L4 level with mild posterior endplate edema. The patient is status post posterior lumbar instrumented fusion at the L4-L5 level where there is a mild anterolisthesis. Severe degenerative endplate changes with mixed chronic and edematous endplate changes noted at the L5-S1 level. There are wtxs-au-qwclbitz degenerative changes in the left sacroiliac joint. CONUS MEDULLARIS AND CAUDA EQUINA: The distal cord, conus tip, and cauda equina nerve roots appear normal. No pathologic intradural enhancement is visible on postcontrast imaging. SPINAL LEVELS: L1-L2: Minimal anterolisthesis and broad-based posterior disc bulge with sibw-ff-umrrevnw facet arthropathy results in mild central canal stenosis. Bulging disc impresses upon the right L2 nerve root in the subarticular zone. Rigp-di-asnexiac foraminal narrowing. Significant endplate edematous changes on the right side. L2-L3: Retrosubluxation and moderate loss of disc height with a diffuse disc bulge and hypertrophic facet arthropathy. No central canal stenosis. Moderate right foraminal narrowing. L3-L4: Mild anterolisthesis and diffuse disc bulge with moderate to severe facet arthropathy results in mild central canal stenosis. Mild left foraminal narrowing evident. L4-L5: Anterolisthesis and post laminectomy changes with hardware instrumentation. No central canal stenosis. Mild left foraminal narrowing. L5-S1: Severe loss of disc height with a retrosubluxation noted. Mixed chronic and edematous endplate changes. Broad-based disc bulge and superimposed central disc protrusion impress upon the ventral thecal sac with mild mass effect upon the S1 nerve roots. Hypertrophic facet arthropathy without central canal stenosis. Moderate to severe foraminal narrowing with compression of the exiting left L5 nerve root due to ossific spurring. IMPRESSION: 1. Subacute mild superior endplate compression fracture deformity at the T12 level with significant marrow edema throughout the vertebral body and mild paraspinal soft tissue edema. Minimal osseous retropulsion. 2. Moderate leftward lumbar spinal curvature with moderate multilevel spondylosis and postsurgical changes at the L4-L5 level, status post posterior lumbar instrumented fusion. 3. Mild central canal stenosis at the L1-L2 level with bulging disc impressing upon the right L2 nerve root. 4. Moderate right foraminal narrowing at the L2-L3 level. Mild central canal stenosis at the L3-L4 level with a mild anterolisthesis and moderate to severe facet arthropathy. 5. Severe degenerative disc disease at the L5-S1 level with mixed chronic and edematous endplate changes. Broad-based central disc protrusion with mild mass effect upon the S1 nerve roots. Moderate to severe foraminal narrowing, more so on the left side with compression of the left L5 nerve root. ADDENDUM As stated in the report, the degree of osseous retropulsion across the superior endplate of T12 is minimal, measuring 2 mm, without cord compression or central canal stenosis. If this is thought to be a pain generator for the patient, recommend follow-up neurosurgical or interventional radiology consultation to guide further management for potential vertebral body augmentation. KAJAL ANDERSON MD Assessment & Plan Assessment & Plan (1) Chronic low back pain: Code(s): M54.50 - Low back pain, unspecified; G89.29 - Other chronic pain Category: Medical (2) Lumbar scoliosis: Code(s): M41.9 - Scoliosis, unspecified Category: Medical (3) Lumbar post-laminectomy syndrome: Code(s): M96.1 - Postlaminectomy syndrome, not elsewhere classified Category: Medical (4) Chronic pain syndrome: Code(s): G89.4 - Chronic pain syndrome Category: Medical (5) Lumbar degenerative disc disease: Code(s): M51.36 - Other intervertebral disc degeneration, lumbar region Category: Medical (6) Chronic, continuous use of opioids: Code(s): F11.90 - Opioid use, unspecified, uncomplicated Category: Medical Plan Patient has shown accountability for her medication regimen and the pill count was accurate. The patient reported no noted side effects and adequate analgesia on current medication regime. There is no evidence of misuse, abuse or diversion at this time. [facility] reviewed. Refill sent for oxycodone 10-325 mg TID prn with advanced date of 09/07/25. Patient has Narcan at home. All questions were answered and patient is in agreement of plan. Follow up in 4- 5 weeks for a pill count and sooner if needed. Medications: Refilled oxycodone-acetaminophen 10-325 mg Partial Fill upon patient request. 1 tab PO TID PRN 90 tabs 0RF pain 30 days G89.4 - Chronic pain syndrome, M51.36 - Other intervertebral disc degeneration, lumbar region, M96.1 - Postlaminectomy syndrome, not elsewhere classified Coding Level of Care Code Est Pt Level 4 (43807) Diagnoses Chronic low back pain M54.50; G89.29 Lumbar scoliosis M41.9 Lumbar post-laminectomy syndrome M96.1 Chronic pain syndrome G89.4 Lumbar degenerative disc disease M51.36 Chronic, continuous use of opioids F11.90
[2025-08-30 11:37] VITALS: BP 124/69; PULSE 72; BMI 19.8
--- OUTSIDE RECORDS SUMMARY | 2025-08-30 15:09 | XMS_ITS | Patient Health Record ---
Author Organization [facility] Address [address] [place] [address] Care Team Providers Care Log Washer Name Role Phone Brannon Rider Primary Care Provider Chong Cornell Unavailable [phone] Allergies No Known Allergies Reason For Referral No Information Medications Medication SIG (Take, Route, Frequency, Duration) Notes Start Date End Date Status Vitamin C Immune Health 500 MG Tablet Chewable 1 tablet Orally Once a day; Duration: 30 day(s) Active Calcium 1200 2594-9632 MG-UNIT Tablet Chewable 1 tablet Orally Once [...] Options Details Miscellaneous: Marital status: 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; 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 ol Problems Problem Type SNOMED Code ICD Code Onset Dates Problem Status W/U Status Risk Notes Problem Screening for malignant neoplasm of colon (250296391) Encounter for screening for malignant neoplasm of colon (Z12.11) Active confirmed Problem Abdominal bloating (136013421) Abdominal bloating (R14.0) Active confirmed Problem Change in bowel habit (40709093) Change in bowel habits (R19.4) Active confirmed Problem Generalized abdominal pain (002423599) Abdominal pain, generalized (R10.84) Active confirmed Problem Chronic constipation (202017482) Chronic constipation (K59.09) Active confirmed Plan Of Treatment Pending Test Test Name Order Date BUN 08/26/2021 CREATININE 08/26/2021 CELIAC PANEL #10 08/26/2021 CT ABD & PELVIS WITH CONTRAST 08/26/2021 Future Test Test Name Order Date COLONOSCOPY 08/26/2021 COLONOSCOPY 02/05/2022 Insurance Providers Payer Name Payer Address Payer Phone Subscriber Number Group Number Insured Name Patient Relationship to Insured Coverage Start Date Coverage End Date [facility] [address] [place] [address] [phone] [id number] MOLLY VILLEGAS Self - patient is the insured Medical (General) History Medical History History ICD Code COPD Herniated cervical disc Restless leg syndrome Migraines Denies [place],DM,CVA,renal disease Negative Cologuard in approx 2018--she h as never had a colonoscopy Chronic constipation Negative laboratories for celiac disease in 2021 Surgical History Surgery Date(Month/Year) Varicose veins 2009 Right inguinal hernia Lower Back surgeries x 3
== END 2025-08-30 11:41 | disposition home or self-care (01) ==
LOC: HO.PMC 11:30
PROVIDERS: PCP Physician Assistant; Visit Provider Nurse Practitioner Family
DX: M54.50 Low back pain, unspecified (principal); G89.29 Other chronic pain; M41.9 Scoliosis, unspecified; M96.1 Postlaminectomy syndrome, not elsewhere classified; G89.4 Chronic pain syndrome; M51.369 Other intervertebral disc degeneration, lumbar region without mention of lumbar back pain or lower extremity pain; F11.90 Opioid use, unspecified, uncomplicated
CPT/HCPCS: 99214

== ENCOUNTER → 2025-08-30 11:29 | Outpatient (BNVA) | payer MEDICARE, SELFPAY | PROVIDERS: PCP Physician Assistant; Visit Provider Nurse Practitioner Family | DX: G89.4 Chronic pain syndrome (principal); M41.9 Scoliosis, unspecified; M96.1 Postlaminectomy syndrome, not elsewhere classified; M51.360 Other intervertebral disc degeneration, lumbar region with discogenic back pain only; F11.90 Opioid use, unspecified, uncomplicated | CPT/HCPCS: 99212 ==

== ENCOUNTER 2025-09-11 16:28 | Outpatient (REF) | payer MEDICARE, SELFPAY ==
--- NOTE | ~2025-09-11 | CT_ITS ---
EXAMINATION: CT LUNG SCREENING FOLLOW UP WITHOUT IV CONTRAST HISTORY: F17.210 - Nicotine dependence, cigarettes, uncomplicated TECHNIQUE: Low dose axial images were obtained from the sternal notch to upper abdomen without IV contrast per standard departmental protocol. Sagittal and coronal reformatted images were also obtained and reviewed. One or more of the following techniques was used for dose reduction: Automated exposure control, adjustment of the mA and/or kV according to patient size, use of iterative reconstruction technique. DLP: 40 mGy-cm COMPARISON: Comparison is made with the prior examination dated 02/13/2025. FINDINGS: Lung nodules: The previously seen 5 mm nodule in the right upper lobe (series 5, image 53) is stable. There are additional scattered 2-3 mm nodules in the right middle lobe (series 5, image 84), in the right lower lobe (series 5, image 117), at the left lung apex (series 5, image 19), and in the left lower lobe (series 5, image 59). No suspicious pulmonary nodules are identified. There is scarring in the right middle lobe. Emphysema: none Coronary Calcification: severe Aortic Arch Calcification: mild Potentially Significant Incidentals : none Additional Chest Findings: There is no pleural or pericardial effusion. No mediastinal or axillary lymphadenopathy is identified. The patient is status post L1 kyphoplasty. Visualized upper abdomen: The visualized portions of the liver, spleen, and adrenals have an unremarkable unenhanced appearance. CT/CT lung screen follow up IMPRESSION: No suspicious pulmonary nodules are identified. LUNG-RADS ASSESSMENT: Lung-RADS 2: Benign MANAGEMENT: Continue annual screening with LDCT in 12 months Category S: N/A Electronically signed by: Chong Stratton MD 09/12/2025 07:27 AM [facility]
--- OUTSIDE RECORDS SUMMARY | 2025-09-11 19:08 | XMS_ITS | Data Portability ---
Author Organization [facility] Address [address] [place] [address] Assessment No assessment recorded. Plan of Treatment Reminders Order Date Submit Date Provider Last Modified By Organization Details Last Modified Time Details Appointments None recorded. Lab rapid flu (A+B) 2022 023 gustavo [email or web address] [facility], [address] [facility], [place], [address], 18:21:59 Referral None recorded. Procedures None recorded. Surgeries None recorded. Imaging None recorded. Medication Orders prednisone [address] [facility][id number], [address] [facility] [place], [address], 3 18:32:03 Augmentin 875 mg-125 [address] tablet [address] [facility][id number], [address] [facility] [place], [address], 3 18:32:03 Patient TargetsNo targets recorded. Patient Instructions Encounter Date Encounter Id Patient Instructions Last Modified By Organization Details Last Modified Time 09/13/2022 [id number] chronic obstructive pulmonary disease (COPD) flare-ups: care [...] Analyte Normal = Negati ve Not Available [facility] [address] [place], [address], 09/13/2022 18:21:34 09/13/19 23 09/13/2022 rapid flu (A+B) Unknown Analyte negati ve Not Available [facility] [place], [address], 09/13/2022 18:21:34 09/13/19 23 09/13/2022 rapid flu (A+B) Unknown Analyte Normal = Negati ve Not Available [facility] [address] [place], [address], 09/13/2022 18:21:34 09/13/19 23 09/13/2022 rapid flu (A+B) Unknown Analyte negati ve Not Available [facility] [place], [address], 09/13/2022 18:21:34 Result Notes None recorded. Problems Name Problem SNOMED Code Status Onset Date Resolution Date Notes Provider Name and Address Organization Details Recorded Time Chronic back pain 003735138 Active 2022 IRIS COUVERTIE R null, [place] - [facility] 3 17:55:32 Restless legs syndrome 67376665 Active 2022 IRIS COUVERTIE R null, [place] - [facility] 3 17:56:01 Insomnia 521789997 Active 2022 IRIS COUVERTIE R null, [place] - [facility] 3 17:56:21 Chronic obstructive pulmonary disease 94289382 Active 2022 IRIS COUVERTIE R null, PA [...] Updated DateTime 3 170.18 cm 20.4 kg/m2 79894.0 1 g 98.1 [degF] 20 /min 82 [...] ICD10 Code Diagnosis IMO Codes Diagnosis Note [id number] [address] [facility] [address] [place] [address] 05/27/2020 18:47:16 05/27/2020 19:58:17 [id number] [address] [facility] [address] [place] [address] 02/07/2022 19:35:00 02/07/2022 20:25:06 [id number] MARK CARTER [address] [place] [address] 09/13/2022 17:34:13 09/13/2022 18:38:31 Acute upper respiratory infection 11406545 J06.9 Acute exac erbation of chronic obstructive pulmonary disease 051564722 J44.1 Health Concerns Section Related Observation LastModified by Organization Detai ls LastModified Time None Recorded Concern Status LastModified by Organization Details LastModified Time None Recorded Advance Directives Directive None Recorded Payers Insurance Date Sequence Insurance Name Policy Number Policy Zambrano Covered Member ID Zambrano Member ID Guarantor Name 09/13/2022 1 CHUYITA (PPO) [id number] [facility] Aline Rivest [id number] Dot Rivest Notes Date Note Type [...] Test. Was around sick family members over [place] which she thinks she caught a cold from. Had difficulty sleeping last night secondary to cough, SOB and wheezing. Improved today but still wheezing. O2 is 97% on RA. MARK GOINS JD [address] [place], [address], [place] - [facility] 09/13/2022 18:34:37 OBGyn Episode No OBEpisode recorded.
--- OUTSIDE RECORDS SUMMARY | 2025-09-11 19:08 | XMS_ITS | Patient Health Record ---
Author Organization 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: Smoker 1/2 ppd; 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 ol Problems Problem Type SNOMED Code ICD Code Onset Dates Problem Status W/U Status Risk Notes Problem Screening for malignant neoplasm of colon (967562056) Encounter for screening for malignant neoplasm of colon (Z12.11) Active confirmed Problem Abdominal bloating (930241703) Abdominal bloating (R14.0) Active confirmed Problem Change in bowel habit (81278722) Change in bowel habits (R19.4) Active confirmed Problem Generalized abdominal pain (339484157) Abdominal pain, generalized (R10.84) Active confirmed Problem Chronic constipation (380251244) Chronic constipation (K59.09) Active confirmed Plan Of [...] Date Coverage End Date [facility] [address] [place] [address] [id number] MOLLY VILLEGAS Self - patient is the insured Medical (General) History Medical History History ICD Code COPD Herniated cervical disc Restless leg syndrome Migraines Denies [place],DM,CVA,renal disease Negative Cologuard in approx 2018--she h as never had a colonoscopy Chronic constipation Negative laboratories for celiac disease in 2021 Surgical History Surgery Date(Month/Year) Varicose veins 2009 Right inguinal hernia Lower Back surgeries x 3
== END 2025-09-11 16:29 ==
LOC: HO.CT 16:28
PROVIDERS: PCP Physician Assistant; Visit Provider Physician Assistant Medical
DX: R91.1 Solitary pulmonary nodule (principal); F17.210 Nicotine dependence, cigarettes, uncomplicated
CPT/HCPCS: 71250

== ENCOUNTER → 2025-09-11 16:29 | Outpatient (BNV) | payer MEDICARE, SELFPAY | PROVIDERS: PCP Physician Assistant; Visit Provider Radiology Diagnostic Radiology | DX: Z12.2 Encounter for screening for malignant neoplasm of respiratory organs (principal); Z87.891 Personal history of nicotine dependence | CPT/HCPCS: 71250 ==